=== PATIENT | female | born 1940 | race Caucasian/White ===

== ENCOUNTER → 2017-12-15 16:43 | Outpatient (CLI) | payer MEDICARE, SELFPAY ==
[2017-12-15 17:24] LABS: International Normalized Ratio 2.5; Prothrombin Time (Protime)PT. 27.5 SECONDS (11.7-14.9)
== END ==
PROVIDERS: Visit Provider Family Medicine
DX: I82.4Z9 Acute embolism and thrombosis of unspecified deep veins of unspecified distal lower extremity (principal)
CPT/HCPCS: 85610

== ENCOUNTER → 2018-11-04 13:25 | Outpatient (CLI) | payer MEDICARE, SELFPAY ==
--- NOTE | 2018-11-04 13:31 | VDLE_ITS ---
Reason For Study: DVT RIGHT LEFT GSV is normal. CFV is compressible, spontaneous, phasic, CFV is compressible, spontaneous, phasic, competent, and demonstrates normal competent and demonstrates normal augmentation. augmentation. FV is compressible, spontaneous, phasic, FV is compressible, spontaneous, phasic, competent and demonstrates normal competent and demonstrates normal augmentation. augmentation. POP V is compressible, spontaneous, phasic, POP V is compressible, spontaneous, phasic, competent and demonstrates normal competent and demonstrates normal augmentation. augmentation. T/P Trunk is compressible. T/P Trunk is compressible. PTV is compressible. PTV is compressible. LT PerV is compressible. RT PerV is compressible. GSV is contracted and non-compressible from Procedure prox thigh to ankle with bright intraluminal Exam performed in department. echoes. The exam was diagnostic. A preliminary report was called and/or faxed to Alejandro Ahumada's office. Interpretation Summary No evidence for acute deep venous thrombosis bilateral lower extremities. Patent and compressible right great saphenous vein. 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 Ordering Physician: Raz Ahumada Performed By: Guicho Fregoso RVT
== END ==
PROVIDERS: Family Provider Family Medicine; PCP Family Medicine; Referring Provider Physician Assistant; Visit Provider Physician Assistant
DX: I82.403 Acute embolism and thrombosis of unspecified deep veins of lower extremity, bilateral (principal); M79.89 Other specified soft tissue disorders
CPT/HCPCS: 93970

== ENCOUNTER 2019-01-24 05:27 | Day surgery (SDC) | payer MEDICARE, SELFPAY ==
--- NOTE | 2019-01-21 16:18 | HP.PCM_ITS ---
History and Physical Date of Admission: 01/24/19 HISTORY AND PHYSICAL ? Dari Zimmerman 1940 ? REFERRING PHYSICIAN: ??Jose Cruz Benavides MD ? CHIEF COMPLAINT: ??Consult (Consult Colonoscopy) ? HPI: The patient is a 78 year old female referred for endoscopy. ?Dari has a personal history of colon cancer which was discovered on endoscopy by Dr. Martin in 2014.???The patient subsequently underwent laparoscopic right hemicolectomy by Dr. Rob in April 2015, which was complicated by dense adhesions. ? Final pathology demonstrated: The tumor's size was ?4x3 cm. Macroscopic tumor perforation was not identified. 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 Histologic features for microsatellite instability - ???Intratumoral lymphocytic response: Mild to moderate ???Peritumoral lymphocytic response: Crohn's like lymphoid response: ?Mild to moderate ???Tumor subtype and differentiation: Not applicable ? MIcroscopic tumor extension: Tumor invades the muscularis propria Lymphovascular invasion: None Perineural invasion: None Surgical margins were free of disease. ? ? Lymph nodes examined: 19 Lymph nodes involved: 0 ? PATHOLOGIC STAGE: ?pT 2, pN 0, M 0 ? The patient did well following surgery, though notes she has had looser bowel movements ever since her colon resection and takes imodium often.?Patient denies any?recent?change in bowel habits, weight changes, blood in stools, black tarry stools or abdominal pain. ?The patient notes no upper GI complaints. ? The patient was referred to gastroenterology in 2015 for endoscopic surveillance due to her personal history of colon cancer. ?Patient had a colonoscopy by Dr. Thomas in July 2016 under [facility] and had three sessile serrated polyps removed at that time. ?She was advised to have a repeat colonoscopy in 2 years. ? Patient verbalizes that she is not at all happy to be here to discuss a colonoscopy today. ?States had a horrible experience last time and is just not sure she wants to have this done again. ?She verbalized multiple complaints including difficulty having her IV started, trouble tolerating Golytely and states I'm never drinking that again, was also very unhappy that she had procedure done by a provider she was unfamiliar with. ?States she is here because colonoscopy has been recommended to her by multiple providers but she is undecided as to whether she wants to proceed. ? Patient's past medical history is significant for colon cancer and polyps as noted above, malignant melanoma of the left upper extremity, type 2 diabetes mellitus controlled with medication, hypertension, hyperlipidemia, chronic kidney disease, history of DVT, maintained on chronic oral anticoagulation. ?Patient follows with Dr. Benavides and Alejandro Ahumada PA-C for her chronic medical conditions. ?She denies chest pain, shortness of breath or recent hospitalizations. ? ? PAST?MEDICAL?HISTORY PAST MEDICAL HISTORY Diagnosis Date ? Diabetes type 2, controlled (HCC) ? ? DVT (deep venous thrombosis) (HCC) 10/2012 ? left posterior tibial - multiple duplex 2013 - negative for DVT - on coumadin ? HTN (hypertension) ? ? Hypertension ? ? Hypothyroid ? ? CADE (iron deficiency anemia) ? ? Neuropathy (HCC) ? ? Obesity ? ? Osteoarthritis ? ? HIRA (stress urinary incontinence, female) 09/11/2017 ? ? PAST?SURGICAL?HISTORY PAST SURGICAL HISTORY Procedure Laterality Date ? APPENDECTOMY ? ? ? CARDIAC CATH ? 06/2010 ? prior to first knee replacement - negative? ? CHOLECYSTECTOMY ? 1989? ? open ? COLONOSCOP W/ OR W/O [facility] SPEC ? 03/06/2015 ? Colonoscopy ? COLONOSCOP W/ OR W/O [facility] SPEC ? 07/31/2016 ? Colonoscopy ? LAP COLECTOMY, RIGHT MAGDA W/ICA ? 04/25/2016 ? PAST SURGICAL HISTORY OF Bilateral 11/2013, 07/2010 ? Dr. Hampton, bilateral total knee replacement ? PAST SURGICAL HISTORY OF Left ? ? vein stripping ? ? CURRENT?MEDICATIONS ? Current Outpatient Medications: pioglitazone (ACTOS) 15 mg tablet Take 1 tablet by mouth once daily. warfarin (COUMADIN) 5 mg tablet 5 mg on Sat Sun and 7.5 all other days. glimepiride (AMARYL) 4 mg tablet Take 1 tablet by mouth daily with breakfast. gabapentin (NEURONTIN) 300 mg capsule Take 2 capsules by mouth once daily for 49 days. hydroCHLOROthiazide (HYDRODIURIL, ESIDRIX) 25 mg tablet Take 1 tablet by mouth once daily. levothyroxine (SYNTHROID) 75 mcg tablet Take 1 tablet by mouth once daily. lisinopril (ZESTRIL, PRINIVIL) 40 mg tablet Take 1 tablet by mouth twice daily. metoprolol succinate ER (TOPROL XL) 100 mg Tb24 Take 1 tablet by mouth once daily. metFORMIN ER (GLUCOPHAGE XR) 500 mg 24 hr tablet Take 2 tablets by mouth twice daily before meals. blood sugar diagnostic (BLOOD GLUCOSE TEST) test strip Test blood sugar(s) 1 times daily. ?Dx: Type 2 DM - Controlled E11.9 ?Insulin: No Blood-Glucose Meter monitoring kit Glucose Meter of Choice - Kit - Dx: ?Type 2 DM - Controlled E11.9Checks blood sugar once daily Blood Sugar Diagnostic, Disc (ASCENSIA BREEZE 2) strp Test blood sugar once a day DX: DM2: E11.9 COMPOUNDED PRESCRIPTION Support hose/socks; knee high. Compression 20-30 mm Hg. loperamide (IMODIUM) 2 mg cap(s) Take 1 capsule by mouth four times daily as needed. cholecalciferol (VITAMIN D3) 2,000 unit tablet Take 1 tablet by mouth once daily. ? No current facility-administered medications for this visit. Facility-Administered Medications Ordered in Other Visits: iv contrast (radiology procedure) ? INTRAVENOUS DIRECTED PRN ? ALLERGIES:?Patient has no known allergies. ? PERSONAL HISTORY:? SOCIAL?HISTORY Social History ??Socioeconomic History ?Marital status: ?Spouse name: Not on file ?Number of children: Not on file ?Years of education: Not on file ?Highest education level: Not on file ??Social Needs ?Financial resource strain: Not on file ?Food insecurity - worry: Not on file ?Food insecurity - inability: Not on file ?Transportation needs - medical: Not on file ?Transportation needs - non-medical: Not on file ??Occupational History ?Occupation: retired ??Tobacco Use ?Smoking status: Former Smoker ?Packs/day: 1.50 ?Years: 12.00 ?Pack years: 18 ?Types: Cigarettes ?Quit date: 12/26/1987 ?Years since quittin.0 ?Smokeless tobacco: Never Used ??Substance and Sexual Activity ?Alcohol use: No ?Drug use: No ?Sexual activity: Not on file ??Other Topics ?Concerns: ?Not on file ??Social History Narrative ?4 sons, 2local ?was homemaker ? FAMILY HISTORY:? FAMILY?HISTORY FAMILY HISTORY Problem Relation Age of Onset ? Cancer Sister ?breast ? other (dementia) Sister ? ? other (crohn's) Son ? ? Cancer Father ?Throat Cancer ? Heart Mother ?ID ? REVIEW OF SYMPTOMS: ??The review of systems data was entered by the nurse and reviewed by me ? Nursing Notes: Pawel Hair LPN ?12/29/2018 10:04 AM ?Signed REVIEW OF SYSTEMS: ?General:???The patient denies fatigue, denies weight loss, denies weight gain, denies feeling hot, and denies feelings of cold. ?Eyes: ?The patient denies glaucoma, denies eye injury/surgery, wears glasses or contacts. ?Ear/Nose/Throat: ?The patient denies allergies, denies hayfever, denies ear infections, and denies bloody noses. ?Cardiovascular: ?The patient denies chest pain, denies heart disease, NOTES high blood pressure,denies cardiac stent, denies prior heart attack, denies irregular heart beat, denies high cholesterol, ?denies poor circulation, denies heart failure, other cardiac issues, denies claudication, denies cold feet, denies peripheral arterial stent. ?Respiratory: ?The patient denies tuberculosis, denies pneumonia, denies frequent cough, denies pulmonary embolism, denies shortness of breath, and denies coughing up blood. ?Gastrointestinal: ?The patient denies difficulty swallowing, denies acid reflux, denies ulcers, denies vomiting, denies jaundice/hepatitis, NOTES gallbladder problems, denies black or tarry stools, denies hemorrhoids, denies b leeding from rectum, denies diverticulitis, denies constipation, denies diarrhea, denies loss of stool control, and denies hernias. ?Kidney/Bladder: ?The patient denies kidney stones, denies urine infections, and denies bloody urine. ?Skin: ?The patient denies a history of skin cancer, denies bleeding/changing moles, and NOTES a history of skin rash. ?Neurologic: ?The patient denies a history of epilepsy/convulsions, denies headaches, denies head/spinal injuries, and denies stroke/TIA. ?Psychiatric: ?The patient denies psychiatric medications, denies depression, and denies voices, denies substance abuse. ?Endocrine: ?The patient NOTES thyroid disorders, NOTES diabetes, and denies hormonal problems. ?Hematologic: ?The patient denies a history of bruising, denies bleeding, and NOTES anemia, NOTES blood clots. ?Infections: ?The patient denies a history of measles and mumps, denies rheumatic fever, and denies sexually transmitted diseases. ?Musculoskeletal: ?The patient denies back pain/injury, denies back problems, NOTES sciatica, NOTES knee/foot trouble, NOTES arthritis, or denies gout. ? ? When was patient's last Mammogram screening? 04/22 ? ?Last Colonoscopy: ?07/22 ? Pawel Hair LPN? I have confirmed and edited as necessary, the PFSH and ROS obtained by others. ? ? PHYSICAL EXAMINATION: ? General: ?The patient is 78 year old female, well nourished, well hydrated in no acute distress. ?The patient is oriented to time, place, and person. ? VITALS:?Blood pressure 136/78, pulse 89, temperature 36.6 ?C (97.9 ?F), temperature source Temporal Artery, height 172.7 cm (5' 8), weight 115.3 kg (254 lb 3.2 oz), SpO2 98 %.?Body mass index is 38.65 kg/m?.? ? HEENT: ?Normal cephalic, ataumatic, pupils are equally round, sclera are anicteric, mucous membranes are moist, oropharynx is clear. ?Neck has no masses, asymmetry or lymphadenopathy. ? ? Respiratory: ?Clear to auscultation and percussion. ?Normal respiratory excursion and pattern. ? Cardiac: ?Examination is regular rate and rhythm. ?Normal S1/S2 ? Abdominal exam: ?Soft, nontender, ?with no palpable masses. ?No hepatosplenomegaly. ?No palpable hernias. ? Extremities: ?no clubbing, cyanosis or edema. ?No adenopathy. ? LABORATORY VALUES: As Noted ? RADIOLOGIC STUDIES: ?As Noted ? ? Assessment ? IMPRESSION:?encounter for high-risk surveillance colonoscopy due to personal history of colon cancer and colonic polyps ? PLAN: ?I have reviewed my findings with the surgeon. ?Will plan for lower?endoscopy. ??We discussed the risks and benefits of the planned endoscopy. ?I have informed the patient that complications can occur including failure to complete the endoscopy and perforation. ?The patient had the opportunity to ask questions concerning the planned endoscopy. ?My staff has also explained the procedure to the patient in understandable terms and has given the patient printed material concerning the procedure. ? ? I plan to use?Miralax?bowel preparation with 2 days of clear liquid diet. ?Reviewed importance of good hydration ? Patient instructed to contact PCP for instructions regarding diabetic medication, which may require adjustment during bowel preparation and/or day of procedure. ?She may remain on all other routine medications as usual, including her anticoagulation. ? Patient notes that she is always a difficult stick for IVs and that this was part of her prior poor colonoscopy experience. ?Offered to write for EMLA cream to use on hand topically prior to coming in to have IV started. ?Patient will consider this ? ? We will plan for [facility]. ? Patient verbalized understanding of all above information and recommendations and has tentatively scheduled a colonoscopy with Dr. Rob ? Diagnoses:?(Z85.038) Personal history of colon cancer ?(primary encounter diagnosis) (Z86.010) Personal history of colonic polyps (Z85.820) Personal history of malignant melanoma (Z79.01) Chronic anticoagulation (E11.65) Uncontrolled type 2 diabetes mellitus without complication, without long-term current use of insulin (HCC) (Z86.718) History of DVT (deep vein thrombosis) ? ? Corinne Wynne PA-C
[2019-01-24 05:55] VITALS: BP 148/73; PULSE 68; RESP 18; TEMP 36.1; O2SAT 100; BMI 37.3
[2019-01-24 07:30] VITALS: BP 136/70; BP 148/73; PULSE 69; RESP 16; TEMP 36.4; O2SAT 98
[2019-01-24 07:35] VITALS: BP 131/75; BP 148/73; PULSE 67; RESP 16; O2SAT 100
[2019-01-24 07:40] VITALS: BP 133/73; BP 148/73; PULSE 67; RESP 16; O2SAT 100
--- NOTE | 2019-01-24 07:41 | OP.ENDO_ITS ---
01/24/2019 Jose Cruz Benavides Re : Colonoscopy procedure for Dari Zimmerman [place] This procedure was performed on Thursday, January 24, 2019. My impressions and recommendations are as follows: Impressions : - Patent functional end-to-end ileo-colonic anastomosis, characterized by healthy appearing mucosa. - Diverticulosis in the left colon. - The examination was otherwise normal. - The distal rectum and anal verge are normal on retroflexion view. - No specimens collected. Recommendations : - Discharge patient to home. - Resume previous diet. - Continue present medications. - Repeat colonoscopy in 5 years for surveillance. My findings are described in the full procedure note, which is enclosed. If I can be of further assistance, please feel free to contact me at Doctor phone number(s): , Work: . Sincerely, Isaac Rob MD 01/24/2019 7:40:53 AM This report has been signed electronically.
[2019-01-24 07:45] VITALS: BP 130/75; BP 148/73; PULSE 72; RESP 16; TEMP 36.3; O2SAT 100
[2019-01-24 08:35] VITALS: BP 148/73
== END 2019-01-24 08:51 | disposition home or self-care (01) ==
LOC: EN 05:28 → AC 05:29
PROVIDERS: Family Provider Family Medicine; PCP Family Medicine; Referring Provider Family Medicine; Visit Provider Surgery
PROC: 0DJD8ZZ Inspection of Lower Intestinal Tract, Via Natural or Artificial Opening Endoscopic (ICD-10-PCS; CPT 45378; principal; 2019-01-24 06:25)
DX: Z12.11 Encounter for screening for malignant neoplasm of colon (principal); Z85.038 Personal history of other malignant neoplasm of large intestine; Z86.010 Personal history of colon polyps; K57.30 Diverticulosis of large intestine without perforation or abscess without bleeding; Z98.0 Intestinal bypass and anastomosis status; Z85.820 Personal history of malignant melanoma of skin; E11.65 Type 2 diabetes mellitus with hyperglycemia; I12.9 Hypertensive chronic kidney disease with stage 1 through stage 4 chronic kidney disease, or unspecified chronic kidney disease; E11.22 Type 2 diabetes mellitus with diabetic chronic kidney disease; N18.9 Chronic kidney disease, unspecified; E11.40 Type 2 diabetes mellitus with diabetic neuropathy, unspecified; E78.00 Pure hypercholesterolemia, unspecified; E03.9 Hypothyroidism, unspecified; D50.9 Iron deficiency anemia, unspecified; E66.9 Obesity, unspecified; Z68.37 Body mass index [BMI] 37.0-37.9, adult; Z90.49 Acquired absence of other specified parts of digestive tract; Z86.718 Personal history of other venous thrombosis and embolism; Z79.01 Long term (current) use of anticoagulants; Z79.84 Long term (current) use of oral hypoglycemic drugs; Z79.899 Other long term (current) drug therapy; Z87.891 Personal history of nicotine dependence; Z86.73 Personal history of transient ischemic attack (TIA), and cerebral infarction without residual deficits
CPT/HCPCS: G0105; J7120

== ENCOUNTER → 2019-08-01 | Outpatient (CLI) | payer MEDICARE, SELFPAY ==
[2019-08-01 16:13] LABS: Prothrombin Time (Protime)PT. 37.3 SECONDS (11.7-14.9)
[2019-08-01 16:17] LABS: International Normalized Ratio 3.7
== END | disposition home or self-care (01) ==
PROVIDERS: PCP Family Medicine; Visit Provider Family Medicine
DX: I82.403 Acute embolism and thrombosis of unspecified deep veins of lower extremity, bilateral (principal)
CPT/HCPCS: 85610

== ENCOUNTER 2020-02-17 15:52 | Emergency (ER) | payer MEDICARE, SELFPAY ==
[2020-02-17 14:32] VITALS: BMI 37.3
[2020-02-17 15:54] VITALS: BP 125/67; PULSE 79; RESP 17; TEMP 36.6; O2SAT 96; BMI 36.8
--- NOTE | 2020-02-17 16:19 | CT_ITS ---
STUDY: CT BRAIN WITHOUT CONTRAST REASON FOR EXAM: Female, 80 years old. CONFUSION/WEAKNESS/FATIGUE/BILAT ANKLE EDEMA -- hHX:HTN,DIABETES,COLON CANCER,TIA,HYPOTHYROID RADIATION DOSAGE (If Supplied By Facility): CTDIvol = ( 44.99 ) mGy, DLP = ( 812.98 ) mGycm TECHNIQUE: Transaxial CT imaging of the brain was performed without administration of intravenous contrast material. Individualized dose optimization techniques were used for this CT. COMPARISON: 07/02/2017 FINDINGS: Normal soft tissue structures. Normal calvarium. Normal size ventricles and extra-axial spaces for the patient''s age. Bilateral white matter microangiopathic ischemic changes of the cerebral hemispheres. Normal basal ganglia and thalami. Normal brainstem. Normal cerebellum. There is no intracranial hemorrhage. There are no findings of an acute ischemic infarction. Normal visualized paranasal sinuses. CT/Brain/Head without Contrast IMPRESSION: Relatively stable age-related changes of the brain. Electronically Signed: Hiram Ross DO at 18:18 EDT Tel [phone], Service support ,
--- NOTE | 2020-02-17 16:19 | EKG12_ITS ---
Test Reason : WEAKNESS Blood Pressure : / mmHG Vent. Rate : 071 BPM Atrial Rate : 071 BPM P-R Int : 156 ms QRS Dur : 094 ms QT Int : 402 ms P-R-T Axes : 041 -47 008 degrees QTc Int : 436 ms Normal sinus rhythm Left anterior fascicular block Nonspecific ST abnormality Abnormal ECG Confirmed by RASHEL WHITLEY, TINA ([id number]), on site manager JAIDEN POLK ([id number]) on 02/20/2020 2:35:10 PM Referred By: BB Confirmed By:TINA KISER MD
--- NOTE | 2020-02-17 16:21 | ED.DCSUM_ITS ---
History of Present Illness Chief Complaint: Weakness Informant: Patient, Friend Onset: Weeks - 1-2 Context: Gradual Onset Timing: Continuous Quality: no energy Location: all over Current Severity: Severe Maximum Severity: Severe Worsened by: nothing Relieved by: nothing Associated Symptoms: edema both lower ext's. poor appetite. chronic diarrhea. Narrative: Patient has been generally weak. She lives alone, she states today she is able to stand, but not able to walk and get around well. She went to urgent care today, and was referred here to the ER. She is on warfarin for history of DVTs, she has had no bleeding or melena recently. She has chronic diarrhea since she had her colon resected because of colon cancer, that is unchanged. She has had no abdominal pain, nausea, vomiting recently. Significant decreased appetite and oral intake. She denies any thoracic symptoms, headaches, focal neurologic symptoms, just weak all over. She is on thyroid replacement medication and is compliant with her medications, the dose of these has not been changed lately. Patient presents during the national coronavirus emergency declaration/pandemic. She denies any known contact with anyone infected with COVID-19. She denies traveling out of the immediate area recently. - Past Medical History (1) Chronic anticoagulation Status: Chronic (2) Deep vein thrombosis Status: Chronic (3) Diabetes mellitus type 2 in obese Status: Chronic (4) History of TIA (transient ischemic attack) Status: Chronic (5) History of colon cancer Status: Chronic (6) Hypertension Status: Chronic (7) Hypothyroidism Status: Chronic (8) Mild diastolic dysfunction Status: Chronic (9) Peripheral neuropathy Status: Chronic (10) Venous insufficiency Status: Chronic Past Medical History - Allergies and Home Meds Allergies/Adverse Reactions: Allergies No Known Allergies Allergy (Verified 02/17/20 15:53) Primary Care Physician: Jose Cruz Benavides MD [Primary Care Provider] - Surgical History: cataract, cholecystectomy, total knee arthroplasty - Bilaterally, tonsillectomy, - - Partial colectomy for colon cancer Lives: Alone Smoking Status: Former smoker - Family History Maternal Family History: Reports: Heart Disease Paternal Family History: Reports: Cancer Review of Systems General: Reports: Malaise. Denies: Chills, Fever, Sweats Eyes: Denies: Visual changes - bilaterally, Diplopia ENT: Denies: Rhinorrhea, Sore throat Cardiovascular: Denies: Chest pain, Palpitations Respiratory: Denies: Dyspnea, Cough, Dyspnea on exertion Gastrointestinal: Reports: Diarrhea. Denies: Abdominal pain, Nausea, Vomiting, Melena, Hematochezia Genitourinary: Denies: Dysuria, Hematuria, Frequency Musculoskeletal: Reports: Swelling. Denies: Neck pain, Back pain, Extremity Pain Skin: Denies: Rash, Wounds Neurological: Reports: - - According to friend several days ago, had some episodes of slow responsiveness although she did not lose consciousness.. Denies: Headache, Weakness, Numbness Physical Exam Vital Signs/Narrative: Vital Signs Temp Pulse Resp BP Pulse Ox 02/17/20 15:54 97.9 F 79 17 125/67 H 96 Inital Vital Signs reviewed: Yes General: Well nourished, Well developed, Obese, No Acute Distress Head: Normocephalic, Atraumatic Eyes: Perrl, EOMI ENT: Moist mucous membranes, No rhinorrhea Neck: Supple, Nontender, No lymphadenopathy, No JVD Cardiovascular: Regular rate, Regular rhythm, No murmurs Respiratory: No distress, CTA bilaterally, Chest nontender Abdomen: Soft, Nontender, Nondistended, Normal bowel sounds Back: Nontender, Normal Inspection Extremities: Nontender, Edema - 2+ BLE symmetric to knees. Negative for: Calf Tenderness Skin: Normal color, No rash, No Trauma Neurological: Alert, Oriented x3, Cranial nerves II-XII grossly intact, Normal Strength, Normal Sensation Psychological: Normal affect, Normal Mood Diagnostic/Tx/Re-eval Impressions Brain CT 02/17/20 16:19 IMPRESSION: Relatively stable age-related changes of the brain. Electronically Signed: Hiram Ross DO at 18:18 EDT Tel [phone], Service support , Chest X-Ray 02/17/20 18:00 IMPRESSION: Normal x-ray examination of the chest. Electronically Signed: Hiram Ross DO at 18:50 EDT Tel [phone], Service support , 02/17/20 16:19 Brain/Head without Contrast [CT] Stat 02/17/20 18:00 Chest 1 View (Portable) [RAD] Stat Laboratory Results 02/17/20 02/17/20 02/17/20 16:45 17:45 17:45 WBC Cancelled Corrected WBC Cancelled RBC Cancelled Hgb Cancelled Hct Cancelled MCV Cancelled MCH Cancelled MCHC Cancelled RDW Std Deviation Cancelled RDW Coeff of Shania Cancelled Plt Count Cancelled MPV Cancelled Immature Gran % (Auto) Cancelled Neut % (Auto) Cancelled Lymph % (Auto) Cancelled [place] % (Auto) Cancelled Eos % (Auto) Cancelled Baso % (Auto) Cancelled Absolute Neuts (auto) Cancelled Absolute Lymphs (auto) Cancelled Total Counted Cancelled Neutrophils % (Manual) Cancelled Band Neutrophils % Cancelled Lymphocytes % (Manual) Cancelled Monocytes % (Manual) Cancelled Eosinophils % (Manual) Cancelled Basophils % (Manual) Cancelled Metamyelocytes % Cancelled Myelocytes % Cancelled Promyelocytes % Cancelled Blast Cells % Cancelled Plasma Cell % (Manual) Cancelled Other Cells % Cancelled Nucleated RBC % Cancelled Nucleated RBCs/100 WBC Cancelled Differential Comment Cancelled Diff Path Review Cancelled Hypersegmented Neuts Cancelled Atypical Lymphocytes Cancelled Reactive Lymphocytes Cancelled Smudge Cells Cancelled Toxic Granulation Cancelled Toxic Vacuolation Cancelled Dohle Bodies Cancelled Niharika Rods Cancelled Platelet Estimate Cancelled Plt Morphology Comment Cancelled RBC Morphology Cancelled Polychromasia Cancelled Hypochromasia Cancelled Poikilocytosis Cancelled Basophilic Stippling Cancelled Anisocytosis Cancelled Microcytosis Cancelled Macrocytosis Cancelled Spherocytes Cancelled Sickle Cells Cancelled Target Cells Cancelled Tear Drop Cells Cancelled Ovalocytes Cancelled Stomatocytes Cancelled [place] Bodies Cancelled Levan Cells Cancelled Bite Cells Cancelled Crenated Cell Cancelled Acanthocytes (Spur) Cancelled Rouleaux Cancelled Schistocytes Cancelled PT 38.4 H INR 3.9 H* Sodium Potassium Chloride Carbon Dioxide Anion Gap BUN Creatinine Estim Creat Clear Calc Est GFR (MDRD) Af Amer Est GFR (MDRD) Non-Af BUN/Creatinine Ratio Glucose Calcium Total Bilirubin AST ALT Alkaline Phosphatase Troponin I B-Natriuretic Peptide Total Protein Albumin Globulin Albumin/Globulin Ratio TSH Urine Color Urine Clarity Urine pH Ur Specific [place] Urine Protein Urine Glucose (UA) Urine Ketones Urine Occult Blood Urine Nitrite Urine Bilirubin Urine Urobilinogen Ur Leukocyte Esterase Urine RBC Urine WBC Ur Squamous Epith Cells Urine Bacteria Urine Mucus COVID-19 (NICHOLAS) Negative 02/17/20 02/17/20 02/17/20 17:45 17:45 18:57 WBC 10.4 Corrected WBC RBC 3.28 L Hgb 10.4 L Hct 31.0 L MCV 94.5 MCH 31.7 MCHC 33.5 RDW Std Deviation 44.9 H RDW Coeff of Shania 12.8 Plt Count 333 MPV 10.7 Immature Gran % (Auto) 0.700 Neut % (Auto) 71.8 H Lymph % (Auto) 16.2 L [place] % (Auto) 10.7 H Eos % (Auto) 0.3 Baso % (Auto) 0.3 Absolute Neuts (auto) 7.5 Absolute Lymphs (auto) 1.69 Total Counted Neutrophils % (Manual) Band Neutrophils % Lymphocytes % (Manual) Monocytes % (Manual) Eosinophils % (Manual) Basophils % (Manual) Metamyelocytes % Myelocytes % Promyelocytes % Blast Cells % Plasma Cell % (Manual) Other Cells % Nucleated RBC % 0 Nucleated RBCs/100 WBC Differential Comment Diff Path Review Hypersegmented Neuts Atypical Lymphocytes Reactive Lymphocytes Smudge Cells Toxic Granulation Toxic Vacuolation Dohle Bodies Niharika Rods Platelet Estimate Plt Morphology Comment RBC Morphology Polychromasia Hypochromasia Poikilocytosis Basophilic Stippling Anisocytosis Microcytosis Macrocytosis Spherocytes Sickle Cells Target Cells Tear Drop Cells Ovalocytes Stomatocytes [place] Bodies Sunday Cells Bite Cells Crenated Cell Acanthocytes (Spur) Rouleaux Schistocytes PT INR Sodium 128 L Potassium 3.8 Chloride 97 L Carbon Dioxide 23.0 Anion Gap 8 BUN 17 Creatinine 1.26 H Estim Creat Clear Calc 34.73 Est GFR (MDRD) Af Amer 52 L Est GFR (MDRD) Non-Af 43 L BUN/Creatinine Ratio 13.5 Glucose 145 H Calcium 8.9 Total Bilirubin 0.50 AST 19 ALT 14 Alkaline Phosphatase 84 Troponin I < 0.015 B-Natriuretic Peptide Cancelled Total Protein 7.9 Albumin 2.8 L Globulin 5.1 H Albumin/Globulin Ratio 0.5 L TSH 1.37 Urine Color Urine Clarity Urine pH Ur Specific [place] Urine Protein Urine Glucose (UA) Urine Ketones Urine Occult Blood Urine Nitrite Urine Bilirubin Urine Urobilinogen Ur Leukocyte Esterase Urine RBC Urine WBC Ur Squamous Epith Cells Urine Bacteria Urine Mucus COVID-19 (NICHOLAS) 02/17/20 02/17/20 18:57 19:45 WBC Corrected WBC RBC Hgb Hct MCV MCH MCHC RDW Std Deviation RDW Coeff of Shania Plt Count MPV Immature Gran % (Auto) Neut % (Auto) Lymph % (Auto) [place] % (Auto) Eos % (Auto) Baso % (Auto) Absolute Neuts (auto) Absolute Lymphs (auto) Total Counted Neutrophils % (Manual) Band Neutrophils % Lymphocytes % (Manual) Monocytes % (Manual) Eosinophils % (Manual) Basophils % (Manual) Metamyelocytes % Myelocytes % Promyelocytes % Blast Cells % Plasma Cell % (Manual) Other Cells % Nucleated RBC % Nucleated RBCs/100 WBC Differential Comment Diff Path Review Hypersegmented Neuts Atypical Lymphocytes Reactive Lymphocytes Smudge Cells Toxic Granulation Toxic Vacuolation Dohle Bodies Niharika Rods Platelet Estimate Plt Morphology Comment RBC Morphology Polychromasia Hypochromasia Poikilocytosis Basophilic Stippling Anisocytosis Microcytosis Macrocytosis Spherocytes Sickle Cells Target Cells Tear Drop Cells Ovalocytes Stomatocytes [place] Bodies Levan Cells Bite Cells Crenated Cell Acanthocytes (Spur) Rouleaux Schistocytes PT INR Sodium Potassium Chloride Carbon Dioxide Anion Gap BUN Creatinine Estim Creat Clear Calc Est GFR (MDRD) Af Amer Est GFR (MDRD) Non-Af BUN/Creatinine Ratio Glucose Calcium Total Bilirubin AST ALT Alkaline Phosphatase Troponin I B-Natriuretic Peptide 72.0 Total Protein Albumin Globulin Albumin/Globulin Ratio TSH Urine Color Yellow Urine Clarity Clear Urine pH 5.0 Ur Specific [place] 1.015 Urine Protein 100 H Urine Glucose (UA) Normal Urine Ketones 5 H Urine Occult Blood 25 H Urine Nitrite Negative Urine Bilirubin Negative Urine Urobilinogen Normal Ur Leukocyte Esterase 100 H Urine RBC 0 SEEN Urine WBC 5-10 SEEN Ur Squamous Epith Cells 5-10 SEEN Urine Bacteria 0 SEEN Urine Mucus 0 SEEN COVID-19 (NICHOLAS) - Rhythm Strip Rhythm Strip: Sinus Rhythm Rate: 70 Ectopy: None - EKG Initial EKG Interpretation: Sinus Rhythm, No Acute Injury Pattern, LAFB Prior: Unchanged - Medical Decision Making There was some delay because the patient's blood need to be redrawn several times, however the work-up really does not show the obvious reason for her feeling weak. She has a lot of edema in her legs, this may be why she is feeling this way because her legs are heavy. She states my doctor did not want to put me on a water pill because of my kidneys. Her function is not awful right now, she has very mild hyponatremia but not enough to be admitted. I offered admission for 23-hour observation, she declines and wants to go home. I think it would be reasonable to put her on 20 mg of Lasix every morning for the next several days, so I gave her prescription for 4 pills. She is amenable to this, and we discussed reasons to return. Her urine showed trace leukocyte esterase, no significant pyuria, I sent this for culture but I do not think it represents a urinary infection. ED Disposition - Plan for ED Patient: Disposition: Home or Assisted Living Diagnosis: Generalized weakness, Bilateral lower extremity edema, Supratherapeutic international normalized ratio (INR) Instructions: ED Peripheral Edema, Bilateral Prescriptions: Furosemide [Lasix] 20 mg PO DAILY #4 tab Prescription Printed Referrals: Jose Cruz Benavides MD [Primary Care Provider] - 3-5 Days Additional Instructions: Hold your Coumadin dose for the next 2 days since your level is 3.9.
--- NOTE | 2020-02-17 18:00 | RAD_ITS ---
STUDY: X-RAY CHEST REASON FOR EXAM: Female, 80 years old. INCREASED WEAKNESS, FATIGUE, AND B/L LEG EDEMA TECHNIQUE: Frontal view COMPARISON: 07/02/2017 FINDINGS: The lungs are clear and expanded. There is no demonstrated pleural abnormality. Normal size heart. Normal mediastinum and virgen. Normal visualized pulmonary arteries. Normal visualized aortic arch and descending thoracic aorta. Degenerative changes of the thoracic spine. Normal visualized ribs, clavicles, and shoulders. There is no demonstrated abnormality of the visualized soft tissue structures of the upper abdomen. RAD/Chest 1 View (Portable) IMPRESSION: Normal x-ray examination of the chest. Electronically Signed: Hiram Ross DO at 18:50 EDT Tel [phone], Service support ,
[2020-02-17 18:10] LABS: Prothrombin Time (Protime)PT. 38.4 SECONDS (11.7-14.9)
[2020-02-17 18:14] LABS: International Normalized Ratio 3.9
[2020-02-17 18:16] LABS: Probe Check PASS; Specimen Processing Control PASS
[2020-02-17 18:32] LABS: ALB/GLOB Ratio 0.5 RATIO (0.9-2.4); AST(SGOT) 19 U/L (15-37); Alanine Aminotransfer ALT/SGPT 14 U/L (13-56); Albumin, Serum 2.8 g/dL (3.2-5.0); Alkaline Phosphatase 84 U/L (45-117); Anion Gap 8 (5-15); BUN 17 mg/dL (7-18); BUN/Creat Ratio 13.5 RATIO (10-20); Calcium,Total 8.9 mg/dL (8.5-10.1); Chloride 97 mmol/L (98-107); Creatinine, Serum 1.26 mg/dL (0.55-1.02); EST Glomerular Filtration Rate 43 mL/min (>60); Est Glom Filt Rate - Afr Amer 52 mL/min (>60); Estimated Creatinine Clearance 34.73 ml/min; Globulin 5.1 g/dL (2.2-4.2); Glucose 145 mg/dL (74-106); Potassium 3.8 mmol/L (3.5-5.1); Protein, Total 7.9 g/dL (6.4-8.2); Sodium Level 128 mmol/L (136-145); Thyroid Stim Hormone (TSH) 1.37 uIU/mL (0.358-3.74)
[2020-02-17 19:05] LABS: Absolute Lymphocyte Count 1.69 X10^3/uL (0.83-4.51); Absolute Neutrophil Count 7.5 X10^3/uL (2.0-7.7); Basophil# 0.03 X10^3/uL; Basophil% 0.3 % (0-1); Eosinophil# 0.03 X10^3/uL; Eosinophils% 0.3 % (0-5); Hemoglobin 10.4 g/dL (12.0-15.0); Lymphocyte # 1.69 X10^3/ul (4.0); Lymphocyte % 16.2 % (19-41); Mean Corp Hgb Conc 33.5 g/dL (32-36); Mean Corpuscular Hgb 31.7 pg (27.0-32.0); Mean Corpuscular Volume 94.5 fL (81-99); Mean Platelet Vol. 10.7 fl (6.2-12.0); Monocyte# 1.12 X10^3/uL; Monocyte% 10.7 % (0-10); NRBC Flagged by Analyzer 0 % (0-5); Neutrophil # 7.49 X10^3/uL (2.7-7.7); Neutrophil % 71.8 % (47-70); Platelet Count 333 K/mm3 (150-450); RBC Distribution Width CV 12.8 % (11.6-14.6); RBC Distribution Width SD 44.9 fl (35.1-43.9); Red Blood Count 3.28 M/mm3 (4.2-5.4); White Blood Count 10.4 K/mm3 (4.4-11.0)
[2020-02-17 19:51] LABS: Bacteria 0 SEEN /hpf (None Seen); Color, Urine Yellow (Yellow); Glucose, Dipstick Normal (Normal); Ketone-Dipstick 5 mg/dl (Negative); Leukocyte Esterase-Dipstick 100 /ul (Negative); Mucous, Urine 0 SEEN /hpf (<or=2+); Nitrite-Dipstick Negative (Negative); Occult Blood-Urine 25 /ul (Negative); Protein-Dipstick 100 mg/dl (Negative); Red Blood Cells-Urine 0 SEEN /hpf (0-5); Specific Gravity, Urine 1.015 (1.002-1.030); Urine Bilirubin Dipstick Negative (Negative); Urine Clarity Clear (Clear); Urine Urobilinogen Normal (Normal)
[2020-02-17 19:59] LABS: Squamous Epithelial Cells - UA 5-10 SEEN /hpf (5-10); White Blood Cells 5-10 SEEN /hpf (0-5)
[2020-02-17 20:52] VITALS: BP 110/70; PULSE 86; RESP 15; O2SAT 97
[2020-02-17 22:26] VITALS: PULSE 82; RESP 16; O2SAT 95
== END 2020-02-17 21:50 | disposition home or self-care (01) ==
PROVIDERS: Emergency Provider Emergency Medicine; PCP Family Medicine
DX: R53.1 Weakness (principal); R60.0 Localized edema; R79.1 Abnormal coagulation profile; I10 Essential (primary) hypertension; E66.9 Obesity, unspecified; E03.9 Hypothyroidism, unspecified; Z79.01 Long term (current) use of anticoagulants; Z86.718 Personal history of other venous thrombosis and embolism; Z87.891 Personal history of nicotine dependence; Z86.73 Personal history of transient ischemic attack (TIA), and cerebral infarction without residual deficits
CPT/HCPCS: 36415; 70450; 71045; 80053; 81001; 83880; 84443; 84484; 85025; 85610; 87086; 87088; 87635; 93005; 94799; 99285; A4216; U0003

== ENCOUNTER 2020-08-29 10:13 | Outpatient (RCR) | payer MEDICARE, SELFPAY | END 2020-08-29 23:59 | LOC: IMMUN 10:13 | PROVIDERS: PCP Family Medicine; Referring Provider Family Medicine; Visit Provider Family Medicine | DX: Z23 Encounter for immunization (principal) | CPT/HCPCS: 0011A; 0012A; 91301 ==

== ENCOUNTER → 2020-09-13 12:14 | Outpatient (CLI) | payer MEDICARE, SELFPAY ==
--- NOTE | 2020-09-13 12:19 | US_ITS ---
STUDY: SUPERFICIAL ULTRASOUND - LEFT POSTERIOR KNEE. REASON FOR EXAM: Female, 80 years old. MASS OF LLE/SUSPECT BARRON''S CYST TECHNIQUE: A superficial ultrasound was performed with real-time and static vallejo-scale imaging. COMPARISON: None. FINDINGS: At the level of the region of clinical concern, popliteal fossae there is an elongated, heterogeneous mass measuring 5.2 x 5.5 x 2.7 cm. This contains cystic with fluid filled areas along with solid component. There is scattered color flow. There is suggestion of internal calcifications within the mass. US/Ext Non Vasc Limited/Soft Tiss IMPRESSION: Heterogeneous mass at the level of the popliteal fossa as described raising the concern of a complex cystic/solid lesion. Differential diagnosis includes resolving hematoma, infectious process or neoplasm. Recommend further characterization with MRI of the knee with intravenous contrast. Electronically Signed: Niyah Stanley MD at 0:36 EST , Service support ,
== END ==
PROVIDERS: PCP Family Medicine; Referring Provider Physician Assistant; Visit Provider Physician Assistant
DX: R22.42 Localized swelling, mass and lump, left lower limb (principal)
CPT/HCPCS: 76882

== ENCOUNTER → 2020-09-19 14:55 | Outpatient (CLI) | payer MEDICARE, SELFPAY ==
[2020-09-19 17:54] LABS: Creatinine, Serum 1.16 mg/dL (0.55-1.02); EST Glomerular Filtration Rate 48 mL/min (>60); Est Glom Filt Rate - Afr Amer 57 mL/min (>60)
== END ==
PROVIDERS: PCP Family Medicine; Referring Provider Physician Assistant; Visit Provider Physician Assistant
DX: Z96.652 Presence of left artificial knee joint (principal)
CPT/HCPCS: 36415; 82565

== ENCOUNTER 2020-09-30 15:41 | Emergency (ER) | payer MEDICARE, SELFPAY ==
[2020-09-30 15:42] VITALS: BP 163/106; PULSE 81; RESP 20; TEMP 36.6; O2SAT 95; BMI 36.3
--- NOTE | 2020-09-30 16:02 | ED.DCSUM_ITS ---
- ER Visit Summary Date of Service: 09/30/20 Chief Complaint: Trinidad cyst ruptured History of Present Illness: The patient is a 80 F who had a left knee replacement approximately [address] Benavides is her primary care physician. She reports that she was seen by [facility] after having an ultrasound on September 13 that showed a mass posterior to her left knee. She had an MRI 6 days ago that showed this was a Trinidad's cyst. Patient reports that this morning she sat down on the commode and that the Trinidad's cyst popped. It drained a great deal. She denies any knee pain. She denies any constitutional symptoms. No fever, chills, nausea, vomiting, confusion, or other complaints. Physical Examination: Vitals: Stable. Afebrile. General: Well-nourished and well-developed. Head: Normocephalic atraumatic. Neck: Supple, no lymphadenopathy. No JVD. Nontender. Cardiovascular: Regular rate and rhythm. No murmurs. Respiratory: No respiratory distress. Clear to auscultation bilaterally. Abdominal: Soft, nontender, nondistended, normal bowel sounds. No guarding, rebound, or peritoneal signs. Back: Nontender. Extremities: Posterior left knee there is approximately 2 cm swollen area with a 0.5 mm draining area in the center. There is minimal erythema. She has an ABD in place that is soaked with yellow fluid that is stringy consistent with synovial fluid. Does not appear cloudy or purulent. Anterior knee her incision has healed well. There is no erythema or warmth to suggest a septic joint. She has no pain with range of motion. She has 2+ pitting edema lower extremity bilaterally with chronic venous stasis changes. There is no erythema here either. Skin: Normal color, no rash. Neurologic: Alert and oriented ?3. Cranial nerves II through XII are intact. Normal strength and sensation. Psych: Normal affect. Test Results: INR Emergency Department Course and Treatment: Patient had a dressing placed. She was treated with Keflex and doxycycline p.o. Treatment Plan: Patient was discussed with Dr. Drake who would like her placed on prophylactic Keflex and doxycycline. He will see her in the office tomorrow for another exam. Patient is instructed to hold her Coumadin for 2 days. Her creatinine clearance on September 19 was 48 and her Keflex dose will be decreased to 500 mg 3 times daily based on this. She is also given Zofran for nausea. Return to the emergency department for any worsening symptoms. Disposition: To home in improved and stable condition. Impression: 1. Left Trinidad's cyst rupture. 2. Coumadin coagulopathy. 3. Creatinine clearance of 48. This note was generated with [employer] dictation software. It may contain incorrect words, spelling, and punctuation that were not noted in review of the chart prior to signing ED Disposition - Plan for ED Patient: Instructions: ED Trinidad's Cyst Prescriptions: Doxycycline 100 mg PO BID #20 capsule Prescription Printed Cephalexin [Keflex] 500 mg PO Q8 #21 capsule Prescription Printed Ondansetron [Zofran Odt] 4 mg PO Q8H PRN PRN #10 tablet PRN Reason: Nausea Prescription Printed Referrals: Leobardo Drake MD [STAFF PHYSICIAN] - 1 Day for another exam Additional Instructions: I will call you with the results of your warfarin level as soon as it is back. Hold your warfarin for the next 2 days.
[2020-09-30] MEDS: Doxycycline 100 MG CAPSULE PO (16:11)
[2020-09-30] MEDS: Cephalexin 500 MG Capsule PO (16:11)
[2020-09-30 16:28] VITALS: RESP 16
[2020-09-30 18:02] LABS: International Normalized Ratio 2.9; Prothrombin Time (Protime)PT. 29.4 SECONDS (11.7-14.9)
== END 2020-09-30 17:46 | disposition home or self-care (01) ==
LOC: ED 16:13
PROVIDERS: Emergency Provider Emergency Medicine; PCP Family Medicine
DX: M66.0 Rupture of popliteal cyst (principal); R79.1 Abnormal coagulation profile; T45.515A Adverse effect of anticoagulants, initial encounter; I10 Essential (primary) hypertension; Z96.652 Presence of left artificial knee joint; Z79.01 Long term (current) use of anticoagulants; Z79.84 Long term (current) use of oral hypoglycemic drugs; Z79.899 Other long term (current) drug therapy; Z86.73 Personal history of transient ischemic attack (TIA), and cerebral infarction without residual deficits
CPT/HCPCS: 85610; 99282

== ENCOUNTER 2020-10-03 10:12 | Inpatient (IN) | payer MEDICARE, SELFPAY ==
[2020-10-02 13:47] LABS: Erythrocyte Sedimentation Rate 41 mm/hr (0-30)
[2020-10-02 13:49] LABS: Absolute Lymphocyte Count 2.18 X10^3/uL (0.83-4.51); Basophil# 0.05 X10^3/uL; Basophil% 0.5 % (0-1); Eosinophil# 0.15 X10^3/uL; Eosinophils% 1.5 % (0-5); Hematocrit 35.4 % (37-47); Lymphocyte # 2.18 X10^3/ul (4.0); Lymphocyte % 21.6 % (19-41); Mean Corp Hgb Conc 31.1 g/dL (32-36); Mean Corpuscular Hgb 29.5 pg (27.0-32.0); Mean Corpuscular Volume 94.9 fL (81-99); Mean Platelet Vol. 10.8 fl (6.2-12.0); Monocyte# 0.69 X10^3/uL; Monocyte% 6.8 % (0-10); NRBC Flagged by Analyzer 0 % (0-5); Neutrophil # 6.98 X10^3/uL (2.7-7.7); Neutrophil % 69.1 % (47-70); Platelet Count 413 K/mm3 (150-450); RBC Distribution Width CV 15.3 % (11.6-14.6); RBC Distribution Width SD 53.1 fl (35.1-43.9); Red Blood Count 3.73 M/mm3 (4.2-5.4); White Blood Count 10.1 K/mm3 (4.4-11.0)
[2020-10-02 14:09] LABS: Anion Gap 5 (5-15); BUN 25 mg/dL (7-18); BUN/Creat Ratio 21.6 RATIO (10-20); Calcium,Total 9.4 mg/dL (8.5-10.1); Chloride 98 mmol/L (98-107); Creatinine, Serum 1.16 mg/dL (0.55-1.02); EST Glomerular Filtration Rate 48 mL/min (>60); Est Glom Filt Rate - Afr Amer 57 mL/min (>60); Estimated Creatinine Clearance 37.72 ml/min; Glucose 143 mg/dL (74-106); Potassium 3.7 mmol/L (3.5-5.1); Sodium Level 131 mmol/L (136-145)
[2020-10-02 14:27] LABS: Magnesium 1.5 mg/dL (1.6-2.6)
[2020-10-02 14:33] LABS: Hemoglobin A1c 8.1 % (3.8-5.6)
[2020-10-03] VITALS (11 sets, daily range): BP systolic 124–151; BP diastolic 57–84; PULSE 63–92; RESP 16–18; TEMP 35.8–37.4; O2SAT 94–100; BMI 35.5
[2020-10-03] MEDS: Lactated Ringers 1,000 ML 100 ML IV (12:00)
[2020-10-03 12:25] LABS: International Normalized Ratio 1.7
[2020-10-03] MEDS: Gabapentin 600 MG Tablet PO ×2 (12:53→21:22)
[2020-10-03] MEDS: Acetaminophen 500 MG Tablet 1000 MG PO ×2 (12:54→21:21)
[2020-10-03 13:06] LABS: Bedside Glucose 145 mg/dL (70-110)
[2020-10-03] MEDS: Cefazolin 2 GM in 0.9% Normal Saline 100 ML IV (15:05)
--- NOTE | 2020-10-03 15:31 | PCM.OPRPT ---
Report of Operation Date of Procedure: 10/03/20 Pre-Operative Diagnosis: Left knee periprosthetic joint infection. Left knee draining sinus Post-Operative Diagnosis: Left knee periprosthetic joint infection. Left knee draining sinus. Left knee posterior knee abscess Surgery/Procedure Performed:: Irrigation debridement with sinus tract excision left knee posterior abscess. Irrigation debridement with polyethylene exchange left knee periprosthetic joint infection Description of Surgical Findings:: Patient had posterior knee wound which was debrided. He had grossly purulent and congealed fluid. We did aspirate the knee prior to entering the joint and found to have cloudy fluid with some of the same congealed tissue. caption writer: Tal Austin Type of Anesthesia:: General Anesthesiologist: Toño Treviño Special Medications: Ancef after cultures were taken Specimen's removed: Specimen cultures from the abscess as well as the knee itself were sent for her biology. A joint aspirate was sent for cell count and cultures. Estimated Blood Loss (mL): 50 Fluids Replaced: 1200 ml crystalloid Description of Procedure: 80 yo f history of l TKA in 2013 presents with a draining sinus for the last 72 hours. Patient was evaluated in the emergency department for this 3 days ago and sent to my office the following day. We promptly arrange for surgery. Her initial INR was supratherapeutic at 2.9. Her Coumadin was stopped and she was brought to the operating room 2 days later. Her draining sinus developed in the posterior knee. Reviewed options were discussed the patient. Based on acuity of the symptoms and organism irrigation debridement with polyethylene exchange is recommended. Risks and benefits of the procedure were discussed with the patient including but not limited to blood loss, DVTs, PEs, neurovascular damage, infection, general risk of anesthesia including loss of life. Demonstrated understanding and was able to sign informed consent. On the date of procedure patient's L lower extremity was marked in the preoperative area. The patient was then taken back to the operating room where the patient was placed on the table in the supine position. All bony prominences were identified a well-padded. Anesthesia assumed control of the C-spine and airway and remained controlled throughout the remainder of the procedure. A tourniquet was placed on the operative thigh and the leg was prepped in a sterile fashion. The surgeon then scrubbed at this time .Upon reentering the room left lower extremity was draped in a standard orthopedic fashion. A timeout was then called and everyone agreed upon the side, the site, the procedure to be performed, patient's identity and antibiotics given. Initially the leg was elevated and we worked in the posterior knee. Based on the area of the sinus tract we attempted to aspirate the knee. We were unsuccessful in obtaining significant amount of fluid. We then made a transverse incision ellipsing out the sinus tract. We were able to debride the space at this time it became evident that this was more than a Trinidad's cyst it was a infected area. There was greenish congealed purulent tissue. After this was done we irrigated out the wound with low-pressure lavage with 4 L of normal saline. When this was completed the wound was again explored and there was no appreciable purulence. We then closed the wound with 3-0 nylon. We placed a sterile dressing. When this was done we then redraped the leg sterilely with a new extremity drape and stockinette. The skin was again prepped with chlorhexidine and the stockinette window. All involved participants in the surgery repeat prepped and gowned as well. A midline skin incision was made and sharp dissection was taken down through skin subcutaneous tissue and fat. Appropriate flaps were elevated medially and laterally. His arthrotomy was identified and the standard medial parapatellar incision was made and the patella was subluxed laterally. The standard deep MCL release was done. At this point an aggressive synovectomy commenced. Our attention was first turned towards the subpatellar pouch and all suspicious synovium and tissues were debrided. We then directed our attention towards medial lateral gutters were these tissues were aggressively debrided. Knee was then flexed up the polyethylene was removed. Once polyethylene was removed we did the remainder of the synovium in the medial and lateral gutters and along the lateral structures and MCL. We then debrided the posterior knee. Knee was flexed up and culture was taken from the femoral notch. And also there was a membrane beneath the tibial baseplate that was removed and sent for culture. He had completed our synovectomy and were happy with the joint. We then used a chlorahexadine scrub sponge and physically scrub the metal implants using a scrub sponge but nothing abrasive. We also scrubbed the remainder of the wound with chlorhexidine. 6 L of normal saline were then irrigated throughout the wound with low-pressure lavage and the wound was once again explored. All remaining tissue that was suspicious was seen in the wound was once again irrigated with normal saline. 16 mm ultra congruent EF [employer] polyethylene was then opened and put back into place after appropriate trialing. Tourniquet was let down and hemostasis was obtained as well as possible. Lateral drain was placed in 2 g of vancomycin powder were placed in the wound/joint. Once the final components were placed the wound was copiously irrigated with normal saline solution. The wound was closed in a layer pickett fashion using #1 vicryl interrupted sutures for the arthrotomy, 2-0 interrupted Vicryl for the subcuticular layer and estrellita for final skin closure. A sterile compressive dressing was then placed. The patient was then awakened from anesthesia, transferred to the [facility] and transferred to the PACU for recovery. Post op plan Consult infectious disease. Weightbearing as tolerated, range of motion as tolerated. Aspirin for DVT prophylaxis. Will start patient on Ancef for the first 24 hours. Will likely require IV antibiotics for at least 6 weeks followed by likely chronic if not lifetime suppressive antibiotics. - Complications No intraoperative complications - Admit VTE Documentation VTE Present on Admission: No VTE Mechan Device Prophylaxis: SCD's, Thigh High YADIEL Hose VTE Pharm Prophylaxis ordered?: Yes
[2020-10-03 15:56] LABS: INR Fingerstick 5.7; Prothrombin Time Fingerstick 59.4 SEC (11.9-14.4)
[2020-10-03] MEDS: Lactated Ringers 1,000 ML 999 ML IV (16:44)
[2020-10-03 17:16] LABS: Bedside Glucose 143 mg/dL (70-110)
--- NOTE | 2020-10-03 17:18 | RAD_ITS ---
STUDY: X-RAY - LEFT KNEE REASON FOR EXAM: Female, 80 years old. Post op -- AP and Lateral x-ray of operative knee in PACU TECHNIQUE: 2 view(s) of the knee. COMPARISON: None. FINDINGS: There is demineralization of the visualized distal femur. There is demineralization of the tibia and fibula. Normal proximal tibiofibular articulation. There is no demonstrated fracture. There is total knee replacement . The alignment is near-anatomic. There is postoperative change in the soft tissues. RAD/Knee 1 or 2 Views IMPRESSION: Left knee replacement. Electronically Signed: Carlos Holman MD at 19:41 EDT , Service support ,
[2020-10-03] MEDS: Lactated Ringers 1,000 ML 125 ML IV (17:40)
[2020-10-03 18:02] LABS: Synovial Fld Polynuclear WBC # 45.585 10^3/uL
--- NOTE | 2020-10-03 18:13 | SUR.PHASEI ---
unable to start new iv. 3 new iv attempts made in pacu. boiler house supervisor called and MS3 charge nurse notified. pt can come up to the floor without an IV.
[2020-10-03 18:19] LABS: RBC /Synovial Fluid 0.004 10^6/uL (0)
[2020-10-03 18:39] LABS: AUTO B FLUID DILUENT BKGD CT WBC <0.1 RBC <0.01 (W<.1,R<.01); Appearance /Synovial Fluid Cloudy (CLEAR); Color / Synovial Fluid Yellow (Pale Yellow); Source / Synovial Fluid LEFT KNEE
[2020-10-03 18:40] LABS: Synovial Fld Mononuclear WBC # 1.874 10^3/ul
[2020-10-03] MEDS: oxyCODONE 5 MG Tablet PO (19:04)
[2020-10-03 19:24] LABS: Body Fluid QC Type(s) BF2Q; Lymph 2 %; Neutrophil 98 % (0-25)
--- NOTE | 2020-10-03 19:30 | PCM.CONS.GEN ---
Problem List (1) History of TIA (transient ischemic attack) Status: Chronic (2) Deep vein thrombosis Status: Chronic (3) Diabetes mellitus type 2 in obese Status: Chronic (4) History of colon cancer Status: Chronic (5) Hypertension Status: Chronic (6) Hypothyroidism Status: Chronic (7) Peripheral neuropathy Status: Chronic Reason for Consult Date of Consultation: 10/03/20 Reason for Consultation: Postoperative medical management. History of Present Illness: The patient is a 80 year old F with past medical history as mentioned above underwent irrigation debridement with excision of left knee posterior abscess, irrigation debridement with exchange of left knee periprosthetic joint infection and I am seeing this patient for postoperative medical management. At this time, she complains of left knee pain, 7 out of 10 in severity, dull aching pain, not radiating. Patient is having flat face, not interested during the encounter. She denied other complaints. She had a history of chronic DVTs of both legs and she has been on long-term Coumadin. History of type 2 diabetes mellitus and she has been on glimepiride, Tradjenta and Metformin as well as Januvia and her hemoglobin A1c was 8.1% this month. She will history of hypertension which has been under control with Norvasc, HCTZ. She had a history of hypothyroidism and she has been on levothyroxine, TSH was normal yesterday. At this time, her vital signs are stable. Preoperative routine blood work that was done yesterday revealed hemoglobin of 11 g/dL, sodium of 131, BUN is 25, creatinine is 1.16. TSH was normal yesterday. INR today is 1.7. She is on IV cefazolin. She is on IV morphine and OxyIR as needed for pain. Past Medical History Past Medical History (Chronic Problems): Chronic Problems (Last Updated 02/17/20 @ 15:55 by Tony ANDRES PA) Mild diastolic dysfunction (Chronic) History of TIA (transient ischemic attack) (Chronic) Stasis dermatitis of both legs (Chronic) Venous insufficiency (Chronic) Deep vein thrombosis (Chronic) Diabetes mellitus type 2 in obese (Chronic) Obesity (Chronic) History of colon cancer (Chronic) Hypertension (Chronic) Hypothyroidism (Chronic) Peripheral neuropathy (Chronic) Chronic anticoagulation (Chronic) Medical History: Medical History (Last Updated 02/17/20 @ 15:55 by Tony ANDRES, PA) Hx-TIA (transient ischemic attack) Z86.73 Type 2 diabetes mellitus E11.9 Allergies No Known Allergies Allergy (Verified 10/01/20 15:13) Home Medications: Ambulatory Orders Medication Instructions Recorded Gabapentin [Neurontin] 600 mg PO QHS 04/23/15 Glimepiride [Amaryl] 4 mg PO DAILY 01/21/19 Hydrochlorothiazide [Hctz] 25 mg PO DAILY 01/21/19 Amlodipine [Norvasc] 5 mg PO DAILY 02/17/20 Levothyroxine Sodium [Synthroid] 75 mcg PO DAILY 02/17/20 Metformin HCl [Metformin HCl ER] 1,000 mg PO BID 02/17/20 Metoprolol Tartrate [Lopressor 100 mg PO DAILY 02/17/20 (beta douglas)] Warfarin Sodium [Coumadin] 5 mg PO [id number] 02/17/20 Cholecalciferol (Vitamin D3) 100 mcg PO DAILY 10/01/20 [Vitamin D3] Linagliptin [Tradjenta] 5 mg PO DAILY 10/01/20 Sitagliptin Phosphate [Januvia] 25 mg PO DAILY 10/01/20 Warfarin Sodium [Jantoven] 7.5 mg PO SUTH 10/01/20 Surgical History: Surgical History (Last Updated 02/17/20 @ 15:54 by Tony ANDRES, PA) History of bilateral knee replacement Z96.653 Surgical History: cataract, cholecystectomy, total knee arthroplasty - Bilaterally, tonsillectomy, - - Partial colectomy for colon cancer Psychiatric History: No pertinent psych hx QUALIFICATIONS EXAMINER History: No pertinent QUALIFICATIONS EXAMINER history Smoking Status: Never smoker Tobacco Use: Non-smoker Alcohol: None Drugs: None - *Family History Maternal History Items: Heart Disease Paternal History Items: Cancer Review of Systems Constitutional: Denies: Anorexia, Chills, Fever, Weakness Eyes: Denies: Blurred vision, Double vision, Drainage, Redness HEENT: Denies: Difficulty Hearing, Ear Pain, Eye Pain, Nasal Congestion, Sore Throat Cardiovascular: Denies: Chest Pain, Chest Pressure, Edema, Heaviness, Palpitations, Syncope Respiratory: Denies: Cough, Pleuritic Pain, Shortness of Breath, Sputum production, Wheezing Gastrointestinal: Denies: Abdominal Pain, Constipation, Diarrhea, Nausea, Vomiting Genitourinary: Denies: Dysuria, Frequency, Hematuria Musculoskeletal: Reports: Joint Pain. Denies: Arm Pain, Back Pain, Foot Pain Skin: Denies: Dryness, Rash Neurological: Denies: Balance problems, Double vision, Slurred speech, Confusion, Headaches, Incoordination Psychiatric: Denies: Anxiety, Depression Endocrine: Denies: Change in Body Habitus, Polydipsia, Polyuria - Physical Exam Vitals/I&O's: Vital Signs Temp Pulse Resp BP Pulse Ox 97.9 F 64 16 124/70 H 94 10/03/20 18:11 10/03/20 18:11 10/03/20 18:11 10/03/20 18:11 10/03/20 18:11 Oxygen Flow Rate (L/min) 6 Oxygen Delivery Method Room Air Weight: 233 lb 14.567 oz Body Mass Index (BMI) 35.5 Finger Stick Blood Glucose 143 Intake and Output for Last 24 Hours 10/01/20 10/02/20 10/03/20 23:59 23:59 23:59 Intake Total 2336 / 2336 Balance 2336 / 2336 General: Alert, Oriented x3, Cooperative, No apparent distress HEENT: Atraumatic, PERRLA, EOMI, Normocephalic Oral: Moist Mucosa, No Gingival or Mucosal Lesions/ Ulcerations Neck: Supple, No JVD, Negative Carotid Bruits, Trachea Midline, Thyroid Normal Size and Texture Lungs: Clear to auscultation, Normal air movement, No rhonchi, No wheeze, No rales, Diminished Cardiovascular: Regular rate, Regular Rhythm, Normal S1, Normal S2, PMI Normal Abdomen: Bowel Sounds Present, Soft, Non Tender, Non-Distended, No Hepato-splenomegaly, Obese Extremities: No clubbing, No cyanosis, Edema Skin: No rashes, No breakdown Lymphatic: No Cervical, Supraclavicular, or Inguinal Adenopathy Neurological: Cranial nerves II-XII grossly intact, Motor Exam 5/5 strength throughout Psych/Mental Status: Appropriate, Flat Affect, Alert and oriented to time, place, person, mood and affect Microbiology Past 72 Hours 10/02/20 12:39 Swab (Method) Nasal Screen MRSA/MSSA - Final 10/02/20 12:45 Interface Orders SARS-CoV-2 Antigen (Rapid) - Final Laboratory Results 10/03/20 09:44: POC PT 59.4 H, INR 5.7 H* 10/03/20 12:10: PT 19.0 H, INR 1.7 10/03/20 12:59: POC Glucose 145 H 10/03/20 17:10: POC Glucose 143 H 10/03/20 : Synovial Source LEFT KNEE, Synovial Color Yellow, Synovial Appearance Cloudy, Synovial WBC 45.9540 H, Synovial RBC 0.004 H, Synovial Tot Cell Ct 46.0080 H, Synov Polynuclear WBCs 45.585, Synov Mononuclear WBCs 1.874, Synovial Neutrophils 98 H, Synovial Lymphocytes 2, Synovial Polynuclear % 96.0, Synovial Mononuclear % 4.0, Synovial Path Comment May follow Current Medications Acetaminophen (Acetaminophen 500 Mg Tablet) 1,000 mg PO Q8 [facility] Aspirin (Aspirin 81 Mg Tab.Chew) 81 mg PO BIDCM [facility] Last Admin: 10/03/20 18:16 Dose: Not Given Documented by: Enteral Nutritional Formula (Ensure Surgery 237 Ml Liquid) 237 ml PO TIDCM [facility] [place] Last Admin: 10/03/20 18:17 Dose: Not Given Documented by: Famotidine (Famotidine 20 Mg Tablet) 20 mg PO DAILY [facility] [place] Lactated Ringer's () 1,000 mls @ 125 mls/hr IV .Q8H [facility] Last Admin: 10/03/20 17:40 Dose: 125 mls/hr Documented by: Cefazolin Sodium () 1 gm in 50 mls @ 150 mls/hr IV Q8H [facility] [place] Stop: 10/04/20 07:19 Sodium Chloride () 250 mls @ 15 mls/hr IV .[id number] PRN PRN Reason: Saline Flush Sodium Chloride () 250 mls @ 15 mls/hr IV .[id number] PRN PRN Reason: Additional IVPB Infusion Ketorolac Tromethamine (Ketorolac 15 Mg/Ml Vial) 15 mg IV Q6H PRN PRN PRN Reason: Pain Score 1-5 Stop: 10/05/20 15:41 Morphine Sulfate (Morphine 2 Mg/Ml Syringe) 2 - 4 mg IV Q2H PRN PRN PRN Reason: Pain Score 6-10 Morphine Sulfate (Morphine 4 Mg/Ml Syringe) 2 - 4 mg IV Q2H PRN PRN PRN Reason: Pain Score 6-10 Ondansetron HCl (Ondansetron 4 Mg/2 Ml Vial) 4 mg IV Q8H PRN PRN PRN Reason: NAUSEA Oxycodone HCl (Oxycodone 5 Mg Tablet) 5 - 10 mg PO Q4H PRN PRN PRN Reason: Pain Score 4-10 Last Admin: 10/03/20 19:04 Dose: 10 mg Documented by: Promethazine HCl (Promethazine 25 Mg/Ml Syringe) 12.5 mg IM Q6H PRN PRN; Protocol PRN Reason: NAUSEA/VOMITING Senna/Docusate Sodium (Senna/Docusate Sodium 1 Tablet) 2 tablet PO BID [facility] Sodium Chloride (0.9% Saline Lock 10 Ml Syringe) 10 - 40 ml IV UD PRN PRN Reason: SALINE FLUSH Assessment/Plan This is an 80 years old female patient underwent left knee irrigation debridement with excision of posterior left knee abscess, irrigation debridement with exchange of left knee periprosthetic joint for left knee periprosthetic joint infection and I am seeing this patient in consultation for postoperative medical management. 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 She is on IV cefazolin. She is on IV morphine and OxyIR as needed for pain. Synovial fluid analysis reviewed, WBC is very high. Her vital signs are stable. Preoperative routine blood work was reviewed as above. Culture of the joint fluid is pending. Plan to continue IV cefazolin, start IV vancomycin. CBC and BMP ordered for tomorrow. Plan to add serum magnesium, phosphorus. #2 stage IIIa chronic kidney disease: Her baseline creatinine has been around 1.1 to 1.3 mg/dL. Today's creatinine is 1.16, stable at baseline. #3 type 2 diabetes mellitus: ADA diet, Accu-Cheks, insulin sliding scale, continue glimepiride, Tradjenta and Januvia, hold Metformin. #4 hypertension: Blood pressure stable, continue Norvasc, continue HCTZ and metoprolol. #5 hypothyroidism: TSH was normal yesterday, continue levothyroxine. #6 history of DVT: On Coumadin long-term. Currently, she is off Coumadin. INR is 1.7 today. Plan to repeat INR tomorrow morning, resume Coumadin when okay with orthopedic surgery. #7 DVT prophylaxis: SCDs. Start on aspirin twice daily. Patient was on Coumadin which is on hold now. This note was generated with [employer] dictation software. It may contain incorrect words, spelling, and punctuation that were not noted in checking the note before signing. Inpatient E&M: [id number] Init Hosp L2
[2020-10-03] MEDS: Insulin Lispro 100 UNIT/ML INSULN.PEN SC (21:18)
[2020-10-03] MEDS: Morphine 2 MG/ML Syringe IV (21:22)
[2020-10-03] MEDS: Senna/Docusate Sodium 1 Tablet 2 TABLET PO (21:22)
--- NOTE | 2020-10-03 22:06 | PCM.RX.CS ---
Consult Pharmacy has been consulted to manage selected antiobiotic: Vancomycin Type of Consult: New start Suspected Infection: Other Prior Doses of Antibiotics Received/Current Regimen: Medications Vancomycin HCl 750 mg/ Sodium (Chloride) 265 mls @ 250 mls/hr IV Q12H [facility] Vancomycin HCl 2,000 mg/ (Sodium Chloride) 540 mls @ 250 mls/hr IV X1 ONE Stop: 10/03/20 22:09 Last Admin: 10/03/20 21:04 Dose: 250 mls/hr Labs: Sodium 131 mmol/L (136-145) L 10/02/20 12:39 Potassium 3.7 mmol/L (3.5-5.1) 10/02/20 12:39 Chloride 98 mmol/L (98-107) 10/02/20 12:39 Carbon Dioxide 28.0 mmol/L (21.0-32.0) 10/02/20 12:39 Anion Gap 5 (5-15) 10/02/20 12:39 BUN 25 mg/dL (7-18) H 10/02/20 12:39 Creatinine 1.16 mg/dL (0.55-1.02) H 10/02/20 12:39 Est GFR (MDRD) Af Amer 57 mL/min (>60) L 10/02/20 12:39 Est GFR (MDRD) Non-Af 48 mL/min (>60) L 10/02/20 12:39 BUN/Creatinine Ratio 21.6 RATIO (10-20) H 10/02/20 12:39 Glucose 143 mg/dL (74-106) H 10/02/20 12:39 Microbiology: Microbiology 10/02/20 12:39 Swab (Method) Nasal Screen MRSA/MSSA - Final 10/02/20 12:45 Interface Orders SARS-CoV-2 Antigen (Rapid) - Final Weight used for dosin kg Estimated Creatinine Clearance: 48 Goal Trough: 15-20 mcg/mL Pharmacy Plan for Drug Dosing: Pharmacy Service will continue to monitor and adjust dosing as required. Follow-Up Labs: Trough Vancomycin Labs to be done on [date and time ordered]: 10/05/20 @0830
[2020-10-03] MEDS: Cefazolin 1 GM/50 ML BAG IV (23:29)
[2020-10-04] VITALS (8 sets, daily range): BP systolic 95–134; BP diastolic 37–81; PULSE 60–69; RESP 16–18; TEMP 36.5–36.8; O2SAT 94–98
[2020-10-04 00:20] LABS: Bedside Glucose 193 mg/dL (70-110)
[2020-10-04] MEDS: Acetaminophen 500 MG Tablet 1000 MG PO ×3 (05:47→21:07)
[2020-10-04] MEDS: Levothyroxine 75 MCG Tablet PO (05:47)
[2020-10-04 06:22] LABS: Hematocrit 28.7 % (37-47); Hemoglobin 9.9 g/dL (12.0-15.0); Mean Corp Hgb Conc 34.5 g/dL (32-36); Mean Corpuscular Hgb 32.1 pg (27.0-32.0); Mean Corpuscular Volume 93.2 fL (81-99); Mean Platelet Vol. 10.7 fl (6.2-12.0); Platelet Count 338 K/mm3 (150-450); RBC Distribution Width CV 15.3 % (11.6-14.6); Red Blood Count 3.08 M/mm3 (4.2-5.4); White Blood Count 8.8 K/mm3 (4.4-11.0)
[2020-10-04 06:32] LABS: International Normalized Ratio 1.8; Prothrombin Time (Protime)PT. 19.8 SECONDS (11.7-14.9)
[2020-10-04 06:49] LABS: Anion Gap 7 (5-15); BUN 25 mg/dL (7-18); BUN/Creat Ratio 23.1 RATIO (10-20); Calcium,Total 8.2 mg/dL (8.5-10.1); Chloride 98 mmol/L (98-107); Creatinine, Serum 1.08 mg/dL (0.55-1.02); EST Glomerular Filtration Rate 52 mL/min (>60); Est Glom Filt Rate - Afr Amer 62 mL/min (>60); Estimated Creatinine Clearance 40.51 ml/min; Glucose 202 mg/dL (74-106); Magnesium 1.9 mg/dL (1.6-2.6); Phosphorus 3.7 mg/dL (2.5-4.9); Potassium 3.8 mmol/L (3.5-5.1); Sodium Level 132 mmol/L (136-145)
[2020-10-04] MEDS: Insulin Lispro 100 UNIT/ML INSULN.PEN SC ×4 (06:49→21:07)
[2020-10-04] MEDS: Cefazolin 1 GM/50 ML BAG IV (06:51)
[2020-10-04 07:01] LABS: Bedside Glucose 181 mg/dL (70-110)
[2020-10-04] MEDS: Glimepiride 4 MG Tablet PO (08:58)
[2020-10-04] MEDS: Aspirin 81 MG TAB.CHEW PO ×2 (08:58→15:51)
[2020-10-04] MEDS: hydroCHLOROthiazide 25 MG Tablet PO (09:06)
[2020-10-04] MEDS: Senna/Docusate Sodium 1 Tablet 2 TABLET PO ×2 (09:06→21:07)
[2020-10-04] MEDS: LINAGLIPTIN 5 MG TABLET PO (09:06)
[2020-10-04] MEDS: Famotidine 20 MG Tablet PO (09:06)
[2020-10-04] MEDS: Metoprolol(XL)Succ 100 MG Tablet PO (09:06)
[2020-10-04] MEDS: amLODIPine 5 MG Tablet PO (09:08)
--- NOTE | 2020-10-04 09:17 | PCM.PN.ORT ---
Subjective: The patient was sitting in bed upon examination. Patient denies any chest pain, shortness of breath, dizziness, lightheadedness, nausea or vomiting, or calf pain. Pain is controlled on medications. No adverse overnight events. Patient states she does feel occasional lightheadedness and at times some confusion. She states the pain medications have been very helpful. Patient had a previous total knee arthroplasty in 2013 in which she developed a draining sinus for the last several days. She went to the emergency room and was decided to proceed with surgery due to the acuity of symptoms. Patient has type 2 diabetes mellitus, stage III kidney disease, hypertension, history of DVT in which she has been on long-term Coumadin. She currently denies on exam today any chest pain, shortness of breath, or calf pain. Infectious disease has been consulted and she is currently on IV antibiotic. Waiting for cultures and input from infectious disease. Objective: Vital signs stable and afebrile. Patient is able to plantarflex and dorsiflex actively. Sensation is intact to light touch to saphenous, sural, superficial and deep peroneal, and tibial distribution. Main dressing is clean dry and intact. No breakthrough drainage posteriorly with the Jaime wrap. Negative Homans bilaterally, negative signs and symptoms of DVT. - Physical Exam Vitals/I&O's: Vital Signs Temp Pulse Resp BP Pulse Ox 98.2 F 69 16 134/81 H 98 10/04/20 09:09 10/04/20 09:09 10/04/20 09:09 10/04/20 09:09 10/04/20 09:09 Oxygen Flow Rate (L/min) 2 Oxygen Delivery Method Room Air Weight: 106.1 kg Body Mass Index (BMI) 35.5 Finger Stick Blood Glucose 143 Intake and Output for Last 24 Hours 10/02/20 10/03/20 10/04/20 23:59 23:59 23:59 Intake Total 3092.67 / 3092.67 588.75 / 588.75 Output Total 700 / 700 Balance 3092.67 / 3092.67 -111.25 / -111.25 General: Alert, Oriented x3, Cooperative, No apparent distress Microbiology Past 72 Hours 10/02/20 12:39 Swab (Method) Nasal Screen MRSA/MSSA - Final 10/02/20 12:45 Interface Orders SARS-CoV-2 Antigen (Rapid) - Final Laboratory Results 10/03/20 09:44: POC PT 59.4 H, INR 5.7 H* 10/03/20 12:10: PT 19.0 H, INR 1.7 10/03/20 12:59: POC Glucose 145 H 10/03/20 17:10: POC Glucose 143 H 10/03/20 20:58: POC Glucose 193 H 10/03/20 : Synovial Source LEFT KNEE, Synovial Color Yellow, Synovial Appearance Cloudy, Synovial WBC 45.9540 H, Synovial RBC 0.004 H, Synovial Tot Cell Ct 46.0080 H, Synov Polynuclear WBCs 45.585, Synov Mononuclear WBCs 1.874, Synovial Neutrophils 98 H, Synovial Lymphocytes 2, Synovial Polynuclear % 96.0, Synovial Mononuclear % 4.0, Synovial Path Comment May follow 10/04/20 06:17: WBC 8.8, RBC 3.08 L, Hgb 9.9 L, Hct 28.7 L, MCV 93.2, MCH 32.1 H, MCHC 34.5 D, RDW Std Deviation 52.0 H, RDW Coeff of Shania 15.3 H, Plt Count 338, MPV 10.7 10/04/20 06:17: Sodium 132 L, Potassium 3.8, Chloride 98, Carbon Dioxide 27.0, Anion Gap 7, BUN 25 H, Creatinine 1.08 H, Estim Creat Clear Calc 40.51, Est GFR (MDRD) Af Amer 62, Est GFR (MDRD) Non-Af 52 L, BUN/Creatinine Ratio 23.1 H, Glucose 202 H, Calcium 8.2 L, Phosphorus 3.7, Magnesium 1.9 10/04/20 06:17: PT 19.8 H, INR 1.8 10/04/20 06:48: POC Glucose 181 H Current Medications Acetaminophen (Acetaminophen 500 Mg Tablet) 1,000 mg PO Q8 [facility] Last Admin: 10/04/20 05:47 Dose: 1,000 mg Documented by: Amlodipine Besylate (Amlodipine 5 Mg Tablet) 5 mg PO DAILY [facility] Last Admin: 10/04/20 09:08 Dose: 5 mg Documented by: Aspirin (Aspirin 81 Mg Tab.Chew) 81 mg PO BIDCM [facility] Last Admin: 10/04/20 08:58 Dose: 81 mg Documented by: Enteral Nutritional Formula (Ensure Surgery 237 Ml Liquid) 237 ml PO TIDCM [facility] Last Admin: 10/04/20 08:59 Dose: Not Given Documented by: Famotidine (Famotidine 20 Mg Tablet) 20 mg PO DAILY [facility] Last Admin: 10/04/20 09:06 Dose: 20 mg Documented by: Gabapentin (Gabapentin 600 Mg Tablet) 600 mg PO QHS [facility] Last Admin: 10/03/20 21:22 Dose: 600 mg Documented by: Glimepiride (Glimepiride 4 Mg Tablet) 4 mg PO DAILYCM [facility] Last Admin: 10/04/20 08:58 Dose: 4 mg Documented by: Hydrochlorothiazide (Hydrochlorothiazide 25 Mg Tablet) 25 mg PO DAILY [facility] Last Admin: 10/04/20 09:06 Dose: 25 mg Documented by: Sodium Chloride () 250 mls @ 15 mls/hr IV .[id number] PRN PRN Reason: Saline Flush Sodium Chloride () 250 mls @ 15 mls/hr IV .[id number] PRN PRN Reason: Additional IVPB Infusion Vancomycin IV Pharmacy to Dose (1 each/ Sodium Chloride) 500 mls @ 250 mls/hr IV PRN PRN; Protocol PRN Reason: Rx to Dose Vancomycin HCl 750 mg/ Sodium (Chloride) 265 mls @ 250 mls/hr IV Q12H [facility] Last Admin: 10/04/20 08:59 Dose: 250 mls/hr Documented by: Insulin Human Lispro (Insulin Lispro 100 Unit/Ml Insuln.Pen) 0 unit SC ACHS [facility]; Protocol Last Admin: 10/04/20 06:49 Dose: 1 u Documented by: Ketorolac Tromethamine (Ketorolac 15 Mg/Ml Vial) 15 mg IV Q6H PRN PRN PRN Reason: Pain Score 1-5 Stop: 10/05/20 15:41 Levothyroxine Sodium (Levothyroxine 75 Mcg Tablet) 75 mcg PO DAILY@0600 [facility] Last Admin: 10/04/20 05:47 Dose: 75 mcg Documented by: Linagliptin (Linagliptin 5 Mg Tablet) 5 mg PO DAILY [facility] Last Admin: 10/04/20 09:06 Dose: 5 mg Documented by: Metoprolol Succinate (Metoprolol(Xl)Succ 100 Mg Tablet) 100 mg PO DAILY [facility] Last Admin: 10/04/20 09:06 Dose: 100 mg Documented by: Morphine Sulfate (Morphine 2 Mg/Ml Syringe) 2 - 4 mg IV Q2H PRN PRN PRN Reason: Pain Score 6-10 Last Admin: 10/03/20 21:22 Dose: 2 mg Documented by: Morphine Sulfate (Morphine 4 Mg/Ml Syringe) 2 - 4 mg IV Q2H PRN PRN PRN Reason: Pain Score 6-10 Ondansetron HCl (Ondansetron 4 Mg/2 Ml Vial) 4 mg IV Q8H PRN PRN PRN Reason: NAUSEA Oxycodone HCl (Oxycodone 5 Mg Tablet) 5 - 10 mg PO Q4H PRN PRN PRN Reason: Pain Score 4-10 Last Admin: 10/03/20 19:04 Dose: 10 mg Documented by: Promethazine HCl (Promethazine 25 Mg/Ml Syringe) 12.5 mg IM Q6H PRN PRN; Protocol PRN Reason: NAUSEA/VOMITING Senna/Docusate Sodium (Senna/Docusate Sodium 1 Tablet) 2 tablet PO BID [facility] Last Admin: 10/04/20 09:06 Dose: 2 tablet Documented by: Sodium Chloride (0.9% Saline Lock 10 Ml Syringe) 10 - 40 ml IV UD PRN PRN Reason: SALINE FLUSH Medical Necessity - Tobacco Use Smoking Status: Never smoker Tobacco Use: Non-smoker Assessment/Plan 1. S/P irrigation debridement with sinus tract left knee posterior abscess. Irrigation debridement with polyethylene exchange left knee periprosthetic joint infection POD #1 2. Continue Pain Medications: Tylenol and oxycodone 3. DVT Prophylaxis: Take 81 mg aspirin twice daily for 4 weeks postoperatively for DVT prophylaxis 4. PT/OT: Weightbearing as tolerated and range of motion as tolerated 5. H & H: 9.9/28.7, asymptomatic. Patient does have acute on chronic anemia with Postoperative anemia secondary to acute blood loss from surgery without any intra operative complications. We will continue to monitor. Last hemoglobin was 11.0 on October 02, 2020. 6. Infectious disease consultation: Appreciate input for appropriate antibiotics. Patient will likely need 6 weeks of IV antibiotics followed by chronic suppression. Current cultures are pending. Patient will also require PICC line. 7. Continue postoperative medical management per medicine 8. Dressing: Over the anterior knee continue with the Mepilex dressing for 5 days postoperatively. With regards to the posterior incision will continue to do daily dressing changes with ABD and compression Jaime wrap. 9. Encouraged Incentive Spirometry 10. Disposition: Case was discussed with child welfare social worker/case management. Patient will likely need assistance postoperatively upon discharge. We are waiting on input from infectious disease with regards to IV antibiotics. Continue dressing changes as discussed with the nurse. Also continue pain medications. We will continue to monitor patient on the oxycodone as she has had some lightheadedness and confusion. She did not wish to change her pain medication at this time as this is controlling her pain. If confusion continues we may need to switch her to tramadol and continue with Tylenol. Discussed with the nurse.
[2020-10-04 10:13] LABS: Pathologist Comment Reviewed
--- NOTE | 2020-10-04 10:55 | CASEMGMT ---
ROSA FLORENTINO Assessment: Face to Face with pt for initial transition planning/care coordination assessment. RN CM introduced self and role at [facility], pt voices understanding and consents to assessment. Pt appears A/O x4 sitting up in chair in no distress. Son at bedside. She received a tc and asked this CM to ask her son, Nader Zimmerman the questions. Care providers, pharmacy, and demographics verified/updated. Admitting Dx: PAT PCP: [facility] Specialists: geovanna De Oliveira Pharmacy: [facility] Insurance: [facility] Prescription Benefit: yes LW/HPOA: Pt and son think she has a LW and DPOA but are not sure. Pt believes her sons Nader and Ermias are her DPOA's. They are aware that they are not on file. LNOK: Nader Pandya and Ermias Zimmerman, CHRISTOPHER Sherri Zimmerman Living Arrangements: Pt lives alone in a duplex with two stories. Pt uses main level only. There are 2 steps with a rail to enter. Pt son reports pt was I in ADL's. Transportation: Pt drives self or son Nader is able to drive her. Pt denies concerns with transportation. DME/HHC/SNF: Per son report, pt has a walker, shower bench and elevated toilet seat. She has had HHC through [facility] and no prior SNF stays. Pt son states he spoke with the doctor and pt will need to go to a SNF. This CM provided a list of SNF providers including quality and resource use data and consistent with the patient?s preferred geographic region, medical needs, and insurance network. The patient?s/son preferred provider is [facility]. Notified Jose YAÑEZ. Pt/son state no further concerns/needs. Advised pt to ask CM if any further question/concerns/needs arise, voices understanding. Pt Goal: [facility] Plan: [facility]
[2020-10-04] MEDS: Ketorolac 15 MG/ML Vial IV (11:32)
[2020-10-04] MEDS: 0.9% Saline Lock 10 ML Syringe IV ×2 (11:32→20:58)
--- NOTE | 2020-10-04 11:38 | CASEMGMT ---
Social Work Note SW received referral for SNF placement and pt's preferred provider is [facility]. OTILIO placed a call to Melina with TCU and provided referral. Melina states TCU is able to accept pt. SW in to speak with pt, OTILIO introduced self and role at [facility]. Pt is alert and orientated and pt's son Nader is present at [facility]. OTILIO informed pt and Nader that TCU is able to accept pt when pt is medically cleared. OTILIO asked pt about COVID vaccinations. Pt states she has received both Vaccinations with the last one being on September 26, 2020. OTILIO explained pt will need to wait two weeks after the second COVID vaccination before she will be allowed to have a visitor on TCU. SW informed pt and Nader that other SNF may allow visitors from the beginning as they may have different rules. Pt and Nader stated pt will be going to TCU. SW placed transfer to extended care form on pt's chart. Plan: TCU when medically cleared Alexa Varma [employer]UE [employer] OPERATOR, [employer]
[2020-10-04 12:31] LABS: Bedside Glucose 262 mg/dL (70-110)
--- NOTE | 2020-10-04 15:25 | PN_ITS ---
Reason for Visit: Consult for postop medical management Subjective: Patient was seen and examined. Denied any new complaints. Her pain is fairly controlled. Denied any fever or chills Objective: Physical exam: General: Alert, Oriented x3, Cooperative, No apparent distress HEENT: Atraumatic, PERRLA, EOMI, Normocephalic Oral: Moist Mucosa, No Gingival or Mucosal Lesions/ Ulcerations Neck: Supple, No JVD, Negative Carotid Bruits, Trachea Midline, Thyroid Normal Size and Texture Lungs: Clear to auscultation, Normal air movement, No rhonchi, No wheeze, No rales, Diminished Cardiovascular: Regular rate, Regular Rhythm, Normal S1, Normal S2, PMI Normal Abdomen: Bowel Sounds Present, Soft, Non Tender, Non-Distended, No Hepato- splenomegaly, Obese Extremities: No clubbing, No cyanosis, Edema Skin: No rashes, No breakdown Lymphatic: No Cervical, Supraclavicular, or Inguinal Adenopathy Neurological: Cranial nerves II-XII grossly intact, Motor Exam 5/5 strength throughout Psych/Mental Status: Appropriate, Flat Affect, Alert and oriented to time, place, person, mood and affect Vitals/I&O's: Vital Signs Temp Pulse Resp BP Pulse Ox 98.2 F 69 16 134/81 H 98 10/04/20 09:09 10/04/20 09:09 10/04/20 09:09 10/04/20 09:09 10/04/20 09:09 Oxygen Flow Rate (L/min) 2 Oxygen Delivery Method Room Air Weight: 106.1 kg Body Mass Index (BMI) 35.5 Finger Stick Blood Glucose 143 Intake and Output for Last 24 Hours 10/02/20 10/03/20 10/04/20 23:59 23:59 23:59 Intake Total 3092.67 / 3092.67 853.75 / 853.75 Output Total 700 / 700 Balance 3092.67 / 3092.67 153.75 / 153.75 Microbiology Past 72 Hours 10/03/20 14:06 Cyst - Skin Gram Stain - Final 10/03/20 14:06 Cyst - Skin Wound Culture - Preliminary No growth-Final to follow 10/03/20 14:06 Tissue - Knee Gram Stain - Final 10/03/20 14:06 Tissue - Knee Wound Culture - Preliminary Gram positive organism 10/03/20 Unknown Tissue - Knee Gram Stain - Final 10/03/20 Unknown Tissue - Knee Wound Culture - Preliminary No growth-Final to follow 10/03/20 Unknown Tissue - Knee Gram Stain - Final 10/03/20 Unknown Tissue - Knee Wound Culture - Preliminary No growth-Final to follow 10/03/20 14:06 Cyst - Knee Gram Stain - Final 10/03/20 14:06 Cyst - Knee Wound Culture - Preliminary No growth-Final to follow 10/02/20 12:39 Swab (Method) Nasal Screen MRSA/MSSA - Final 10/02/20 12:45 Interface Orders SARS-CoV-2 Antigen (Rapid) - Final Laboratory Results 10/03/20 09:44: POC PT 59.4 H, INR 5.7 H* 10/03/20 17:10: POC Glucose 143 H 10/03/20 20:58: POC Glucose 193 H 10/03/20 : Synovial Source LEFT KNEE, Synovial Color Yellow, Synovial Appearance Cloudy, Synovial WBC 45.9540 H, Synovial RBC 0.004 H, Synovial Tot Cell Ct 46.0080 H, Synov Polynuclear WBCs 45.585, Synov Mononuclear WBCs 1.874, Synovial Neutrophils 98 H, Synovial Lymphocytes 2, Synovial Polynuclear % 96.0, Synovial Mononuclear % 4.0, Synovial Path Comment Reviewed 10/04/20 06:17: WBC 8.8, RBC 3.08 L, Hgb 9.9 L, Hct 28.7 L, MCV 93.2, MCH 32.1 H , MCHC 34.5 D, RDW Std Deviation 52.0 H, RDW Coeff of Shania 15.3 H, Plt Count 338, MPV 10.7 10/04/20 06:17: Sodium 132 L, Potassium 3.8, Chloride 98, Carbon Dioxide 27.0, Anion Gap 7, BUN 25 H, Creatinine 1.08 H, Estim Creat Clear Calc 40.51, Est GFR (MDRD) Af Amer 62, Est GFR (MDRD) Non-Af 52 L, BUN/Creatinine Ratio 23.1 H, Glucose 202 H, Calcium 8.2 L, Phosphorus 3.7, Magnesium 1.9 10/04/20 06:17: PT 19.8 H, INR 1.8 10/04/20 06:48: POC Glucose 181 H 10/04/20 12:24: POC Glucose 262 H Current Medications Acetaminophen (Acetaminophen 500 Mg Tablet) 1,000 mg PO Q8 [facility] Last Admin: 10/04/20 05:47 Dose: 1,000 mg Documented by: Amlodipine Besylate (Amlodipine 5 Mg Tablet) 5 mg PO DAILY [facility] Last Admin: 10/04/20 09:08 Dose: 5 mg Documented by: Aspirin (Aspirin 81 Mg Tab.Chew) 81 mg PO BIDCM [facility] Last Admin: 10/04/20 08:58 Dose: 81 mg Documented by: Enteral Nutritional Formula (Ensure Surgery 237 Ml Liquid) 237 ml PO TIDCM [facility] Last Admin: 10/04/20 11:24 Dose: Not Given Documented by: Famotidine (Famotidine 20 Mg Tablet) 20 mg PO DAILY [facility] Last Admin: 10/04/20 09:06 Dose: 20 mg Documented by: Gabapentin (Gabapentin 600 Mg Tablet) 600 mg PO QHS [facility] Last Admin: 10/03/20 21:22 Dose: 600 mg Documented by: [facility]imepiride ([facility] 4 Mg [facility] Last Admin: 10/04/20 08:58 Dose: 4 mg Documented by: Hydrochlorothiazide (Hydrochlorothiazide 25 Mg Tablet) 25 mg PO DAILY [facility] Last Admin: 10/04/20 09:06 Dose: 25 mg Documented by: Sodium Chloride () 250 mls @ 15 mls/hr IV .[id number] PRN PRN Reason: Saline Flush Sodium Chloride () 250 mls @ 15 mls/hr IV .[id number] PRN PRN Reason: Additional IVPB Infusion Vancomycin IV Pharmacy to Dose (1 each/ Sodium Chloride) 500 mls @ 250 mls/hr IV PRN PRN; Protocol PRN Reason: Rx to Dose Vancomycin HCl 750 mg/ Sodium (Chloride) 265 mls @ 250 mls/hr IV Q12H [facility] Last Infusion: 10/04/20 10:03 Dose: Infused Documented by: Insulin Human Lispro (Insulin Lispro 100 Unit/Ml Insuln.Pen) 0 unit [facility]; Protocol Last Admin: 10/04/20 12:31 Dose: 3 u Documented by: Ketorolac Tromethamine (Ketorolac 15 Mg/Ml Vial) 15 mg IV Q6H PRN PRN PRN Reason: Pain Score 1-5 Stop: 10/05/20 15:41 Last Admin: 10/04/20 11:32 Dose: 15 mg Documented by: Levothyroxine Sodium (Levothyroxine 75 Mcg Tablet) 75 mcg PO DAILY@0600 [facility] Last Admin: 10/04/20 05:47 Dose: 75 mcg Documented by: Linagliptin (Linagliptin 5 Mg Tablet) 5 mg PO DAILY [facility] Last Admin: 10/04/20 09:06 Dose: 5 mg Documented by: Metoprolol Succinate (Metoprolol(Xl)Succ 100 Mg Tablet) 100 mg PO DAILY [facility] Last Admin: 10/04/20 09:06 Dose: 100 mg Documented by: Morphine Sulfate (Morphine 2 Mg/Ml Syringe) 2 - 4 mg IV Q2H PRN PRN PRN Reason: Pain Score 6-10 Last Admin: 10/03/20 21:22 Dose: 2 mg Documented by: Morphine Sulfate (Morphine 4 Mg/Ml Syringe) 2 - 4 mg IV Q2H PRN PRN PRN Reason: Pain Score 6-10 Ondansetron HCl (Ondansetron 4 Mg/2 Ml Vial) 4 mg IV Q8H PRN PRN PRN Reason: NAUSEA Oxycodone HCl (Oxycodone 5 Mg Tablet) 5 - 10 mg PO Q4H PRN PRN PRN Reason: Pain Score 4-10 Last Admin: 10/03/20 19:04 Dose: 10 mg Documented by: Promethazine HCl (Promethazine 25 Mg/Ml Syringe) 12.5 mg IM Q6H PRN PRN; Protocol PRN Reason: NAUSEA/VOMITING Senna/Docusate Sodium (Senna/Docusate Sodium 1 Tablet) 2 tablet PO BID [facility] Last Admin: 10/04/20 09:06 Dose: 2 tablet Documented by: Sodium Chloride (0.9% Saline Lock 10 Ml Syringe) 10 - 40 ml IV UD PRN PRN Reason: SALINE FLUSH Last Admin: 10/04/20 11:32 Dose: 10 ml Documented by: Medical Necessity - Tobacco Use Smoking Status: Never smoker Tobacco Use: Non-smoker Assessment/Plan 1. 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 Intraoperative cultures are pending, continue on IV vancomycin. ID consulted by primary team 2. Anemia, postop, likely from acute blood loss drop in hemoglobin from 11.0 to 9.9 Will continue to monitor 3. CKD stage III, creatinine appears stable, continue to monitor 4. Type II DM, blood sugars are fairly stable, continue to hold Metformin Continue on Amaryl, Januvia 5. Hypertension, controlled, continue on amlodipine, chlorothiazide, metoprolol 6. Hypothyroidism, continue Synthroid 7. History of DVT, on chronic Coumadin, INR today is 1.8 8. DVT prophylaxis per primary team - aspirin BID Inpatient E&M: 05152 Subs Hosp L2
[2020-10-04 16:56] LABS: Bedside Glucose 162 mg/dL (70-110)
[2020-10-04] MEDS: Gabapentin 600 MG Tablet PO (21:07)
[2020-10-04 22:10] LABS: Bedside Glucose 201 mg/dL (70-110)
--- NOTE | 2020-10-05 00:25 | NURSING ---
Pt denies need for pain meds at this time. States she is only painful when she gets up. Call light in reach. Bed exit on.
[2020-10-05 03:54] VITALS: BP 131/46; PULSE 68; RESP 18; TEMP 36.8; O2SAT 95
[2020-10-05 04:50] LABS: Hematocrit 27.3 % (37-47); Hemoglobin 8.5 g/dL (12.0-15.0); Mean Corp Hgb Conc 31.1 g/dL (32-36); Mean Corpuscular Hgb 29.7 pg (27.0-32.0); Mean Corpuscular Volume 95.5 fL (81-99); Mean Platelet Vol. 10.5 fl (6.2-12.0); Platelet Count 296 K/mm3 (150-450); RBC Distribution Width CV 15.5 % (11.6-14.6); RBC Distribution Width SD 53.9 fl (35.1-43.9); Red Blood Count 2.86 M/mm3 (4.2-5.4); White Blood Count 8.8 K/mm3 (4.4-11.0)
[2020-10-05] MEDS: Levothyroxine 75 MCG Tablet PO (06:40)
[2020-10-05] MEDS: Acetaminophen 500 MG Tablet 1000 MG PO ×2 (06:40→13:51)
[2020-10-05] MEDS: Insulin Lispro 100 UNIT/ML INSULN.PEN SC ×2 (06:44→12:10)
[2020-10-05 07:56] LABS: Bedside Glucose 185 mg/dL (70-110)
[2020-10-05 08:34] VITALS: O2SAT 95
[2020-10-05] MEDS: Glimepiride 4 MG Tablet PO (09:26)
[2020-10-05] MEDS: 0.9% Saline Lock 10 ML Syringe IV (09:26)
[2020-10-05 09:27] VITALS: BP 128/69; PULSE 65
[2020-10-05] MEDS: Senna/Docusate Sodium 1 Tablet 2 TABLET PO (09:27)
[2020-10-05] MEDS: hydroCHLOROthiazide 25 MG Tablet PO (09:27)
[2020-10-05] MEDS: Metoprolol(XL)Succ 100 MG Tablet PO (09:27)
[2020-10-05] MEDS: Aspirin 81 MG TAB.CHEW PO (09:27)
[2020-10-05] MEDS: Famotidine 20 MG Tablet PO (09:27)
[2020-10-05] MEDS: amLODIPine 5 MG Tablet PO (09:27)
[2020-10-05] MEDS: LINAGLIPTIN 5 MG TABLET PO (09:28)
[2020-10-05 09:40] LABS: Vancomycin, Trough Level 20.3 ug/mL (5.0-15.0)
[2020-10-05 10:00] VITALS: BP 128/69; PULSE 65; RESP 18; TEMP 36.3; O2SAT 96
--- NOTE | 2020-10-05 10:07 | PCM.PN.ORT ---
Objective: Postop x-rays show stable well aligned total knee replacement. - Physical Exam Vitals/I&O's: Vital Signs Temp Pulse Resp BP Pulse Ox 98.2 F 65 18 128/69 H 95 10/05/20 03:54 10/05/20 09:27 10/05/20 03:54 10/05/20 09:27 10/05/20 08:34 Oxygen Flow Rate (L/min) 2 Oxygen Delivery Method Room Air Weight: 233 lb 14.567 oz Body Mass Index (BMI) 35.5 Finger Stick Blood Glucose 143 Intake and Output for Last 24 Hours 10/03/20 10/04/20 10/05/20 23:59 23:59 23:59 Intake Total 3092.67 / 3092.67 2618.75 / 2818.75 200 / 200 Output Total 1150 / 1150 550 / 550 Balance 3092.67 / 3092.67 1468.75 / 1668.75 -350 / -350 General: Alert, Oriented x3, Cooperative Extremities: - - Left lower extremity: Dressing is clean dry and intact Sensations intact to light touch saphenous, sural, superficial peroneal, deep peroneal, and tibial distributions Motors intact EHL, DF, PF calves are soft and supple Posterior leg shows minimal saturation on the dressing. Minimal erythema Microbiology Past 72 Hours 10/03/20 14:06 Cyst - Skin Gram Stain - Final 10/03/20 14:06 Cyst - Skin Wound Culture - Preliminary Gram positive organism 10/03/20 14:06 Tissue - Knee Gram Stain - Final 10/03/20 14:06 Tissue - Knee Wound Culture - Preliminary Gram positive organism 10/03/20 Unknown Tissue - Knee Gram Stain - Final 10/03/20 Unknown Tissue - Knee Wound Culture - Preliminary No growth-Final to follow 10/03/20 Unknown Tissue - Knee Gram Stain - Final 10/03/20 Unknown Tissue - Knee Wound Culture - Preliminary No growth-Final to follow 10/03/20 14:06 Cyst - Knee Gram Stain - Final 10/03/20 14:06 Cyst - Knee Wound Culture - Preliminary No growth-Final to follow 10/02/20 12:39 Swab (Method) Nasal Screen MRSA/MSSA - Final 10/02/20 12:45 Interface Orders SARS-CoV-2 Antigen (Rapid) - Final Laboratory Results 03/31/21 : Synovial Path Comment Reviewed 10/04/20 12:24: POC Glucose 262 H 10/04/20 16:49: POC Glucose 162 H 10/04/20 21:03: POC Glucose 201 H 10/05/20 04:25: WBC 8.8, RBC 2.86 L, Hgb 8.5 L, Hct 27.3 L, MCV 95.5, MCH 29.7, MCHC 31.1 L D, RDW Std Deviation 53.9 H, RDW Coeff of Shania 15.5 H, Plt Count 296, MPV 10.5 10/05/20 06:43: POC Glucose 185 H 10/05/20 09:00: Vancomycin Trough 20.3 H Current Medications Acetaminophen (Acetaminophen 500 Mg Tablet) 1,000 mg PO Q8 [facility] Last Admin: 10/05/20 06:40 Dose: 1,000 mg Documented by: Amlodipine Besylate (Amlodipine 5 Mg Tablet) 5 mg PO DAILY [facility] Last Admin: 10/05/20 09:27 Dose: 5 mg Documented by: Aspirin (Aspirin 81 Mg [facility].Chew) [facility] Last Admin: 10/05/20 09:27 Dose: 81 mg Documented by: Aspirin (Aspirin 81 Mg Tab.Chew) 81 mg PO DAILY@0800 [facility] Famotidine (Famotidine 20 Mg Tablet) 20 mg PO DAILY [facility] Last Admin: 10/05/20 09:27 Dose: 20 mg Documented by: Gabapentin (Gabapentin 600 Mg Tablet) 600 mg PO QHS [facility] Last Admin: 10/04/20 21:07 Dose: 600 mg Documented by: Glimepiride ([facility]imepir[facility] 4 Mg Tablet) [facility] Last Admin: 10/05/20 09:26 Dose: 4 mg Documented by: Hydrochlorothiazide (Hydrochlorothiazide 25 Mg Tablet) 25 mg PO DAILY [facility] Last Admin: 10/05/20 09:27 Dose: 25 mg Documented by: Sodium Chloride () 250 mls @ 15 mls/hr IV .[id number] PRN PRN Reason: Saline Flush Sodium Chloride () 250 mls @ 15 mls/hr IV .[id number] PRN PRN Reason: Additional IVPB Infusion Vancomycin IV Pharmacy to Dose (1 each/ Sodium Chloride) 500 mls @ 250 mls/hr IV PRN PRN; Protocol PRN Reason: Rx to Dose Vancomycin HCl 750 mg/ Sodium (Chloride) 265 mls @ 250 mls/hr IV Q12H [facility] Last Admin: 10/05/20 09:26 Dose: 250 mls/hr Documented by: Insulin Human Lispro (Insulin Lispro 100 Unit/Ml Insuln.Pen) 0 unit SC [facility]; Protocol Last Admin: 10/05/20 06:44 Dose: 1 u Documented by: Ketorolac Tromethamine (Ketorolac 15 Mg/Ml Vial) 15 mg IV Q6H PRN PRN PRN Reason: Pain Score 1-5 Stop: 10/05/20 15:41 Last Admin: 10/04/20 11:32 Dose: 15 mg Documented by: Levothyroxine Sodium (Levothyroxine 75 Mcg Tablet) 75 mcg PO DAILY@0600 [facility] Last Admin: 10/05/20 06:40 Dose: 75 mcg Documented by: Linagliptin (Linagliptin 5 Mg Tablet) 5 mg PO DAILY [facility] Last Admin: 10/05/20 09:28 Dose: 5 mg Documented by: Metoprolol Succinate (Metoprolol(Xl)Succ 100 Mg Tablet) 100 mg PO DAILY [facility] Last Admin: 10/05/20 09:27 Dose: 100 mg Documented by: Morphine Sulfate (Morphine 2 Mg/Ml Syringe) 2 - 4 mg IV Q2H PRN PRN PRN Reason: Pain Score 6-10 Last Admin: 10/03/20 21:22 Dose: 2 mg Documented by: Morphine Sulfate (Morphine 4 Mg/Ml Syringe) 2 - 4 mg IV Q2H PRN PRN PRN Reason: Pain Score 6-10 Non-Formulary Medication (Warfarin Sodium [Coumadin]) 5 mg PO [id number] [facility] Ondansetron HCl (Ondansetron 4 Mg/2 Ml Vial) 4 mg IV Q8H PRN PRN PRN Reason: NAUSEA Oxycodone HCl (Oxycodone 5 Mg Tablet) 5 - 10 mg PO Q4H PRN PRN PRN Reason: Pain Score 4-10 Last Admin: 10/03/20 19:04 Dose: 10 mg Documented by: Promethazine HCl (Promethazine 25 Mg/Ml Syringe) 12.5 mg IM Q6H PRN PRN; Protocol PRN Reason: NAUSEA/VOMITING Senna/Docusate Sodium (Senna/Docusate Sodium 1 Tablet) 2 tablet PO BID [facility] Last Admin: 10/05/20 09:27 Dose: 2 tablet Documented by: Sodium Chloride (0.9% Saline Lock 10 Ml Syringe) 10 - 40 ml IV UD PRN PRN Reason: SALINE FLUSH Last Admin: 10/05/20 09:26 Dose: 10 ml Documented by: Warfarin Sodium (Warfarin 7.5 Mg Tablet) [facility] Medical Necessity - Tobacco Use Smoking Status: Never smoker Tobacco Use: Non-smoker Assessment/Plan 1. S/P irrigation debridement with sinus tract left knee posterior abscess. Irrigation debridement with polyethylene exchange left knee periprosthetic joint infection POD #2 2. Continue Pain Medications: Tylenol and oxycodone 3. DVT Prophylaxis: Placed order to restart Coumadin today will need monitored by PCP or facility physician upon discharge 4. PT/OT: Weightbearing as tolerated and range of motion as tolerated 5. Hb: 8.5 today, asymptomatic with stable vital signs. Patient does have acute on chronic drop in hemoglobin with Postoperative anemia secondary to acute blood loss from surgery without any intra operative complications. We will continue to monitor. Last hemoglobin was 11.0 on October 02, 2020. 6. Infectious disease consultation: Appreciate input for appropriate antibiotics. Patient will likely need 6 weeks of IV antibiotics followed by chronic suppression. Current cultures are pending. Patient will has a PICC line placed. Case was discussed with infectious disease today. They will evaluate patient and place antibiotic regimen. 7. Continue postoperative medical management per medicine 8. Dressing: Over the anterior knee continue with the Mepilex dressing for 5 days postoperatively. With regards to the posterior incision will continue to do daily dressing changes with ABD and compression Jaime wrap daily. 9. Encouraged Incentive Spirometry 10. Disposition: Case was discussed with social worker palliative care/case management. Patient will need assistance postoperatively upon discharge, she has been approved for the TCU plan is to go today if antibiotic regimen can be set up. We are waiting on input from infectious disease with regards to IV antibiotics. Continue dressing changes as discussed with the nurse. Also continue pain medications. Pain appears to be well controlled today. [facility] Office:
--- NOTE | 2020-10-05 10:12 | DCINST_ITS ---
Discharge Diet: No Restrictions Discharge Activity: May Not Drive May shower in (days): 2 Ice area for (Minutes): 20 - every hour while awake. Weight Bearing Status: Weight bearing as tolerated Elevate: Operative Extremity Additional Activity Instructions:: Wear elastic stockings for 2 weeks after your surgery. Call your doctor if your incision/area has: Continuous Slow Oozing, Sudden Increased Bleeding, Increased Pain/ Swelling, Increased Redness, Foul Smelling Discharge Call your doctor if you observe: Fever of 101 or Higher, Coldness, Increased Pain, Numbness or Tingling, Change in Color, Calf discomfort, Uncontrolled pain Change Dressing in (Days):: 1 - Posterior leg, change daily Remove Dressing in (days):: 10-08-2020 Mepilex Cleanse incision/area with: Keep Dressing Clean & Dry Additional Instructions: If incision is clean dry and intact may leave the wound open to air and continue showering. If there is continued drainage continue daily dry dressing changes and keep incision clean dry and intact until there is no drainage. Dry dressing change on posterior knee daily. Keep clean and dry. Allergies/Adverse Reactions: Allergies No Known Allergies Allergy (Verified 10/01/20 15:13) Medications to take at Discharge Gabapentin [Neurontin] 600 mg PO QHS 04/23/15 Glimepiride [Amaryl] 4 mg PO DAILY 01/21/19 Hydrochlorothiazide [Hctz] 25 mg PO DAILY 01/21/19 Amlodipine [Norvasc] 5 mg PO DAILY 02/17/20 Levothyroxine Sodium [Synthroid] 75 mcg PO DAILY 02/17/20 Metformin HCl [Metformin HCl ER] 1,000 mg PO BID 02/17/20 Metoprolol Tartrate [Lopressor (beta douglas)] 100 mg PO DAILY 02/17/20 Warfarin Sodium [Coumadin] 5 mg PO [id number] 02/17/20 Cholecalciferol (Vitamin D3) [Vitamin D3] 100 mcg PO DAILY 10/01/20 Linagliptin [Tradjenta] 5 mg PO DAILY 10/01/20 Sitagliptin Phosphate [Januvia] 25 mg PO DAILY 10/01/20 Warfarin Sodium [Jantoven] 7.5 mg PO SUTH 10/01/20 Acetaminophen [Tylenol] 1,000 mg PO Q8 tablet 10/05/20 Aspirin [Aspirin, Baby] 81 mg PO DAILY@0800 tab.chew 10/05/20 Famotidine [Pepcid] 20 mg PO DAILY tablet 10/05/20 Insulin Lispro [Humalog KwikPen] See Protocol [facility] insuln.pen 10/05/20 Ondansetron [Zofran] 4 mg IV Q8H PRN PRN vial 10/05/20 Oxycodone [Oxyir] 5 - 10 mg PO Q4H PRN PRN 5 Days #60 tablet 10/05/20 The following prescriptions were given: Oxycodone [Oxyir] 5 - 10 mg PO Q4H PRN PRN 5 Days #60 tablet PRN Reason: Pain Score 4-10 Prescription Printed Primary Care Physician: Jose Cruz Benavides MD [Primary Care Provider] - Test Results: Test results from this visit will be discussed in further detail at your follow- up appointment, if applicable. Please Follow Up With: Tal Austin PA-C - 10-17-2020
--- NOTE | 2020-10-05 10:36 | PCM.RX.CS ---
Consult Pharmacy has been consulted to manage selected antiobiotic: Vancomycin Type of Consult: Follow-up Suspected Infection: Other Prior Doses of Antibiotics Received/Current Regimen: Current order is 750mg iv q12h. Labs: Sodium 132 mmol/L (136-145) L 10/04/20 06:17 Potassium 3.8 mmol/L (3.5-5.1) 10/04/20 06:17 Chloride 98 mmol/L (98-107) 10/04/20 06:17 Carbon Dioxide 27.0 mmol/L (21.0-32.0) 10/04/20 06:17 Anion Gap 7 (5-15) 10/04/20 06:17 BUN 25 mg/dL (7-18) H 10/04/20 06:17 Creatinine 1.08 mg/dL (0.55-1.02) H 10/04/20 06:17 Est GFR (MDRD) Af Amer 62 mL/min (>60) 10/04/20 06:17 Est GFR (MDRD) Non-Af 52 mL/min (>60) L 10/04/20 06:17 BUN/Creatinine Ratio 23.1 RATIO (10-20) H 10/04/20 06:17 Glucose 202 mg/dL (74-106) H 10/04/20 06:17 Vancomycin Trough 20.3 ug/mL (5.0-15.0) H 10/05/20 09:00 Microbiology: Microbiology 10/03/20 14:06 Tissue - Knee Gram Stain - Final 10/03/20 14:06 Tissue - Knee Wound Culture - Preliminary Staphylococcus species 10/03/20 14:06 Cyst - Skin Gram Stain - Final 10/03/20 14:06 Cyst - Skin Wound Culture - Preliminary Gram positive organism 10/03/20 Unknown Tissue - Knee Gram Stain - Final 10/03/20 Unknown Tissue - Knee Wound Culture - Preliminary No growth-Final to follow 10/03/20 Unknown Tissue - Knee Gram Stain - Final 10/03/20 Unknown Tissue - Knee Wound Culture - Preliminary No growth-Final to follow 10/03/20 14:06 Cyst - Knee Gram Stain - Final 10/03/20 14:06 Cyst - Knee Wound Culture - Preliminary No growth-Final to follow 10/02/20 12:39 Swab (Method) Nasal Screen MRSA/MSSA - Final 10/02/20 12:45 Interface Orders SARS-CoV-2 Antigen (Rapid) - Final Weight used for dosin kg Estimated Creatinine Clearance: 51 ml/min Goal Trough: 15-20 mcg/mL Pharmacy Plan for Drug Dosing: Trough level today was 20.3. Will continue same regimen and get a repeat trough level before another 4 doses on 10.06.20. Pharmacy Service will continue to monitor and adjust dosing as required. Follow-Up Labs: Trough Vancomycin - 10.06.20 @2029 before 2100 dose
[2020-10-05 11:25] LABS: Bedside Glucose 261 mg/dL (70-110)
--- NOTE | 2020-10-05 11:56 | PN_ITS ---
Patient Problems: Active and Suspected Problems (Last Updated 02/17/20 @ 15:55 by DMITRY Calix) Infected prosthetic knee joint (Acute) Reason for Visit: Consult for postop medical management Subjective: Patient was seen and examined. No new complaints. Objective: Physical exam: General: Alert, Oriented x3, Cooperative, No apparent distress HEENT: Atraumatic, PERRLA, EOMI, Normocephalic Oral: Moist Mucosa, No Gingival or Mucosal Lesions/ Ulcerations Neck: Supple, No JVD, Negative Carotid Bruits, Trachea Midline, Thyroid Normal Size and Texture Lungs: Clear to auscultation, Normal air movement, No rhonchi, No wheeze, No rales, Diminished Cardiovascular: Regular rate, Regular Rhythm, Normal S1, Normal S2, PMI Normal Abdomen: Bowel Sounds Present, Soft, Non Tender, Non-Distended, No Hepato- splenomegaly, Obese Extremities: Bilateral lower extremity Jaime wraps to the knees. Skin: No rashes, No breakdown Lymphatic: No Cervical, Supraclavicular, or Inguinal Adenopathy Neurological: Cranial nerves II-XII grossly intact, Motor Exam 5/5 strength throughout Psych/Mental Status: Appropriate, Flat Affect, Alert and oriented to time, place, person, mood and affect Vitals/I&O's: Vital Signs Temp Pulse Resp BP Pulse Ox 97.3 F L 65 18 128/69 H 96 10/05/20 10:00 10/05/20 10:00 10/05/20 10:00 10/05/20 10:00 10/05/20 10:00 Oxygen Flow Rate (L/min) 2 Oxygen Delivery Method Room Air Weight: 106.1 kg Body Mass Index (BMI) 35.5 Finger Stick Blood Glucose 143 Intake and Output for Last 24 Hours 10/03/20 10/04/20 10/05/20 23:59 23:59 23:59 Intake Total 3092.67 / 3092.67 2618.75 / 2818.75 465 / 465 Output Total 1150 / 1150 550 / 550 Balance 3092.67 / 3092.67 1468.75 / 1668.75 -85 / -85 Microbiology Past 72 Hours 10/05/20 10:52 Mucosa - Nasopharyngeal SARS-CoV-2 Antigen (Rapid) - Final 10/03/20 14:06 Tissue - Knee Gram Stain - Final 10/03/20 14:06 Tissue - Knee Wound Culture - Preliminary Staphylococcus species 10/03/20 14:06 Cyst - Skin Gram Stain - Final 10/03/20 14:06 Cyst - Skin Wound Culture - Preliminary Gram positive organism 10/03/20 Unknown Tissue - Knee Gram Stain - Final 10/03/20 Unknown Tissue - Knee Wound Culture - Preliminary No growth-Final to follow 10/03/20 Unknown Tissue - Knee Gram Stain - Final 10/03/20 Unknown Tissue - Knee Wound Culture - Preliminary No growth-Final to follow 10/03/20 14:06 Cyst - Knee Gram Stain - Final 10/03/20 14:06 Cyst - Knee Wound Culture - Preliminary No growth-Final to follow 10/02/20 12:39 Swab (Method) Nasal Screen MRSA/MSSA - Final 10/02/20 12:45 Interface Orders SARS-CoV-2 Antigen (Rapid) - Final Laboratory Results 10/04/20 12:24: POC Glucose 262 H 10/04/20 16:49: POC Glucose 162 H 10/04/20 21:03: POC Glucose 201 H 10/05/20 04:25: WBC 8.8, RBC 2.86 L, Hgb 8.5 L, Hct 27.3 L, MCV 95.5, MCH 29.7, MCHC 31.1 L D, RDW Std Deviation 53.9 H, RDW Coeff of Shania 15.5 H, Plt Count 296, MPV 10.5 10/05/20 06:43: POC Glucose 185 H 10/05/20 09:00: Vancomycin Trough 20.3 H 10/05/20 11:21: POC Glucose 261 H Current Medications Acetaminophen (Acetaminophen 500 Mg Tablet) 1,000 mg PO Q8 [facility] Last Admin: 10/05/20 06:40 Dose: 1,000 mg Documented by: Amlodipine Besylate (Amlodipine 5 Mg Tablet) 5 mg PO DAILY [facility] Last Admin: 10/05/20 09:27 Dose: 5 mg Documented by: Aspirin (Aspirin 81 Mg Tab.Chew) 81 mg PO DAILY@0800 [facility] Famotidine (Famotidine 20 Mg Tablet) 20 mg PO DAILY [facility] Last Admin: 10/05/20 09:27 Dose: 20 mg Documented by: Gabapentin (Gabapentin 600 Mg Tablet) 600 mg PO QHS [facility] Last Admin: 10/04/20 21:07 Dose: 600 mg Documented by: Glimepiride ([facility] 4 Mg Tablet) [facility] Admin: 10/05/20 09:26 Dose: 4 mg Documented by: Hydrochlorothiazide (Hydrochlorothiazide 25 Mg Tablet) 25 mg PO DAILY [facility] Last Admin: 10/05/20 09:27 Dose: 25 mg Documented by: Sodium Chloride () 250 mls @ 15 mls/hr IV .[id number] PRN PRN Reason: Saline Flush Sodium Chloride () 250 mls @ 15 mls/hr IV .[id number] PRN PRN Reason: Additional IVPB Infusion Vancomycin IV Pharmacy to Dose (1 each/ Sodium Chloride) 500 mls @ 250 mls/hr IV PRN PRN; Protocol PRN Reason: Rx to Dose Vancomycin HCl 750 mg/ Sodium (Chloride) 265 mls @ 250 mls/hr IV Q12H [facility] Last Infusion: 10/05/20 11:07 Dose: Infused Documented by: Insulin Human Lispro (Insulin Lispro 100 Unit/Ml Insuln.Pen) 0 unit SC [facility]; Protocol Last Admin: 10/05/20 06:44 Dose: 1 u Documented by: Ketorolac Tromethamine (Ketorolac 15 Mg/Ml Vial) 15 mg IV Q6H PRN PRN PRN Reason: Pain Score 1-5 Stop: 10/05/20 15:41 Last Admin: 10/04/20 11:32 Dose: 15 mg Documented by: Levothyroxine Sodium (Levothyroxine 75 Mcg Tablet) 75 mcg PO DAILY@0600 [facility] Last Admin: 10/05/20 06:40 Dose: 75 mcg Documented by: Linagliptin (Linagliptin 5 Mg Tablet) 5 mg PO DAILY [facility] Last Admin: 10/05/20 09:28 Dose: 5 mg Documented by: Metoprolol Succinate (Metoprolol(Xl)Succ 100 Mg Tablet) 100 mg PO DAILY [facility] Last Admin: 10/05/20 09:27 Dose: 100 mg Documented by: Morphine Sulfate (Morphine 2 Mg/Ml Syringe) 2 - 4 mg IV Q2H PRN PRN PRN Reason: Pain Score 6-10 Last Admin: 10/03/20 21:22 Dose: 2 mg Documented by: Morphine Sulfate (Morphine 4 Mg/Ml Syringe) 2 - 4 mg IV Q2H PRN PRN PRN Reason: Pain Score 6-10 Ondansetron HCl (Ondansetron 4 Mg/2 Ml Vial) 4 mg IV Q8H PRN PRN PRN Reason: NAUSEA Oxycodone HCl (Oxycodone 5 Mg Tablet) 5 - 10 mg PO Q4H PRN PRN PRN Reason: Pain Score 4-10 Last Admin: 10/03/20 19:04 Dose: 10 mg Documented by: Promethazine HCl (Promethazine 25 Mg/Ml Syringe) 12.5 mg IM Q6H PRN PRN; Protocol PRN Reason: NAUSEA/VOMITING Senna/Docusate Sodium (Senna/Docusate Sodium 1 Tablet) 2 tablet PO BID [facility] Last Admin: 10/05/20 09:27 Dose: 2 tablet Documented by: Sodium Chloride (0.9% Saline Lock 10 Ml Syringe) 10 - 40 ml IV UD PRN PRN Reason: SALINE FLUSH Last Admin: 10/05/20 09:26 Dose: 10 ml Documented by: Warfarin Sodium (Warfarin 5 Mg Tablet) 5 mg PO MoTuWeFrSa@1700 [facility] Warfarin Sodium (Warfarin 7.5 Mg Tablet) 7.5 mg PO SuTh@1700 [facility] Vital Signs/Narrative: Vital Signs Temp Pulse Resp BP Pulse Ox 10/05/20 10:00 97.3 F L 65 18 128/69 H 96 10/05/20 09:27 65 128/69 H 10/05/20 08:34 95 Medical Necessity - Tobacco Use Smoking Status: Never smoker Tobacco Use: Non-smoker Assessment/Plan All Active Problems (Last Updated 02/17/20 @ 15:55 by Tony ANDRES, DMITRY) Infected prosthetic knee joint (Acute) 1. POD #2, status post left knee irrigation, debridement with sinus tract excision, left knee posterior abscess, with polyethylene exchange for left knee periprosthetic joint infection, pain is controlled. ntraoperative cultures growing staph aureus, final cultures are pending, on IV vancomycin. ID following, discharge plan will be discharged to TCU 2. Anemia, postop, likely from acute blood loss drop Hb dropped to 8.5. Recommend start of oral iron 3. CKD stage III, creatinine peers to be slowly elevating, continue to monitor 4. Type II DM, blood sugars are fairly stable, Continue on Amaryl, Januvia Resume Metformin 5. Hypertension, controlled, continue on amlodipine, chlorothiazide, metoprolol 6. Hypothyroidism, continue Synthroid 7. History of DVT, on chronic Coumadin, 8. DVT prophylaxis per primary team - aspirin BID Inpatient E&M: [id number] Subs Hosp L2
[2020-10-05 12:50] LABS: ALB/GLOB Ratio 0.7 RATIO (0.9-2.4); AST(SGOT) 27 U/L (15-37); Alanine Aminotransfer ALT/SGPT 15 U/L (13-56); Albumin, Serum 2.4 g/dL (3.2-5.0); Alkaline Phosphatase 77 U/L (45-117); Anion Gap 6 (5-15); BUN 31 mg/dL (7-18); BUN/Creat Ratio 23.8 RATIO (10-20); Chloride 99 mmol/L (98-107); EST Glomerular Filtration Rate 42 mL/min (>60); Est Glom Filt Rate - Afr Amer 50 mL/min (>60); Estimated Creatinine Clearance 33.66 ml/min; Globulin 3.5 g/dL (2.2-4.2); Glucose 160 mg/dL (74-106); Potassium 3.8 mmol/L (3.5-5.1); Protein, Total 5.9 g/dL (6.4-8.2); Sodium Level 132 mmol/L (136-145)
--- NOTE | 2020-10-05 12:50 | CASEMGMT ---
Social Work Note Pt is discharging to TCU today. SW placed a call to Melina with TCU and updated her. Plan: TCU today Alexa Varma [employer], [employer]ISH[employer]
[2020-10-05 13:07] VITALS: BP 140/72; PULSE 82; RESP 18; TEMP 37; O2SAT 100
--- NOTE | 2020-10-05 13:16 | CON.PCM_ITS ---
Problem List (1) Infected prosthetic knee joint Status: Acute Reason for Consult: PJI Consulted by: Dr. Drake History of Present Illness: The patient is a 80 year old F, L knee replacement 2013, had a fall onto a cement block over the summer, since then progressive pain, redness, swelling. No fever. Thought it was a Trinidad's cyst until this past weekend, had rupture with murky yellow drainage. Admitted, taken to OR 10/[address] Drake for I&D and poly exchange. On iv vanc, feeling ok, c/o knee soreness and swelling. Picc in place. Son provided additional history. Full ROS performed and neg except as noted above. She has completed covid series. - Medical History Past Medical History (Chronic Problems): Chronic Problems (Last Updated 02/17/20 @ 15:55 by Tony ANDRES, PA) Mild diastolic dysfunction (Chronic) History of TIA (transient ischemic attack) (Chronic) Stasis dermatitis of both legs (Chronic) Venous insufficiency (Chronic) Deep vein thrombosis (Chronic) Diabetes mellitus type 2 in obese (Chronic) Obesity (Chronic) History of colon cancer (Chronic) Hypertension (Chronic) Hypothyroidism (Chronic) Peripheral neuropathy (Chronic) Chronic anticoagulation (Chronic) Allergies/Adverse Reactions: Allergies No Known Allergies Allergy (Verified 10/01/20 15:13) Home Medications: Ambulatory Orders Medication Instructions Recorded Gabapentin [Neurontin] 600 mg PO QHS 04/23/15 Glimepiride [Amaryl] 4 mg PO DAILY 01/21/19 Hydrochlorothiazide [Hctz] 25 mg PO DAILY 01/21/19 Amlodipine [Norvasc] 5 mg PO DAILY 02/17/20 Levothyroxine Sodium [Synthroid] 75 mcg PO DAILY 02/17/20 Metformin HCl [Metformin HCl ER] 1,000 mg PO BID 02/17/20 Metoprolol Tartrate [Lopressor 100 mg PO DAILY 02/17/20 (beta douglas)] Warfarin Sodium [Coumadin] 5 mg PO MOTUWEFRSA 02/17/20 Cholecalciferol (Vitamin D3) 100 mcg PO DAILY 10/01/20 [Vitamin D3] Linagliptin [Tradjenta] 5 mg PO DAILY 10/01/20 Sitagliptin Phosphate [Januvia] 25 mg PO DAILY 10/01/20 Warfarin Sodium [Jantoven] 7.5 mg PO SUTH 10/01/20 Acetaminophen [Tylenol] 1,000 mg PO Q8 tablet 10/05/20 Aspirin [Aspirin, Baby] 81 mg PO DAILY@0800 tab.chew 10/05/20 Famotidine [Pepcid] 20 mg PO DAILY tablet 10/05/20 Insulin Lispro [Humalog KwikPen] See Protocol [facility] insuln.pen 10/05/20 Ondansetron [Zofran] 4 mg IV Q8H PRN PRN vial 10/05/20 Oxycodone [Oxyir] 5 - 10 mg PO Q4H PRN PRN 5 Days 10/05/20 #60 tablet Vancomycin IV 750 mg IV Q12H 40 Days #80 vial 10/05/20 - Social History Tobacco Use: non-smoker Vital Signs Temp Pulse Resp BP Pulse Ox 98.6 F 82 18 140/72 H 100 10/05/20 13:07 10/05/20 13:07 10/05/20 13:07 10/05/20 13:07 10/05/20 13:07 Oxygen Flow Rate (L/min) 2 Oxygen Delivery Method Room Air Weight: 106.1 kg Body Mass Index (BMI) 35.5 Finger Stick Blood Glucose 143 Microbiology Past 72 Hours 10/05/20 10:52 SARS-CoV-2 Antigen (Rapid) - Final Mucosa - Nasopharyngeal 10/03/20 14:06 Gram Stain - Final Tissue - Knee Wound Culture - Preliminary Staphylococcus species 10/03/20 14:06 Gram Stain - Final Cyst - Skin Wound Culture - Preliminary Gram positive organism 10/03/20 Unknown Gram Stain - Final Tissue - Knee Wound Culture - Preliminary No growth-Final to follow 10/03/20 Unknown Gram Stain - Final Tissue - Knee Wound Culture - Preliminary No growth-Final to follow 10/03/20 14:06 Gram Stain - Final Cyst - Knee Wound Culture - Preliminary No growth-Final to follow 10/02/20 12:39 Nasal Screen MRSA/MSSA - Final Swab (Method) 10/02/20 12:45 SARS-CoV-2 Antigen (Rapid) - Final Interface Orders Laboratory Tests Past 24 Hrs 10/05/20 10/05/20 10/05/20 04:25 04:25 09:00 WBC 8.8 RBC 2.86 L Hgb 8.5 L Hct 27.3 L MCV 95.5 MCH 29.7 MCHC 31.1 L D RDW Std Deviation 53.9 H RDW Coeff of Shania 15.5 H Plt Count 296 MPV 10.5 Sodium 132 L Potassium 3.8 Chloride 99 Carbon Dioxide 27.0 Anion Gap 6 BUN 31 H Creatinine 1.30 H Estim Creat Clear Calc 33.66 Est GFR (MDRD) Af Amer 50 L Est GFR (MDRD) Non-Af 42 L BUN/Creatinine Ratio 23.8 H Glucose 160 H Calcium 8.0 L Total Bilirubin 0.20 AST 27 ALT 15 Alkaline Phosphatase 77 Total Protein 5.9 L Albumin 2.4 L Globulin 3.5 Albumin/Globulin Ratio 0.7 L Vancomycin Trough 20.3 H - Other Studies Radiology: [] reviewed Other Studies: [] Route of nutrition/ use of supplements: [] Nutritional Intake: [] IV Site: [] Panchal Catheter: [] - Physical Exam General: Alert, Cooperative, No apparent distress HEENT: Atraumatic, PERRLA, EOMI Neck: Supple, No Nodes Lungs: Clear to auscultation, Normal air movement Cardiovascular: Regular rate, Regular Rhythm Abdomen: Soft, Non Tender, Non-Distended, Obese Extremities: Edema Skin: Ulcer/ Wound - LLE wrapped IV Site: PICC, without redness Musculoskeletal: No Tenderness to Palpation of Joints or Extremities Neurological: Cranial nerves II-XII grossly intact - Assessment/Plan Antibiotics: [] Assessment/Plan: [] L knee staph PJI - now s/p 10/03/20 I&D and poly exchange by Dr. Drake. Surg with staph so far. Picc in place. Ok for transfer to TCU on iv vanc for 6 week course, stop date planned for 11/14/20 with weekly labs, then long course of po abx. Will adjust abx and may add rifampin depending on further cx results. Will follow at TCU, thank you, d/w Dr. Drake and child support case officer, wrote rx.
--- NOTE | 2020-10-05 13:48 | NURSING ---
REPORT CALLED TO SHAE ON TCU. ROOM NOT CLEANED YET, RN WILL CALL WHEN READY FOR PT.
--- NOTE | 2020-10-05 17:05 | NURSING ---
Late entry - [id number] - Pt to TCU1
== END 2020-10-05 14:45 | disposition skilled nursing facility (03) | DRG 486 ==
LOC: ACINP 10:15 → MS3 15:50
PROVIDERS: Anesthesiology; Hospitalist; Internal Medicine Infectious Disease; Admitting Provider Specialist; PCP Family Medicine; Referring Provider Specialist; Visit Provider Internal Medicine
PROC: 0S9D0ZX Drainage of Left Knee Joint, Open Approach, Diagnostic (ICD-10-PCS; CPT 27301; principal; 2020-10-03 12:25)
DX: T84.54XA Infection and inflammatory reaction due to internal left knee prosthesis, initial encounter (principal); B95.61 Methicillin susceptible Staphylococcus aureus infection as the cause of diseases classified elsewhere; D62 Acute posthemorrhagic anemia; L02.416 Cutaneous abscess of left lower limb; M71.22 Synovial cyst of popliteal space [Baker], left knee; Y83.1 Surgical operation with implant of artificial internal device as the cause of abnormal reaction of the patient, or of later complication, without mention of misadventure at the time of the procedure; E78.00 Pure hypercholesterolemia, unspecified; I12.9 Hypertensive chronic kidney disease with stage 1 through stage 4 chronic kidney disease, or unspecified chronic kidney disease; N18.31 Chronic kidney disease, stage 3a; D63.1 Anemia in chronic kidney disease; E11.42 Type 2 diabetes mellitus with diabetic polyneuropathy; E11.22 Type 2 diabetes mellitus with diabetic chronic kidney disease; E03.9 Hypothyroidism, unspecified; Z20.822 Contact with and (suspected) exposure to COVID-19; Z96.653 Presence of artificial knee joint, bilateral; Z79.01 Long term (current) use of anticoagulants; Z79.84 Long term (current) use of oral hypoglycemic drugs; Z79.890 Hormone replacement therapy; Z79.899 Other long term (current) drug therapy; Z86.718 Personal history of other venous thrombosis and embolism; Z86.73 Personal history of transient ischemic attack (TIA), and cerebral infarction without residual deficits
CPT/HCPCS: 36415; 36416; 36569; 73560; 80048; 80053; 80202; 82962; 83036; 83735; 84100; 84443; 85025; 85027; 85610; 85652; 86140; 87015; 87070; 87075; 87077; 87081; 87102; 87116; 87176; 87186; 87205; 87206; 87426; 89050; 89051; 93005; 97110; 97116; 97162; 97166; 97530; 97535; 99251; 99282; C1776; C9803; J7040; J7050; J7120; A4216; G0463; J2405

== ENCOUNTER 2020-10-05 14:55 | Inpatient (IN) | payer MEDICARE, SELFPAY ==
[2020-10-03 18:11] VITALS: BMI 35.5
[2020-10-05 15:15] VITALS: BP 143/81; PULSE 82; RESP 18; TEMP 36.1; TEMP 36.5; O2SAT 95; BMI 38.3
[2020-10-05 16:30] LABS: Bedside Glucose 181 mg/dL (70-110)
--- NOTE | 2020-10-05 16:35 | PCM.RX.CS ---
Consult Pharmacy has been consulted to manage selected antiobiotic: Vancomycin Type of Consult: Follow-up Suspected Infection: Other Prior Doses of Antibiotics Received/Current Regimen: Has been on 750mg iv q12h. Weight used for dosin kg Estimated Creatinine Clearance: ~51 ml/min Goal Trough: 15-20 mcg/mL Pharmacy Plan for Drug Dosing: Trough today was 20.3. Will continue same dose and get another trough level on 10.06.20. Pharmacy Service will continue to monitor and adjust dosing as required. Follow-Up Labs: Trough Vancomycin - 4.09.23 @2029 before 2100 dose
[2020-10-05] MEDS: metFORMIN (XR) 500 MG Tablet 1000 MG PO (18:00)
[2020-10-05] MEDS: Insulin Lispro 100 UNIT/ML INSULN.PEN SC (18:02)
--- NOTE | 2020-10-05 19:01 | HP.PCM_ITS ---
Problem List (1) Debility Status: Acute (2) Left knee pain Status: Acute (3) Trinidad's cyst Status: Chronic (4) Infection of prosthetic left knee joint Status: Acute (5) Recurrent deep vein thrombosis (DVT) Status: Chronic (6) Diabetes mellitus Status: Chronic (7) Vitamin D deficiency Status: Chronic (8) Diabetic neuropathy Status: Chronic (9) Osteoarthritis Status: Chronic (10) Hypertension Status: Chronic (11) Hypothyroidism Status: Chronic History of Present Illness Date of Admission: 10/05/20 Chief Complaint: Here for rehabilitation, strengthening, intravenous antibiotics, prior to discharge home alone. 10/03/2020 The patient is a 80 year old Female with below past medical history admitted to [facility]. 10/02/2020 EKG normal sinus rhythm, left anterior fascicular block, septal infarct, age undetermined. 10/03/2020 Orthopedics performed irrigation debridement with sinus tract excision left knee posterior abscess, irrigation debridement with polyethylene exchange left knee periprosthetic joint infection. 10/03/2020 Cefazolin IV for left knee prosthetic joint infection. Start IV Vancomycin, cultures pending. Morphine, oxycodone for pain control. Aspirin twice daily for DVT prophylaxis. 10/04/2020 Vancomycin IV, consult Infectious Disease for left knee prosthetic joint infection. Monitor postoperative anemia, Hemoglobin 9.9. 10/05/2020 Oxycodone, Tylenol for pain control. Restart coumadin for recurrent DVT. PT/OT for [facility], Weight Bearing As Tolerated. PICC line placed right upper extremity. 6 weeks of IV antibiotics per Infectious Disease, then suppressive antibiotic indefinitely. 10/05/2020 Admit to TCU with debility, here for rehabilitation, strengthening, intravenous antibiotics, prior to discharge home alone. Past Medical History Past Medical History (Chronic Problems): Chronic Problems (Last Updated 02/17/20 @ 15:55 by Tony ANDRES, PA) Trinidad's cyst (Chronic) Recurrent deep vein thrombosis (DVT) (Chronic) Diabetes mellitus (Chronic) Vitamin D deficiency (Chronic) Diabetic neuropathy (Chronic) Osteoarthritis (Chronic) Mild diastolic dysfunction (Chronic) History of TIA (transient ischemic attack) (Chronic) Stasis dermatitis of both legs (Chronic) Venous insufficiency (Chronic) Deep vein thrombosis (Chronic) Diabetes mellitus type 2 in obese (Chronic) Obesity (Chronic) History of colon cancer (Chronic) Hypertension (Chronic) Hypothyroidism (Chronic) Peripheral neuropathy (Chronic) Chronic anticoagulation (Chronic) Medical History: Medical History (Last Updated 02/17/20 @ 15:55 by Tony ANDRES, PA) Hx-TIA (transient ischemic attack) Z86.73 Type 2 diabetes mellitus E11.9 Allergies No Known Allergies Allergy (Verified 10/01/20 15:13) Home Medications: Ambulatory Orders Medication Instructions Recorded Gabapentin [Neurontin] 600 mg PO QHS 04/23/15 Glimepiride [Amaryl] 4 mg PO DAILY 01/21/19 Hydrochlorothiazide [Hctz] 25 mg PO DAILY 01/21/19 Amlodipine [Norvasc] 5 mg PO DAILY 02/17/20 Levothyroxine Sodium [Synthroid] 75 mcg PO DAILY 02/17/20 Metformin HCl [Metformin HCl ER] 1,000 mg PO BID 02/17/20 Metoprolol Tartrate [Lopressor 100 mg PO DAILY 02/17/20 (beta douglas)] Warfarin Sodium [Coumadin] 5 mg PO MOTUWEFRSA 02/17/20 Cholecalciferol (Vitamin D3) 100 mcg PO DAILY 10/01/20 [Vitamin D3] Linagliptin [Tradjenta] 5 mg PO DAILY 10/01/20 Sitagliptin Phosphate [Januvia] 25 mg PO DAILY 10/01/20 Warfarin Sodium [Jantoven] 7.5 mg PO SUTH 10/01/20 Acetaminophen [Tylenol] 1,000 mg PO Q8 10/05/20 Aspirin [Aspirin, Baby] 81 mg PO DAILY@0800 10/05/20 Famotidine [Pepcid] 20 mg PO DAILY 10/05/20 Insulin Lispro [Humalog KwikPen] See Protocol [facility] 10/05/20 Ondansetron [Zofran] 4 mg IV Q8H PRN PRN vial 10/05/20 Oxycodone [Oxyir] 5 - 10 mg PO Q4H PRN PRN 5 Days 10/05/20 #60 tablet Vancomycin IV 750 mg IV Q12H 10/05/20 Surgical History: Surgical History (Last Updated 02/17/20 @ 15:54 by Tony ANDRES, PA) History of bilateral knee replacement Z96.653 Surgical History: appendectomy, cataract, cholecystectomy, total knee arthroplasty - Bilaterally, tonsillectomy, - - Partial colectomy for colon cancer, vein stripping, Mole removal. 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 Lives: Alone Smoking Status: Never smoker Tobacco Use: Cigarettes Alcohol: None Drugs: None - *Family History Maternal History Items: Heart Disease Paternal History Items: Cancer Review of Systems Constitutional: Denies: Chills, Fever, Weight Change HEENT: Denies: Head Aches, Sinus Congestion, Sinus Drainage Cardiovascular: Denies: Chest Pain, Palpitations Respiratory: Denies: Cough, Shortness of breath at rest, Sputum production Gastrointestinal: Denies: Abdominal Pain, Nausea, Vomiting Genitourinary: Denies: Dysuria Musculoskeletal: Denies: Joint Pain, Joint Tenderness Skin: Denies: Rash, Wounds Neurological: Denies: Numbness, Tingling, Focal weakness Psychiatric: Denies: Anxiety, Depression, Homicidal Ideations, Suicidal Ideations Hematologic/ Lymphatic: Denies: Easy Bruising, Easy Bleeding VTE Information - Inpt Only VTE Present on Admission: No VTE Mechan Device Prophylaxis: Knee High YADIEL Hose VTE Pharm Prophylaxis ordered?: No Reason prophylaxis not ordered:: Treatment Not Indicated 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) - Physical Exam Vitals/I&O's: Vital Signs Temp Pulse Resp BP Pulse Ox 97.0 F L 82 18 143/81 H 95 10/05/20 15:15 10/05/20 15:15 10/05/20 15:15 10/05/20 15:15 10/05/20 15:15 Oxygen Delivery Method Room Air Weight: 114.351 kg Body Mass Index (BMI) 38.3 Finger Stick Blood Glucose 143 Intake and Output for Last 24 Hours 10/03/20 10/04/20 10/05/20 23:59 23:59 23:59 Intake Total 240 / 240 Balance 240 / 240 General: Alert, Oriented x3, Cooperative HEENT: Atraumatic, PERRLA, EOMI, Normocephalic Neck: Supple, No JVD, Negative Carotid Bruits Lungs: Clear to auscultation, Normal air movement Cardiovascular: Regular rate, No murmurs Abdomen: Bowel Sounds Present, Soft, Non Tender Extremities: No edema, Capillary Refill Less than 3 Seconds, - - PICC line right upper extremity. Skin: No rashes, No breakdown Musculoskeletal: No Tenderness to Palpation of Joints or Extremities Neurological: Cranial nerves II-XII grossly intact Psych/Mental Status: Normal Affect, Appropriate Laboratory Results 10/05/20 16:27: POC Glucose 181 H Current Medications Acetaminophen (Acetaminophen 500 Mg Tablet) 1,000 mg PO Q8 [facility] Amlodipine Besylate (Amlodipine 5 Mg Tablet) 5 mg PO DAILY [facility] Aspirin (Aspirin 81 Mg Tab.Chew) 81 mg PO DAILY@0800 [facility] Famotidine (Famotidine 20 Mg Tablet) 20 mg PO DAILY [facility] Gabapentin (Gabapentin 300 Mg Capsule) 600 mg PO QHS [facility] Glimepiride ([facility]piride 4 Mg Table[facility]) [facility] Heparin Sodium (Beef Lung) (Heparin Pf Lock 10 Units/Ml 50 Units/5 Ml Syringe) 50 units IV UD PRN PRN Reason: PICC Line Heparin Flush Hydrochlorothiazide (Hydrochlorothiazide 25 Mg Tablet) 25 mg PO DAILY [facility] Vancomycin HCl 750 mg/ Sodium (Chloride) 265 mls @ 250 mls/hr IV Q12H [facility] Insulin Human Lispro (Insulin Lispro 100 Unit/Ml Insuln.Pen) 0 unit SC ACHS [facility]; Protocol Last Admin: 10/05/20 18:02 Dose: 1 u Documented by: Levothyroxine Sodium (Levothyroxine 75 Mcg Tablet) 75 mcg PO DAILY@0600 [facility] Linagliptin (Linagliptin 5 Mg Tablet) 5 mg PO DAILY [facility] Metformin HCl (Metformin (Xr) 500 Mg Tablet) 1,[facility] Last Admin: 10/05/20 18:00 Dose: 1,000 mg Documented by: Metoprolol Tartrate (Metoprolol Tartrate 100 Mg Tablet) 100 mg PO DAILY [facility] Ondansetron HCl (Ondansetron 4 Mg/2 Ml Vial) 4 mg IV Q8H PRN PRN PRN Reason: NAUSEA Oxycodone HCl (Oxycodone 5 Mg Tablet) 5 - 10 mg PO Q4H PRN PRN PRN Reason: Pain Score 4-10 Sodium Chloride (0.9% Saline Lock 10 Ml Syringe) 10 - 40 ml IV UD PRN PRN Reason: Open End PICC Flush Sodium Chloride (0.9 % Nacl (Sterile) Posiflush 10 Ml) 10 - 40 ml IV UD PRN PRN Reason: Port access or dressing change Tuberculin PPD (Tuberculin,Purif.Prot.Deriv. 50 Tu/Ml Vial) 5 tu ID [id number] Stop: 10/06/20 10:01 Tuberculin PPD (Tuberculin,Purif.Prot.Deriv. 50 Tu/Ml Vial) 5 tu ID [id number] Stop: 10/13/20 10:01 Warfarin Sodium (Warfarin 5 Mg Tablet) 5 mg PO MoTuWeFrSa@1700 [facility] Last Admin: 10/05/20 18:00 Dose: 5 mg Documented by: Warfarin Sodium (Warfarin 7.5 Mg Tablet) 7.5 mg PO SuTh@1700 [facility] Assessment/Plan All Active Problems (Last Updated 02/17/20 @ 15:55 by Tony ANDRES, PA) Infected prosthetic knee joint (Acute) Debility (Acute) Left knee pain (Acute) Infection of prosthetic left knee joint (Acute) 80 year old female with below past medical history hospitalized for left knee prosthetic joint infection, underwent polyethylene exchange infected left prosthetic knee, postoperative course complicated by anemia, admitted to TCU with debility, here for rehabilitation, strengthening, intravenous antibiotics, prior to discharge home alone. * Debility - PT/OT. * Pain - Tylenol 1000MG Q8H, Oxycodone 5MG Q4H PRN pain (4-10). * Bowel - Miralax 17GM daily, Senna/colace 1 tablet BID, MOM 30ML daily PRN, Dulcolax 10MG daily PRN. * Adult immunization - Administer Prevnar 13, Pneumovax 23, Fluzone, COVID19 vaccine as necessary. * DVT prophylaxis - Not necessary, already anticoagulated. * Hypertension - Metoprolol 100MG daily, Amlodipine 5MG daily, HCTZ 25MG daily. * CV prophylaxis - Aspirin 81MG daily. * GERD - Famotidine 20MG daily. * Diabetic neuropathy - Gabapentin 600MG QHS. * Diabetes Mellitus II - Metformin XR 1000MG BID, Glimepiride 4MG daily, Tradjenta 5MG daily. * Hypothyroidism - Levothyroxine 75MCG daily. * Nausea - Zofran 4MG IV Q8H PRN. * Left knee prosthetic joint infection - Vancomycin 750MG IV Q12H, consult Dr. Kumar. * Recurrent DVT - Warfarin 5MG 5 days/week, 7.5MG 2 days/week.
[2020-10-05] MEDS: Gabapentin 300 MG Capsule 600 MG PO (21:38)
[2020-10-05] MEDS: Acetaminophen 500 MG Tablet 1000 MG PO (21:39)
[2020-10-05] MEDS: 0.9% Saline Lock 10 ML Syringe IV (21:43)
[2020-10-05 22:15] LABS: Bedside Glucose 212 mg/dL (70-110)
--- NOTE | 2020-10-05 22:20 | NURSING ---
Talked to pt about code status, when asked if she wants CPR if her heart stops or she stops breathing, pt answered, whatever., explained more detail and pt states sure, I guess, it is what it is.Pt very short with staff and gets frustrated easily, when IV was beeping for awhile when this nurse was in another room with fall risk pt, this pt became verbally aggressive, stating, I'm going to smash that stupid thing with a hammer if you don't make it stop beeping. Explained to pt that I was with another pt and apologized that it was beeping for awhile, pt states she is just tired and is upset that this is happening to her, offered assurance and listened to her. Pt becomes more calm after that.
[2020-10-06 06:36] VITALS: BP 122/77; PULSE 62; RESP 18; TEMP 36.6; O2SAT 96
[2020-10-06 06:36] LABS: Bedside Glucose 73 mg/dL (70-110)
[2020-10-06] MEDS: amLODIPine 5 MG Tablet PO (06:37)
[2020-10-06] MEDS: Senna/Docusate Sodium 1 Tablet PO (06:37)
[2020-10-06] MEDS: Famotidine 20 MG Tablet PO (06:37)
[2020-10-06] MEDS: Levothyroxine 75 MCG Tablet PO (06:37)
[2020-10-06 06:38] VITALS: BP 122/77; PULSE 62
[2020-10-06] MEDS: hydroCHLOROthiazide 25 MG Tablet PO (06:38)
[2020-10-06] MEDS: Metoprolol Tartrate 100 MG Tablet PO (06:38)
[2020-10-06] MEDS: Acetaminophen 500 MG Tablet 1000 MG PO ×3 (06:38→21:24)
--- NOTE | 2020-10-06 07:22 | NURSING ---
Pt requested that blood work be drawn from picc line so she does not have to be poked, drawn from picc line per policy and procedure.
[2020-10-06 07:32] LABS: Absolute Lymphocyte Count 1.49 X10^3/uL (0.83-4.51); Absolute Neutrophil Count 4.6 X10^3/uL (2.0-7.7); Basophil# 0.04 X10^3/uL; Basophil% 0.6 % (0-1); Eosinophil# 0.24 X10^3/uL; Eosinophils% 3.4 % (0-5); Hematocrit 28.1 % (37-47); Lymphocyte # 1.49 X10^3/ul (4.0); Lymphocyte % 20.9 % (19-41); Mean Corpuscular Hgb 30.6 pg (27.0-32.0); Mean Corpuscular Volume 95.6 fL (81-99); Mean Platelet Vol. 10.5 fl (6.2-12.0); Monocyte# 0.77 X10^3/uL; Monocyte% 10.8 % (0-10); NRBC Flagged by Analyzer 0 % (0-5); Neutrophil # 4.56 X10^3/uL (2.7-7.7); Neutrophil % 63.9 % (47-70); Platelet Count 297 K/mm3 (150-450); RBC Distribution Width CV 15.6 % (11.6-14.6); RBC Distribution Width SD 54.4 fl (35.1-43.9); Red Blood Count 2.94 M/mm3 (4.2-5.4); White Blood Count 7.1 K/mm3 (4.4-11.0)
[2020-10-06 07:58] LABS: Anion Gap 5 (5-15); BUN 29 mg/dL (7-18); BUN/Creat Ratio 23.8 RATIO (10-20); Calcium,Total 8.4 mg/dL (8.5-10.1); Chloride 104 mmol/L (98-107); Creatinine, Serum 1.22 mg/dL (0.55-1.02); EST Glomerular Filtration Rate 45 mL/min (>60); Est Glom Filt Rate - Afr Amer 54 mL/min (>60); Estimated Creatinine Clearance 35.86 ml/min; Glucose 114 mg/dL (74-106); Potassium 3.8 mmol/L (3.5-5.1); Sodium Level 136 mmol/L (136-145)
[2020-10-06] MEDS: metFORMIN (XR) 500 MG Tablet 1000 MG PO ×2 (08:59→18:24)
[2020-10-06] MEDS: Aspirin 81 MG TAB.CHEW PO (09:00)
[2020-10-06] MEDS: LINAGLIPTIN 5 MG TABLET PO (09:00)
[2020-10-06] MEDS: Glimepiride 4 MG Tablet PO (09:01)
[2020-10-06] MEDS: 0.9% Saline Lock 10 ML Syringe IV (09:04)
[2020-10-06] MEDS: Tuberculin,Purif.prot.deriv. 50 TU/ML Vial 5 ML ID (09:07)
[2020-10-06 10:53] VITALS: PULSE 62
[2020-10-06 11:15] LABS: Bedside Glucose 200 mg/dL (70-110)
[2020-10-06 13:45] VITALS: BP 152/69; PULSE 72; RESP 16; TEMP 36.3; O2SAT 95
[2020-10-06 16:55] LABS: Bedside Glucose 94 mg/dL (70-110)
[2020-10-06] MEDS: Gabapentin 300 MG Capsule 600 MG PO (21:24)
--- NOTE | 2020-10-06 21:29 | NURSING ---
vancomycin dose held tonight d/t elevated trough level of 25 per pharmacy.
[2020-10-06 21:40] LABS: Bedside Glucose 170 mg/dL (70-110)
--- NOTE | 2020-10-06 21:49 | PCM.RX.CS ---
Consult Pharmacy has been consulted to manage selected antiobiotic: Vancomycin Type of Consult: Follow-up Suspected Infection: Other Prior Doses of Antibiotics Received/Current Regimen: Medications Discontinued Medications Vancomycin HCl 750 mg/ Sodium (Chloride) 265 mls @ 250 mls/hr IV Q12H [facility]A Last Admin: 10/06/20 21:28 Dose: Not Given Labs: Sodium 136 mmol/L (136-145) 10/06/20 07:15 Potassium 3.8 mmol/L (3.5-5.1) 10/06/20 07:15 Chloride 104 mmol/L (98-107) 10/06/20 07:15 Carbon Dioxide 27.0 mmol/L (21.0-32.0) 10/06/20 07:15 Anion Gap 5 (5-15) 10/06/20 07:15 BUN 29 mg/dL (7-18) H 10/06/20 07:15 Creatinine 1.22 mg/dL (0.55-1.02) H 10/06/20 07:15 Est GFR (MDRD) Af Amer 54 mL/min (>60) L 10/06/20 07:15 Est GFR (MDRD) Non-Af 45 mL/min (>60) L 10/06/20 07:15 BUN/Creatinine Ratio 23.8 RATIO (10-20) H 10/06/20 07:15 Glucose 114 mg/dL (74-106) H 10/06/20 07:15 Vancomycin Trough 25.0 ug/mL (5.0-15.0) H 10/06/20 20:26 Weight used for dosin kg Estimated Creatinine Clearance: 36 Goal Trough: 15-20 mcg/mL Pharmacy Plan for Drug Dosing: Vancomycin dosing consult continued from previous admission on MS-3. Trough level drawn 10/06/20 @2025 was high at 25.0. The evening dose was held. A random level will be drawn in a.m. and further dosing determined from that result. Pharmacy Service will continue to monitor and adjust dosing as required. Follow-Up Labs: Trough Vancomycin - random Labs to be done on [date and time ordered]: 10/07/20 @0830
[2020-10-06 22:19] VITALS: RESP 16
[2020-10-07 05:00] VITALS: BP 161/75; PULSE 75; RESP 15; TEMP 36.9; O2SAT 95
[2020-10-07 06:26] LABS: Bedside Glucose 74 mg/dL (70-110)
[2020-10-07] MEDS: Acetaminophen 500 MG Tablet 1000 MG PO ×3 (06:37→21:07)
[2020-10-07 06:38] VITALS: BP 161/75; PULSE 75
[2020-10-07] MEDS: Famotidine 20 MG Tablet PO (06:38)
[2020-10-07] MEDS: Levothyroxine 75 MCG Tablet PO (06:38)
[2020-10-07] MEDS: amLODIPine 5 MG Tablet PO (06:38)
[2020-10-07] MEDS: Metoprolol Tartrate 100 MG Tablet PO (06:38)
[2020-10-07] MEDS: hydroCHLOROthiazide 25 MG Tablet PO (06:38)
[2020-10-07 08:24] LABS: International Normalized Ratio 1.3; Prothrombin Time (Protime)PT. 15.4 SECONDS (11.7-14.9)
[2020-10-07] MEDS: Glimepiride 4 MG Tablet PO (08:33)
[2020-10-07] MEDS: LINAGLIPTIN 5 MG TABLET PO (08:34)
[2020-10-07] MEDS: metFORMIN (XR) 500 MG Tablet 1000 MG PO ×2 (08:34→17:36)
[2020-10-07] MEDS: Aspirin 81 MG TAB.CHEW PO (08:35)
[2020-10-07 08:47] LABS: Vancomycin, Random Level 19.4 ug/mL (0.0-15.0)
--- NOTE | 2020-10-07 10:14 | PCM.RX.CS ---
Consult Pharmacy has been consulted to manage selected antiobiotic: Vancomycin Type of Consult: Follow-up Labs: Sodium 136 mmol/L (136-145) 10/06/20 07:15 Potassium 3.8 mmol/L (3.5-5.1) 10/06/20 07:15 Chloride 104 mmol/L (98-107) 10/06/20 07:15 Carbon Dioxide 27.0 mmol/L (21.0-32.0) 10/06/20 07:15 Anion Gap 5 (5-15) 10/06/20 07:15 BUN 29 mg/dL (7-18) H 10/06/20 07:15 Creatinine 1.22 mg/dL (0.55-1.02) H 10/06/20 07:15 Est GFR (MDRD) Af Amer 54 mL/min (>60) L 10/06/20 07:15 Est GFR (MDRD) Non-Af 45 mL/min (>60) L 10/06/20 07:15 BUN/Creatinine Ratio 23.8 RATIO (10-20) H 10/06/20 07:15 Glucose 114 mg/dL (74-106) H 10/06/20 07:15 Vancomycin Trough 25.0 ug/mL (5.0-15.0) H 10/06/20 20:26 Random Vancomycin 19.4 ug/mL (0.0-15.0) H 10/07/20 07:55 Goal Trough: 15-20 mcg/mL Pharmacy Plan for Drug Dosing: VANCOMYCIN LEVEL RECEIVED Current Vancomycin Dose: ON HOLD - Last admin 750mg IV 10/06/20 @0907 Number of Doses Received: HOLDING doses Vancomycin Level: 19.4 Hours Since Last Dose: ~23hr Renal Function: 1.22 Renal Function Trend: stable Lab/Micro: N/A Vancomycin Plan/Comments: Patient previously had elevated trough of 25, in which subsequent doses were held. A random level came back @19.4, which is within goal range of 15-20. Will resume vancomycin at this time. 750mg IV Q24hr to start 10/07/20 @1100 Pending Level: 10/09/20 @1030, Prior to 3rd dose of new regimen per protocol Pharmacy Service will continue to monitor and adjust dosing as required.
[2020-10-07 10:51] LABS: Bedside Glucose 231 mg/dL (70-110)
[2020-10-07] MEDS: Iron Polysaccharide Complex 150 MG CAPSULE PO (11:17)
[2020-10-07 14:45] VITALS: BP 123/73; PULSE 68; RESP 16; TEMP 36.5; O2SAT 97
--- NOTE | 2020-10-07 16:22 | NURSING ---
Order received to remove Panchal cath. Pt tolerated well Panchal tip intact. Will continue to monitor for urine output bladder scans q8hrs scheduled.
[2020-10-07 16:31] LABS: Bedside Glucose 179 mg/dL (70-110)
[2020-10-07] MEDS: Nystatin Powder 15gm Bottle 1 APPLIC TOPICAL (17:40)
[2020-10-07] MEDS: Gabapentin 300 MG Capsule 600 MG PO (21:07)
[2020-10-07 22:00] VITALS: RESP 16
[2020-10-08 06:31] LABS: Bedside Glucose 74 mg/dL (70-110)
[2020-10-08 06:51] VITALS: BP 160/82; PULSE 70; RESP 15; TEMP 36.4; O2SAT 97
[2020-10-08] MEDS: Acetaminophen 500 MG Tablet 1000 MG PO ×3 (06:56→20:30)
[2020-10-08] MEDS: Famotidine 20 MG Tablet PO (06:56)
[2020-10-08 06:57] VITALS: BP 160/82; PULSE 70
[2020-10-08] MEDS: amLODIPine 5 MG Tablet PO (06:57)
[2020-10-08] MEDS: hydroCHLOROthiazide 25 MG Tablet PO (06:57)
[2020-10-08] MEDS: Metoprolol Tartrate 100 MG Tablet PO (06:57)
[2020-10-08] MEDS: Levothyroxine 75 MCG Tablet PO (06:57)
[2020-10-08] MEDS: Nystatin Powder 15gm Bottle 1 APPLIC TOPICAL ×2 (07:01→17:09)
[2020-10-08 07:04] LABS: International Normalized Ratio 1.4; Prothrombin Time (Protime)PT. 16.2 SECONDS (11.7-14.9)
[2020-10-08] MEDS: Glimepiride 4 MG Tablet PO (08:47)
[2020-10-08] MEDS: Aspirin 81 MG TAB.CHEW PO (08:47)
[2020-10-08] MEDS: metFORMIN (XR) 500 MG Tablet 1000 MG PO ×2 (08:48→17:09)
[2020-10-08] MEDS: LINAGLIPTIN 5 MG TABLET PO (08:48)
[2020-10-08] MEDS: Iron Polysaccharide Complex 150 MG CAPSULE PO (08:49)
[2020-10-08] MEDS: 0.9% Saline Lock 10 ML Syringe IV ×2 (11:06→21:21)
--- NOTE | 2020-10-08 11:30 | NURSING ---
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 Reviewed TCU visitation policy/ procedure. Res out of isolation precautions on 10/10. Attempted to call daughter in law to review policy. Left message.
--- NOTE | 2020-10-08 11:49 | NURSING ---
removed mepilex per order, x2 ABD's applied, scant amt of red drng noted. will continue to monitor. TAYLOR wraps applied to BLEs.
[2020-10-08 11:54] VITALS: PULSE 75; RESP 18; O2SAT 97
--- NOTE | 2020-10-08 13:13 | PN.ID_ITS ---
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) Subjective: Feeling better, no fever, no n/v/d, knee improving - Physical Exam Vitals/I&O's: Vital Signs Temp Pulse Resp BP Pulse Ox 97.5 F L 75 18 160/82 H 97 10/08/20 06:51 10/08/20 11:54 10/08/20 11:54 10/08/20 06:57 10/08/20 11:54 Oxygen Delivery Method Room Air Weight: 114.351 kg Body Mass Index (BMI) 38.3 Finger Stick Blood Glucose 143 Intake and Output for Last 24 Hours 10/06/20 10/07/20 10/08/20 23:59 23:59 23:59 Intake Total 745 / 745 1155 / 1155 600 / 600 Output Total 2550 / 2550 1250 / 1250 Balance -1805 / -1805 -95 / -95 600 / 600 General: Alert, Cooperative, No apparent distress Lungs: Clear to auscultation, Normal air movement Cardiovascular: Regular rate, Regular Rhythm Abdomen: Soft, Non Tender, Non-Distended Skin: Incision - bandaged Laboratory Results 10/07/20 16:24: POC Glucose 179 H 10/08/20 06:15: POC Glucose 74 10/08/20 06:50: PT 16.2 H, INR 1.4 Current Medications Acetaminophen (Acetaminophen 500 Mg Tablet) 1,000 mg PO Q8 [facility] Last Admin: 10/08/20 06:56 Dose: 1,000 mg Documented by: Amlodipine Besylate (Amlodipine 5 Mg Tablet) 5 mg PO DAILY [facility] Last Admin: 10/08/20 06:57 Dose: 5 mg Documented by: Aspirin (Aspirin 81 Mg Tab.Chew) 81 mg PO DAILY@0800 [facility] Last Admin: 10/08/20 08:47 Dose: 81 mg Documented by: Bisacodyl (Bisacodyl 5 Mg Tablet) 10 mg PO DAILY PRN PRN Reason: Constipation Famotidine (Famotidine 20 Mg Tablet) 20 mg PO DAILY [facility] Last Admin: 10/08/20 06:56 Dose: 20 mg Documented by: Gabapentin (Gabapentin 300 Mg Capsule) 600 mg PO QHS [facility] Last Admin: 10/07/20 21:07 Dose: 600 mg Documented by: Glimepiride ([facility] 4 Mg Tablet) [facility] Last Admin: 10/08/20 08:47 Dose: 4 mg Documented by: Heparin Sodium (Beef Lung) (Heparin Pf Lock 10 Units/Ml 50 Units/5 Ml Syringe) 50 units IV UD PRN PRN Reason: PICC Line Heparin Flush Hydrochlorothiazide (Hydrochlorothiazide 25 Mg Tablet) 25 mg PO DAILY [facility] Last Admin: 10/08/20 06:57 Dose: 25 mg Documented by: Sodium Chloride () 250 mls @ 15 mls/hr IV .[id number] PRN PRN Reason: Saline Flush Last Admin: 10/08/20 11:06 Dose: 15 mls/hr Documented by: Vancomycin HCl 750 mg/ Sodium (Chloride) 265 mls @ 250 mls/hr IV Q24H [facility] Last Admin: 10/08/20 11:06 Dose: 250 mls/hr Documented by: Ceftriaxone Sodium 2 gm/ (Sodium Chloride) 50 mls @ 100 mls/hr IV Q24@2200 [facility] Last Infusion: 10/07/20 21:31 Dose: Infused Documented by: Levothyroxine Sodium (Levothyroxine 75 Mcg Tablet) 75 mcg PO DAILY@0600 [facility] Last Admin: 10/08/20 06:57 Dose: 75 mcg Documented by: Linagliptin (Linagliptin 5 Mg Tablet) 5 mg PO DAILY@0800 [facility] Last Admin: 10/08/20 08:48 Dose: 5 mg Documented by: Magnesium Hydroxide (Magnesium Hydroxide 30 Ml Udc) 30 ml PO DAILY PRN PRN Reason: Constipation Metformin HCl (Metformin (Xr) 500 Mg Tablet) [facility] Last Admin: 10/08/20 08:48 Dose: 1,000 mg Documented by: Metoprolol Tartrate (Metoprolol Tartrate 100 Mg Tablet) 100 mg PO DAILY [facility] Last Admin: 10/08/20 06:57 Dose: 100 mg Documented by: Nystatin (Nystatin Powder 15gm Bottle) 1 applic TOPICAL BID [facility]; Protocol Last Admin: 10/08/20 07:01 Dose: 1 applic Documented by: Ondansetron HCl (Ondansetron 4 Mg/2 Ml Vial) 4 mg IV Q8H PRN PRN PRN Reason: NAUSEA Oxycodone HCl (Oxycodone 5 Mg Tablet) 5 mg PO Q4H PRN PRN PRN Reason: Pain Score 4-10 Polyethylene Glycol (Polyethylene Glycol 3350 17 Gm Packet) 17 gm PO DAILY [facility] Last Admin: 10/08/20 06:57 Dose: Not Given Documented by: Polysaccharide Iron Complex (Iron Polysaccharide Complex 150 Mg Capsule) 150 mg PO DAILYCM [facility] Last Admin: 10/08/20 08:49 Dose: 150 mg Documented by: Senna/Docusate Sodium (Senna/Docusate Sodium 1 Tablet) 1 tablet PO BID [facility] Last Admin: 10/08/20 06:58 Dose: Not Given Documented by: Sodium Chloride (0.9% Saline Lock 10 Ml Syringe) 10 - 40 ml IV UD PRN PRN Reason: Open End PICC Flush Last Admin: 10/08/20 11:06 Dose: 20 ml Documented by: Sodium Chloride (0.9 % Nacl (Sterile) Posiflush 10 Ml) 10 - 40 ml IV UD PRN PRN Reason: Port access or dressing change Sodium Chloride (0.9 % Nacl (Sterile) Posiflush 10 Ml) 10 - 40 ml IV UD PRN PRN Reason: Port access or dressing change Tuberculin PPD (Tuberculin,Purif.Prot.Deriv. 50 Tu/Ml Vial) 5 tu ID [id number] Stop: 10/13/20 10:01 Warfarin Sodium (Warfarin 5 Mg Tablet) 5 mg PO MoTuWeFrSa@1700 [facility] Last Admin: 10/06/20 18:24 Dose: 5 mg Documented by: Warfarin Sodium (Warfarin 7.5 Mg Tablet) 7.5 mg PO SuTh@1700 [facility] Last Admin: 10/07/20 17:36 Dose: 7.5 mg Documented by: Medical Necessity - Tobacco Use Smoking Status: Never smoker Tobacco Use: Cigarettes Route of nutrition/ use of supplements: [] Nutritional Intake: [] IV Site: [] Panchal Catheter: [] - Assessment/Plan Antibiotics: [] Assessment/Plan: [] Active and Suspected Problems (Last Updated 02/17/20 @ 15:55 by Tony NADRES, PA) Debility (Acute) Left knee pain (Acute) 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 Drake. Picc in place. Changed vanc to ceftriaxone for 6 week course, stop date planned for 11/14/20 with weekly labs, then long course of po abx. Will follow
[2020-10-08 14:28] VITALS: BP 155/78; PULSE 73; RESP 16; TEMP 37.2; O2SAT 99
--- NOTE | 2020-10-08 16:27 | NURSING ---
pt does not want family updated at this point.
--- NOTE | 2020-10-08 16:45 | CASEMGMT ---
Social Work Met with patient for initial assessment. Discussed code status. Pt wishes to be DNR-CCA, no intubation. MOLST form reviewed, communication to , placed in chart. Explained Medicare benefit and pt does not have secondary insurance. Starting on day 21 pt would be responsible for about $186/day copay. Pt prefers to DC by that time. However, explained pt has IV ATB Q6 until 11/14. The goal is for pt to return home alone. Referred to I for IV cost. Pt would be responsible for $151/wk. Will provide information to pt and explain pt would need to self-administer or have family administer as [facility] cannot be out Q6. Will continue to follow. Dayanara Osullivan MSW SIZING MACHINE TENDER
--- NOTE | 2020-10-08 18:54 | NURSING ---
purple bracelet applied to RT wrist, DNR CCA, no intubation per social and human services assistant
[2020-10-08] MEDS: Gabapentin 300 MG Capsule 600 MG PO (20:29)
[2020-10-09 01:36] LABS: INR Fingerstick 1.7; Prothrombin Time Fingerstick 19.5 SEC (11.9-14.4)
[2020-10-09 06:30] VITALS: BP 173/79; PULSE 69; RESP 18; TEMP 36.6; O2SAT 94
[2020-10-09] MEDS: Acetaminophen 500 MG Tablet 1000 MG PO ×3 (06:34→21:33)
[2020-10-09 06:35] VITALS: BP 173/79; PULSE 69
[2020-10-09] MEDS: Famotidine 20 MG Tablet PO (06:35)
[2020-10-09] MEDS: Levothyroxine 75 MCG Tablet PO (06:35)
[2020-10-09] MEDS: hydroCHLOROthiazide 25 MG Tablet PO (06:35)
[2020-10-09] MEDS: Metoprolol Tartrate 100 MG Tablet PO (06:35)
[2020-10-09] MEDS: Nystatin Powder 15gm Bottle 1 APPLIC TOPICAL ×2 (06:35→16:55)
[2020-10-09] MEDS: amLODIPine 5 MG Tablet PO (06:35)
[2020-10-09 06:46] LABS: International Normalized Ratio 1.7; Prothrombin Time (Protime)PT. 18.9 SECONDS (11.7-14.9)
[2020-10-09 06:50] LABS: Bedside Glucose 98 mg/dL (70-110)
[2020-10-09] MEDS: metFORMIN (XR) 500 MG Tablet 1000 MG PO ×2 (09:17→16:54)
[2020-10-09] MEDS: Iron Polysaccharide Complex 150 MG CAPSULE PO (09:17)
[2020-10-09] MEDS: Glimepiride 4 MG Tablet PO (09:18)
[2020-10-09] MEDS: LINAGLIPTIN 5 MG TABLET PO (09:18)
[2020-10-09] MEDS: Aspirin 81 MG TAB.CHEW PO (09:18)
[2020-10-09 13:50] VITALS: BP 144/77; PULSE 73; RESP 18; TEMP 36.3; O2SAT 95
[2020-10-09] MEDS: 0.9% Saline Lock 10 ML Syringe IV ×2 (16:54→21:34)
[2020-10-09] MEDS: Gabapentin 300 MG Capsule 600 MG PO (21:33)
[2020-10-10 05:30] VITALS: BP 144/84; PULSE 84; RESP 18; TEMP 36.8; O2SAT 96
[2020-10-10] MEDS: Citalopram 10 MG Tablet PO (05:34)
[2020-10-10] MEDS: hydroCHLOROthiazide 25 MG Tablet PO (05:34)
[2020-10-10 05:35] VITALS: BP 144/84; PULSE 84
[2020-10-10] MEDS: Metoprolol Tartrate 100 MG Tablet PO (05:35)
[2020-10-10] MEDS: amLODIPine 5 MG Tablet PO (05:36)
[2020-10-10] MEDS: Famotidine 20 MG Tablet PO (05:36)
[2020-10-10] MEDS: Nystatin Powder 15gm Bottle 1 APPLIC TOPICAL ×2 (05:36→17:16)
[2020-10-10] MEDS: Levothyroxine 75 MCG Tablet PO (05:37)
[2020-10-10] MEDS: Acetaminophen 500 MG Tablet 1000 MG PO ×3 (05:37→20:09)
[2020-10-10 05:43] LABS: International Normalized Ratio 1.8
[2020-10-10 06:30] LABS: Bedside Glucose 80 mg/dL (70-110)
--- NOTE | 2020-10-10 07:07 | PHA.CONS_ITS ---
<Teodoro Raman D - Last Filed: 10/10/20 07:07> Progress Note - Pharmacy Subjective: TCU Admission Objective: Allergies No Known Allergies Allergy (Verified 10/01/20 15:13) Current Medications Generic Name Dose Route Start Last Admin Trade Name Freq PRN Reason Stop Dose Admin Acetaminophen 1,000 mg 10/05/20 22:00 10/10/20 05:37 Acetaminophen 500 Mg Tablet PO 1,000 mg Q8 [facility]A Administration Amlodipine Besylate 5 mg 10/06/20 06:00 10/10/20 05:36 Amlodipine 5 Mg Tablet PO 5 mg DAILY [facility] Administration Aspirin 81 mg 10/06/20 08:00 10/09/20 09:18 Aspirin 81 Mg Tab.Chew PO 81 mg DAILY@0800 [facility] Administration Bisacodyl 10 mg 10/05/20 19:20 Bisacodyl 5 Mg Tablet PO DAILY PRN Constipation Citalopram Hydrobromide 10 mg 10/10/20 06:00 10/10/20 05:34 Citalopram 10 Mg Tablet PO 10 mg DAILY [facility] Administration Famotidine 20 mg 10/06/20 06:00 10/10/20 05:36 Famotidine 20 Mg Tablet PO 20 mg DAILY [facility] Administration Gabapentin 600 mg 10/05/20 22:00 10/09/20 21:33 Gabapentin 300 Mg Capsule PO 600 mg QHS [facility]A Administration Glimepiride 4 mg 10/06/20 08:00 10/09/20 09:18 Glimepiride 4 Mg Tablet PO 4 mg DAILYCM [facility] Administration Heparin Sodium (Beef Lung) 50 units 10/05/20 15:40 Heparin Pf Lock 10 Units/Ml 50 Units/5 Ml Syringe IV UD PRN PICC Line Heparin Flush Hydrochlorothiazide 25 mg 10/06/20 06:00 10/10/20 05:34 Hydrochlorothiazide 25 Mg Tablet PO 25 mg DAILY [facility]A Administration Sodium Chloride 250 mls @ 15 mls/hr 10/05/20 20:30 10/08/20 11:06 IV 15 mls/hr .[id number] PRN Administration Saline Flush Ceftriaxone Sodium 2 gm/ 50 mls @ 100 mls/hr 10/07/20 19:30 10/09/20 22:36 Sodium Chloride IV 11/14/20 22:00 Infused Q24@2200 [facility] Infusion Levothyroxine Sodium 75 mcg 10/06/20 06:00 10/10/20 05:37 Levothyroxine 75 Mcg Tablet PO 75 mcg DAILY@0600 [facility] Administration Linagliptin 5 mg 10/06/20 08:00 10/09/20 09:18 Linagliptin 5 Mg Tablet PO 5 mg DAILY@0800 [facility] Administration Magnesium Hydroxide 30 ml 10/05/20 19:20 Magnesium Hydroxide 30 Ml Udc PO DAILY PRN Constipation Metformin HCl 1,000 mg 10/05/20 17:00 10/09/20 16:54 Metformin (Xr) 500 Mg Tablet PO 1,000 mg BIDCM [facility] Administration Metoprolol Tartrate 100 mg 10/06/20 06:00 10/10/20 05:35 Metoprolol Tartrate 100 Mg Tablet PO 100 mg DAILY [facility] Administration Nystatin 1 applic 10/07/20 18:00 10/10/20 05:36 Nystatin Powder 15gm Bottle TOPICAL 1 applic BID [facility] Administration Protocol Oxycodone HCl 5 mg 10/05/20 19:21 Oxycodone 5 Mg Tablet PO Q4H PRN PRN Pain Score 4-10 Polyethylene Glycol 17 gm 10/06/20 06:00 10/10/20 05:36 Polyethylene Glycol 3350 17 Gm Packet PO Not Given DAILY [facility] Polysaccharide Iron Complex 150 mg 10/07/20 08:00 10/09/20 09:17 Iron Polysaccharide Complex 150 Mg Capsule [facility] Administration Senna/Docusate Sodium 1 tablet 10/06/20 06:00 10/10/20 05:37 Senna/Docusate Sodium 1 Tablet PO Not Given BID [facility] Sodium Chloride 10 - 40 ml 10/05/20 15:40 10/09/20 21:34 0.9% Saline Lock 10 Ml Syringe IV 10 ml UD PRN Administration Open End PICC Flush Sodium Chloride 10 - 40 ml 10/05/20 15:40 0.9 % Nacl (Sterile) Posiflush 10 Ml IV UD PRN Port access or dressing change Sodium Chloride 10 - 40 ml 10/05/20 20:30 0.9 % Nacl (Sterile) Posiflush 10 Ml IV UD PRN Port access or dressing change Tuberculin PPD 5 tu 10/13/20 10:00 Tuberculin,Purif.Prot.Deriv. 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) Recurrent deep vein thrombosis (DVT) (Chronic) Diabetes mellitus (Chronic) Vitamin D deficiency (Chronic) Diabetic neuropathy (Chronic) Osteoarthritis (Chronic) Hypertension (Chronic) Hypothyroidism (Chronic) Vital Signs Temp Pulse Resp BP Pulse Ox 98.3 F 84 18 144/84 H 96 10/10/20 05:30 10/10/20 05:35 10/10/20 05:30 10/10/20 05:35 10/10/20 05:30 Oxygen Delivery Method Room Air Weight: 109.429 kg Body Mass Index (BMI) 38.3 Finger Stick Blood Glucose 143 Sodium 136 mmol/L (136-145) 10/06/20 07:15 Potassium 3.8 mmol/L (3.5-5.1) 10/06/20 07:15 Chloride 104 mmol/L (98-107) 10/06/20 07:15 Carbon Dioxide 27.0 mmol/L (21.0-32.0) 10/06/20 07:15 Anion Gap 5 (5-15) 10/06/20 07:15 BUN 29 mg/dL (7-18) H 10/06/20 07:15 Creatinine 1.22 mg/dL (0.55-1.02) H 10/06/20 07:15 Est GFR (MDRD) Af Amer 54 mL/min (>60) L 10/06/20 07:15 Est GFR (MDRD) Non-Af 45 mL/min (>60) L 10/06/20 07:15 BUN/Creatinine Ratio 23.8 RATIO (10-20) H 10/06/20 07:15 Glucose 114 mg/dL (74-106) H 10/06/20 07:15 Vancomycin Trough 25.0 ug/mL (5.0-15.0) H 10/06/20 20:26 Random Vancomycin 19.4 ug/mL (0.0-15.0) H 10/07/20 07:55 Assessment/Plan: 1) Pain APAP, gabapentin, oxycodone for pain 4-10. Continue to monitor daily pain scores, prn medication use. 2) HTN/CV PPx/DVT Amlodipine, HCTZ, metoprolol, ASA, warfarin goal INR 2-3. Continue to monitor BP/HR, renal function, electrolytes, PT/INR, s/s bleeding/clot. 3) ID CTX thru 11/23. Continue to monitor s/s infection, cx results. 4) DM2 Glimepiride, linagliptin, metformin XR. Continue to monitor BGT, s/s hyper/hypoglycemia. 5) Hypothyroidism Levothyroxine. Continue to monitor s/s hyper/hypothyroidism. 6) GI Famotidine. Continue to monitor s/s GI distress. 7) Depression Citalopram. Continue to monitor s/s depression/anxiety. Psychotropic Medications: None Unnecessary Medications: None Bowel Regimen: 8) Senna/s, PEG, prn MgOH, prn bisacodyl. Continue to monitor prn medication use, for constipation/diarrhea. Date of Note:: 10/10/20 - Provider Comments Provider responsibility: Provider responsible to enter orders to implement recommendations <Cj Loomis Chi - Last Filed: 10/10/20 08:00> Progress Note - Pharmacy Subjective: [] Objective: Allergies No Known Allergies Allergy (Verified 10/01/20 15:13) Current Medications Generic Name Dose Route Start Last Admin Trade Name Freq PRN Reason Stop Dose Admin Acetaminophen 1,000 mg 10/05/20 22:00 10/10/20 05:37 Acetaminophen 500 Mg Tablet PO 1,000 mg Q8 [facility] Administration Amlodipine Besylate 5 mg 10/06/20 06:00 10/10/20 05:36 Amlodipine 5 Mg Tablet PO 5 mg DAILY [facility] Administration Aspirin 81 mg 10/06/20 08:00 10/09/20 09:18 Aspirin 81 Mg Tab.Chew PO 81 mg DAILY@0800 [facility] Administration Bisacodyl 10 mg 10/05/20 19:20 Bisacodyl 5 Mg Tablet PO DAILY PRN Constipation Citalopram Hydrobromide 10 mg 10/10/20 06:00 10/10/20 05:34 Citalopram 10 Mg Tablet PO 10 mg DAILY [facility] Administration Famotidine 20 mg 10/06/20 06:00 10/10/20 05:36 Famotidine 20 Mg Tablet PO 20 mg DAILY [facility] Administration Gabapentin 600 mg 10/05/20 22:00 10/09/20 21:33 Gabapentin 300 Mg Capsule PO 600 mg QHS [facility] Administration Glimepiride 4 mg 10/06/20 08:00 10/09/20 09:18 Glimepiride 4 Mg Tablet PO 4 mg DAILYCM [facility] Administration Heparin Sodium (Beef Lung) 50 units 10/05/20 15:40 Heparin Pf Lock 10 Units/Ml 50 Units/5 Ml Syringe IV UD PRN PICC Line Heparin Flush Hydrochlorothiazide 25 mg 10/06/20 06:00 10/10/20 05:34 Hydrochlorothiazide 25 Mg Tablet PO 25 mg DAILY [facility] Administration Sodium Chloride 250 mls @ 15 mls/hr 10/05/20 20:30 10/08/20 11:06 IV 15 mls/hr .[id number] PRN Administration Saline Flush Ceftriaxone Sodium 2 gm/ 50 mls @ 100 mls/hr 10/07/20 19:30 10/09/20 22:36 Sodium Chloride IV 11/14/20 22:00 Infused Q24@2200 [facility] Infusion Levothyroxine Sodium 75 mcg 10/06/20 06:00 10/10/20 05:37 Levothyroxine 75 Mcg Tablet PO 75 mcg DAILY@0600 [facility] Administration Linagliptin 5 mg 10/06/20 08:00 10/09/20 09:18 Linagliptin 5 Mg Tablet PO 5 mg DAILY@0800 [facility] Administration Magnesium Hydroxide 30 ml 10/05/20 19:20 Magnesium Hydroxide 30 Ml Udc PO DAILY PRN Constipation Metformin HCl 1,000 mg 10/05/20 17:00 10/09/20 16:54 Metformin (Xr) 500 Mg Tablet PO 1,000 mg BIDCM [facility] Administration Metoprolol Tartrate 100 mg 10/06/20 06:00 10/10/20 05:35 Metoprolol Tartrate 100 Mg Tablet PO 100 mg DAILY [facility] Administration Nystatin 1 applic 10/07/20 18:00 10/10/20 05:36 Nystatin Powder 15gm Bottle TOPICAL 1 applic BID [facility] Administration Protocol Oxycodone HCl 5 mg 10/05/20 19:21 Oxycodone 5 Mg Tablet PO Q4H PRN PRN Pain Score 4-10 Polyethylene Glycol 17 gm 10/06/20 06:00 10/10/20 05:36 Polyethylene Glycol 3350 17 Gm Packet PO Not Given DAILY [facility] Polysaccharide Iron Complex 150 mg 10/07/20 08:00 10/09/20 09:17 Iron Polysaccharide Complex 150 Mg Capsule PO 150 mg DAILYCM [facility] Administration Senna/Docusate Sodium 1 tablet 10/06/20 06:00 10/10/20 05:37 Senna/Docusate Sodium 1 Tablet PO Not Given BID [facility] Sodium Chloride 10 - 40 ml 10/05/20 15:40 10/09/20 21:34 0.9% Saline Lock 10 Ml Syringe IV 10 ml UD PRN Administration Open End PICC Flush Sodium Chloride 10 - 40 ml 10/05/20 15:40 0.9 % Nacl (Sterile) Posiflush 10 Ml IV UD PRN Port access or dressing change Sodium Chloride 10 - 40 ml 10/05/20 20:30 0.9 % Nacl (Sterile) Posiflush 10 Ml IV UD PRN Port access or dressing change Tuberculin PPD 5 tu 10/13/20 10:00 Tuberculin,Purif.Prot.Deriv. 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) Recurrent deep vein thrombosis (DVT) (Chronic) Diabetes mellitus (Chronic) Vitamin D deficiency (Chronic) Diabetic neuropathy (Chronic) Osteoarthritis (Chronic) Hypertension (Chronic) Hypothyroidism (Chronic) Vital Signs Temp Pulse Resp BP Pulse Ox 98.3 F 84 18 144/84 H 96 10/10/20 05:30 10/10/20 05:35 10/10/20 05:30 10/10/20 05:35 10/10/20 05:30 Oxygen Delivery Method Room Air Weight: 109.429 kg Body Mass Index (BMI) 38.3 Finger Stick Blood Glucose 143 Sodium 136 mmol/L (136-145) 10/06/20 07:15 Potassium 3.8 mmol/L (3.5-5.1) 10/06/20 07:15 Chloride 104 mmol/L (98-107) 10/06/20 07:15 Carbon Dioxide 27.0 mmol/L (21.0-32.0) 10/06/20 07:15 Anion Gap 5 (5-15) 10/06/20 07:15 BUN 29 mg/dL (7-18) H 10/06/20 07:15 Creatinine 1.22 mg/dL (0.55-1.02) H 10/06/20 07:15 Est GFR (MDRD) Af Amer 54 mL/min (>60) L 10/06/20 07:15 Est GFR (MDRD) Non-Af 45 mL/min (>60) L 10/06/20 07:15 BUN/Creatinine Ratio 23.8 RATIO (10-20) H 10/06/20 07:15 Glucose 114 mg/dL (74-106) H 10/06/20 07:15 Vancomycin Trough 25.0 ug/mL (5.0-15.0) H 10/06/20 20:26 Random Vancomycin 19.4 ug/mL (0.0-15.0) H 10/07/20 07:55 Assessment/Plan: Psychotropic Medications: Unnecessary Medications: Bowel Regimen: - Provider Comments Provider responsibility: Provider responsible to enter orders to implement recommendations Provider Comments to Recommendations by Pharmacy: Agree
[2020-10-10] MEDS: LINAGLIPTIN 5 MG TABLET PO (08:13)
[2020-10-10] MEDS: metFORMIN (XR) 500 MG Tablet 1000 MG PO ×2 (08:14→17:15)
[2020-10-10] MEDS: Glimepiride 4 MG Tablet PO (08:14)
[2020-10-10] MEDS: Iron Polysaccharide Complex 150 MG CAPSULE PO (08:14)
[2020-10-10] MEDS: Aspirin 81 MG TAB.CHEW PO (08:14)
[2020-10-10 08:35] VITALS: PULSE 65; RESP 18; O2SAT 96
--- NOTE | 2020-10-10 11:35 | CASEMGMT ---
BIMS and PHQ9 interviews completed on this date for MDS assessment. GINA Maxwell
[2020-10-10 13:22] VITALS: BP 144/64; PULSE 69; RESP 16; TEMP 36.3; O2SAT 93
--- NOTE | 2020-10-10 14:31 | CASEMGMT ---
Addendum entered by Dayanara Osullivan 10/10/20 16:39: Son contacted SW to inquire further about IV ATB administration. Son can administer on the weekends but not during the week. Explained pt can go to the Infusion Center, it will be pre-scheduled and that can be coordinated with the [facility] Van. Contacted the Infusion Center and explained pt situation. Infusion Center can accommodate, however, pt is currently getting IVs ran at 2200. SW inquired to nursing to gradually move up time on dose to be infused during the day. Nursing to contact pharmacy and Dr. Once that new time is established, SW to schedule the first few appts with the van and infusion center then son can schedule. Son prefers [facility] - referral made for PT/OT/SN and inquired about how often a SN can infuse IVs and if there is a specific day that pt's trips to infusion center can be coordinated. SW to continue to follow. DC 10/26. Original Note: Social Work IDT met with patient and son for care plan meeting. Discussed patient's progress in therapy and nursing. Pt progressing well. Pt has IV ATB Q12 until 11/14. Explained cost of IVs is $151/wk but pt would need assistance with administration of IV ATB. Son explained he will be in contact with brothers and all can come in for training closer to DC. EDC 10/26 for day 21 as pt cannot pay copays at $186/day. SW to continue to follow to assist with DC planning. JASPREET Hoffman
--- NOTE | 2020-10-10 17:05 | NURSING ---
spoke with effie pharmacist regarding changing IV ATB Ceftriaxone to administer during day between [id number]. order changed to 1000 starting tomorrow for outpt infusions at discharge.
[2020-10-10] MEDS: 0.9% Saline Lock 10 ML Syringe IV ×2 (17:15→20:09)
[2020-10-10] MEDS: Gabapentin 300 MG Capsule 600 MG PO (20:09)
[2020-10-11 04:49] VITALS: BP 167/68; PULSE 78; RESP 18; TEMP 36.1; O2SAT 94
[2020-10-11] MEDS: Famotidine 20 MG Tablet PO (04:49)
[2020-10-11] MEDS: Metoprolol Tartrate 100 MG Tablet PO (04:49)
[2020-10-11] MEDS: hydroCHLOROthiazide 25 MG Tablet PO (04:49)
[2020-10-11] MEDS: 0.9% Saline Lock 10 ML Syringe IV (04:49)
[2020-10-11] MEDS: Levothyroxine 75 MCG Tablet PO (04:49)
[2020-10-11] MEDS: amLODIPine 5 MG Tablet PO (04:50)
[2020-10-11] MEDS: Citalopram 10 MG Tablet PO (04:50)
[2020-10-11] MEDS: Acetaminophen 500 MG Tablet 1000 MG PO ×3 (04:50→20:15)
[2020-10-11] MEDS: Nystatin Powder 15gm Bottle 1 APPLIC TOPICAL ×2 (04:51→17:08)
[2020-10-11 05:52] LABS: International Normalized Ratio 1.9
[2020-10-11 06:26] LABS: Bedside Glucose 93 mg/dL (70-110)
[2020-10-11] MEDS: Aspirin 81 MG TAB.CHEW PO (09:25)
[2020-10-11] MEDS: LINAGLIPTIN 5 MG TABLET PO (09:25)
[2020-10-11] MEDS: metFORMIN (XR) 500 MG Tablet 1000 MG PO ×2 (09:25→17:07)
[2020-10-11] MEDS: Iron Polysaccharide Complex 150 MG CAPSULE PO (09:25)
[2020-10-11] MEDS: Glimepiride 4 MG Tablet PO (09:25)
[2020-10-11 13:50] VITALS: BP 122/71; PULSE 69; RESP 18; TEMP 36.7; O2SAT 96
--- NOTE | 2020-10-11 14:17 | MDS.RN ---
Completed pain interview for britney 10/12/20
[2020-10-11] MEDS: Gabapentin 300 MG Capsule 600 MG PO (20:15)
[2020-10-12 05:36] VITALS: BP 149/75; PULSE 65; RESP 18; TEMP 36.2; O2SAT 97
[2020-10-12 05:40] VITALS: PULSE 66
[2020-10-12] MEDS: Acetaminophen 500 MG Tablet 1000 MG PO ×3 (05:40→21:23)
[2020-10-12] MEDS: hydroCHLOROthiazide 25 MG Tablet PO (05:40)
[2020-10-12] MEDS: amLODIPine 5 MG Tablet PO (05:40)
[2020-10-12] MEDS: Famotidine 20 MG Tablet PO (05:40)
[2020-10-12] MEDS: Citalopram 10 MG Tablet PO (05:40)
[2020-10-12] MEDS: Metoprolol Tartrate 100 MG Tablet PO (05:40)
[2020-10-12] MEDS: Levothyroxine 75 MCG Tablet PO (05:40)
[2020-10-12] MEDS: Nystatin Powder 15gm Bottle 1 APPLIC TOPICAL ×2 (05:41→17:23)
[2020-10-12 05:50] LABS: International Normalized Ratio 1.9; Prothrombin Time (Protime)PT. 20.9 SECONDS (11.7-14.9)
[2020-10-12 06:46] LABS: Bedside Glucose 76 mg/dL (70-110)
[2020-10-12] MEDS: metFORMIN (XR) 500 MG Tablet 1000 MG PO ×2 (08:44→17:23)
[2020-10-12] MEDS: Glimepiride 4 MG Tablet PO (08:45)
[2020-10-12] MEDS: Iron Polysaccharide Complex 150 MG CAPSULE PO (08:45)
[2020-10-12] MEDS: LINAGLIPTIN 5 MG TABLET PO (08:45)
[2020-10-12] MEDS: Aspirin 81 MG TAB.CHEW PO (08:45)
[2020-10-12] MEDS: 0.9% Saline Lock 10 ML Syringe IV ×2 (10:12→21:25)
[2020-10-12 11:31] VITALS: PULSE 69; RESP 18; O2SAT 97
[2020-10-12 13:56] VITALS: BP 154/74; PULSE 70; RESP 16; TEMP 36.4; O2SAT 96
[2020-10-12] MEDS: Gabapentin 300 MG Capsule 600 MG PO (21:24)
[2020-10-13 04:58] VITALS: BP 144/63; PULSE 65; RESP 18; TEMP 36.7; O2SAT 94
[2020-10-13 05:01] VITALS: BP 144/63; PULSE 65
[2020-10-13] MEDS: Levothyroxine 75 MCG Tablet PO (05:01)
[2020-10-13] MEDS: Famotidine 20 MG Tablet PO (05:01)
[2020-10-13] MEDS: amLODIPine 5 MG Tablet PO (05:01)
[2020-10-13] MEDS: Citalopram 10 MG Tablet PO (05:01)
[2020-10-13] MEDS: Metoprolol Tartrate 100 MG Tablet PO (05:01)
[2020-10-13] MEDS: hydroCHLOROthiazide 25 MG Tablet PO (05:01)
[2020-10-13] MEDS: Acetaminophen 500 MG Tablet 1000 MG PO ×3 (05:01→20:33)
[2020-10-13] MEDS: Nystatin Powder 15gm Bottle 1 APPLIC TOPICAL ×2 (05:03→17:29)
[2020-10-13 06:45] LABS: Bedside Glucose 83 mg/dL (70-110)
[2020-10-13 07:57] LABS: Absolute Neutrophil Count 6.2 X10^3/uL (2.0-7.7); Basophil# 0.08 X10^3/uL; Basophil% 0.9 % (0-1); Eosinophils% 3.2 % (0-5); Hematocrit 29.8 % (37-47); Hemoglobin 9.8 g/dL (12.0-15.0); Lymphocyte % 19.4 % (19-41); Mean Corp Hgb Conc 32.9 g/dL (32-36); Mean Corpuscular Hgb 30.2 pg (27.0-32.0); Monocyte# 0.79 X10^3/uL; Monocyte% 8.5 % (0-10); NRBC Flagged by Analyzer 0 % (0-5); Neutrophil # 6.24 X10^3/uL (2.7-7.7); Neutrophil % 67.1 % (47-70); Platelet Count 306 K/mm3 (150-450); RBC Distribution Width SD 54.3 fl (35.1-43.9); Red Blood Count 3.24 M/mm3 (4.2-5.4); White Blood Count 9.3 K/mm3 (4.4-11.0)
[2020-10-13 09:16] LABS: Anion Gap 6 (5-15); BUN 20 mg/dL (7-18); BUN/Creat Ratio 18.5 RATIO (10-20); Calcium,Total 8.5 mg/dL (8.5-10.1); Chloride 94 mmol/L (98-107); Creatinine, Serum 1.08 mg/dL (0.55-1.02); EST Glomerular Filtration Rate 52 mL/min (>60); Est Glom Filt Rate - Afr Amer 62 mL/min (>60); Estimated Creatinine Clearance 40.51 ml/min; Glucose 86 mg/dL (74-106); Potassium 4.2 mmol/L (3.5-5.1); Sodium Level 128 mmol/L (136-145)
[2020-10-13] MEDS: metFORMIN (XR) 500 MG Tablet 1000 MG PO ×2 (09:35→17:24)
[2020-10-13] MEDS: Aspirin 81 MG TAB.CHEW PO (09:35)
[2020-10-13] MEDS: Iron Polysaccharide Complex 150 MG CAPSULE PO (09:35)
[2020-10-13] MEDS: Glimepiride 4 MG Tablet PO (09:35)
[2020-10-13] MEDS: LINAGLIPTIN 5 MG TABLET PO (09:36)
[2020-10-13] MEDS: 0.9% Saline Lock 10 ML Syringe IV (09:54)
[2020-10-13 10:00] VITALS: PULSE 68; RESP 18; O2SAT 97
[2020-10-13 14:04] VITALS: BP 178/95; PULSE 66; RESP 18; TEMP 36.4; O2SAT 96
[2020-10-13] MEDS: Tuberculin,Purif.prot.deriv. 50 TU/ML Vial 5 ML ID (14:07)
[2020-10-13] MEDS: Menthol/Lanolin/Calamine/Znox 113 GM Tube 1 APPLIC TOPICAL (17:28)
[2020-10-13] MEDS: Gabapentin 300 MG Capsule 600 MG PO (20:32)
[2020-10-13] MEDS: 0.9 % NaCl (Sterile) Posiflush 10 mL IV (20:36)
--- NOTE | 2020-10-13 20:41 | NURSING ---
Lt knee incision w/ sutures intact, well approximated. No active drainage noted and site quotation clerk. No redness, warmth, or swelling noted. Toes mobile. +1-2 pitting edema to lt foot. +1 pitting edema to lt foot.
[2020-10-14 05:00] VITALS: BP 137/70; PULSE 70; RESP 16; TEMP 36.7; O2SAT 94
[2020-10-14] MEDS: Citalopram 10 MG Tablet PO (07:35)
[2020-10-14] MEDS: Menthol/Lanolin/Calamine/Znox 113 GM Tube 1 APPLIC TOPICAL ×2 (07:35→17:58)
[2020-10-14] MEDS: amLODIPine 5 MG Tablet PO (07:36)
[2020-10-14] MEDS: Nystatin Powder 15gm Bottle 1 APPLIC TOPICAL ×2 (07:36→17:58)
[2020-10-14] MEDS: Levothyroxine 75 MCG Tablet PO (07:36)
[2020-10-14 07:37] VITALS: BP 137/70; PULSE 70
[2020-10-14] MEDS: Acetaminophen 500 MG Tablet 1000 MG PO ×3 (07:37→21:44)
[2020-10-14] MEDS: Metoprolol Tartrate 100 MG Tablet PO (07:37)
[2020-10-14] MEDS: Famotidine 20 MG Tablet PO (07:39)
[2020-10-14] MEDS: metFORMIN (XR) 500 MG Tablet 1000 MG PO ×2 (09:41→17:56)
[2020-10-14] MEDS: Aspirin 81 MG TAB.CHEW PO (09:42)
[2020-10-14] MEDS: Glimepiride 4 MG Tablet PO (09:42)
[2020-10-14] MEDS: Iron Polysaccharide Complex 150 MG CAPSULE PO (09:42)
[2020-10-14] MEDS: LINAGLIPTIN 5 MG TABLET PO (09:43)
[2020-10-14 10:00] VITALS: PULSE 57; RESP 18; O2SAT 98
[2020-10-14] MEDS: 0.9% Saline Lock 10 ML Syringe IV ×2 (10:51→21:46)
[2020-10-14 11:10] LABS: International Normalized Ratio 1.8; Prothrombin Time (Protime)PT. 20.5 SECONDS (11.7-14.9)
[2020-10-14 13:39] VITALS: BP 141/71; PULSE 62; RESP 18; TEMP 36.2; O2SAT 97
[2020-10-14] MEDS: Gabapentin 300 MG Capsule 600 MG PO (21:44)
[2020-10-15 05:00] VITALS: BP 153/67; PULSE 62; RESP 15; O2SAT 94
[2020-10-15] MEDS: Levothyroxine 75 MCG Tablet PO (05:20)
[2020-10-15] MEDS: Citalopram 10 MG Tablet PO (05:20)
[2020-10-15] MEDS: Acetaminophen 500 MG Tablet 1000 MG PO ×3 (05:20→22:45)
[2020-10-15 05:21] VITALS: BP 153/67; PULSE 62
[2020-10-15] MEDS: amLODIPine 5 MG Tablet PO (05:21)
[2020-10-15] MEDS: Metoprolol Tartrate 100 MG Tablet PO (05:21)
[2020-10-15] MEDS: Famotidine 20 MG Tablet PO (05:21)
[2020-10-15] MEDS: Nystatin Powder 15gm Bottle 1 APPLIC TOPICAL ×2 (05:23→18:28)
[2020-10-15] MEDS: Menthol/Lanolin/Calamine/Znox 113 GM Tube 1 APPLIC TOPICAL ×2 (05:24→18:27)
[2020-10-15 06:13] LABS: International Normalized Ratio 1.9; Prothrombin Time (Protime)PT. 20.8 SECONDS (11.7-14.9)
[2020-10-15 06:25] LABS: Bedside Glucose 62 mg/dL (70-110)
[2020-10-15 06:25] LABS: Anion Gap 7 (5-15); BUN 17 mg/dL (7-18); BUN/Creat Ratio 18.9 RATIO (10-20); Calcium,Total 8.3 mg/dL (8.5-10.1); Chloride 96 mmol/L (98-107); EST Glomerular Filtration Rate 64 mL/min (>60); Est Glom Filt Rate - Afr Amer 77 mL/min (>60); Estimated Creatinine Clearance 48.62 ml/min; Glucose 56 mg/dL (74-106); Potassium 3.6 mmol/L (3.5-5.1); Sodium Level 129 mmol/L (136-145)
[2020-10-15] MEDS: Glimepiride 4 MG Tablet PO (08:15)
[2020-10-15] MEDS: Iron Polysaccharide Complex 150 MG CAPSULE PO (08:15)
[2020-10-15] MEDS: metFORMIN (XR) 500 MG Tablet 1000 MG PO ×2 (08:16→18:27)
[2020-10-15] MEDS: LINAGLIPTIN 5 MG TABLET PO (08:16)
[2020-10-15] MEDS: Aspirin 81 MG TAB.CHEW PO (08:18)
[2020-10-15 08:21] LABS: Bedside Glucose 125 mg/dL (70-110)
[2020-10-15] MEDS: 0.9% Saline Lock 10 ML Syringe IV (10:40)
[2020-10-15 13:50] VITALS: BP 148/69; PULSE 63; RESP 16; TEMP 36.7; O2SAT 97
[2020-10-15] MEDS: Gabapentin 300 MG Capsule 600 MG PO (22:45)
[2020-10-16 06:26] LABS: Bedside Glucose 68 mg/dL (70-110)
[2020-10-16 06:31] VITALS: BP 140/76; PULSE 69; RESP 16; TEMP 36.3; O2SAT 94
[2020-10-16 06:35] VITALS: BP 140/76; PULSE 69
[2020-10-16] MEDS: Famotidine 20 MG Tablet PO (06:35)
[2020-10-16] MEDS: Acetaminophen 500 MG Tablet 1000 MG PO ×3 (06:35→21:26)
[2020-10-16] MEDS: Levothyroxine 75 MCG Tablet PO (06:35)
[2020-10-16] MEDS: Metoprolol Tartrate 100 MG Tablet PO (06:35)
[2020-10-16] MEDS: amLODIPine 5 MG Tablet PO (06:35)
[2020-10-16] MEDS: Citalopram 10 MG Tablet PO (06:36)
[2020-10-16] MEDS: Nystatin Powder 15gm Bottle 1 APPLIC TOPICAL ×2 (06:36→18:13)
[2020-10-16] MEDS: Menthol/Lanolin/Calamine/Znox 113 GM Tube 1 APPLIC TOPICAL ×2 (06:36→18:13)
[2020-10-16] MEDS: Glimepiride 4 MG Tablet PO (08:07)
[2020-10-16] MEDS: metFORMIN (XR) 500 MG Tablet 1000 MG PO ×2 (08:07→18:11)
[2020-10-16] MEDS: Aspirin 81 MG TAB.CHEW PO (08:07)
[2020-10-16] MEDS: Iron Polysaccharide Complex 150 MG CAPSULE PO (08:07)
[2020-10-16] MEDS: LINAGLIPTIN 5 MG TABLET PO (08:08)
[2020-10-16 10:00] VITALS: PULSE 68; RESP 18; O2SAT 98
[2020-10-16] MEDS: 0.9% Saline Lock 10 ML Syringe IV (11:26)
[2020-10-16 11:27] LABS: International Normalized Ratio 1.8
[2020-10-16 14:07] VITALS: BP 137/71; PULSE 65; RESP 16; TEMP 36; O2SAT 98
[2020-10-16] MEDS: Gabapentin 300 MG Capsule 600 MG PO (21:26)
[2020-10-17 04:54] VITALS: BP 156/96; PULSE 77; RESP 18; TEMP 36.6; O2SAT 95
[2020-10-17 05:04] VITALS: BP 172/74
[2020-10-17] MEDS: Menthol/Lanolin/Calamine/Znox 113 GM Tube 1 APPLIC TOPICAL ×2 (05:05→16:54)
[2020-10-17 05:06] VITALS: BP 172/74; PULSE 77
[2020-10-17] MEDS: Citalopram 10 MG Tablet PO (05:06)
[2020-10-17] MEDS: Metoprolol Tartrate 100 MG Tablet PO (05:06)
[2020-10-17] MEDS: amLODIPine 5 MG Tablet PO (05:07)
[2020-10-17] MEDS: Famotidine 20 MG Tablet PO (05:07)
[2020-10-17] MEDS: Levothyroxine 75 MCG Tablet PO (05:07)
[2020-10-17] MEDS: Nystatin Powder 15gm Bottle 1 APPLIC TOPICAL ×2 (05:07→16:54)
[2020-10-17] MEDS: Acetaminophen 500 MG Tablet 1000 MG PO ×3 (05:08→21:28)
[2020-10-17 06:21] LABS: Bedside Glucose 72 mg/dL (70-110)
[2020-10-17] MEDS: metFORMIN (XR) 500 MG Tablet 1000 MG PO ×2 (09:29→16:53)
[2020-10-17] MEDS: Aspirin 81 MG TAB.CHEW PO (09:29)
[2020-10-17] MEDS: Iron Polysaccharide Complex 150 MG CAPSULE PO (09:29)
[2020-10-17] MEDS: Glimepiride 4 MG Tablet PO (09:29)
[2020-10-17] MEDS: LINAGLIPTIN 5 MG TABLET PO (09:30)
[2020-10-17] MEDS: 0.9% Saline Lock 10 ML Syringe IV (09:33)
--- NOTE | 2020-10-17 10:16 | NURSING ---
pt off unit to ortho appt at this time via WC
--- NOTE | 2020-10-17 13:45 | MDS.RN ---
Information for the mds was obtained from review of the clinical record, interview of resident, staff, and direct observation of resident's care.
[2020-10-17 14:01] VITALS: BP 125/71; PULSE 62; RESP 16; TEMP 36.3; O2SAT 98
--- NOTE | 2020-10-17 14:17 | NURSING ---
pt saw Dr Drake today, office faxing report now. ok to DC TAYLOR wraps, ok to continue with ice and shower. sutures were removed from lt anterior and posterior knee.
[2020-10-17] MEDS: Gabapentin 300 MG Capsule 600 MG PO (21:29)
[2020-10-18 06:36] LABS: Bedside Glucose 70 mg/dL (70-110)
[2020-10-18] MEDS: 0.9% Saline Lock 10 ML Syringe IV ×3 (06:36→21:23)
[2020-10-18] MEDS: Menthol/Lanolin/Calamine/Znox 113 GM Tube 1 APPLIC TOPICAL ×2 (06:37→17:31)
[2020-10-18] MEDS: Citalopram 10 MG Tablet PO (06:37)
[2020-10-18 06:40] VITALS: BP 153/72; PULSE 63
[2020-10-18] MEDS: Metoprolol Tartrate 100 MG Tablet PO (06:40)
[2020-10-18] MEDS: Nystatin Powder 15gm Bottle 1 APPLIC TOPICAL ×2 (06:41→17:31)
[2020-10-18] MEDS: amLODIPine 5 MG Tablet PO (06:42)
[2020-10-18] MEDS: Levothyroxine 75 MCG Tablet PO (06:42)
[2020-10-18] MEDS: Famotidine 20 MG Tablet PO (06:42)
[2020-10-18] MEDS: Acetaminophen 500 MG Tablet 1000 MG PO ×3 (06:42→21:14)
[2020-10-18] MEDS: metFORMIN (XR) 500 MG Tablet 1000 MG PO ×2 (09:17→17:30)
[2020-10-18] MEDS: Iron Polysaccharide Complex 150 MG CAPSULE PO (09:17)
[2020-10-18] MEDS: Aspirin 81 MG TAB.CHEW PO (09:17)
[2020-10-18] MEDS: LINAGLIPTIN 5 MG TABLET PO (09:17)
[2020-10-18] MEDS: Glimepiride 4 MG Tablet PO (09:17)
[2020-10-18 14:10] VITALS: BP 144/62; PULSE 66; RESP 18; TEMP 36.6; O2SAT 98
--- NOTE | 2020-10-18 16:04 | CASEMGMT ---
Social Work SW has been communicating with [facility], [facility] and Infusion Center to coordinate pt's DC. Followed up with pt to review plans. Pt stated she would prefer to have HHC and learn how to administer IVs vs going to the Infusion Center daily. Son will still infuse on the weekend. Notified nursing to begin teaching pt. Notified [facility] and faxed updated paperwork and requested to ensure cost has not changed. Notified [facility] and SOC can begin 10/27 to ensure comfort and teaching with son when infusing IV. IV is infused daily at 10 am. Pt will also receive PT/OT. No DME needs. [place]. Left message to follow up with son. Plan: DC home alone 10/26, self-administering daily IV, son and [facility] assist, [facility] PT/OT/SN. No DME JASPREET HoffmanW
[2020-10-18 18:48] VITALS: PULSE 66; RESP 16; O2SAT 98
--- NOTE | 2020-10-18 19:47 | NURSING ---
Pt willing to be taught how to administer antibiotic so she can administer it at home.
[2020-10-18] MEDS: Gabapentin 300 MG Capsule 600 MG PO (21:19)
[2020-10-19 05:00] VITALS: BP 172/74; PULSE 63; RESP 18; TEMP 35.8; O2SAT 95
[2020-10-19] MEDS: Levothyroxine 75 MCG Tablet PO (06:25)
[2020-10-19] MEDS: Citalopram 10 MG Tablet PO (06:26)
[2020-10-19] MEDS: Famotidine 20 MG Tablet PO (06:26)
[2020-10-19] MEDS: amLODIPine 5 MG Tablet PO (06:26)
[2020-10-19] MEDS: Acetaminophen 500 MG Tablet 1000 MG PO ×3 (06:27→22:56)
[2020-10-19 06:32] VITALS: BP 172/74; PULSE 63
[2020-10-19] MEDS: Metoprolol Tartrate 100 MG Tablet PO (06:32)
[2020-10-19] MEDS: Nystatin Powder 15gm Bottle 1 APPLIC TOPICAL ×2 (06:35→16:39)
[2020-10-19] MEDS: Menthol/Lanolin/Calamine/Znox 113 GM Tube 1 APPLIC TOPICAL ×2 (06:36→16:39)
[2020-10-19 07:00] LABS: Bedside Glucose 75 mg/dL (70-110)
[2020-10-19] MEDS: Iron Polysaccharide Complex 150 MG CAPSULE PO (09:17)
[2020-10-19] MEDS: metFORMIN (XR) 500 MG Tablet 1000 MG PO ×2 (09:17→16:38)
[2020-10-19] MEDS: Aspirin 81 MG TAB.CHEW PO (09:17)
[2020-10-19] MEDS: LINAGLIPTIN 5 MG TABLET PO (09:17)
[2020-10-19] MEDS: Glimepiride 4 MG Tablet PO (09:17)
[2020-10-19 10:00] VITALS: PULSE 61; RESP 18; O2SAT 91
[2020-10-19] MEDS: 0.9% Saline Lock 10 ML Syringe IV (10:41)
[2020-10-19 15:37] VITALS: BP 166/67; PULSE 68; RESP 18; TEMP 36.4; O2SAT 97
[2020-10-19] MEDS: Gabapentin 300 MG Capsule 600 MG PO (22:57)
[2020-10-20 06:41] LABS: Bedside Glucose 69 mg/dL (70-110)
[2020-10-20 07:06] LABS: Bedside Glucose 89 mg/dL (70-110)
[2020-10-20 07:11] VITALS: BP 142/74; PULSE 65; RESP 16; TEMP 36; O2SAT 96
[2020-10-20] MEDS: Menthol/Lanolin/Calamine/Znox 113 GM Tube 1 APPLIC TOPICAL ×2 (07:13→16:48)
[2020-10-20] MEDS: Famotidine 20 MG Tablet PO (07:13)
[2020-10-20 07:14] VITALS: BP 142/74; PULSE 65
[2020-10-20] MEDS: Metoprolol Tartrate 100 MG Tablet PO (07:14)
[2020-10-20] MEDS: Citalopram 10 MG Tablet PO (07:14)
[2020-10-20] MEDS: amLODIPine 5 MG Tablet PO (07:14)
[2020-10-20] MEDS: Nystatin Powder 15gm Bottle 1 APPLIC TOPICAL ×2 (07:14→20:58)
[2020-10-20] MEDS: Levothyroxine 75 MCG Tablet PO (07:15)
[2020-10-20] MEDS: Acetaminophen 500 MG Tablet 1000 MG PO ×3 (07:15→20:58)
--- NOTE | 2020-10-20 08:10 | DCINST_ITS ---
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) Recurrent deep vein thrombosis (DVT) (Chronic) Diabetes mellitus (Chronic) Vitamin D deficiency (Chronic) Diabetic neuropathy (Chronic) Osteoarthritis (Chronic) Hypertension (Chronic) Hypothyroidism (Chronic) You will use the following diet at home:: No restrictions, Regular, Fiber restricted Your liquids should be the consistency of: Regular/Thin Discharge Activity: Return to Normal Activity, May Shower, Use Walker Weight Bearing Status: Weight bearing as tolerated Call your doctor if you observe: Fever of 101 or Higher, Inability to urinate, Inability to have a bowel movement, Shortness of breath, Chest pain, Uncontrolled pain Allergies/Adverse Reactions: Allergies No Known Allergies Allergy (Verified 10/01/20 15:13) Medications to take at Discharge Gabapentin [Neurontin] 600 mg PO QHS 04/23/15 Glimepiride [Amaryl] 4 mg PO DAILY 01/21/19 Amlodipine [Norvasc] 5 mg PO DAILY 02/17/20 Levothyroxine Sodium [Synthroid] 75 mcg PO DAILY 02/17/20 Metformin HCl [Metformin HCl ER] 1,000 mg PO BID 02/17/20 Warfarin Sodium [Coumadin] 5 mg PO MOTUWEFRSA 02/17/20 Cholecalciferol (Vitamin D3) [Vitamin D3] 100 mcg PO DAILY 10/01/20 Sitagliptin Phosphate [Januvia] 25 mg PO DAILY 10/01/20 Warfarin Sodium [Jantoven] 7.5 mg PO SUTH 10/01/20 Acetaminophen [Tylenol] 1,000 mg PO Q8 10/05/20 Aspirin [Aspirin, Baby] 81 mg PO DAILY@0800 10/05/20 0.9 % NaCl (Sterile) Posiflush [0.9% NaCl (Sterile) Posiflush] 10 - 40 ml IV UD PRN disp.syrin 10/20/20 0.9 % NaCl (Sterile) Posiflush [0.9% NaCl (Sterile) Posiflush] 10 - 40 ml IV UD PRN disp.syrin 10/20/20 0.9% Saline Lock 10 - 40 ml IV UD PRN syringe 10/20/20 Ceftriaxone 2 gm IV DAILY@1000 vial 10/20/20 Citalopram [Celexa] 10 mg PO DAILY #30 tablet 10/20/20 Famotidine [Pepcid] 20 mg PO DAILY #30 tablet 10/20/20 Heparin Pf Lock 10 units/ml 50 units IV UD PRN syringe 10/20/20 Iron Polysaccharide Complex [Ferrex 150] 150 mg PO DAILYCM #30 capsule 10/20/20 Menthol/Lanolin/Calamine/Znox [Calmoseptine Ointment] 1 applic TOPICAL BID tube 10/20/20 Metoprolol Tartrate [Lopressor (beta douglas)] 100 mg PO DAILY #30 tablet 10/20/20 Nystatin Powder [Mycostatin Powder] 1 applic TOPICAL BID bottle 10/20/20 The following prescriptions were given: Citalopram [Celexa] 10 mg PO DAILY #30 tablet Transmission Status: Pending to [facility] [place] [address] Iron Polysaccharide Complex [Ferrex 150] 150 mg PO DAILYCM #30 capsule Transmission Status: Pending to [facility] [place] [address] Metoprolol Tartrate [Lopressor (beta douglas)] 100 mg PO DAILY #30 tablet Transmission Status: Pending to [address] Famotidine [Pepcid] 20 mg PO DAILY #30 tablet Transmission Status: Pending to [address] Primary Care Physician: Jose Cruz Benavides MD [Primary Care Provider] - Please follow up with your Primary Care Physician in: 1 week. Test Results: Test results from this visit will be discussed in further detail at your follow- up appointment, if applicable. Please Follow Up With: Leobardo Drake MD When: 2 weeks. Proposed Discharge Date: 10/26/20
--- NOTE | 2020-10-20 08:12 | PCM.DC.SUM ---
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) - Secondary Discharge Diagnosis Chronic Problems: Chronic Problems (Last Updated 02/17/20 @ 15:55 by Tony ANDRES PA) Trinidad's cyst (Chronic) Recurrent deep vein thrombosis (DVT) (Chronic) Diabetes mellitus (Chronic) Vitamin D deficiency (Chronic) Diabetic neuropathy (Chronic) Osteoarthritis (Chronic) Mild diastolic dysfunction (Chronic) History of TIA (transient ischemic attack) (Chronic) Stasis dermatitis of both legs (Chronic) Venous insufficiency (Chronic) Deep vein thrombosis (Chronic) Diabetes mellitus type 2 in obese (Chronic) Obesity (Chronic) History of colon cancer (Chronic) Hypertension (Chronic) Hypothyroidism (Chronic) Peripheral neuropathy (Chronic) Chronic anticoagulation (Chronic) Hospital Course and Treatment Imaging Results: 10/05/20 17:06 Diet: Carbohydrate Controlled Food consistency:: Regular Liquid Consistency:: Regular/Thin Dietary Modifications:: No Added Salt Is pt able to select menu?: Yes Labs (Last 48 Hours) 10/19/20 10/20/20 10/20/20 06:26 06:28 07:01 POC Glucose 75 69 L 89 Operations: None Procedures: None Summary of Care Provided: The patient is a 80 year old Female with below past medical history hospitalized for left knee prosthetic joint infection, underwent polyethylene exchange infected left prosthetic knee, postoperative course complicated by anemia, admitted to TCU with debility, here for rehabilitation, strengthening, intravenous antibiotics, prior to discharge home alone. Discharge home alone, self administering daily IV Ceftriaxone, son and Home Health Care assist, [facility] PT/OT/SN, No durable medical equipment needs. 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) - Physical Exam Vitals/I&O's: Vital Signs Temp Pulse Resp BP Pulse Ox 96.8 F L 65 16 142/74 H 96 10/20/20 07:11 10/20/20 07:14 10/20/20 07:11 10/20/20 07:14 10/20/20 07:11 Oxygen Delivery Method Room Air Weight: 107.955 kg Body Mass Index (BMI) 38.3 Finger Stick Blood Glucose 143 Intake and Output for Last 24 Hours 10/18/20 10/19/20 10/20/20 23:59 23:59 23:59 Intake Total 650 / 650 890 / 890 Balance 650 / 650 890 / 890 Laboratory Results 10/20/20 06:28: POC Glucose 69 L 10/20/20 07:01: POC Glucose 89 Current Medications Acetaminophen (Acetaminophen 500 Mg Tablet) 1,000 mg PO Q8 [facility] Last Admin: 10/20/20 07:15 Dose: 1,000 mg Documented by: Amlodipine Besylate (Amlodipine 5 Mg Tablet) 5 mg PO DAILY [facility] Last Admin: 10/20/20 07:14 Dose: 5 mg Documented by: Aspirin (Aspirin 81 Mg Tab.Chew) 81 mg PO DAILY@0800 [facility] Last Admin: 10/19/20 09:17 Dose: 81 mg Documented by: Bisacodyl (Bisacodyl 5 Mg Tablet) 10 mg PO DAILY PRN PRN Reason: Constipation Calamine/Phenol (Menthol/Lanolin/Calamine/Znox 113 Gm Tube) 1 applic TOPICAL BID [facility]; Protocol Last Admin: 10/20/20 07:13 Dose: 1 applic Documented by: Citalopram Hydrobromide (Citalopram 10 Mg Tablet) 10 mg PO DAILY [facility] Last Admin: 10/20/20 07:14 Dose: 10 mg Documented by: Famotidine (Famotidine 20 Mg Tablet) 20 mg PO DAILY [facility] Last Admin: 10/20/20 07:13 Dose: 20 mg Documented by: Gabapentin (Gabapentin 300 Mg Capsule) 600 mg PO QHS [facility] Last Admin: 10/19/20 22:57 Dose: 600 mg Documented by: Glimepiride (Glimepiride 2 Mg Tablet) 2 mg PO DAILYCM [facility] Heparin Sodium (Beef Lung) (Heparin Pf Lock 10 Units/Ml 50 Units/5 Ml Syringe) 50 units IV UD PRN PRN Reason: PICC Line Heparin Flush Sodium Chloride () 250 mls @ 15 mls/hr IV .[id number] PRN PRN Reason: Saline Flush Last Infusion: 10/17/20 09:01 Dose: Infused Documented by: Ceftriaxone Sodium 2 gm/ (Sodium Chloride) 50 mls @ 100 mls/hr IV DAILY@1000 [facility] Stop: 11/14/20 10:01 Last Infusion: 10/19/20 11:15 Dose: Infused Documented by: Levothyroxine Sodium (Levothyroxine 75 Mcg Tablet) 75 mcg PO DAILY@0600 [facility] Last Admin: 10/20/20 07:15 Dose: 75 mcg Documented by: Linagliptin (Linagliptin 5 Mg Tablet) 5 mg PO DAILY@0800 [facility] Last Admin: 10/19/20 09:17 Dose: 5 mg Documented by: Magnesium Hydroxide (Magnesium Hydroxide 30 Ml Udc) 30 ml PO DAILY PRN PRN Reason: Constipation Metformin HCl (Metformin (Xr) 500 Mg Tablet) [facility] Metoprolol Tartrate (Metoprolol Tartrate 100 Mg Tablet) 100 mg PO DAILY [facility] Last Admin: 10/20/20 07:14 Dose: 100 mg Documented by: Nystatin (Nystatin Powder 15gm Bottle) 1 applic TOPICAL BID [facility]; Protocol Last Admin: 10/20/20 07:14 Dose: 1 applic Documented by: Oxycodone HCl (Oxycodone 5 Mg Tablet) 5 mg PO Q4H PRN PRN PRN Reason: Pain Score 4-10 Polyethylene Glycol (Polyethylene Glycol 3350 17 Gm Packet) 17 gm PO DAILY [facility] Last Admin: 10/20/20 07:14 Dose: Not Given Documented by: Polysaccharide Iron Complex (Iron Polysaccharide Complex 150 Mg Capsule) [facility] Last Admin: 10/19/20 09:17 Dose: 150 mg Documented by: Senna/Docusate Sodium (Senna/Docusate Sodium 1 Tablet) 1 tablet PO BID [facility] Last Admin: 10/20/20 07:16 Dose: Not Given Documented by: Sodium Chloride (0.9% Saline Lock 10 Ml Syringe) 10 - 40 ml IV UD PRN PRN Reason: Open End PICC Flush Last Admin: 10/19/20 10:41 Dose: 10 ml Documented by: Sodium Chloride (0.9 % Nacl (Sterile) Posiflush 10 Ml) 10 - 40 ml IV UD PRN PRN Reason: Port access or dressing change Last Admin: 10/13/20 20:36 Dose: 10 ml Documented by: Sodium Chloride (0.9 % Nacl (Sterile) Posiflush 10 Ml) 10 - 40 ml IV UD PRN PRN Reason: Port access or dressing change Warfarin Sodium (Warfarin 5 Mg Tablet) 5 mg PO MoTuWeFrSa@1700 [facility] Last Admin: 10/19/20 16:38 Dose: 5 mg Documented by: Warfarin Sodium (Warfarin 7.5 Mg Tablet) 7.5 mg PO SuTh@1700 [facility] Last Admin: 10/18/20 17:30 Dose: 7.5 mg Documented by: Discharge Diet: No Restrictions Discharge Activity: Return to Normal Activity, May Shower, Use Walker Weight Bearing Status: Weight bearing as tolerated Call your doctor if you observe: Fever of 101 or Higher, Inability to urinate, Inability to have a bowel movement, Shortness of breath, Chest pain, Uncontrolled pain Home Medications: Medications to take at Discharge Gabapentin [Neurontin] 600 mg PO QHS 04/23/15 Glimepiride [Amaryl] 4 mg PO DAILY 01/21/19 Amlodipine [Norvasc] 5 mg PO DAILY 02/17/20 Levothyroxine Sodium [Synthroid] 75 mcg PO DAILY 02/17/20 Metformin HCl [Metformin HCl ER] 1,000 mg PO BID 02/17/20 Warfarin Sodium [Coumadin] 5 mg PO MOTUWEFRSA 02/17/20 Cholecalciferol (Vitamin D3) [Vitamin D3] 100 mcg PO DAILY 10/01/20 Sitagliptin Phosphate [Januvia] 25 mg PO DAILY 10/01/20 Warfarin Sodium [Jantoven] 7.5 mg PO SUTH 10/01/20 Acetaminophen [Tylenol] 1,000 mg PO Q8 10/05/20 Aspirin [Aspirin, Baby] 81 mg PO DAILY@0800 10/05/20 0.9 % NaCl (Sterile) Posiflush [0.9% NaCl (Sterile) Posiflush] 10 - 40 ml IV UD PRN disp.syrin 10/20/20 0.9 % NaCl (Sterile) Posiflush [0.9% NaCl (Sterile) Posiflush] 10 - 40 ml IV UD PRN disp.syrin 10/20/20 0.9% Saline Lock 10 - 40 ml IV UD PRN syringe 10/20/20 Ceftriaxone 2 gm IV DAILY@1000 vial 10/20/20 Citalopram [Celexa] 10 mg PO DAILY #30 tablet 10/20/20 Famotidine [Pepcid] 20 mg PO DAILY #30 tablet 10/20/20 Heparin Pf Lock 10 units/ml 50 units IV UD PRN syringe 10/20/20 Iron Polysaccharide Complex [Ferrex 150] 150 mg PO DAILYCM #30 capsule 10/20/20 Menthol/Lanolin/Calamine/Znox [Calmoseptine Ointment] 1 applic TOPICAL BID tube 10/20/20 Metoprolol Tartrate [Lopressor (beta douglas)] 100 mg PO DAILY #30 tablet 10/20/20 Nystatin Powder [Mycostatin Powder] 1 applic TOPICAL BID bottle 10/20/20 Following Prescriptions Were Given to Patient: Citalopram [Celexa] 10 mg PO DAILY #30 tablet Transmission Status: Pending to [address] Iron Polysaccharide Complex [Ferrex 150] 150 mg PO DAILYCM #30 capsule Transmission Status: Pending to [facility] [place] [address] Metoprolol Tartrate [Lopressor (beta douglas)] 100 mg PO DAILY #30 tablet Transmission Status: Pending to [address] Famotidine [Pepcid] 20 mg PO DAILY #30 tablet Transmission Status: Pending to [address] Primary Care Physician: Jose Cruz Benavides MD [Primary Care Provider] - Please follow up with your Primary Care Physician in: 1 week. Please Follow Up With: Leobardo Drake MD When: 2 weeks. Please Follow Up With: Charlie Kumar MD When: 2 weeks. Disposition: Home with Home Health Minutes spent on discharge:: 35 Patient Condition:: Stable Medical Necessity - Tobacco Use Smoking Status: Never smoker Tobacco Use: Cigarettes Meaningful Use Info Meaningful Use Diagnoses (Choose all that apply): None applicable
--- NOTE | 2020-10-20 08:25 | NURSING ---
Pt refused to have blood drawn per targeteer this am. Using clean technique, single lumen NITO PICC line flushed w/ 10 ml NS using push-pause method, withdrew 10 ml of blood for discard, withdrew additional 10 ml of blood for lab specimens- INR, CBC w/ Diff, and BMP, new end cap primed w/ NS and applied to end of PICC line after site cleansed w/ etoh, flushed w/ 20 ml NS using push-pause method. Pt tolerated well. Dressing dated 10/19/20, and is intact. Site without redness, warmth, or swelling. Lab specimens sent to lab via tube system.
[2020-10-20 08:37] LABS: Absolute Lymphocyte Count 1.33 X10^3/uL (0.83-4.51); Absolute Neutrophil Count 4.6 X10^3/uL (2.0-7.7); Basophil# 0.07 X10^3/uL; Eosinophil# 0.25 X10^3/uL; Eosinophils% 3.6 % (0-5); Hematocrit 28.5 % (37-47); Hemoglobin 8.9 g/dL (12.0-15.0); Lymphocyte # 1.33 X10^3/ul (0.83-4.51); Lymphocyte % 19.3 % (19-41); Mean Corp Hgb Conc 31.2 g/dL (32-36); Mean Corpuscular Hgb 30.5 pg (27.0-32.0); Mean Corpuscular Volume 97.6 fL (81-99); Monocyte# 0.58 X10^3/uL; Monocyte% 8.4 % (0-10); NRBC Flagged by Analyzer 0 % (0-5); Neutrophil # 4.64 X10^3/uL (2.7-7.7); Neutrophil % 67.4 % (47-70); Platelet Count 288 K/mm3 (150-450); RBC Distribution Width CV 16.5 % (11.6-14.6); RBC Distribution Width SD 58.8 fl (35.1-43.9); Red Blood Count 2.92 M/mm3 (4.2-5.4); White Blood Count 6.9 K/mm3 (4.4-11.0)
[2020-10-20 09:05] LABS: Anion Gap 3 (5-15); BUN 20 mg/dL (7-18); BUN/Creat Ratio 20.1 RATIO (10-20); Calcium,Total 8.6 mg/dL (8.5-10.1); Chloride 101 mmol/L (98-107); Creatinine, Serum 0.99 mg/dL (0.55-1.02); EST Glomerular Filtration Rate 57 mL/min (>60); Est Glom Filt Rate - Afr Amer 69 mL/min (>60); Glucose 83 mg/dL (74-106); Potassium 4.4 mmol/L (3.5-5.1); Sodium Level 133 mmol/L (136-145)
[2020-10-20] MEDS: metFORMIN (XR) 500 MG Tablet PO ×2 (09:21→16:47)
[2020-10-20] MEDS: Iron Polysaccharide Complex 150 MG CAPSULE PO (09:21)
[2020-10-20] MEDS: Glimepiride 4 MG Tablet 2 MG PO (09:22)
[2020-10-20] MEDS: Aspirin 81 MG TAB.CHEW PO (09:23)
[2020-10-20] MEDS: LINAGLIPTIN 5 MG TABLET PO (09:24)
[2020-10-20 09:31] LABS: International Normalized Ratio 2.2; Prothrombin Time (Protime)PT. 23.4 SECONDS (11.7-14.9)
[2020-10-20] MEDS: 0.9% Saline Lock 10 ML Syringe IV ×2 (10:37→20:59)
[2020-10-20 10:41] VITALS: PULSE 66; RESP 18; O2SAT 99
[2020-10-20 15:43] VITALS: BP 154/78; PULSE 71; RESP 18; TEMP 36.6; O2SAT 96
[2020-10-20] MEDS: Gabapentin 300 MG Capsule 600 MG PO (20:58)
[2020-10-21 06:06] VITALS: BP 134/67; PULSE 63; RESP 18; TEMP 37.1; O2SAT 94
[2020-10-21] MEDS: Nystatin Powder 15gm Bottle 1 APPLIC TOPICAL ×2 (06:08→22:19)
[2020-10-21 06:09] VITALS: BP 134/67; PULSE 63
[2020-10-21] MEDS: Acetaminophen 500 MG Tablet 1000 MG PO ×3 (06:09→22:17)
[2020-10-21] MEDS: Citalopram 10 MG Tablet PO (06:09)
[2020-10-21] MEDS: Metoprolol Tartrate 100 MG Tablet PO (06:09)
[2020-10-21] MEDS: Menthol/Lanolin/Calamine/Znox 113 GM Tube 1 APPLIC TOPICAL ×2 (06:09→17:31)
[2020-10-21] MEDS: Levothyroxine 75 MCG Tablet PO (06:10)
[2020-10-21] MEDS: amLODIPine 5 MG Tablet PO (06:10)
[2020-10-21] MEDS: Famotidine 20 MG Tablet PO (06:10)
[2020-10-21 06:46] LABS: Bedside Glucose 90 mg/dL (70-110)
[2020-10-21] MEDS: Glimepiride 2 MG Tablet PO (08:30)
[2020-10-21] MEDS: metFORMIN (XR) 500 MG Tablet PO ×2 (08:30→17:31)
[2020-10-21] MEDS: Aspirin 81 MG TAB.CHEW PO (08:30)
[2020-10-21] MEDS: Iron Polysaccharide Complex 150 MG CAPSULE PO (08:30)
[2020-10-21] MEDS: LINAGLIPTIN 5 MG TABLET PO (08:31)
[2020-10-21] MEDS: 0.9% Saline Lock 10 ML Syringe IV (09:58)
[2020-10-21 15:26] VITALS: BP 151/70; PULSE 60; RESP 20; TEMP 37.7; O2SAT 97
[2020-10-21 17:59] VITALS: PULSE 65; RESP 16; O2SAT 95
[2020-10-21] MEDS: Gabapentin 300 MG Capsule 600 MG PO (22:18)
--- NOTE | 2020-10-21 23:00 | NURSING ---
Dr. Loomis notified of pt c/o burning and itching with urination, new order for UA and C/S.
[2020-10-22 02:48] LABS: Bacteria 0 SEEN /hpf (None Seen); Mucous, Urine 0 SEEN /hpf (<or=2+)
[2020-10-22 02:50] LABS: Color, Urine Yellow (Yellow); Glucose, Dipstick Normal (Normal); Ketone-Dipstick Negative (Negative); Leukocyte Esterase-Dipstick 500 /ul (Negative); Nitrite-Dipstick Negative (Negative); Occult Blood-Urine 10 /ul (Negative); Protein-Dipstick 15 mg/dl (Negative); Urine Bilirubin Dipstick Negative (Negative); Urine Clarity Clear (Clear); Urine Urobilinogen Normal (Normal)
[2020-10-22 02:55] LABS: Red Blood Cells-Urine 0-5 SEEN /hpf (0-5); Squamous Epithelial Cells - UA 0-5 SEEN /hpf (5-10); White Blood Cells 10-25 SEEN /hpf (0-5)
[2020-10-22 05:20] VITALS: BP 172/76; PULSE 65; RESP 18; TEMP 36.7; O2SAT 96
[2020-10-22 05:25] VITALS: BP 172/76; PULSE 65
[2020-10-22] MEDS: Metoprolol Tartrate 100 MG Tablet PO (05:25)
[2020-10-22] MEDS: Acetaminophen 500 MG Tablet 1000 MG PO ×3 (05:25→21:04)
[2020-10-22] MEDS: Famotidine 20 MG Tablet PO (05:25)
[2020-10-22] MEDS: Levothyroxine 75 MCG Tablet PO (05:25)
[2020-10-22] MEDS: amLODIPine 5 MG Tablet PO (05:25)
[2020-10-22] MEDS: Citalopram 10 MG Tablet PO (05:25)
[2020-10-22] MEDS: 0.9% Saline Lock 10 ML Syringe IV ×2 (05:26→11:27)
[2020-10-22] MEDS: Menthol/Lanolin/Calamine/Znox 113 GM Tube 1 APPLIC TOPICAL ×2 (05:27→17:43)
[2020-10-22] MEDS: Nystatin Powder 15gm Bottle 1 APPLIC TOPICAL ×2 (05:27→21:05)
[2020-10-22 05:51] LABS: International Normalized Ratio 2.3; Prothrombin Time (Protime)PT. 24.4 SECONDS (11.7-14.9)
[2020-10-22 06:21] LABS: Bedside Glucose 99 mg/dL (70-110)
[2020-10-22] MEDS: Nitrofurantoin Macrocrystals 100 MG Capsule PO ×2 (08:30→17:42)
[2020-10-22] MEDS: Aspirin 81 MG TAB.CHEW PO (08:31)
[2020-10-22] MEDS: Glimepiride 2 MG Tablet PO (08:31)
[2020-10-22] MEDS: Iron Polysaccharide Complex 150 MG CAPSULE PO (08:31)
[2020-10-22] MEDS: metFORMIN (XR) 500 MG Tablet PO ×2 (08:32→17:42)
[2020-10-22] MEDS: LINAGLIPTIN 5 MG TABLET PO (08:32)
[2020-10-22 13:47] VITALS: BP 176/90; PULSE 78; RESP 16; TEMP 36.4; O2SAT 98
--- NOTE | 2020-10-22 18:56 | NURSING ---
Patient educated on flushing and connecting PICC line.
[2020-10-22] MEDS: Gabapentin 300 MG Capsule 600 MG PO (21:04)
[2020-10-23 04:58] VITALS: BP 175/76; PULSE 71; RESP 18; TEMP 36.1; O2SAT 94
[2020-10-23] MEDS: Citalopram 10 MG Tablet PO (04:58)
[2020-10-23] MEDS: Metoprolol Tartrate 100 MG Tablet PO (04:58)
[2020-10-23] MEDS: Levothyroxine 75 MCG Tablet PO (04:58)
[2020-10-23] MEDS: Acetaminophen 500 MG Tablet 1000 MG PO ×3 (04:58→21:37)
[2020-10-23] MEDS: Famotidine 20 MG Tablet PO (04:59)
[2020-10-23] MEDS: amLODIPine 5 MG Tablet PO (04:59)
[2020-10-23] MEDS: Nitrofurantoin Macrocrystals 100 MG Capsule PO ×2 (04:59→17:12)
[2020-10-23] MEDS: Menthol/Lanolin/Calamine/Znox 113 GM Tube 1 APPLIC TOPICAL ×2 (05:01→17:12)
[2020-10-23] MEDS: Nystatin Powder 15gm Bottle 1 APPLIC TOPICAL ×2 (05:01→21:37)
[2020-10-23 06:50] LABS: Bedside Glucose 96 mg/dL (70-110)
[2020-10-23] MEDS: Aspirin 81 MG TAB.CHEW PO (07:47)
[2020-10-23] MEDS: Iron Polysaccharide Complex 150 MG CAPSULE PO (07:47)
[2020-10-23] MEDS: metFORMIN (XR) 500 MG Tablet PO ×2 (07:47→17:12)
[2020-10-23] MEDS: Glimepiride 2 MG Tablet PO (07:47)
[2020-10-23] MEDS: LINAGLIPTIN 5 MG TABLET PO (07:47)
[2020-10-23] MEDS: 0.9% Saline Lock 10 ML Syringe IV (09:51)
[2020-10-23 10:00] VITALS: PULSE 104; RESP 18; O2SAT 96
[2020-10-23 13:55] VITALS: BP 155/78; PULSE 66; RESP 17; TEMP 36.7; O2SAT 95
[2020-10-23] MEDS: Gabapentin 300 MG Capsule 600 MG PO (21:38)
[2020-10-24 05:00] VITALS: BP 155/80; PULSE 68; RESP 16; TEMP 36.7
[2020-10-24] MEDS: Menthol/Lanolin/Calamine/Znox 113 GM Tube 1 APPLIC TOPICAL ×2 (05:20→16:53)
[2020-10-24] MEDS: Citalopram 10 MG Tablet PO (05:20)
[2020-10-24 05:21] VITALS: BP 155/80; PULSE 68
[2020-10-24] MEDS: Nitrofurantoin Macrocrystals 100 MG Capsule PO (05:21)
[2020-10-24] MEDS: amLODIPine 5 MG Tablet PO (05:21)
[2020-10-24] MEDS: Nystatin Powder 15gm Bottle 1 APPLIC TOPICAL ×2 (05:21→21:29)
[2020-10-24] MEDS: Metoprolol Tartrate 100 MG Tablet PO (05:21)
[2020-10-24] MEDS: Famotidine 20 MG Tablet PO (05:22)
[2020-10-24] MEDS: Levothyroxine 75 MCG Tablet PO (05:22)
[2020-10-24] MEDS: Acetaminophen 500 MG Tablet 1000 MG PO ×3 (05:22→21:27)
[2020-10-24 06:31] LABS: Bedside Glucose 104 mg/dL (70-110)
[2020-10-24] MEDS: Iron Polysaccharide Complex 150 MG CAPSULE PO (08:27)
[2020-10-24] MEDS: LINAGLIPTIN 5 MG TABLET PO (08:27)
[2020-10-24] MEDS: Glimepiride 2 MG Tablet PO (08:27)
[2020-10-24] MEDS: Aspirin 81 MG TAB.CHEW PO (08:27)
[2020-10-24] MEDS: metFORMIN (XR) 500 MG Tablet PO ×2 (08:27→16:54)
--- NOTE | 2020-10-24 11:59 | CASEMGMT ---
Social Work [facility] contacted with updated pricing for IVs at [place]. Cost is now $207.71/wk since med had been changed. Contacted son to update on pricing. Reviewed DC plans - pt being taught and will administer IVs at home. Son stated he is working 10/27 but off 10/30. offered to update [facility] and for them to train son on 10/30. Son agreeable. Son is off work 10/26 to transport pt. Suggested to come in for IV infusion for nurse to teach him - son agreeable. Updated [facility]. Dayanara Osullivan, CALL CENTER RECEPTIONIST [employer] MAIL DRIVER
[2020-10-24] MEDS: Ciprofloxacin 250 MG Tablet PO (13:36)
[2020-10-24 14:49] VITALS: BP 158/77; PULSE 70; RESP 16; TEMP 36.4; O2SAT 94
[2020-10-24] MEDS: Gabapentin 300 MG Capsule 600 MG PO (21:26)
[2020-10-25 05:20] VITALS: BP 158/76; PULSE 74; RESP 18; TEMP 36.9; O2SAT 95
[2020-10-25] MEDS: Nystatin Powder 15gm Bottle 1 APPLIC TOPICAL ×2 (05:21→21:00)
[2020-10-25] MEDS: 0.9% Saline Lock 10 ML Syringe IV (05:21)
[2020-10-25] MEDS: Famotidine 20 MG Tablet PO (05:22)
[2020-10-25] MEDS: Levothyroxine 75 MCG Tablet PO (05:22)
[2020-10-25] MEDS: Ciprofloxacin 250 MG Tablet PO ×2 (05:22→17:25)
[2020-10-25] MEDS: amLODIPine 5 MG Tablet PO (05:22)
[2020-10-25] MEDS: Citalopram 10 MG Tablet PO (05:22)
[2020-10-25] MEDS: Acetaminophen 500 MG Tablet 1000 MG PO ×3 (05:22→20:59)
[2020-10-25 05:26] VITALS: BP 158/76; PULSE 74
[2020-10-25] MEDS: Metoprolol Tartrate 100 MG Tablet PO (05:26)
[2020-10-25] MEDS: Menthol/Lanolin/Calamine/Znox 113 GM Tube 1 APPLIC TOPICAL ×2 (05:27→17:25)
[2020-10-25 06:13] LABS: International Normalized Ratio 2.4
[2020-10-25 06:25] LABS: Bedside Glucose 88 mg/dL (70-110)
[2020-10-25] MEDS: Aspirin 81 MG TAB.CHEW PO (09:07)
[2020-10-25] MEDS: Glimepiride 2 MG Tablet PO (09:07)
[2020-10-25] MEDS: Iron Polysaccharide Complex 150 MG CAPSULE PO (09:07)
[2020-10-25] MEDS: LINAGLIPTIN 5 MG TABLET PO (09:07)
[2020-10-25] MEDS: metFORMIN (XR) 500 MG Tablet PO ×2 (09:08→17:25)
--- NOTE | 2020-10-25 09:17 | NURSING ---
REVIEWED ANTIBIOTIC INFUSION/PICC LINE TEACHING. PT REPORTS THAT HER SON TOLD HER THAT NURSING STAFF REPORTED THAT PT DOES NOT WANT TO DO ANTIBIOTIC INFUSIONS AT HOME. PT STATES SHE WAS FINE WITH GOING TO INFUSION CENTER FOR ANTIBIOTICS AND THAT SHE HAD TRANSPORTATION SET UP BUT THEN WAS TOLD SHE WOULD BE DOING SELF INFUSIONS AT HOME. PT STATES THAT NURSING HAS NOT REVIEWED HOW TO ADMINISTER IV ANTIBIOTICS THROUGH PICC LINE. PT STATES SHE WOULD BE WILLING TO SELF ADMINISTER IV ANTIBIOTICS.WILL ASK NEWS COMMENTATOR TO DISCUSS D/C PLANS W/PT. ROSA KAUFMAN INFORMED THAT PT REPORTING THAT NURSING HAS NOT BEEN REVIEWING ANTIBIOTIC ADMINISTRATION. ROSA KAUFMAN STATES SHE HAS REVIEWED MED ADMINISTRATION W/PT.PT APPEARS SL OVERWHELMED W/INFORMATION. STATES SHE DOESN'T KNOW HOW TO DO IT. WILL CONTINUE TO REINFORCE EDUCATION.
[2020-10-25 10:00] VITALS: PULSE 62
--- NOTE | 2020-10-25 10:26 | NURSING ---
Attempted education with pt today. pt did the process with much guidance and step by step instructions. pt appears flustered and overwhelmed with the process. Provided empathy and emotional support.
[2020-10-25 13:25] VITALS: BP 132/70; PULSE 73; RESP 18; TEMP 36.6; O2SAT 93
--- NOTE | 2020-10-25 13:55 | CASEMGMT ---
Social Work Notified by nursing pt having apprehension with self-administering IVs since talking with her son the night prior. Followed up with pt. [place] concerns. Validated feelings. Reassure [facility] will continue with teaching and will teach son as well. Pt inquiring about going to the infusion clinic daily instead. Offered to relook into that option. Contacted [facility] to inquire about providing to floor staff the mechanism used to self-administer to teach pt and son. HH to follow up. Contacted [facility] service to transport. Van is only available M-F but could accommodate within an hour to transport to the Infusion Center. Contacted Infusion Center to inquire about availability and pricing. can schedule pt but could not give pricing. Contacted [facility] for pricing. Received quote for ATB dosage cost but additional costs for supplies not included. Followed up with pt on findings. Explained about needing weekend transportation - pt stated that is not feasible. Explained estimated cost of just the ATB at the IC is $760. ATB and supplies at home totals approximately $625. Explained Medicare will not allow for [facility] and Infusion Center together simultaneously due to homebound restrictions for HHC. Pt agreeable to continue to learn self-administration and remain at home. Explained [facility] will continue to assist with teaching and will help navigate other options if it truly does not work out well at home. Pt expressed understanding. Left message to update son. Dayanara Osullivan, INDUSTRIAL MAINTENANCE MANAGER SECURITY SYSTEM ENGINEER
[2020-10-25] MEDS: Gabapentin 300 MG Capsule 600 MG PO (20:59)
[2020-10-26 06:21] LABS: Bedside Glucose 100 mg/dL (70-110)
[2020-10-26 06:56] VITALS: BP 183/83; PULSE 67; RESP 16; TEMP 35.4; O2SAT 95
[2020-10-26] MEDS: Nystatin Powder 15gm Bottle 1 APPLIC TOPICAL (06:58)
[2020-10-26] MEDS: Famotidine 20 MG Tablet PO (06:58)
[2020-10-26] MEDS: Menthol/Lanolin/Calamine/Znox 113 GM Tube 1 APPLIC TOPICAL (06:58)
[2020-10-26] MEDS: Levothyroxine 75 MCG Tablet PO (06:58)
[2020-10-26 06:59] VITALS: BP 183/83; PULSE 67
[2020-10-26] MEDS: amLODIPine 5 MG Tablet PO (06:59)
[2020-10-26] MEDS: Acetaminophen 500 MG Tablet 1000 MG PO (06:59)
[2020-10-26] MEDS: Metoprolol Tartrate 100 MG Tablet PO (06:59)
[2020-10-26] MEDS: Citalopram 10 MG Tablet PO (06:59)
[2020-10-26] MEDS: Ciprofloxacin 250 MG Tablet PO (06:59)
[2020-10-26] MEDS: 0.9 % NaCl (Sterile) Posiflush 10 mL IV (07:02)
[2020-10-26] MEDS: metFORMIN (XR) 500 MG Tablet PO (07:54)
[2020-10-26] MEDS: Glimepiride 2 MG Tablet PO (07:54)
[2020-10-26] MEDS: LINAGLIPTIN 5 MG TABLET PO (07:54)
[2020-10-26] MEDS: Iron Polysaccharide Complex 150 MG CAPSULE PO (07:54)
[2020-10-26] MEDS: Aspirin 81 MG TAB.CHEW PO (07:54)
[2020-10-26 09:31] VITALS: RESP 16; O2SAT 97
[2020-10-26] MEDS: 0.9% Saline Lock 10 ML Syringe IV (09:59)
--- NOTE | 2020-10-26 10:49 | NURSING ---
son here, showed him how to flush picc before and after medication infusion. verbalized understanding and return demonstration.
== END 2020-10-26 11:15 | disposition home health service (06) | DRG 950 ==
PROVIDERS: Admitting Provider Family Medicine Geriatric Medicine; PCP Family Medicine; Visit Provider Family Medicine Geriatric Medicine
DX: T84.54XD Infection and inflammatory reaction due to internal left knee prosthesis, subsequent encounter (principal); Z23 Encounter for immunization; Y83.1 Surgical operation with implant of artificial internal device as the cause of abnormal reaction of the patient, or of later complication, without mention of misadventure at the time of the procedure; M19.90 Unspecified osteoarthritis, unspecified site; I10 Essential (primary) hypertension; E03.9 Hypothyroidism, unspecified; K21.9 Gastro-esophageal reflux disease without esophagitis; E66.9 Obesity, unspecified; E11.42 Type 2 diabetes mellitus with diabetic polyneuropathy; F32.9 Major depressive disorder, single episode, unspecified; Z79.899 Other long term (current) drug therapy; Z86.718 Personal history of other venous thrombosis and embolism; Z86.73 Personal history of transient ischemic attack (TIA), and cerebral infarction without residual deficits; Z79.01 Long term (current) use of anticoagulants; Z68.38 Body mass index [BMI] 38.0-38.9, adult; Z79.4 Long term (current) use of insulin
CPT/HCPCS: 36415; 36416; 80048; 80202; 81001; 82962; 85025; 85610; 87077; 87086; 87088; 87184; 87186; 92523; 97110; 97116; 97162; 97165; 97530; 97535; 97802; G0009; J7050; 90670; A4216; J0696

== ENCOUNTER → 2020-10-30 13:01 | Outpatient (CLI) | payer MEDICARE, SELFPAY ==
[2020-10-05 15:15] VITALS: BMI 38.3
[2020-10-30 14:21] LABS: Erythrocyte Sedimentation Rate 26 mm/hr (0-30)
[2020-10-30 14:23] LABS: International Normalized Ratio 1.2; Prothrombin Time (Protime)PT. 14.5 SECONDS (11.7-14.9)
[2020-10-30 14:24] LABS: Hematocrit 30.5 % (37-47); Hemoglobin 9.4 g/dL (12.0-15.0); Mean Corp Hgb Conc 30.8 g/dL (32-36); Mean Corpuscular Hgb 30.6 pg (27.0-32.0); Mean Corpuscular Volume 99.3 fL (81-99); Mean Platelet Vol. 11.6 fl (6.2-12.0); Platelet Count 273 K/mm3 (150-450); RBC Distribution Width CV 16.2 % (11.6-14.6); RBC Distribution Width SD 59.6 fl (35.1-43.9); Red Blood Count 3.07 M/mm3 (4.2-5.4); White Blood Count 6.4 K/mm3 (4.4-11.0)
[2020-10-30 14:27] LABS: Anion Gap 5 (5-15); BUN 20 mg/dL (7-18); BUN/Creat Ratio 17.5 RATIO (10-20); Chloride 101 mmol/L (98-107); Creatinine, Serum 1.14 mg/dL (0.55-1.02); EST Glomerular Filtration Rate 48 mL/min (>60); Est Glom Filt Rate - Afr Amer 59 mL/min (>60); Glucose 215 mg/dL (74-106); Sodium Level 135 mmol/L (136-145)
== END ==
PROVIDERS: PCP Family Medicine; Visit Provider Family Medicine
DX: T84.54XA Infection and inflammatory reaction due to internal left knee prosthesis, initial encounter (principal); M71.20 Synovial cyst of popliteal space [Baker], unspecified knee; D64.9 Anemia, unspecified; Z79.01 Long term (current) use of anticoagulants
CPT/HCPCS: 80048; 85027; 85610; 85652

== ENCOUNTER → 2020-10-31 10:58 | Outpatient (CLI) | payer MEDICARE, SELFPAY ==
[2020-10-05 15:15] VITALS: BMI 38.3
== END ==
LOC: MEDOUTP 10:59
PROVIDERS: PCP Family Medicine; Referring Provider Internal Medicine Infectious Disease; Visit Provider Internal Medicine Infectious Disease
DX: Z45.2 Encounter for adjustment and management of vascular access device (principal)
CPT/HCPCS: 96523; A4216

== ENCOUNTER 2020-11-12 12:46 | Outpatient (RCR) | payer MEDICARE, SELFPAY ==
[2020-10-05 15:15] VITALS: BMI 38.3
[2020-11-05 14:05] LABS: Erythrocyte Sedimentation Rate 19 mm/hr (0-30)
[2020-11-05 14:06] LABS: Anion Gap 9 (5-15); BUN 27 mg/dL (7-18); BUN/Creat Ratio 22.5 RATIO (10-20); Calcium,Total 8.8 mg/dL (8.5-10.1); Chloride 102 mmol/L (98-107); EST Glomerular Filtration Rate 46 mL/min (>60); Est Glom Filt Rate - Afr Amer 55 mL/min (>60); Glucose 143 mg/dL (74-106); Potassium 3.7 mmol/L (3.5-5.1); Sodium Level 138 mmol/L (136-145)
[2020-11-05 14:09] LABS: Hematocrit 29.2 % (37-47); Hemoglobin 9.1 g/dL (12.0-15.0); Mean Corp Hgb Conc 31.2 g/dL (32-36); Mean Corpuscular Hgb 30.7 pg (27.0-32.0); Mean Corpuscular Volume 98.6 fL (81-99); Mean Platelet Vol. 11.7 fl (6.2-12.0); Platelet Count 249 K/mm3 (150-450); RBC Distribution Width CV 15.7 % (11.6-14.6); Red Blood Count 2.96 M/mm3 (4.2-5.4); White Blood Count 7.3 K/mm3 (4.4-11.0)
[2020-11-09 12:22] LABS: International Normalized Ratio 1.5; Prothrombin Time (Protime)PT. 17.6 SECONDS (11.7-14.9)
[2020-11-12 14:00] LABS: International Normalized Ratio 3.7; Prothrombin Time (Protime)PT. 35.6 SECONDS (11.7-14.9)
[2020-11-12 14:02] LABS: Erythrocyte Sedimentation Rate 24 mm/hr (0-30)
[2020-11-12 14:04] LABS: Absolute Lymphocyte Count 1.15 X10^3/uL (0.83-4.51); Absolute Neutrophil Count 4.9 X10^3/uL (2.0-7.7); Basophil# 0.05 X10^3/uL; Basophil% 0.7 % (0-1); Eosinophil# 0.15 X10^3/uL; Eosinophils% 2.1 % (0-5); Hematocrit 29.7 % (37-47); Hemoglobin 9.4 g/dL (12.0-15.0); Lymphocyte # 1.15 X10^3/ul (0.83-4.51); Lymphocyte % 16.3 % (19-41); Mean Corp Hgb Conc 31.6 g/dL (32-36); Mean Corpuscular Hgb 30.1 pg (27.0-32.0); Mean Corpuscular Volume 95.2 fL (81-99); Monocyte# 0.81 X10^3/uL; Monocyte% 11.5 % (0-10); NRBC Flagged by Analyzer 0 % (0-5); Neutrophil # 4.89 X10^3/uL (2.7-7.7); Neutrophil % 69.1 % (47-70); Platelet Count 275 K/mm3 (150-450); RBC Distribution Width CV 14.8 % (11.6-14.6); RBC Distribution Width SD 52.3 fl (35.1-43.9); Red Blood Count 3.12 M/mm3 (4.2-5.4); White Blood Count 7.1 K/mm3 (4.4-11.0)
[2020-11-12 14:13] LABS: ALB/GLOB Ratio 0.8 RATIO (0.9-2.4); AST(SGOT) 16 U/L (15-37); Alanine Aminotransfer ALT/SGPT 14 U/L (13-56); Albumin, Serum 3.1 g/dL (3.2-5.0); Alkaline Phosphatase 64 U/L (45-117); Anion Gap 9 (5-15); BUN 22 mg/dL (7-18); BUN/Creat Ratio 22.4 RATIO (10-20); Calcium,Total 8.6 mg/dL (8.5-10.1); Chloride 99 mmol/L (98-107); Cholesterol 140 mg/dL (200); Creatinine, Serum 0.98 mg/dL (0.55-1.02); EST Glomerular Filtration Rate 58 mL/min (>60); Est Glom Filt Rate - Afr Amer 70 mL/min (>60); Globulin 3.9 g/dL (2.2-4.2); Glucose 120 mg/dL (74-106); High Density Lipoprotein 56 mg/dL; Potassium 3.7 mmol/L (3.5-5.1); Sodium Level 137 mmol/L (136-145); Thyroid Stim Hormone (TSH) 2.69 uIU/mL (0.358-3.74); Triglycerides 77 mg/dL; Very Low Density Lipoprotein 15 mg/dL (5-40)
[2020-11-12 14:37] LABS: Hemoglobin A1c 6.5 % (3.8-5.6)
== END 2020-11-12 18:00 | disposition home or self-care (01) ==
LOC: HHLAB 12:46
PROVIDERS: PCP Family Medicine; Referring Provider Internal Medicine Infectious Disease; Visit Provider Internal Medicine Infectious Disease
DX: T84.54XA Infection and inflammatory reaction due to internal left knee prosthesis, initial encounter (principal); M71.20 Synovial cyst of popliteal space [Baker], unspecified knee; D64.9 Anemia, unspecified; Z79.01 Long term (current) use of anticoagulants
CPT/HCPCS: 80048; 80053; 80061; 83036; 84443; 85025; 85027; 85610; 85652

== ENCOUNTER 2021-01-25 17:34 | Inpatient (IN) | payer MEDICARE, SELFPAY ==
[2020-10-05 15:15] VITALS: BMI 38.3
[2021-01-25] VITALS (8 sets, daily range): BP systolic 96–147; BP diastolic 52–82; PULSE 81–115; RESP 15–18; TEMP 36.4–37.1; O2SAT 92–100; BMI 38.3; BMI 35.6
--- NOTE | 2021-01-25 18:06 | EKG12_ITS ---
Test Reason : DIZZINESS Blood Pressure : / mmHG Vent. Rate : 086 BPM Atrial Rate : 055 BPM P-R Int : 000 ms QRS Dur : 088 ms QT Int : 346 ms P-R-T Axes : 000 -58 031 degrees QTc Int : 414 ms Atrial fibrillation Left axis deviation Poor R wave progression Abnormal ECG Confirmed by MICKY WHITLEY, FARIAH ([id number]), assistant editor RAJ VELIZ ([id number]) on 01/29/2021 10:22:11 AM Referred By: KLEBER Confirmed By:FARIHA WEEKS MD
--- NOTE | 2021-01-25 18:44 | EX.ED.DYSGE1 ---
HPI History of Present Illness Chief Complaint: Dizziness Informant: patient Narrative Narrative: Patient is an 81-year-old female presenting from her PCPs office for concern of increased weakness, lightheadedness and multiple falls. Patient was home alone. Today in the office her blood pressure was 82/52. Patient seems to been confused not taking her meds and is not clear what medication she is actually on. She is on chronic Coumadin therapy. Begining a month she had multiple falls and her is having low blood sugar. Her blood sugar was dropping to 47. Patient also she had bilateral lower extremity edema that is been increasing. She has had increased frequency of her bowel movements but states it is normal for her to have diarrhea because of her history of colon cancer. Family is trying to get her established either with assisted living. No report of any fever or chills. Patient is currently following with infectious disease for infected knee prosthesis as well. Patient also notes has had an itchy rash underneath her left breast for about 2 weeks. [facility] Medical History (Updated 01/25/21 @ 21:[address] Stacie Logan, DO) Hx-TIA (transient ischemic attack) Type 2 diabetes mellitus Home Medications gabapentin 600 mg PO QHS 04/23/15 [History Last Taken 01/24/21] amlodipine 5 mg PO DAILY 02/17/20 [History Last Taken 01/25/21] levothyroxine 75 mcg PO DAILY 02/17/20 [History Last Taken 01/25/21] metformin 1,000 mg PO BID 02/17/20 [History Last Taken 01/25/21] cholecalciferol (vitamin D3) 100 mcg PO DAILY 10/01/20 [History Last Taken 01/25/21] sitagliptin 25 mg PO DAILY 10/01/20 [History Last Taken 01/25/21] metoprolol tartrate 100 mg PO DAILY #30 tablet 10/20/20 [Rx Last Taken Unknown] biotin 2,500 mcg PO DAILY 01/25/21 [History Last Taken 01/25/21] doxycycline hyclate 100 mg PO BID 01/25/21 [History Last Taken 01/25/21] hydrochlorothiazide 25 mg PO DAILY 01/25/21 [History Last Taken 01/25/21] lisinopril 20 mg PO DAILY 01/25/21 [History Last Taken 01/25/21] warfarin 5 mg PO [id number] 01/25/21 [History Last Taken 01/23/21] warfarin 7.5 mg PO SUTH 01/25/21 [History Last Taken 01/24/21] Allergy/AdvReac Type Severity Reaction Status Date / Time No Known Allergies Allergy Verified 01/25/21 17:44 Family History Other Cancer Heart disease Surgical History (Updated 01/25/21 @ 21:[address] Pawel Rapp MD) H/O colectomy History of bilateral knee replacement Social History Smoking Status: Former smoker ROS ROS ED Constitutional Constitutional ED: Reports other Details: weakness, falls ; Denies chills or fever(s) Eyes Eyes: Denies blurry vision or change in vision ENT ENT ED: Denies rhinorrhea or sore throat Cardiovascular Cardiovascular: Denies chest pain or palpitations Respiratory/Chest Respiratory/Chest: Denies cough, dyspnea or dyspnea on exertion Gastrointestinal Gastrointestinal: Denies abdominal pain Genitourinary Genitourinary ED: Denies dysuria or hematuria Musculoskeletal Musculoskeletal: Reports other Details: Lower extremity edema ; Denies arthralgias or myalgias Integumentary Reports rash Neurologic Neurologic: Reports weakness; Denies headache(s) Psychiatric Psychiatric: Denies anxiety or depression EXAM Physical Exam Const Vital Signs: 01/25/21 17:37 01/25/21 17:45 01/25/21 19:55 Temperature 97.5 F L Temperature Source Oral Pulse Rate 95 Pulse Rate [Lying] Pulse Rate [Sitting] Pulse Rate [Standing] Respiratory Rate 15 Respiratory Effort Normal Non-Labored Respiratory Pattern Normal Blood Pressure 118/82 H 106/66 Blood Pressure [Lying] Blood Pressure [Sitting] Blood Pressure [Standing] Blood Pressure Mean 94 79 Blood Pressure Mean [Lying] Blood Pressure Mean [Sitting] Blood Pressure Mean [Standing] Pulse Ox 92 Oxygen Delivery Method Room Air 01/25/21 20:13 01/25/21 21:00 01/25/21 21:15 Temperature 98.7 F Temperature Source Oral Pulse Rate 81 84 Pulse Rate [Lying] 91 Pulse Rate [Sitting] 115 H Pulse Rate [Standing] 102 H Respiratory Rate 17 17 Respiratory Effort Respiratory Pattern Blood Pressure 114/72 114/72 Blood Pressure [Lying] 115/61 Blood Pressure [Sitting] 106/76 Blood Pressure [Standing] 96/59 L Blood Pressure Mean 86 86 Blood Pressure Mean [Lying] 79 Blood Pressure Mean [Sitting] 86 Blood Pressure Mean [Standing] 71 Pulse Ox 100 98 Oxygen Delivery Method Room Air Room Air Positive well nourished and well developed General Appearance ED: well developed HEENT Reports TM's clear and moist mucous membranes Negative for tenderness Tympanic Membrane ED: Yes TM's clear Eyes PERRL and EOMs intact bilaterally Neck supple and no JVD Chest Wall inspection of chest normal and palpation of chest normal Resp normal respiratory effort and clear to auscultation bilaterally Resp Narrative: No crackles appreciated Cardio regular rate Rhythm: abnormal rhythm GI normal to inspection, nondistended, normoactive bowel sounds Back/Spine no CVA tenderness Extremity Extremity Narrative: 3+ pitting edema up to the knee General Extremety ED: Yes edema; Negative for tenderness General Extremity: edema Neuro oriented x3, CN's II-XII intact bilaterally and no sensory deficits noted Sensorium / Orientation: alert Motor Exam: strength 5/5 throughout Psych mental status grossly normal Skin Skin Narrative: Scabbed over lesions underneath the left breast, does not clear if these are healed over vesicles versus scabbed seborrheic keratosis MDM MDM MDM Narrative Medical decision making narrative: Patient is evaluated for generalized weakness. Apparently patient has been having episodes of low blood sugar and falling over the past month. There is questionable medication compliance patient has no focal complaints. Patient does have a history of diabetes as well as hypertension. While she was hypotensive in the emergency room she has been normotensive here. She is technically orthostatic negative in the ER. She is slightly supratherapeutic for her INR. Her EKG shows atrial fibrillation however patient does not report a history of atrial fibrillation and chart review does not show any history of atrial fibrillation. Patient has an VALERIA. Her creatinine is 1.69 but her baseline appears to be 1. She has elevated lactate but I think this is more from dehydration and possibly from her Metformin. She is given gentle fluid hydration in the ER. She does not have any IV source of infection and her white blood cell count is normal. I suspect her urinalysis is contaminated however cultures pending. Patient will be admitted for her dehydration, new onset atrial fibrillation and generalized weakness. Patient and family are agreeable with this plan of care. Lab Data Labs: Laboratory Results - last 24 hr 01/25/21 01/25/21 01/25/21 19:30 19:30 19:30 WBC 8.3 RBC 3.55 L Hgb 10.8 L Hct 32.8 L MCV 92.4 MCH 30.4 MCHC 32.9 RDW Std Deviation 68.0 H RDW Coeff of Shania 20.2 H Plt Count 181 MPV 12.7 H Immature Gran % (Auto) 0.400 Neut % (Auto) 65.2 Lymph % (Auto) 25.8 Dickens % (Auto) 7.8 Eos % (Auto) 0.4 Baso % (Auto) 0.4 Absolute Neuts (auto) 5.4 Absolute Lymphs (auto) 2.13 Nucleated RBC % 0 Platelet Estimate ADEQUATE Hypochromasia 1+ Anisocytosis 1+ PT 32.4 H INR 3.3 Sodium 134 L Potassium 5.2 H Chloride 101 Carbon Dioxide 23.0 Anion Gap 10 BUN 40 H Creatinine 1.69 H Estim Creat Clear Calc 24.53 Est GFR (MDRD) Af Amer 37 L Est GFR (MDRD) Non-Af 31 L BUN/Creatinine Ratio 23.7 H Glucose 130 H Lactic Acid Calcium 8.1 L Total Bilirubin 0.50 AST 43 H ALT 35 Alkaline Phosphatase 100 Troponin I High Sens 12.0 B-Natriuretic Peptide Total Protein 6.1 L Albumin 2.3 L Globulin 3.8 Albumin/Globulin Ratio 0.6 L Lipase 425 H Urine Color Urine Clarity Urine pH Ur Specific [place] Urine Protein Urine Glucose (UA) Urine Ketones Urine Occult Blood Urine Nitrite Urine Bilirubin Urine Urobilinogen Ur Leukocyte Esterase Urine RBC Urine WBC Ur Squamous Epith Cells Urine Bacteria Urine Mucus 01/25/21 01/25/21 01/25/21 19:30 19:30 20:27 WBC RBC Hgb Hct MCV MCH MCHC RDW Std Deviation RDW Coeff of Shania Plt Count MPV Immature Gran % (Auto) Neut % (Auto) Lymph % (Auto) Dickens % (Auto) Eos % (Auto) Baso % (Auto) Absolute Neuts (auto) Absolute Lymphs (auto) Nucleated RBC % Platelet Estimate Hypochromasia Anisocytosis PT INR Sodium Potassium Chloride Carbon Dioxide Anion Gap BUN Creatinine Estim Creat Clear Calc Est GFR (MDRD) Af Amer Est GFR (MDRD) Non-Af BUN/Creatinine Ratio Glucose Lactic Acid 4.9 H* Calcium Total Bilirubin AST ALT Alkaline Phosphatase Troponin I High Sens B-Natriuretic Peptide 78.2 Total Protein Albumin Globulin Albumin/Globulin Ratio Lipase Urine Color Yellow Urine Clarity Clear Urine pH 5.0 Ur Specific [place] 1.020 Urine Protein 15 H Urine Glucose (UA) Normal Urine Ketones Negative Urine Occult Blood Negative Urine Nitrite Negative Urine Bilirubin Negative Urine Urobilinogen Normal Ur Leukocyte Esterase 100 H Urine RBC 0 SEEN Urine WBC 5-10 SEEN Ur Squamous Epith Cells 5-10 SEEN Urine Bacteria 1+ Urine Mucus 0 SEEN Radiography Chest X-Ray - ED: 1 View, Read by ED Physician, Read by Radiologist and No Acute Disease Diagnostic Testing: Radiology Impression Brain CT 01/25/21 19:50 IMPRESSION: 1. No acute intracranial abnormality. There has been no change from the reference examination. 2. Stable underlying senescent change with small vessel ischemia. Individualized dose optimization techniques were used for this CT. at 2011 Reported and signed by: Gage Roahc MD Electronically Signed: Gage Roach MD at 20:10 EDT Tel , Service support , Chest X-Ray 01/25/21 20:00 IMPRESSION: No radiographic evidence of acute cardiopulmonary disease. at 204 Reported and signed by: Gage Roach MD Electronically Signed: Gage Roach MD at 20:40 EDT Tel , Service support , Hip/Pelvis X-Ray 01/25/21 20:00 IMPRESSION: No evidence of displaced pelvic or hip fracture. at 2042 Reported and signed by: Gage Roach MD Electronically Signed: Gage Roach MD at 20:41 EDT Tel , Service support , Rhythm Strip Rhythm Strip: A-fib Rate: 86 EKG Initial EKG: Attestation: I personally reviewed and interpreted this EKG as follows: Interpretation: Atrial Fibrillation Comments: Atrial fibrillation at a rate of 86 Left axis deviation Normal QRS and QTc Normal ST segments Discharge Plan Triage Chief Complaint: Dizziness ED Provider: Stacie Logan Dx/Rx/DC Orders Clinical Impression: Dehydration, VALERIA (acute kidney injury), Atrial fibrillation, Supratherapeutic INR, Acidosis, lactic Primary Care Provider: Jose Cruz Benavides Disposition Disposition: Acute Care [facility]
[2021-01-25 19:50] LABS: Absolute Lymphocyte Count 2.13 X10^3/uL (0.83-4.51); Absolute Neutrophil Count 5.4 X10^3/uL (2.0-7.7); Basophil# 0.03 X10^3/uL; Basophil% 0.4 % (0-1); Eosinophil# 0.03 X10^3/uL; Eosinophils% 0.4 % (0-5); Hematocrit 32.8 % (37-47); Hemoglobin 10.8 g/dL (12.0-15.0); Lymphocyte # 2.13 X10^3/ul (0.83-4.51); Lymphocyte % 25.8 % (19-41); Mean Corp Hgb Conc 32.9 g/dL (32-36); Mean Corpuscular Hgb 30.4 pg (27.0-32.0); Mean Corpuscular Volume 92.4 fL (81-99); Mean Platelet Vol. 12.7 fl (6.2-12.0); Monocyte# 0.64 X10^3/uL; Monocyte% 7.8 % (0-10); NRBC Flagged by Analyzer 0 % (0-5); Neutrophil # 5.39 X10^3/uL (2.7-7.7); Neutrophil % 65.2 % (47-70); POSITIVE MORPHOLOGY YES; Platelet Count 181 K/mm3 (150-450); RBC Distribution Width CV 20.2 % (11.6-14.6); Red Blood Count 3.55 M/mm3 (4.2-5.4); White Blood Count 8.3 K/mm3 (4.4-11.0)
--- NOTE | 2021-01-25 19:50 | CT_ITS ---
EXAM: CT HEAD WITHOUT INTRAVENOUS CONTRAST : 1940 CLINICAL INDICATION: falls, confusion TECHNIQUE: Multiple axial images were obtained of the head without intravenous contrast. This CT exam was performed using one or more of the following dose reduction techniques: automated exposure control, adjustment of the mA and/or kV according to patient size, and/or use of iterative reconstruction technique. This report was created using [employer] report generation technology. COMPARISON: 02/17/2020 FINDINGS: BRAIN AND EXTRA-AXIAL SPACES: There is enlargement of the ventricular system and cortical sulci. There is hypoattenuation in the periventricular white matter. No intra- or extra-axial hemorrhage. No evidence of acute infarct. No intracranial mass or mass effect. There is preservation of the [place]/white matter interface. Posterior fossa structures are unremarkable. Basal cisterns are patent. BONES/JOINTS: Unremarkable. No discrete lytic or blastic abnormalities. SINUSES: Unremarkable as visualized. Clear. MASTOID AIR CELLS: Unremarkable. Clear. ORBITS: Visualized globes, extraocular muscles, optic nerves and retrobulbar fat appear unremarkable. CT/Brain/Head without Contrast IMPRESSION: 1. No acute intracranial abnormality. There has been no change from the reference examination. 2. Stable underlying senescent change with small vessel ischemia. Individualized dose optimization techniques were used for this CT. at 2011 Reported and signed by: Gage Roach MD Electronically Signed: Gage Roach MD at 20:10 EDT Tel , Service support ,
[2021-01-25 19:53] LABS: Differential Indicated SCAN CRITERIA MET
[2021-01-25 19:55] LABS: International Normalized Ratio 3.3; Prothrombin Time (Protime)PT. 32.4 SECONDS (11.7-14.9)
[2021-01-25 19:58] LABS: BNP,B-Type NATRIURETIC PEPTIDE 78.2 pg/mL (0-100)
--- NOTE | 2021-01-25 20:00 | RAD_ITS ---
EXAM: XR RIGHT HIP WITH PELVIS WHEN PERFORMED, 2 OR 3 VIEWS : 1940 CLINICAL INDICATION: Injury/Pain TECHNIQUE: Two or three views of the right hip with pelvis when performed. This report was created using [employer] report generation technology. COMPARISON: None. FINDINGS: BONES/JOINTS: Unremarkable. No displaced fracture. No destructive or sclerotic lesions. Note that overlapping bowel shadows may however obscure fine detail. Sacroiliac joint is unremarkable. No widening of the pubic symphisis. The articular structures are unremarkable. SOFT TISSUES: Unremarkable. No soft tissue swelling or gas. RAD/HIP, UNI W/ Pelvis 2-3 Views IMPRESSION: No evidence of displaced pelvic or hip fracture. at 2042 Reported and signed by: Gage Roach MD Electronically Signed: Gage Roach MD at 20:41 EDT Tel , Service support ,
--- NOTE | 2021-01-25 20:00 | RAD_ITS ---
EXAM: XR CHEST, 1 VIEW : 1940 CLINICAL INDICATION: weakness TECHNIQUE: Frontal view of the chest. This report was created using [employer] report generation technology. COMPARISON: 02/17/2020 FINDINGS: LUNGS AND PLEURAL SPACES: Unremarkable. No consolidation or edema. No pneumothorax. No effusion. HEART: Unremarkable. Cardiac silhouette not enlarged. MEDIASTINUM: Central airways and mediastinal contour are unremarkable. BONES/JOINTS: Unremarkable. SOFT TISSUES: Unremarkable. RAD/Chest 1 View (Portable) IMPRESSION: No radiographic evidence of acute cardiopulmonary disease. at 2042 Reported and signed by: Gage Roach MD Electronically Signed: Gage Roach MD at 20:40 EDT Tel , Service support ,
[2021-01-25 20:05] LABS: ALB/GLOB Ratio 0.6 RATIO (0.9-2.4); AST(SGOT) 43 U/L (15-37); Alanine Aminotransfer ALT/SGPT 35 U/L (13-56); Albumin, Serum 2.3 g/dL (3.2-5.0); Alkaline Phosphatase 100 U/L (45-117); Anion Gap 10 (5-15); BUN 40 mg/dL (7-18); BUN/Creat Ratio 23.7 RATIO (10-20); Calcium,Total 8.1 mg/dL (8.5-10.1); Chloride 101 mmol/L (98-107); Creatinine, Serum 1.69 mg/dL (0.55-1.02); EST Glomerular Filtration Rate 31 mL/min (>60); Est Glom Filt Rate - Afr Amer 37 mL/min (>60); Estimated Creatinine Clearance 24.53 ml/min; Globulin 3.8 g/dL (2.2-4.2); Glucose 130 mg/dL (74-106); Lipase 425 U/L (73-393); Potassium 5.2 mmol/L (3.5-5.1); Protein, Total 6.1 g/dL (6.4-8.2); Sodium Level 134 mmol/L (136-145)
[2021-01-25 20:19] LABS: Lactic Acid 4.9 mmol/L (0.4-1.9)
[2021-01-25 20:23] LABS: Anisocytosis 1+; Platelet Estimate ADEQUATE (ADEQ)
[2021-01-25 20:24] LABS: Hypochromasia 1+
[2021-01-25 20:34] LABS: Mucous, Urine 0 SEEN /hpf (<or=2+); Red Blood Cells-Urine 0 SEEN /hpf (0-5)
[2021-01-25 20:42] LABS: Color, Urine Yellow (Yellow); Glucose, Dipstick Normal (Normal); Ketone-Dipstick Negative (Negative); Leukocyte Esterase-Dipstick 100 /ul (Negative); Nitrite-Dipstick Negative (Negative); Occult Blood-Urine Negative /ul (Negative); Protein-Dipstick 15 mg/dl (Negative); Urine Bilirubin Dipstick Negative (Negative); Urine Clarity Clear (Clear); Urine Urobilinogen Normal (Normal)
[2021-01-25 20:54] LABS: Bacteria 1+ /hpf (None Seen); Squamous Epithelial Cells - UA 5-10 SEEN /hpf (5-10); White Blood Cells 5-10 SEEN /hpf (0-5)
[2021-01-25] MEDS: 0.9% Normal Saline 1,000 ML 150 ML IV (21:14)
--- NOTE | 2021-01-25 21:21 | CM.ED ---
SW Note SW referral Source: MD Referral Reason: Discharge planning for patient MD indicated that patient's family has been trying to apply for medicaid for patient. MD said that patient will need to be assessed for safe discharge plan. Plan: Patient will be admitted for assessment of safe discharge plan Breann MARC
--- NOTE | 2021-01-25 21:24 | PCM.HP.STD ---
HPI - General General Date of Admission: 01/25/21 HPI Narrative OG STEIN, is a 81 F with a significant history of diabetes mellitus; colon cancer status post colectomy; left knee prosthesis infection and on antibiotics; and DVT who presents with progressively worsening lightheadedness. Reportedly her lightheadedness started about 3 months ago but in the last 2 weeks he has been progressively worsening. Associated with his symptom is multiple falls. Reportedly she finds herself on the floor. The paramedics has been to her home multiple times because of the fall. With her falls she sustained injury on her left elbow. She has a life alert that she uses. Also patient has had multiple episodes of hypoglycemia. On the day of presentation her blood glucose at home was 47. On the day of presentation she went to her PCPs office and her blood pressure at PCPs office was 82/52. Reportedly she has some confusion. Patient lives at home by herself. Her Family feels that patient is not safe at home by herself and plans are being made to get her into an assisted living facility. Patient has some rash under her left breast. Her appetite is poor. She reports fatigue and weakness. At emergent department she was found to be in A. fib with controlled rate. She denies knowledge of being in A. fib. Her [id number] who was at bedside also denies knowledge of patient being in A. fib. [facility] Medical History (Updated 01/25/21 @ 22:[address] Pawel Rapp MD) Hx-TIA (transient ischemic attack) Type 2 diabetes mellitus Home Medications gabapentin 600 mg PO QHS 04/23/15 [History Last Taken 01/24/21] amlodipine 5 mg PO DAILY 02/17/20 [History Last Taken 01/25/21] levothyroxine 75 mcg PO DAILY 02/17/20 [History Last Taken 01/25/21] metformin 1,000 mg PO BID 02/17/20 [History Last Taken 01/25/21] cholecalciferol (vitamin D3) 100 mcg PO DAILY 10/01/20 [History Last Taken 01/25/21] sitagliptin 25 mg PO DAILY 10/01/20 [History Last Taken 01/25/21] metoprolol tartrate 100 mg PO DAILY #30 tablet 10/20/20 [Rx Last Taken Unknown] biotin 2,500 mcg PO DAILY 01/25/21 [History Last Taken 01/25/21] doxycycline hyclate 100 mg PO BID 01/25/21 [History Last Taken 01/25/21] hydrochlorothiazide 25 mg PO DAILY 01/25/21 [History Last Taken 01/25/21] lisinopril 20 mg PO DAILY 01/25/21 [History Last Taken 01/25/21] warfarin 5 mg PO MOTUWEFRSA 01/25/21 [History Last Taken 01/23/21] warfarin 7.5 mg PO SUTH 01/25/21 [History Last Taken 01/24/21] Allergy/AdvReac Type Severity Reaction Status Date / Time No Known Allergies Allergy Verified 01/25/21 17:44 Family History Other Cancer Heart disease Surgical History (Updated 01/25/21 @ 22:34 by Summer Stein) H/O colectomy History of bilateral knee replacement History of cholecystectomy Social History Smoking Status: Former smoker ROS ROS Narrative Constitutional: Reports anorexia. Denies change in weight Eyes: Denies blurry vision, change in eye color, change in vision, discharge from eye(s), double vision, erythema, eye pain, loss of vision or other HEENT: Denies abnormal hearing, dysphagia, ear pain, epistaxis, headache(s), hearing loss, nasal congestion, nasal discharge, post nasal drip, sinus pressure, sore throat or other Cardiovascular: Reports lightheadedness. Denies chest pain. Denies dyspnea on exertion, orthopnea and paroxysmal nocturnal dyspnea. Reports edema on bilateral lower legs with recently fluid leaking from right leg. Respiratory/Chest: Denies cough, excessive phlegm production, shortness of breath with exertion and wheezing Gastrointestinal: Reports loose stools (chronic). Denies abdominal pain, coffee ground emesis, constipation, dyspepsia, hematemesis, hematochezia, melena, nausea, vomiting or other Genitourinary: Denies burning urination, difficulty urinating, dysuria, hematuria, nocturia, urinary frequency, urinary hesitancy, urinary incontinence, urinary urgency or other Musculoskeletal: Denies arthralgias, back pain, joint pain, joint stiffness, joint swelling, myalgias, neck pain or other Neurologic: Reports Forgetfulness and bilateral leg tingling. Denies focal weakness,, numbness, paresthesias, seizure-like activity, seizures, syncope. Psychiatric: Denies anxiety, depression, homicidal ideation, suicidal ideation or other Endocrinology: Denies change in body appearance, cold intolerance, excessive sweating, heat intolerance, polydipsia, polyuria or other Hematologic/Lymphatic: Denies anemia, easy bleeding, easy bruising, lymphadenopathy or other Integumentary: Healed wounds on right elbow. Rashes under her left breast. Allergic/Immunologic: Denies rhinitis, hives, eczema, asthma or other Vital Signs Vital Signs Vital Signs: 01/25/21 17:37 01/25/21 17:45 01/25/21 19:55 Temperature 97.5 F L Temperature Source Oral Pulse Rate 95 Pulse Rate [Lying] Pulse Rate [Sitting] Pulse Rate [Standing] Respiratory Rate 15 Respiratory Effort Normal Non-Labored Respiratory Pattern Normal Blood Pressure 118/82 H 106/66 Blood Pressure [Lying] Blood Pressure [Sitting] Blood Pressure [Standing] Blood Pressure Mean 94 79 Blood Pressure Mean [Lying] Blood Pressure Mean [Sitting] Blood Pressure Mean [Standing] Pulse Ox 92 Oxygen Delivery Method Room Air 01/25/21 20:13 01/25/21 21:00 01/25/21 21:15 Temperature 98.7 F Temperature Source Oral Pulse Rate 81 84 Pulse Rate [Lying] 91 Pulse Rate [Sitting] 115 H Pulse Rate [Standing] 102 H Respiratory Rate 17 17 Respiratory Effort Respiratory Pattern Blood Pressure 114/72 114/72 Blood Pressure [Lying] 115/61 Blood Pressure [Sitting] 106/76 Blood Pressure [Standing] 96/59 L Blood Pressure Mean 86 86 Blood Pressure Mean [Lying] 79 Blood Pressure Mean [Sitting] 86 Blood Pressure Mean [Standing] 71 Pulse Ox 100 98 Oxygen Delivery Method Room Air Room Air Weight Weight: 111.1 kg Body Mass Index (BMI) 38.3 Physical Exam Const Constitutional Narrative: Physical exam: General: Well-nourished, well-developed, no acute distress Head: Normocephalic, atraumatic, no tenderness Eyes: PERRLA, EOMI ENT, no trauma, moist mucous membranes, no rhinorrhea Neck: Nontender, full range of motion, no spinal tenderness, deformities, step-off CVS: Regular rate and rhythm Respiratory no acute distress, clear to auscultation bilaterally, chest wall nontender, no wheezing Abdomen: Soft, nontender, nondistended, normal bowel sounds, no masses : Deferred Back: Nontender, no CVA tenderness, no midline spinal tenderness, deformities, step-offs Extremities: 3-4+ pitting edema on bilateral lower legs. Skin: Pale. Scalp rash under left breast. Eschar on posterior right elbow. Neuro: Alert, oriented, cranial nerves II through XII grossly intact. Psychiatry: Normal mood. Normal affect. Not depressed. Not anxious. Results Lab / Micro Data Result Diagrams: 01/25/21 19:30 01/25/21 19:30 Labs: Laboratory Results - last 24 hr 01/25/21 19:30: WBC 8.3, RBC 3.55 L, Hgb 10.8 L, Hct 32.8 L, MCV 92.4, MCH 30.4, MCHC 32.9, RDW Std Deviation 68.0 H, RDW Coeff of Shania 20.2 H, Plt Count 181, MPV 12.7 H, Immature Gran % (Auto) 0.400, Neut % (Auto) 65.2, Lymph % (Auto) 25.8, Bartholomew % (Auto) 7.8, Eos % (Auto) 0.4, Baso % (Auto) 0.4, Absolute Neuts (auto) 5.4, Absolute Lymphs (auto) 2.13, Nucleated RBC % 0, Platelet Estimate ADEQUATE, Hypochromasia 1+, Anisocytosis 1+ 01/25/21 19:30: PT 32.4 H, INR 3.3 01/25/21 19:30: Sodium 134 L, Potassium 5.2 H, Chloride 101, Carbon Dioxide 23.0, Anion Gap 10, BUN 40 H, Creatinine 1.69 H, Estim Creat Clear Calc 24.53, Est GFR (MDRD) Af Amer 37 L, Est GFR (MDRD) Non-Af 31 L, BUN/Creatinine Ratio 23.7 H, Glucose 130 H, Calcium 8.1 L, Total Bilirubin 0.50, AST 43 H, ALT 35, Alkaline Phosphatase 100, Troponin I High Sens 12.0, Total Protein 6.1 L, Albumin 2.3 L, Globulin 3.8, Albumin/Globulin Ratio 0.6 L, Lipase 425 H 01/25/21 19:30: Lactic Acid 4.9 H* 01/25/21 19:30: B-Natriuretic Peptide 78.2 01/25/21 20:27: Urine Color Yellow, Urine Clarity Clear, Urine pH 5.0, Ur Specific [place] 1.020, Urine Protein 15 H, Urine Glucose (UA) Normal, Urine Ketones Negative, Urine Occult Blood Negative, Urine Nitrite Negative, Urine Bilirubin Negative, Urine Urobilinogen Normal, Ur Leukocyte Esterase 100 H, Urine RBC 0 SEEN, Urine WBC 5-10 SEEN, Ur Squamous Epith Cells 5-10 SEEN, Urine Bacteria 1+, Urine Mucus 0 SEEN Radiology Impression Brain CT 01/25/21 19:50 IMPRESSION: 1. No acute intracranial abnormality. There has been no change from the reference examination. 2. Stable underlying senescent change with small vessel ischemia. Individualized dose optimization techniques were used for this CT. at 2011 Reported and signed by: Gage Roach MD Electronically Signed: Gage Roach MD at 20:10 EDT Tel , Service support , Chest X-Ray 01/25/21 20:00 IMPRESSION: No radiographic evidence of acute cardiopulmonary disease. at 204 Reported and signed by: Gage Roach MD Electronically Signed: Gage Roach MD at 20:40 EDT Tel , Service support , Hip/Pelvis X-Ray 01/25/21 20:00 IMPRESSION: No evidence of displaced pelvic or hip fracture. at 2042 Reported and signed by: Gage Roach MD Electronically Signed: Gage Roach MD at 20:41 EDT Tel , Service support , Assessment & Plan Assessment/Plan (1) VALERIA (acute kidney injury): (2) Dehydration: (3) Debility: (4) Atrial fibrillation: QUALIFIERS: Atrial fibrillation type: unspecified chronic Qualified Code(s): I48.20 - Chronic atrial fibrillation, unspecified (5) Supratherapeutic INR: (6) Acidosis, lactic: (7) Hypoglycemia: PLAN: VALERIA on chronic kidney disease stage III A CKD Likely from Diabetic nephropathy Review of old records shows Baseline creatinine of 1 Review of medical department labs showed creatinine on admission was 1.69. Urine electrolytes ordered. Gentle fluid hydration. Trend BMP. Lightheadedness Brain CT obtained at emergency department was unrevealing. Likely secondary to dehydration; autonomy dysfunction secondary to age; and hypotension from antihypertensive medications. IV hydration as above. Hold all blood pressure medications at this time. Adjust blood pressure medications as necessary. Atrial fibrillation, chronicity unknown. Place on PCU on telemetry EKG reviewed showed atrial fibrillation contributing. Patient's denies knowledge of previous history of A. fib. Patient [id number] was at bedside also denies knowledge of patient having A. fib in the past. Obtain echo Potassium is actually less elevated at 5.2. IV fluids as above. Check magnesium level Impression of chest x-ray by radiology: No radiographic evidence of acute cardiopulmonary disease. Actual chest x-ray image was independently interpreted and I agree with radiologist interpretation Debility/multiple falls Hip/pelvis x-ray: No evidence of displaced pelvic or hip fracture PT and OT to work with patient. Case management for disposition. Of note patient's is working to get patient's into a care facility. Supratherapeutic INR: INR presentation was 3.3. De-escalate home Coumadin. PT/INR daily History of DVT: Coumadin as above. Lactic acidosis: Likely secondary to dehydration and Metformin use. Hydrate as above. Trend lactic acid. Hold Metformin. Hypoglycemia: At home her blood glucose reportedly was 47 and she has had many bouts of hypoglycemia. Reportedly home antihyperglycemic medication is being adjusted. At this time we will hold all home anti-hyperglycemic medications. Accu-Chek QA CHS with correction scale insulin ordered. Chronic diarrhea: Imodium ordered. Bilateral lower extremity edema: Elevate legs. Jaime wrap to bilateral legs ordered. DVT prophylaxis: Not indicated as patient is on warfarin. Warfarin continued and adjusted. Charges/Coding Visit Charges Inpatient E&M: 58095 Init Hosp L3
--- NOTE | 2021-01-25 21:50 | ECHOD_ITS ---
Reason For Study: AFIB Procedure This was a 2D Doppler, Color Flow transthoracic echocardiogram. Exam performed portable in patient room. Left Ventricle Normal left ventricle. The estimated ejection fraction is EF 50-55 %. Right Ventricle Normal right ventricle. Normal systolic function. Atria The left atrium is mildly enlarged. Mitral Valve There is mild mitral annular calcification. Tricuspid Valve Normal tricuspid valve. Aortic Valve Normal aortic valve. Pulmonic Valve The pulmonic valve is not well visualized. Great Vessels Normal aortic root. Pericardium/Pleural No pericardial effusion. MMode/2D Measurements & Calculations LVIDd: 4.2 cm IVSd: 1.2 cm Ao root diam: 3.5 cm LVIDs: 3.1 cm LVPWd: 1.1 cm RVDd: 3.2 cm FS: 25.4 % LAV(MOD-bp): 68.6 ml LA A4 area: 21.3 cm2 LA dimension(2D): 4.2 cm LAV(MOD-bp) Indexed: 31.8 ml/m2 LAV(MOD-sp2): 63.1 ml LAV(MOD-sp4): 63.8 ml Time Measurements MV dec time: 0.24 sec Doppler Measurements & Calculations MV E max rudolph: 65.1 cm/sec Lat Peak E' Rudolph: 9.4 cm/sec Med Peak E' Rudolph: 10.3 cm/sec MV A max rudolph: 112.5 cm/sec E/E' lat: 6.9 E/E' med: 6.3 MV E/A: 0.58 Ao V2 max: 157.4 cm/sec LV V1 max: 126.6 cm/sec PA V2 max: 130.5 cm/sec Ao max P.9 mmHg LV V1 max P.4 mmHg ECHO/Echo Complete Interpretation Summary The estimated ejection fraction is EF 50-55 %. Grade # I Diastolic Dysfunction Mild LAE No significant changes from Ecg Ordering Physician: Pawel Rapp Referring Physician: Jose Cruz Benavides Performed By: Layne Dumont, ROSEANN, RVT
[2021-01-25 22:15] LABS: Magnesium 1.3 mg/dL (1.6-2.6)
[2021-01-25 22:20] LABS: Urine Sodium 71 mmol/L (Not Establ.)
[2021-01-25 22:55] LABS: Bedside Glucose 100 mg/dL (70-110)
[2021-01-25] MEDS: 0.9% Normal Saline 1,000 ML 75 ML IV (23:11)
[2021-01-25] MEDS: Gabapentin 100 MG Capsule 200 MG PO (23:11)
[2021-01-25] MEDS: Doxycycline 100 MG CAPSULE PO (23:11)
[2021-01-25 23:37] LABS: Reflex Lactate? Y
[2021-01-26] VITALS (11 sets, daily range): BP systolic 92–136; BP diastolic 46–85; PULSE 72–105; RESP 16; TEMP 36.6–37; O2SAT 97–99
[2021-01-26 01:59] LABS: Absolute Lymphocyte Count 3.48 X10^3/uL (0.83-4.51); Absolute Neutrophil Count 4.5 X10^3/uL (2.0-7.7); Basophil# 0.03 X10^3/uL; Basophil% 0.3 % (0-1); Eosinophil# 0.07 X10^3/uL; Eosinophils% 0.8 % (0-5); Hematocrit 29.9 % (37-47); Lymphocyte # 3.48 X10^3/ul (0.83-4.51); Lymphocyte % 38.8 % (19-41); Mean Corp Hgb Conc 33.4 g/dL (32-36); Mean Corpuscular Hgb 31.4 pg (27.0-32.0); Mean Platelet Vol. 12.6 fl (6.2-12.0); Monocyte# 0.83 X10^3/uL; Monocyte% 9.3 % (0-10); NRBC Flagged by Analyzer 0 % (0-5); Neutrophil # 4.52 X10^3/uL (2.7-7.7); Neutrophil % 50.5 % (47-70); POSITIVE MORPHOLOGY YES; Platelet Count 177 K/mm3 (150-450); Red Blood Count 3.18 M/mm3 (4.2-5.4)
[2021-01-26 02:03] LABS: Differential Indicated SCAN CRITERIA MET
[2021-01-26 02:21] LABS: Anion Gap 7 (5-15); BUN 39 mg/dL (7-18); BUN/Creat Ratio 25.5 RATIO (10-20); Calcium,Total 7.7 mg/dL (8.5-10.1); Chloride 105 mmol/L (98-107); Creatinine, Serum 1.53 mg/dL (0.55-1.02); EST Glomerular Filtration Rate 34 mL/min (>60); Est Glom Filt Rate - Afr Amer 42 mL/min (>60); Glucose 81 mg/dL (74-106); Potassium 4.3 mmol/L (3.5-5.1); Sodium Level 134 mmol/L (136-145); Thyroid Stim Hormone (TSH) 1.05 uIU/mL (0.358-3.74)
[2021-01-26 03:08] LABS: Lactic Acid 3.1 mmol/L (0.4-1.9)
[2021-01-26 03:46] LABS: Differential Comment SCANNED
[2021-01-26 03:48] LABS: Anisocytosis 1+; Macrocytosis 1+; Microcytosis RARE; Ovalocyte RARE
[2021-01-26] MEDS: Levothyroxine 75 MCG Tablet PO (06:31)
[2021-01-26] MEDS: Dextrose 50%-Water 25 GM/50 ML DISP.SYRIN IV (06:32)
[2021-01-26 06:51] LABS: Bedside Glucose 37 mg/dL (70-110)
[2021-01-26 06:51] LABS: Bedside Glucose 150 mg/dL (70-110)
[2021-01-26 08:17] LABS: International Normalized Ratio 3.8; Prothrombin Time (Protime)PT. 36.5 SECONDS (11.7-14.9)
[2021-01-26] MEDS: Doxycycline 100 MG CAPSULE PO ×2 (08:19→21:27)
[2021-01-26] MEDS: Cholecalciferol (VIT D3) 25 MCG TABLET (1,000 UNITS) 100 MCG PO (08:19)
[2021-01-26 08:56] LABS: Magnesium 1.4 mg/dL (1.6-2.6)
--- NOTE | 2021-01-26 10:49 | PCM.PN.HOSP ---
Documented by User: Kvng ANDRES 01/26/21 11:07 Subjective Subjective Patient is a 81-year-old female comfortably resting in bed, alert and oriented x3. Patient reports no change or progression in symptoms from admission. Denies chest pain, shortness of breath, palpitations, hemoptysis, sputum production, fever, chills, N/V/D. Objective Data Objective Data Vital Signs: Vital Signs Temp Pulse Resp BP Pulse Ox 98.6 F 83 16 117/51 L 99 01/26/21 08:25 01/26/21 08:25 01/26/21 08:25 01/26/21 08:25 01/26/21 08:25 Oxygen Delivery Method Room Air Weight: 234 lb 12.677 oz Body Mass Index (BMI) 35.6 Intake & Output: Intake and Output for Last 24 Hours 01/24/21 01/25/21 01/26/21 23:59 23:59 23:59 Intake Total 547.5 / 547.5 992.5 / 992.5 Balance 547.5 / 547.5 992.5 / 992.5 Lab / Micro Data Result Diagrams: 01/26/21 01:28 01/26/21 01:28 Labs: Laboratory Results - last 24 hr 01/25/21 19:10: Magnesium 1.3 L 01/25/21 19:30: WBC 8.3, RBC 3.55 L, Hgb 10.8 L, Hct 32.8 L, MCV 92.4, MCH 30.4, MCHC 32.9, RDW Std Deviation 68.0 H, RDW Coeff of Shania 20.2 H, Plt Count 181, MPV 12.7 H, Immature Gran % (Auto) 0.400, Neut % (Auto) 65.2, Lymph % (Auto) 25.8, [place] % (Auto) 7.8, Eos % (Auto) 0.4, Baso % (Auto) 0.4, Absolute Neuts (auto) 5.4, Absolute Lymphs (auto) 2.13, Nucleated RBC % 0, Platelet Estimate ADEQUATE, Hypochromasia 1+, Anisocytosis 1+ 01/25/21 19:30: PT 32.4 H, INR 3.3 01/25/21 19:30: Sodium 134 L, Potassium 5.2 H, Chloride 101, Carbon Dioxide 23.0, Anion Gap 10, BUN 40 H, Creatinine 1.69 H, Estim Creat Clear Calc 24.53, Est GFR (MDRD) Af Amer 37 L, Est GFR (MDRD) Non-Af 31 L, BUN/Creatinine Ratio 23.7 H, Glucose 130 H, Calcium 8.1 L, Total Bilirubin 0.50, AST 43 H, ALT 35, Alkaline Phosphatase 100, Troponin I High Sens 12.0, Total Protein 6.1 L, Albumin 2.3 L, Globulin 3.8, Albumin/Globulin Ratio 0.6 L, Lipase 425 H 01/25/21 19:30: Lactic Acid 4.9 H* 01/25/21 19:30: B-Natriuretic Peptide 78.2 01/25/21 20:27: Urine Color Yellow, Urine Clarity Clear, Urine pH 5.0, Ur Specific [place] 1.020, Urine Protein 15 H, Urine Glucose (UA) Normal, Urine Ketones Negative, Urine Occult Blood Negative, Urine Nitrite Negative, Urine Bilirubin Negative, Urine Urobilinogen Normal, Ur Leukocyte Esterase 100 H, Urine RBC 0 SEEN, Urine WBC 5-10 SEEN, Ur Squamous Epith Cells 5-10 SEEN, Urine Bacteria 1+, Urine Mucus 0 SEEN 01/25/21 20:27: Ur Random Sodium 71, Urine Creatinine 98.10 01/25/21 22:44: POC Glucose 100 01/26/21 01:28: Sodium 134 L, Potassium 4.3, Chloride 105, Carbon Dioxide 22.0, Anion Gap 7, BUN 39 H, Creatinine 1.53 H, Estim Creat Clear Calc 28.10, Est GFR (MDRD) Af Amer 42 L, Est GFR (MDRD) Non-Af 34 L, BUN/Creatinine Ratio 25.5 H, Glucose 81, Calcium 7.7 L, TSH 1.05 01/26/21 01:28: WBC 9.0, RBC 3.18 L, Hgb 10.0 L, Hct 29.9 L, MCV 94.0, MCH 31.4, MCHC 33.4, RDW Std Deviation 68.0 H, RDW Coeff of Shania 20.0 H, Plt Count 177, MPV 12.6 H, Immature Gran % (Auto) 0.300, Neut % (Auto) 50.5, Lymph % (Auto) 38.8, [place] % (Auto) 9.3, Eos % (Auto) 0.8, Baso % (Auto) 0.3, Absolute Neuts (auto) 4.5, Absolute Lymphs (auto) 3.48, Nucleated RBC % 0, Differential Comment SCANNED, Anisocytosis 1+, Microcytosis RARE, Macrocytosis 1+, Ovalocytes RARE 01/26/21 01:28: Lactic Acid 3.1 H* 01/26/21 06:29: POC Glucose 37 L* 01/26/21 06:45: POC Glucose 150 H 01/26/21 06:52: PT 36.5 H, INR 3.8 01/26/21 06:52: Magnesium 1.4 L Radiography Diagnostic Testing: Radiology Impression Brain CT 01/25/21 19:50 IMPRESSION: 1. No acute intracranial abnormality. There has been no change from the reference examination. 2. Stable underlying senescent change with small vessel ischemia. Individualized dose optimization techniques were used for this CT. at 2011 Reported and signed by: Gage Roach MD Electronically Signed: Gage Roach MD at 20:10 EDT Tel , Service support , Chest X-Ray 01/25/21 20:00 IMPRESSION: No radiographic evidence of acute cardiopulmonary disease. at 2041 Reported and signed by: Gage Roach MD Electronically Signed: Gage Roach MD at 20:40 EDT Tel , Service support , Hip/Pelvis X-Ray 01/25/21 20:00 IMPRESSION: No evidence of displaced pelvic or hip fracture. at 2041 Reported and signed by: Gage Roach MD Electronically Signed: Gage Roach MD at 20:41 EDT Tel , Service support , Rhythm Strip Rhythm Strip: A-fib Rate: 86 Physical Exam Const alert, oriented x3 and no apparent distress HEENT head/scalp atraumatic, moist oral mucous membranes and oropharynx normal Head and Scalp: normocephalic Eyes EOMs intact bilaterally and conjunctivae normal Neck no lymphadenopathy, supple and no JVD Resp normal respiratory effort, no retractions, no use of accessory muscles and clear to auscultation bilaterally Cardio regular rate, regular rhythm, no murmurs and no JVD GI normal to inspection, nondistended, normoactive bowel sounds, soft to palpation and non-tender Extremity normal to inspection, full ROM and no clubbing, cyanosis or edema Skin no rashes or lesions noted, no wounds and skin turgor normal Neuro CN's II-XII intact bilaterally Psych affect normal Assessment & Plan Assessment/Plan (1) VALERIA (acute kidney injury): (2) Debility: (3) Dehydration: (4) Atrial fibrillation: QUALIFIERS: Atrial fibrillation type: unspecified chronic Qualified Code(s): I48.20 - Chronic atrial fibrillation, unspecified (5) Supratherapeutic INR: (6) Acidosis, lactic: (7) Hypoglycemia: PLAN: Day 2: See subjective. Discharge planning: Patient and family have advised social work that they would like patient to be discharged to either TCU or [facility], case management and social work following. 1) generalized weakness/lightheadedness/frequent falls Patient has a 2-week history of progressively worsening weakness and falls which patient attributes to lower back pain. Patient does not demonstrate any focal neurological deficits on examination and is alert and oriented to 3, low suspicion for stroke. Brain CT obtained in the ED was unremarkable. On discussion with patient's son, he suspects that patient may not be compliant with her home medication regiment, patient and patient's son believe that she needs placement as noted above. 2) VALERIA on CKD stage IIIa Creatinine currently 1.5, down from mission, baseline appears to be around 1. Plan; continue gentle hydration, trend BMP. 3) atrial fibrillation of unknown chronicity EKG on admission demonstrated atrial fibrillation, unknown history according to patient and family. Patient does not appear to be on any rate controlling medications and is anticoagulated on warfarin. Plan; continue telemetry monitoring on PCU, echocardiogram ordered/pending. 4) supratherapeutic INR Currently 3.8, goal ranges 2.5-3.5. On warfarin for history of prior DVT. Plan; continue de-escalating warfarin at 4 mg p.o. at dinnertime, continue PT/INR daily. 5) lactic acidosis Likely secondary to dehydration and Metformin use. plan; hold home warfarin, IV fluids as above, trend lactate. 5) hyperglycemia Sugar was 37 on admission, currently 150. Plan; continue to hold hypoglycemic regimen, Accu-Cheks with sliding scale insulin ordered. DVT prophylaxis - Warfarin Patient seen by Kvng Phan PA-C, under the supervision of Dr. Stern. Documented by User: Dr. Hazel Stern MD 01/26/21 15:30 Objective Data Lab / Micro Data Result Diagrams: 01/26/21 01:28 01/26/21 01:28 Charges/Coding Addendum Addendum: This patient was seen in conjunction with DMITRY Mclaughlin. I have independently interviewed and examined the patient and reviewed pertinent historical, laboratory, and other data. Please refer to DMITRY Mclaughlin's note for his patient's presentation, findings, and recommendations. I have reviewed and his note and concur with his documentation Patient was seen and examined. She denied any new concerns. Her orthostatic vitals are positive. She is receiving fluid boluses. Physical Exam: Gen: Comfortable, on 3 L oxygen, not pale, not jaundiced CVS:HS I +II, regular, no murmurs RESP: Diminished at lung bases GI: BS present and normal, soft, nontender, no palpable organs EXT:No edema ASSESSMENT: 1. Recurrent falls, orthostatic hypotension 2. VALERIA 3. Hypoglycemia 4. Supratherapeutic INR 5. Hypertension 6. Type II DM 7. Chronic A. fib Plan: Hold Coumadin tonight Check serial INRs Fluid boluses, continue maintenance fluid Hold oral hypoglycemics Check blood work in a.m. Visit Charges Inpatient E&M: 12286 Subs Hosp L2
--- NOTE | 2021-01-26 12:05 | CASEMGMT ---
ROSA FLORENTINO Assessment: Face to Face with pt for initial transition planning/care coordination assessment. RN MISHEL introduced self and role at [facility], pt voices understanding and consents to assessment. Pt is A/O x4 and answers all questions appropriately at this time. Pt sitting up in bed eating lunch in no distress. Care providers, pharmacy, and demographics verified/updated. Admitting Dx: VALERIA, generalized weakness PCP:Kennedy Specialists: HEAVEN Kumar; geovanna Drake Preferred Pharmacy: [facility] Insurance: [facility] Prescription Benefit: yes LW/HPOA: Pt states she thinks she has LW/DPOA and DPOA is her son, Nader Zimmerman. She is aware that it is not on file at [facility] and she may bring in to scan to chart. LNOK: Nader Zimmerman, son; oni Trivedi Living Arrangements: Pt lives alone in a downstairs apartment of a farmhouse. She states there are 2 steps to enter with a rail. She reports being I in ADL's prior. Transportation: Pt drove self and denies issues with transportation. DME/HHC/SNF: Pt has a cane and walker at home. She states she uses both. Denies hx of HHC but states she was in [facility] TCU recently. She states she spoke to earlier and would like to go back to TCU as her first choice or [facility] as second choice. Pt states no further concerns/needs. CM to follow. Advised pt to ask CM if any further question/concerns/needs arise, voices understanding. Pt Goal: [facility] TCU Plan: [facility] TCU
[2021-01-26 12:06] LABS: Bedside Glucose 97 mg/dL (70-110)
[2021-01-26] MEDS: 0.9% Normal Saline 1,000 ML 100 ML IV ×2 (14:38→23:46)
--- NOTE | 2021-01-26 15:27 | CM.ED ---
OTILIO Note Referral Source: MD Referral Reason: Placement OTILIO met with patient and her son, Nader. OTILIO indicated that PT/OT will evaluate patient today and give recommendations for patient. OTILIO provided patient and son with list of options for SNF in [facility]. Nader indicated patient had been at TCU before so that would be patient's first choice and she agreed. Patient's second choice was [facility]. Nader indicated that he has started the assessment process for patient at [facility]. Patietn and son said that patient had liked TCU in the past and would like to return. Otilio sent email to Melina Leonardo advising that patient would like to be referred to the TCU unit if rehab is needed. Plan: To be determined Breann MARC
[2021-01-26 16:30] LABS: Bedside Glucose 118 mg/dL (70-110)
[2021-01-26] MEDS: Gabapentin 100 MG Capsule 200 MG PO (21:27)
[2021-01-26 21:51] LABS: Bedside Glucose 125 mg/dL (70-110)
[2021-01-27] VITALS (13 sets, daily range): BP systolic 92–139; BP diastolic 55–71; PULSE 68–119; RESP 16–18; TEMP 36.2–36.7; O2SAT 95–99
[2021-01-27] MEDS: Levothyroxine 75 MCG Tablet PO (03:28)
[2021-01-27 06:27] LABS: Absolute Lymphocyte Count 2.54 X10^3/uL (0.83-4.51); Absolute Neutrophil Count 2.6 X10^3/uL (2.0-7.7); Basophil# 0.05 X10^3/uL; Basophil% 0.8 % (0-1); Eosinophil# 0.14 X10^3/uL; Eosinophils% 2.3 % (0-5); Hematocrit 27.3 % (37-47); Hemoglobin 9.1 g/dL (12.0-15.0); Lymphocyte # 2.54 X10^3/ul (0.83-4.51); Lymphocyte % 42.2 % (19-41); Mean Corp Hgb Conc 33.3 g/dL (32-36); Mean Corpuscular Hgb 30.7 pg (27.0-32.0); Mean Corpuscular Volume 92.2 fL (81-99); Mean Platelet Vol. 12.2 fl (6.2-12.0); Monocyte% 11.6 % (0-10); NRBC Flagged by Analyzer 0 % (0-5); Neutrophil # 2.57 X10^3/uL (2.7-7.7); Neutrophil % 42.8 % (47-70); POSITIVE MORPHOLOGY YES; Platelet Count 169 K/mm3 (150-450); RBC Distribution Width CV 20.2 % (11.6-14.6); RBC Distribution Width SD 66.5 fl (35.1-43.9); Red Blood Count 2.96 M/mm3 (4.2-5.4)
[2021-01-27 06:29] LABS: Differential Indicated SCAN CRITERIA MET
[2021-01-27 06:30] LABS: International Normalized Ratio 3.2; Prothrombin Time (Protime)PT. 31.6 SECONDS (11.7-14.9)
[2021-01-27 06:31] LABS: Bedside Glucose 55 mg/dL (70-110)
[2021-01-27 06:31] LABS: Bedside Glucose 69 mg/dL (70-110)
[2021-01-27 06:52] LABS: Anisocytosis 1+; Differential Comment SCANNED; Microcytosis 1+
[2021-01-27 06:53] LABS: Anion Gap 4 (5-15); BUN 31 mg/dL (7-18); BUN/Creat Ratio 23.7 RATIO (10-20); Calcium,Total 7.6 mg/dL (8.5-10.1); Chloride 109 mmol/L (98-107); Creatinine, Serum 1.31 mg/dL (0.55-1.02); EST Glomerular Filtration Rate 41 mL/min (>60); Est Glom Filt Rate - Afr Amer 50 mL/min (>60); Estimated Creatinine Clearance 32.82 ml/min; Glucose 59 mg/dL (74-106); Potassium 4.3 mmol/L (3.5-5.1); Sodium Level 138 mmol/L (136-145)
[2021-01-27] MEDS: Cholecalciferol (VIT D3) 25 MCG TABLET (1,000 UNITS) 100 MCG PO (08:05)
[2021-01-27] MEDS: Doxycycline 100 MG CAPSULE PO ×2 (08:05→20:51)
--- NOTE | 2021-01-27 12:21 | PN.HOSP_ITS ---
Documented by User: Kvng ANDRES 01/27/21 12:29 Subjective Subjective Patient is an 81-year-old female comfortably resting in bed, alert and orient x3. Patient denies any change or progression of symptoms yesterday. Denies chest pain, shortness of breath, palpitations, hemoptysis, sputum production, fe sherri, chills, N/V/D. Objective Data Objective Data Vital Signs: Vital Signs Temp Pulse Resp BP Pulse Ox 98.1 F 70 16 112/55 L 99 01/27/21 08:12 01/27/21 08:13 01/27/21 08:12 01/27/21 08:12 01/27/21 08:12 Oxygen Delivery Method Room Air Weight: 234 lb 12.677 oz Body Mass Index (BMI) 35.6 Intake & Output: Intake and Output for Last 24 Hours 01/25/21 01/26/21 01/27/21 23:59 23:59 23:59 Intake Total 547.5 / 547.5 3206.08 / 3406.08 640 / 640 Balance 547.5 / 547.5 3206.08 / 3406.08 640 / 640 Medical Nutrition Assessment Dietitian: Nutrition Therapy Diagnosis Start: 01/26/21 15:37 Freq: Status: Active Protocol: Document 01/26/21 15:50 BP (Rec: 01/26/21 15:50 BP [id number]) Nutrition Malnutrition Evidence of Malnutrition Exists No Clinical Problem Altered GI Function Etiology related to colon cancer s/p colectomy Signs/Symptoms as evidenced by pt report chronic diarrhea. Status Active Problem Recommendation Dietitian Recommendations/Changes Continue 1800 calorie carbohydrate controlled diet. Lab / Micro Data Result Diagrams: 01/27/21 05:47 01/27/21 05:47 Labs: Laboratory Results - last 24 hr 01/26/21 16:23: POC Glucose 118 H 01/26/21 21:25: POC Glucose 125 H 01/27/21 05:47: PT 31.6 H, INR 3.2 01/27/21 05:47: WBC 6.0, RBC 2.96 L, Hgb 9.1 L, Hct 27.3 L, MCV 92.2, MCH 30.7, MCHC 33.3, RDW Std Deviation 66.5 H, RDW Coeff of Shania 20.2 H, Plt Count 169, MPV 12.2 H, Immature Gran % (Auto) 0.300, Neut % (Auto) 42.8 L, Lymph % (Auto) 42.2 H, Alexander % (Auto) 11.6 H, Eos % (Auto) 2.3, Baso % (Auto) 0.8, Absolute Neuts (auto) 2.6, Absolute Lymphs (auto) 2.54, Nucleated RBC % 0, Differential Comment SCANNED, Anisocytosis 1+, Microcytosis 1+ 01/27/21 05:47: Sodium 138, Potassium 4.3, Chloride 109 H, Carbon Dioxide 25.0, Anion Gap 4 L, BUN 31 H, Creatinine 1.31 H, Estim Creat Clear Calc 32.82, Est GFR (MDRD) Af Amer 50 L, Est GFR (MDRD) Non-Af 41 L, BUN/Creatinine Ratio 23.7 H , Glucose 59 L, Calcium 7.6 L 01/27/21 05:59: POC Glucose 55 L 01/27/21 06:20: POC Glucose 69 L Micro: Microbiology 01/25/21 20:27 Urine, Clean Catch Urine Culture - Final Mixed Gram Positive Organisms Rhythm Strip Rhythm Strip: A-fib Rate: 86 Physical Exam Const alert, oriented x3 and no apparent distress HEENT head/scalp atraumatic, moist oral mucous membranes and oropharynx normal Head and Scalp: normocephalic Eyes PERRL, EOMs intact bilaterally and conjunctivae normal Neck no lymphadenopathy, supple and no JVD Resp normal respiratory effort, no retractions and no use of accessory muscles Cardio regular rate, regular rhythm, no murmurs and no JVD GI normal to inspection, nondistended, normoactive bowel sounds, soft to palpation and non-tender Extremity Extremity Narrative: Bilateral lower extremity edema, likely related to dehydration. Skin no rashes or lesions noted, no wounds, skin turgor normal and no jaundice Neuro CN's II-XII intact bilaterally Psych affect normal Assessment & Plan Assessment/Plan (1) VALERIA (acute kidney injury): (2) Atrial fibrillation: QUALIFIERS: Atrial fibrillation type: unspecified chronic Qualified Code(s): I48.20 - Chronic atrial fibrillation, unspecified (3) Supratherapeutic INR: (4) Acidosis, lactic: (5) Hypoglycemia: PLAN: Day 3: See subjective. Discharge planning: Patient and family have advised social work that they would like patient to be discharged to either TCU or [facility], case management and social work following. 1) generalized weakness/lightheadedness/frequent falls Patient has a 2-week history of progressively worsening weakness and falls which patient attributes to lower back pain. Patient does not demonstrate any focal neurological deficits on examination and is alert and oriented to 3, low suspicion for stroke. Brain CT obtained in the ED was unremarkable. On discussion with patient's son, he suspects that patient may not be compliant with her home medication regiment, patient and patient's son believe that she needs placement as noted above. 2) VALERIA on CKD stage IIIa Currently 1.3, down from mission. Fluids initiated on admission have been discontinued due to bilateral lower extremity edema. Plan; continue to monitor BMP, IV Lasix 20 mg IV once daily initiated due to lo wer extremity edema. 3) atrial fibrillation of unknown chronicity EKG on admission demonstrated atrial fibrillation, unknown history according to patient and family. Patient does not appear to be on any rate controlling medications and is anticoagulated on warfarin. Plan; continue telemetry monit oring on PCU, echocardiogram ordered/pending. 4) supratherapeutic INR Currently 3.2, goal ranges 2 - 3. On warfarin for history of prior DVT. Plan; warfarin has been discontinued, continue to monitor PT/INR. 5) lactic acidosis Likely secondary to dehydration and Metformin use. plan; hold home warfarin, IV fluids as above, trend lactate. 5) hyperglycemia Resolved. DVT prophylaxis - SCDs, warfarin on hold as above Patient seen by Kvng Phan PA-C, under the supervision of Dr. Stern. Documented by User: Dr. Hazel Stern MD 01/27/21 15:33 Objective Data Lab / Micro Data Result Diagrams: 01/27/21 05:47 01/27/21 05:47 Charges/Coding Addendum Addendum: This patient was seen in conjunction with DIMTRY Mclaughlin. I have independently interviewed and examined the patient and reviewed pertinent historical, laboratory, and other data. Please refer to DMITRY Mclaughlin's note for his patient's presentation, findings, and recommendations. I have reviewed and his note and concur with his documentation Patient was seen and examined. No acute events overnight. Patient feels improved. Renal function and blood glucose improved Physical Exam: Gen: Comfortable, on 3 L oxygen, not pale, not jaundiced CVS:HS I +II, regular, no murmurs RESP: Diminished at lung bases GI: BS present and normal, soft, nontender, no palpable organs EXT: Bilateral leg edema ASSESSMENT: 1. Recurrent falls, orthostatic hypotension 2. VALERIA 3. Hypoglycemia 4. Supratherapeutic INR 5. Hypertension 6. Type II DM 7. Chronic A. fib Plan: Continue to hold Coumadin tonight INR in a.m. Started on IV Lasix today for possible fluid overload Would be very careful with renal functions with Lasix Repeat orthostatic vitals in a.m. Continue to hold oral hypoglycemics Repeat blood work in a.m. Visit Charges Inpatient E&M: 21954 Subs Hosp L2
[2021-01-27] MEDS: Insulin Lispro 100 UNIT/ML INSULN.PEN SC (13:28)
[2021-01-27] MEDS: 0.9% Saline Lock 10 ML Syringe IV ×2 (13:29→20:53)
[2021-01-27] MEDS: Furosemide 20 MG/2 ML VIAL IV (13:30)
[2021-01-27 13:31] LABS: Bedside Glucose 173 mg/dL (70-110)
[2021-01-27 16:41] LABS: Bedside Glucose 125 mg/dL (70-110)
[2021-01-27] MEDS: Gabapentin 100 MG Capsule 200 MG PO (20:51)
[2021-01-27 21:30] LABS: Bedside Glucose 272 mg/dL (70-110)
[2021-01-28] VITALS (9 sets, daily range): BP systolic 118–140; BP diastolic 58–82; PULSE 67–94; RESP 16–18; TEMP 36.2–36.7; O2SAT 96–98
[2021-01-28] MEDS: Levothyroxine 75 MCG Tablet PO (03:33)
[2021-01-28 06:12] LABS: Absolute Lymphocyte Count 2.37 X10^3/uL (0.83-4.51); Absolute Neutrophil Count 2.9 X10^3/uL (2.0-7.7); Basophil# 0.03 X10^3/uL; Basophil% 0.5 % (0-1); Eosinophil# 0.16 X10^3/uL; Eosinophils% 2.6 % (0-5); Hematocrit 27.3 % (37-47); Hemoglobin 9.3 g/dL (12.0-15.0); Lymphocyte # 2.37 X10^3/ul (0.83-4.51); Lymphocyte % 37.9 % (19-41); Mean Corp Hgb Conc 34.1 g/dL (32-36); Mean Corpuscular Hgb 31.1 pg (27.0-32.0); Mean Corpuscular Volume 91.3 fL (81-99); Mean Platelet Vol. 12.3 fl (6.2-12.0); Monocyte# 0.78 X10^3/uL; Monocyte% 12.5 % (0-10); NRBC Flagged by Analyzer 0 % (0-5); Neutrophil # 2.89 X10^3/uL (2.7-7.7); Neutrophil % 46.2 % (47-70); POSITIVE MORPHOLOGY YES; Platelet Count 170 K/mm3 (150-450); RBC Distribution Width CV 20.2 % (11.6-14.6); RBC Distribution Width SD 66.4 fl (35.1-43.9); Red Blood Count 2.99 M/mm3 (4.2-5.4); White Blood Count 6.3 K/mm3 (4.4-11.0)
[2021-01-28 06:22] LABS: Differential Indicated SCAN CRITERIA MET
[2021-01-28 06:24] LABS: International Normalized Ratio 2.1; Prothrombin Time (Protime)PT. 22.8 SECONDS (11.7-14.9)
[2021-01-28 06:30] LABS: Bedside Glucose 89 mg/dL (70-110)
[2021-01-28 06:31] LABS: Target Cells RARE
[2021-01-28 06:32] LABS: Anion Gap 6 (5-15); BUN 32 mg/dL (7-18); BUN/Creat Ratio 27.8 RATIO (10-20); Calcium,Total 7.6 mg/dL (8.5-10.1); Chloride 106 mmol/L (98-107); Creatinine, Serum 1.15 mg/dL (0.55-1.02); EST Glomerular Filtration Rate 48 mL/min (>60); Est Glom Filt Rate - Afr Amer 58 mL/min (>60); Estimated Creatinine Clearance 37.39 ml/min; Glucose 87 mg/dL (74-106); Potassium 3.7 mmol/L (3.5-5.1); Sodium Level 138 mmol/L (136-145)
--- NOTE | 2021-01-28 09:58 | CASEMGMT ---
TCU will have a bed for patient. SW went to patient's room. Introduced self and role at [facility]. SW let her know that TCU will have a bed for her. She said she has to talk with her kids as she is not sure what they want her to do. SW told her SW can check back. Plan: [facility] TCU? Debbi MUELLER
[2021-01-28] MEDS: Furosemide 20 MG/2 ML VIAL IV (10:02)
[2021-01-28] MEDS: Cholecalciferol (VIT D3) 25 MCG TABLET (1,000 UNITS) 100 MCG PO (10:02)
[2021-01-28] MEDS: Doxycycline 100 MG CAPSULE PO (10:13)
--- NOTE | 2021-01-28 10:23 | PCM.TXEXTCAR ---
Diet 01/25/21 22:24 Diet: Consistent Carb - Calorie Controlled Food consistency:: Regular Liquid Consistency:: Regular/Thin How many daily calories?: 1800 calorie Wound(s) R forearm: Wound Type: Abrasion Therapies Physical Therapy: Eval and Treat Occupational Therapy: Eval and Treat Problem/Diagnosis (1) VALERIA (acute kidney injury): Status: Acute (2) Atrial fibrillation: Status: Acute (3) Supratherapeutic INR: Status: Acute (4) Acidosis, lactic: Status: Acute (5) Hypoglycemia: Status: Acute Allergies/Procedures Done in Hospital Allergies No Known Allergies Allergy (Verified 01/25/21 17:44) Type of Care/Length of Stay Estimated LOS: Convalescent Care Less Than 30 days Type of Care Needed: Skilled Rehab Potential: Good Prognosis: Good Additional Orders/Day of Discharge Day of Discharge: 01/28/21 Dietary and Speech Recommendations Dietitian Recommendations/Changes: Continue 1800 calorie carbohydrate controlled diet. Follow Up Care Please follow up with your Primary Care Physician in: Within the next two weeks. Discharge Plan Admission Admit Date/Time: 01/25/21 21:24 Primary Reason for Your Visit: Generalized weakness Attending Provider: Louis Trujillo Primary Care Provider: Jose Cruz Benavides Discharge Orders/Prescriptions Prescriptions: Continued gabapentin 300 MG capsule 600 mg PO QHS RF: 0 amlodipine 5 MG tablet 5 mg PO DAILY RF: 0 levothyroxine 75 MCG tablet 75 mcg PO DAILY RF: 0 metformin 500 MG tablet extended release 24 hr 1,000 mg PO BID RF: 0 sitagliptin 25 MG tablet 25 mg PO DAILY RF: 0 cholecalciferol (vitamin D3) 50 MCG capsule 100 mcg PO DAILY RF: 0 metoprolol tartrate 100 MG tablet 100 mg PO DAILY Qty: 30 RF: 0 lisinopril 20 mg Tablet 20 mg PO DAILY RF: 0 hydrochlorothiazide 25 mg Tablet 25 mg PO DAILY RF: 0 doxycycline hyclate 100 mg capsule 100 mg PO BID RF: 0 warfarin 5 mg tablet 7.5 mg PO SUTH RF: 0 warfarin 5 mg tablet 5 mg PO MOTUWEFRSA RF: 0 biotin 2,500 mcg Tablet 2,500 mcg PO DAILY RF: 0 Referrals / Follow Up: Jose Cruz Benavides MD [Primary Care Provider] - Within 2 Weeks Disposition Disposition (needs filled in before D/C Order can be placed): Shelter Facility
--- NOTE | 2021-01-28 11:25 | CASEMGMT ---
SW spoke with patient and she said she called her son and let him know she is going to TCU today. Plan: d/c to [facility] TCU under skilled level of care. Debbi MUELLER
--- NOTE | 2021-01-28 11:31 | DS.PCM_ITS ---
Documented by User: Kvng ANDRES 01/28/21 11:39 Providers Date of Admission: 01/25/21 Primary Care Physician: Dr. Jose Cruz Benavides MD Reason For Visit: VALERIA GENERALIZED WEAKNESS Diagnosis Discharge Diagnosis (1) VALERIA (acute kidney injury): Status: Acute Code(s): N17.9 - Acute kidney failure, unspecified (2) Atrial fibrillation: Status: Acute Code(s): I48.91 - Unspecified atrial fibrillation Qualifiers: Atrial fibrillation type: unspecified chronic Qualified Code(s): I48.20 - Chronic atrial fibrillation, unspecified (3) Supratherapeutic INR: Status: Acute Code(s): R79.1 - Abnormal coagulation profile (4) Acidosis, lactic: Status: Acute Code(s): E87.2 - Acidosis (5) Hypoglycemia: Status: Acute Code(s): E16.2 - Hypoglycemia, unspecified Medications at Discharge Home Medications gabapentin 600 mg PO QHS 04/23/15 amlodipine 5 mg PO DAILY 02/17/20 levothyroxine 75 mcg PO DAILY 02/17/20 metformin 1,000 mg PO BID 02/17/20 cholecalciferol (vitamin D3) 100 mcg PO DAILY 10/01/20 sitagliptin 25 mg PO DAILY 10/01/20 metoprolol tartrate 100 mg PO DAILY #30 tablet 10/20/20 biotin 2,500 mcg PO DAILY 01/25/21 doxycycline hyclate 100 mg PO BID 01/25/21 hydrochlorothiazide 25 mg PO DAILY 01/25/21 lisinopril 20 mg PO DAILY 01/25/21 warfarin 5 mg PO MOTUWEFRSA 01/25/21 warfarin 7.5 mg PO SUTH 01/25/21 Hospital Course Procedures Transthoracic echo Summary of Care Provided Minutes Spent on Discharge: 35 Hospital Course: Disposition: Patient to be discharged to TCU for ongoing ther apy and skilled care. 1) generalized weakness/lightheadedness/frequent falls Patient has a 2-week history of progressively worsening weakness and falls which patient attributes to lower back pain. Patient does not demonstrate any focal neurological deficits on examination and is alert and oriented to 3, low suspicion for stroke. Brain CT obtained in the ED was unremarkable. On discussion with patient's son, he suspects that patient may not be compliant with her home medication regiment, patient and patient's son believe that she needs placement as noted above. 2) VALERIA on CKD stage IIIa Resolved, currently 1.15, trended down from mission. 3) atrial fibrillation of unknown chronicity EKG on admission demonstrated atrial fibrillation, unknown history according to patient and family. Patient does not appear to be on any rate controlling medications and is anticoagulated on warfarin. Plan; home warfarin continued. 4) supratherapeutic INR Resolved, currently 2.1. Plan; warfarin continued. 5) lactic acidosis Resolved. 5) hyperglycemia Resolved. Patient seen by Kvng Phan PA-C, under the supervision of Dr. Trujillo. Physical Exam Narrative Patient is an 81-year-old female who is comfortably resting in a chair, alert and orient x3. Patient denies any change or progression of symptoms from yesterday. Denies chest pain, shortness of breath, palpitations, hemoptysis, sputum production, fever, chills, N/V/D. Const alert, oriented x3 and no apparent distress HEENT normocephalic, head/scalp atraumatic and hearing grossly normal bilaterally Eyes PERRL, EOMs intact bilaterally and conjunctivae normal Neck no lymphadenopathy, supple and no JVD Resp normal respiratory effort, no retractions and no use of accessory muscles Cardio regular rate, regular rhythm, no murmurs and no JVD GI normal to inspection, nondistended, normoactive bowel sounds, soft to palpation and non-tender Extremity normal to inspection, full ROM and no clubbing, cyanosis or edema Skin no rashes or lesions noted, no wounds and skin turgor normal Neuro CN's II-XII intact bilaterally Psych affect normal Medical Records Data Medical Nutrition Assessment Dietitian: Nutrition Therapy Diagnosis Start: 01/26/21 15:37 Freq: Status: Active Protocol: Document 01/26/21 15:50 BP (Rec: 01/26/21 15:50 BP [id number]) Nutrition Malnutrition Evidence of Malnutrition Exists No Clinical Problem Altered GI Function Etiology related to colon cancer s/p colectomy Signs/Symptoms as evidenced by pt report chronic diarrhea. Status Active Problem Recommendation Dietitian Recommendations/Changes Continue 1800 calorie carbohydrate controlled diet. Weight / BMI Weight Weight: 234 lb 12.677 oz Body Mass Index (BMI) 35.6 ABG / Lab / Microbiology Data Result Diagrams: 01/28/21 05:15 01/28/21 05:15 Laboratory: Laboratory Results - last 24 hr 01/27/21 13:22: POC Glucose 173 H 01/27/21 16:35: POC Glucose 125 H 01/27/21 20:49: POC Glucose 272 H 01/28/21 05:15: PT 22.8 H, INR 2.1 01/28/21 05:15: WBC 6.3, RBC 2.99 L, Hgb 9.3 L, Hct 27.3 L, MCV 91.3, MCH 31.1, MCHC 34.1, RDW Std Deviation 66.4 H, RDW Coeff of Shania 20.2 H, Plt Count 170, MPV 12.3 H, Immature Gran % (Auto) 0.300, Neut % (Auto) 46.2 L, Lymph % (Auto) 37.9, [place] % (Auto) 12.5 H, Eos % (Auto) 2.6, Baso % (Auto) 0.5, Absolute Neuts (auto) 2.9, Absolute Lymphs (auto) 2.37, Nucleated RBC % 0, Target Cells RARE 01/28/21 05:15: Sodium 138, Potassium 3.7, Chloride 106, Carbon Dioxide 26.0, Anion Gap 6, BUN 32 H, Creatinine 1.15 H, Estim Creat Clear Calc 37.39, Est GFR (MDRD) Af Amer 58 L, Est GFR (MDRD) Non-Af 48 L, BUN/Creatinine Ratio 27.8 H, Glucose 87, Calcium 7.6 L 01/28/21 06:26: POC Glucose 89 Microbiology: Microbiology 01/25/21 20:27 Urine, Clean Catch Urine Culture - Final Mixed Gram Positive Organisms Meaningful Use Info Meaningful Use Diagnoses (Choose all that apply): None applicable Discharge Plan Admission Admit Date/Time: 01/25/21 21:24 Primary Reason for Your Visit: Generalized weakness Attending Provider: Louis Trujillo Primary Care Provider: Jose Cruz Benavides Discharge Orders/Prescriptions Prescriptions: Continued gabapentin 300 MG capsule 600 mg PO QHS RF: 0 amlodipine 5 MG tablet 5 mg PO DAILY RF: 0 levothyroxine 75 MCG tablet 75 mcg PO DAILY RF: 0 metformin 500 MG tablet extended release 24 hr 1,000 mg PO BID RF: 0 sitagliptin 25 MG tablet 25 mg PO DAILY RF: 0 cholecalciferol (vitamin D3) 50 MCG capsule 100 mcg PO DAILY RF: 0 metoprolol tartrate 100 MG tablet 100 mg PO DAILY Qty: 30 RF: 0 lisinopril 20 mg Tablet 20 mg PO DAILY RF: 0 hydrochlorothiazide 25 mg Tablet 25 mg PO DAILY RF: 0 doxycycline hyclate 100 mg capsule 100 mg PO BID RF: 0 warfarin 5 mg tablet 7.5 mg PO SUTH RF: 0 warfarin 5 mg tablet 5 mg PO MOTUWEFRSA RF: 0 biotin 2,500 mcg Tablet 2,500 mcg PO DAILY RF: 0 Referrals / Follow Up: Jose Cruz Benavides MD [Primary Care Provider] - Within 2 Weeks Disposition Disposition (needs filled in before D/C Order can be placed): Sn[facility] Facility Documented by User: Dr. Louis Trujillo MD 01/28/21 12:09 Providers Date of Admission: 01/25/21 Reason For Visit: VALERIA GENERALIZED WEAKNESS Medications at Discharge Home Medications gabapentin 600 mg PO QHS 04/23/15 amlodipine 5 mg PO DAILY 02/17/20 levothyroxine 75 mcg PO DAILY 02/17/20 metformin 1,000 mg PO BID 02/17/20 cholecalciferol (vitamin D3) 100 mcg PO DAILY 10/01/20 sitagliptin 25 mg PO DAILY 10/01/20 metoprolol tartrate 100 mg PO DAILY #30 tablet 10/20/20 biotin 2,500 mcg PO DAILY 01/25/21 doxycycline hyclate 100 mg PO BID 01/25/21 hydrochlorothiazide 25 mg PO DAILY 01/25/21 lisinopril 20 mg PO DAILY 01/25/21 warfarin 5 mg PO MOTUWEFRSA 01/25/21 warfarin 7.5 mg PO SUTH 01/25/21 Hospital Course Operations None Summary of Care Provided Minutes Spent on Discharge: 35 Hospital Course: This patient was seen in conjunction with Kvng Phan PA-C. I have independently interviewed and examined the patient and reviewed pertinent historical, laboratory, and other data. Please refer to Kvng Phan PA-C's note for details of this patient's presentation, findings, and recommendations. I have reviewed Kvng Phan PA-C's note and concur with documented findings. In brief, patient is an 81-year-old female with multiple comorbidities admitted with progressive generalized weakness and frequent falls. Patient was found to be orthostatic with acute kidney injury. Admitted to a monitored bed for subsequent management Hospital course; as documented above ABG / Lab / Microbiology Data Result Diagrams: 01/28/21 05:15 01/28/21 05:15 Discharge Plan Admission Admit Date/Time: 01/25/21 21:24 Primary Reason for Your Visit: Generalized weakness Attending Provider: Louis Trujillo Primary Care Provider: Jose Cruz Benavides Discharge Orders/Prescriptions Prescriptions: Continued gabapentin 300 MG capsule 600 mg PO QHS RF: 0 amlodipine 5 MG tablet 5 mg PO DAILY RF: 0 levothyroxine 75 MCG tablet 75 mcg PO DAILY RF: 0 metformin 500 MG tablet extended release 24 hr 1,000 mg PO BID RF: 0 sitagliptin 25 MG tablet 25 mg PO DAILY RF: 0 cholecalciferol (vitamin D3) 50 MCG capsule 100 mcg PO DAILY RF: 0 metoprolol tartrate 100 MG tablet 100 mg PO DAILY Qty: 30 RF: 0 lisinopril 20 mg Tablet 20 mg PO DAILY RF: 0 hydrochlorothiazide 25 mg Tablet 25 mg PO DAILY RF: 0 doxycycline hyclate 100 mg capsule 100 mg PO BID RF: 0 warfarin 5 mg tablet 7.5 mg PO SUTH RF: 0 warfarin 5 mg tablet 5 mg PO MOTUWEFRSA RF: 0 biotin 2,500 mcg Tablet 2,500 mcg PO DAILY RF: 0 Referrals / Follow Up: Jose Cruz Benavides MD [Primary Care Provider] - Within 2 Weeks Disposition Disposition (needs filled in before D/C Order can be placed): [facility] Facility Charges/Coding Visit Charges Inpatient E&M: 89797 Disch Hosp Hospital Course Operations None
--- NOTE | 2021-01-28 12:48 | CASEMGMT ---
Pt qualifies for palliative c/s per [facility] palliative screening tool and Rachael ANDRES is agreeable. Order placed and call to palliative to notify. Cody LEE CM
--- NOTE | 2021-01-28 15:17 | CON.PCM.PA_ITS ---
Assessment & Plan Assessment/Plan (1) Debility: (2) Osteoarthritis: QUALIFIERS: Osteoarthritis location: unspecified site Osteoarthritis type: unspecified Qualified Code(s): M19.90 - Unspecified osteoarthritis, unspecified site (3) Diabetic neuropathy: QUALIFIERS: Diabetes mellitus type: type 2 Diabetes mellitus complication detail: diabetic autonomic neuropathy Qualified Code(s): E11.43 - Type 2 diabetes mellitus with diabetic autonomic (poly)neuropathy (4) Mild diastolic dysfunction: (5) History of TIA (transient ischemic attack): (6) Venous insufficiency: (7) Deep vein thrombosis: QUALIFIERS: DVT location: lower extremity Affected thrombotic vein of extremity: unspecified vein of extremity Chronicity: chronic Laterality: unspecified laterality Qualified Code(s): I82.509 - 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 of unspecified lower extremity (8) Chronic anticoagulation: (9) Hypothyroidism: QUALIFIERS: Hypothyroidism type: unspecified Qualified Code(s): E03.9 - Hypothyroidism, unspecified (10) Hypertension: QUALIFIERS: Hypertension type: unspecified Qualified Code(s): I10 - Essential (primary) hypertension (11) History of colon cancer: (12) Obesity: QUALIFIERS: Obesity type: due to excess calories Obesity classification: adult class 2 (BMI 35 - 39.9) Serious obesity comorbidity presence: with serious comorbidity Body mass index: BMI 35.0-35.9 Qualified Code(s): E66.01 - Morbid (severe) obesity due to excess calories; Z68.35 - Body mass index [BMI] 35.0-35.9, adult (13) Diabetes mellitus type 2 in obese: (14) Vitamin D deficiency: (15) Dehydration: (16) VALERIA (acute kidney injury): (17) Atrial fibrillation: QUALIFIERS: Atrial fibrillation type: unspecified chronic Qual ified Code(s): I48.20 - Chronic atrial fibrillation, unspecified PLAN: 81-year-old female with multiple comorbidities, seen today for palliative care consultation secondary to weakness and falls, as well as decline in functional status. 1. Debility/weakness: Progressive, having trouble performing ADLs. They are looking into getting assistance with aids during the day if she returns back home. She will go to TCU for further rehab. We can follow her there if she has needs 2. Peripheral neuropathy, diabetic: Controlled on current medications. No adj ustments recommended at this time. 3. History of OA/mild diastolic dysfunction/TIA/DVT on chronic anticoagulation/hypothyroidism/HTN/history of colon cancer/obesity/vitamin D deficiency/recent dehydration with VALERIA/A. fib: Complicates overall care, management, recovery, and prognosis. Defer management to PCP/specialists. Thank you for the opportunity to participate in this patient's care, please do not hesitate to contact [facility] with any further questions or concerns. Palliative direct line is [phone]. We will follow up after discharge and will discuss palliative services further at that time. Plan is to have a liaison call her son Nader and schedule a time where they can meet with him and his mother to discuss services, at that time we can sign consents if they are agreeable. Greater than 50% of F2F visit dedicated to education and counseling of palliative care services, medications, comorbid conditions and potential assistance with management, and plan of care moving forward. Start time: 1505 End time: 1556 HPI Consult Data Date of Consult: 01/28/21 HPI Narrative HPI Narrative: OG STEIN, is a 81 F, [facility] as below, who presented to [facility] 01/25/2021 with complaints of progressive weakness over the course of the past 2 weeks. She has been falling more lately and sustained a skin tear to the right arm. She was found to be orthostatic. Her low back has been bothering her more ever since. CT of the brain unremarkable. Son was saying patient is possibly not compliant with medications at home. Her INR was supratherapeutic but has since normalized. She was also in A. fib, which is unclear if new or not. Patient also had an VALERIA which has resolved. Seen today for palliative care consultation for symptom management of weakness as well as advanced renal disease. She was admitted to the hospital for an extended stay in September for a ruptured Trinidad's cyst and DVT. She required care home therapy at that time in TCU. She has had to have reconstructive knee surgery to the left by Dr. Drake secondary to infection. She takes gabapentin 600 mg at bedtime for diabetic peripheral neuropathy. Only pain medications she takes is as needed Tylenol. Patient has lived alone in her home for the past 18 years since her . Her bed and bath on the ground floor. She has 4 sons. States they do not help much. Her son Nader has reported they started the assessment process for assistance with [facility]. Her PCP is Dr. Benavides with [facility]. She uses [place] for pharmacy. Her POA is her son, Nader Stein. Patient reports being fairly independent at home with her ADLs, however she feels it is becoming more difficult to take care of herself and do the things she wants was able to accomplish. Patient denies any nausea vomiting or diarrhea. No constipation. She does get short of breath with exertion. No chest pain or syncope. Again, she has fallen quite a bit lately but no significant injury. Denies any dizziness. No cough or fevers. Urinating okay, some stress incontinence. Neuropathy to her bilateral lower extremity. [facility] Medical History Hx-TIA (transient ischemic attack) Type 2 diabetes mellitus Home Medications gabapentin 600 mg PO QHS 04/23/15 [History Last Taken 01/24/21] amlodipine 5 mg PO DAILY 02/17/20 [History Last Taken 01/25/21] levothyroxine 75 mcg PO DAILY 02/17/20 [History Last Taken 01/25/21] metformin 1,000 mg PO BID 02/17/20 [History Last Taken 01/25/21] cholecalciferol (vitamin D3) 100 mcg PO DAILY 10/01/20 [History Last Taken 01/25/21] sitagliptin 25 mg PO DAILY 10/01/20 [History Last Taken 01/25/21] metoprolol tartrate 100 mg PO DAILY #30 tablet 10/20/20 [Rx Last Taken Unknown] biotin 2,500 mcg PO DAILY 01/25/21 [History Last Taken 01/25/21] doxycycline hyclate 100 mg PO BID 01/25/21 [History Last Taken 01/25/21] hydrochlorothiazide 25 mg PO DAILY 01/25/21 [History Last Taken 01/25/21] lisinopril 20 mg PO DAILY 01/25/21 [History Last Taken 01/25/21] warfarin 5 mg PO MOTUWEFRSA 01/25/21 [History Last Taken 01/23/21] warfarin 7.5 mg PO SUTH 01/25/21 [History Last Taken 01/24/21] Allergy/AdvReac Type Severity Reaction Status Date / Time No Known Allergies Allergy Verified 01/25/21 17:44 Family History Other Cancer Heart disease Surgical History H/O colectomy History of bilateral knee replacement History of cholecystectomy Social History Smoking Status: Former smoker ROS ROS Narrative Review of systems otherwise negative from a constitutional, HEENT, respiratory, cardiovascular, GI, genitourinary, musculoskeletal, skin, neurologic, psychiatric and hematologic system unless stated above. Physical Exam Const alert, oriented x3 and no apparent distress General Appearance: cooperative Nutritional Appearance: obese HEENT normocephalic and head/scalp atraumatic Eyes PERRL and EOMs intact bilaterally Neck no lymphadenopathy and supple General: trachea midline Resp normal respiratory effort and clear to auscultation bilaterally Effort and Inspection: able to speak in complete sentences and symmetric chest movement Cardio regular rate, S1 normal heart sound and S2 normal heart sound Rhythm: abnormal rhythm GI normal to inspection, nondistended, normoactive bowel sounds Back/Spine no CVA tenderness General Back: tenderness Lumbar Spine / Lower Back: paraspinal muscle tenderness Extremity General Extremity: edema bilateral lower extremity; Negative for clubbing or cyanosis Skin no rashes or lesions noted General Skin Exam: ecchymosis and skin tear(s) Neuro CN's II-XII intact bilaterally and no focal motor deficits Psych mental status grossly normal Appearance: grossly normal Activity / Motor Behavior: appropriate eye contact Speech: normal speech Memory / Cognition: memory grossly intact
== END 2021-01-28 15:45 | disposition skilled nursing facility (03) | DRG 641 ==
LOC: ED 19:02 → PCU 21:29
PROVIDERS: Internal Medicine; Physician Assistant; Admitting Provider Hospitalist; Emergency Provider Emergency Medicine; PCP Family Medicine; Visit Provider Internal Medicine
DX: E86.0 Dehydration (principal); I48.20 Chronic atrial fibrillation, unspecified; N17.9 Acute kidney failure, unspecified; E87.2 Acidosis; I12.9 Hypertensive chronic kidney disease with stage 1 through stage 4 chronic kidney disease, or unspecified chronic kidney disease; N18.31 Chronic kidney disease, stage 3a; R53.81 Other malaise; E11.22 Type 2 diabetes mellitus with diabetic chronic kidney disease; E11.649 Type 2 diabetes mellitus with hypoglycemia without coma; E11.65 Type 2 diabetes mellitus with hyperglycemia; E11.43 Type 2 diabetes mellitus with diabetic autonomic (poly)neuropathy; K52.9 Noninfective gastroenteritis and colitis, unspecified; I95.1 Orthostatic hypotension; R79.1 Abnormal coagulation profile; R29.6 Repeated falls; Z96.653 Presence of artificial knee joint, bilateral; Z90.49 Acquired absence of other specified parts of digestive tract; Z79.01 Long term (current) use of anticoagulants; Z79.84 Long term (current) use of oral hypoglycemic drugs; Z79.899 Other long term (current) drug therapy; Z87.891 Personal history of nicotine dependence; Z85.038 Personal history of other malignant neoplasm of large intestine; Z86.718 Personal history of other venous thrombosis and embolism; Z86.73 Personal history of transient ischemic attack (TIA), and cerebral infarction without residual deficits
CPT/HCPCS: 36415; 70450; 71045; 73502; 80048; 80053; 81001; 82570; 82962; 83605; 83690; 83735; 83880; 84300; 84443; 84484; 85025; 85610; 87086; 87088; 87426; 93005; 93306; 97162; 97166; 97530; 97535; 97802; 99285; J7030; J7040; A4216; J1940

== ENCOUNTER 2021-01-28 15:50 | Inpatient (IN) | payer MEDICARE, SELFPAY ==
[2021-01-25 22:26] VITALS: BMI 35.6
[2021-01-28 16:19] VITALS: BP 114/82; PULSE 85; RESP 16; TEMP 36.6; O2SAT 93; BMI 35.6
[2021-01-28] MEDS: Doxycycline 100 MG CAPSULE PO (17:47)
[2021-01-28] MEDS: metFORMIN (XR) 500 MG Tablet 1000 MG PO (17:47)
--- NOTE | 2021-01-28 19:59 | HP.PCM_ITS ---
HPI - General General Date of Admission: 01/28/21 HPI Narrative 01/25/2021 OG STEIN, is a 81 Female who presents to [facility] Emergency Department with dizziness. Weakness, lightheaded, multiple falls. Blood pressure 82/52. Blood sugar 47. Patient not compliant with her medications at home. Worsening bilateral lower extremity edema, Diarrhea. INR supratherapeutic. IV fluids given. 01/25/2021 Admit to Hospital. IV Fluids for acute kidney injury. CT head negative. Hold blood pressure medications for hypotension. Echo for atrial fibrillation, new onset. Decrease coumadin for high INR. Echo EF 50 to 55%. Grade 1 diastolic dysfunction. 01/26/2021 Noncompliance with medications at home. [facility] Acute kidney injury improved with IV fluids. Decrease coumadin dose. 01/27/2021 Creatinine 1.3, near baseline. Lasix 20MG IV given for bilateral lower extremity edema. Coumadin stopped for elevated INR. No rate limiting medications needed for new onset atrial fibrillation. 01/28/2021 Admit to TCU with debility, here for rehabilitation, strengthening, prior to discharge to higher level of care than home alone. [facility] Medical History Hx-TIA (transient ischemic attack) Type 2 diabetes mellitus Home Medications gabapentin 600 mg PO QHS 04/23/15 [History Last Taken 01/24/21] amlodipine 5 mg PO DAILY 02/17/20 [History Last Taken 01/25/21] levothyroxine 75 mcg PO DAILY 02/17/20 [History Last Taken 01/25/21] metformin 1,000 mg PO BID 02/17/20 [History Last Taken 01/25/21] cholecalciferol (vitamin D3) 100 mcg PO DAILY 10/01/20 [History Last Taken 01/25/21] sitagliptin 25 mg PO DAILY 10/01/20 [History Last Taken 01/25/21] metoprolol tartrate 100 mg PO DAILY #30 tablet 10/20/20 [Rx Last Taken Unknown] biotin 2,500 mcg PO DAILY 01/25/21 [History Last Taken 01/25/21] doxycycline hyclate 100 mg PO BID 01/25/21 [History Last Taken 01/25/21] hydrochlorothiazide 25 mg PO DAILY 01/25/21 [History Last Taken 01/25/21] lisinopril 20 mg PO DAILY 01/25/21 [History Last Taken 01/25/21] warfarin 5 mg PO MOTUWEFRSA 01/25/21 [History Last Taken 01/23/21] warfarin 7.5 mg PO SUTH 01/25/21 [History Last Taken 01/24/21] Allergy/AdvReac Type Severity Reaction Status Date / Time No Known Allergies Allergy Verified 01/25/21 17:44 Family History Other Cancer Heart disease Surgical History H/O colectomy History of bilateral knee replacement History of cholecystectomy Social History (Updated 01/28/21 @ 20:[address] Cj Loomis MD) household members: none Smoking Status: Former smoker ROS Constitutional Constitutional: Denies chills, fever(s) or weight gain ENT HEENT: Denies headache(s), nasal congestion or nasal discharge Cardiovascular Cardiovascular: Denies chest pain or palpitations Respiratory/Chest Respiratory/Chest: Denies cough, excessive phlegm production or shortness of b reath with exertion Gastrointestinal Gastrointestinal: Denies abdominal pain, nausea or vomiting Genitourinary Genitourinary: Denies dysuria Musculoskeletal Musculoskeletal: Denies joint pain or joint swelling Integumentary Integumentary: Denies rash or wounds Neurologic Neurologic: Denies focal weakness, numbness or tingling Psychiatric Psychiatric: Reports auditory hallucinations; Denies anxiety, depression, homicidal ideation or suicidal ideation Vital Signs Vital Signs Vital Signs: 01/28/21 16:19 Temperature 97.8 F Temperature Source Oral Pulse Rate 85 Respiratory Rate 16 Blood Pressure 114/82 H Blood Pressure Mean 92 Blood Pressure Source Monitor Blood Pressure Position Sitting Blood Pressure Location Left Arm Pulse Ox 93 Oxygen Delivery Method Room Air Weight Weight: 106.5 kg Body Mass Index (BMI) 35.6 Physical Exam Const alert and oriented x3 General Appearance: cooperative HEENT normocephalic Eyes PERRL and EOMs intact bilaterally Neck supple, no JVD and no carotid bruits Resp normal respiratory effort, normal air movement and clear to auscultation bilaterally Cardio regular rate and regular rhythm GI normal to inspection, nondistended, normoactive bowel sounds, non-tender and non-distended Extremity normal capillary refill General Extremity: Negative for edema Skin no rashes or lesions noted General Skin Exam: no breakdown Psych affect normal Appearance: appropriate Assessment & Plan Assessment/Plan (1) Debility: (2) Dizziness: (3) Falls: (4) Hypotension: (5) Hypoglycemia: (6) Atrial fibrillation: (7) Acute kidney injury: (8) Diabetes mellitus: (9) Transient ischemic attack: (10) Diabetic neuropathy: (11) Hypertension: (12) Hypothyroidism: PLAN: 81 year old female with below past medical history hospitalized for dizziness, falls secondary to new onset atrial fibrillation, acute kidney injury, hypotension, hypoglycemia, admitted to TCU with debility, here for rehabilitation, strengthening, prior to discharge to higher level of care than home alone. * Debility - PT/OT. * Pain - Tylenol 1000MG Q6H PRN pain (1-10). * Bowel - Senna/colace 1 tablet twice daily, Dulcolax 10MG daily PRN. * Adult immunization - Administer prevnar 13, pneumovax 23, fluzone, COVID19 vaccine as appropriate. * DVT prophylaxis - Not necessary, on warfarin. * Hypertension - Metoprolol 100MG daily, Lisinopirl 20MG daily, HCTZ 25MG daily, Amlodipine 5MG daily. * Vitamin D deficiency - D3 100MCG daily. * Prosthetic knee infection - Doxycycline 100mg twice daily. * Neuropathic pain - Gabapentin 600MG QHS. * Hypothyroidism - Levothyroxine 75MCG daily. * Diabetes Mellitus II - Metformin 1000MG BID, Tradjenta 5MG daily. * Atrial fibrillation - Metoprolol 100MG daily, Warfarin 5MG 5 days/week, 7.5MG 2 days/week, monitor INR.
[2021-01-28 21:00] VITALS: O2SAT 96
[2021-01-28] MEDS: Gabapentin 600 MG Tablet PO (21:17)
[2021-01-29 05:21] VITALS: BP 146/78; PULSE 80; RESP 16; TEMP 36.2; O2SAT 98
[2021-01-29] MEDS: Lisinopril 20 MG Tablet PO (05:23)
[2021-01-29] MEDS: Cholecalciferol (VIT D3) 25 MCG TABLET (1,000 UNITS) 100 MCG PO (05:23)
[2021-01-29] MEDS: LINAGLIPTIN 5 MG TABLET PO (05:23)
[2021-01-29] MEDS: Senna/Docusate Sodium 1 Tablet PO ×2 (05:23→16:52)
[2021-01-29] MEDS: amLODIPine 5 MG Tablet PO (05:23)
[2021-01-29] MEDS: Levothyroxine 75 MCG Tablet PO (05:23)
[2021-01-29 05:24] VITALS: BP 146/78; PULSE 80
[2021-01-29] MEDS: Metoprolol Tartrate 100 MG Tablet PO (05:24)
[2021-01-29] MEDS: Doxycycline 100 MG CAPSULE PO ×2 (05:24→16:52)
[2021-01-29] MEDS: hydroCHLOROthiazide 25 MG Tablet PO (05:24)
[2021-01-29 05:39] LABS: Absolute Lymphocyte Count 2.99 X10^3/uL (0.83-4.51); Absolute Neutrophil Count 3.6 X10^3/uL (2.0-7.7); Basophil# 0.05 X10^3/uL; Basophil% 0.6 % (0-1); Eosinophil# 0.19 X10^3/uL; Eosinophils% 2.5 % (0-5); Hematocrit 27.5 % (37-47); Hemoglobin 9.3 g/dL (12.0-15.0); Lymphocyte # 2.99 X10^3/ul (0.83-4.51); Lymphocyte % 38.8 % (19-41); Mean Corp Hgb Conc 33.8 g/dL (32-36); Mean Corpuscular Hgb 31.2 pg (27.0-32.0); Mean Corpuscular Volume 92.3 fL (81-99); Mean Platelet Vol. 11.9 fl (6.2-12.0); Monocyte# 0.88 X10^3/uL; Monocyte% 11.4 % (0-10); NRBC Flagged by Analyzer 0 % (0-5); Neutrophil # 3.56 X10^3/uL (2.7-7.7); Neutrophil % 46.2 % (47-70); POSITIVE MORPHOLOGY YES; Platelet Count 164 K/mm3 (150-450); RBC Distribution Width CV 20.1 % (11.6-14.6); RBC Distribution Width SD 67.1 fl (35.1-43.9); Red Blood Count 2.98 M/mm3 (4.2-5.4); White Blood Count 7.7 K/mm3 (4.4-11.0)
[2021-01-29 05:46] LABS: Differential Indicated SCAN CRITERIA MET
[2021-01-29 05:52] LABS: Anion Gap 6 (5-15); BUN 33 mg/dL (7-18); Calcium,Total 7.4 mg/dL (8.5-10.1); Chloride 106 mmol/L (98-107); Creatinine, Serum 1.22 mg/dL (0.55-1.02); EST Glomerular Filtration Rate 45 mL/min (>60); Est Glom Filt Rate - Afr Amer 54 mL/min (>60); Estimated Creatinine Clearance 35.25 ml/min; Glucose 105 mg/dL (74-106); Potassium 3.8 mmol/L (3.5-5.1); Sodium Level 138 mmol/L (136-145)
[2021-01-29 06:31] LABS: Bedside Glucose 100 mg/dL (70-110)
[2021-01-29] MEDS: metFORMIN (XR) 500 MG Tablet 1000 MG PO ×2 (08:27→16:52)
[2021-01-29] MEDS: Tuberculin,Purif.prot.deriv. 50 TU/ML Vial 0.1 ML ID (11:05)
[2021-01-29 13:29] VITALS: BP 120/84; PULSE 78; RESP 16; TEMP 36.3; O2SAT 96
[2021-01-29] MEDS: Nystatin Powder 15gm Bottle 1 APPLIC TOPICAL (16:52)
--- NOTE | 2021-01-29 16:56 | NURSING ---
LEFT ARM HAS REDNESS AND SLIGHT WARMTH. R' C/O DISCOMFORT. DR TRINH ASSESSED. KEFLEX X 7 DAYS.
[2021-01-29] MEDS: Gabapentin 600 MG Tablet PO (21:41)
[2021-01-29] MEDS: Cephalexin 500 MG Capsule PO (21:41)
[2021-01-30 05:00] VITALS: BP 104/52; PULSE 67; RESP 14; TEMP 36.1; O2SAT 99
[2021-01-30] MEDS: hydroCHLOROthiazide 25 MG Tablet PO (05:14)
[2021-01-30] MEDS: Cephalexin 500 MG Capsule PO ×2 (05:14→17:24)
[2021-01-30] MEDS: Doxycycline 100 MG CAPSULE PO ×2 (05:15→17:23)
[2021-01-30] MEDS: Nystatin Powder 15gm Bottle 1 APPLIC TOPICAL ×2 (05:15→13:14)
[2021-01-30] MEDS: Cholecalciferol (VIT D3) 25 MCG TABLET (1,000 UNITS) 100 MCG PO (05:18)
[2021-01-30] MEDS: Levothyroxine 75 MCG Tablet PO (05:18)
[2021-01-30] MEDS: LINAGLIPTIN 5 MG TABLET PO (05:19)
[2021-01-30] MEDS: amLODIPine 5 MG Tablet PO (05:19)
[2021-01-30] MEDS: Senna/Docusate Sodium 1 Tablet PO ×2 (05:19→17:24)
[2021-01-30 06:40] LABS: Bedside Glucose 94 mg/dL (70-110)
[2021-01-30] MEDS: metFORMIN (XR) 500 MG Tablet 1000 MG PO ×2 (08:31→17:23)
[2021-01-30 08:35] VITALS: BP 106/52; PULSE 72
--- NOTE | 2021-01-30 10:39 | CASEMGMT ---
Social Work SW met with pt and completed initial assessment. SW discussed code status with pt and assisted in completing MOLST form. Pt confirms she would like to be DNRCCA with no intubation. MOLST form communication provided to phsician and placed in pt chart. Acute Care RNCM completed palliative screening tool and made referral to [facility]. SW explained medicare benefit to pt and encourgaged pt to contact secondary insurance to ensure copay coverage. Pt and son do not feel pt can return home alone and are hopeful pt can move to an assisted living from TCU. Pt will need evaluated by [facility] for assisted living waiver program. SW to continue to follow to assist with d/c planning. GINA Bazan
--- NOTE | 2021-01-30 13:11 | NURSING ---
Pt up in chair. Laughing and talking. Pleasant. BP remains low but denies feeling sleepy, weak, or lightheaded. Eating and drinking well. Will continue to monitor.
[2021-01-30 13:42] VITALS: BP 89/40; PULSE 107; RESP 18; TEMP 36.8
--- NOTE | 2021-01-30 17:06 | PHA.CONS_ITS ---
Progress Note - Pharmacy Subjective: TCU Admission Objective: Allergies No Known Allergies Allergy (Verified 01/25/21 17:44) Current Medications Generic Name Dose Route Start Last Admin Trade Name Kilo PRN Reason Stop Dose Admin Acetaminophen 1,000 mg 01/28/21 20:13 Acetaminophen 500 Mg Tablet PO Q6H PRN PRN Pain Score 1-10 Amlodipine Besylate 5 mg 01/29/21 06:00 01/30/21 05:19 Amlodipine 5 Mg Tablet PO 5 mg DAILY ROSA Administration Bisacodyl 10 mg 01/28/21 20:13 Bisacodyl 5 Mg Tablet PO DAILY PRN Constipation Cephalexin 500 mg 01/29/21 22:00 01/30/21 05:14 Cephalexin 500 Mg Capsule PO 02/05/21 22:01 500 mg BID ROSA Administration Cholecalciferol 100 mcg 01/29/21 06:00 01/30/21 05:18 Cholecalciferol (Vit D3) 25 Mcg Tablet (1,000 Units) PO 100 mcg DAILY ROSA Administration Doxycycline Monohydrate 100 mg 01/28/21 18:00 01/30/21 05:15 Doxycycline 100 Mg Capsule PO 100 mg BID ROSA Administration Gabapentin 600 mg 01/28/21 22:00 01/29/21 21:41 Gabapentin 600 Mg Tablet PO 600 mg QHS ROSA Administration Hydrochlorothiazide 25 mg 01/29/21 06:00 01/30/21 05:14 Hydrochlorothiazide 25 Mg Tablet PO 25 mg DAILY ROSA Administration Levothyroxine Sodium 75 mcg 01/29/21 06:00 01/30/21 05:18 Levothyroxine 75 Mcg Tablet PO 75 mcg DAILY ROSA Administration Linagliptin 5 mg 01/29/21 06:00 01/30/21 05:19 Linagliptin 5 Mg Tablet PO 5 mg DAILY ROSA Administration Lisinopril 20 mg 01/29/21 06:00 01/30/21 08:34 Lisinopril 20 Mg Tablet PO Not Given DAILY ROSA Metformin HCl 1,000 mg 01/28/21 18:00 01/30/21 08:31 Metformin (Xr) 500 Mg Tablet PO 1,000 mg BID ROSA Administration Metoprolol Tartrate 100 mg 01/29/21 06:00 01/30/21 08:35 Metoprolol Tartrate 100 Mg Tablet PO Not Given DAILY ROSA Nystatin 1 applic 01/29/21 18:00 01/30/21 13:14 Nystatin Powder 15gm Bottle TOPICAL 1 applic BID ROSA Administration Protocol Senna/Docusate Sodium 1 tablet 01/29/21 06:00 01/30/21 05:19 Senna/Docusate Sodium 1 Tablet PO 1 tablet BID ROSA Administration Sodium Chloride 10 - 40 ml 01/28/21 17:18 0.9% Saline Lock 10 Ml Syringe IV UD PRN SALINE FLUSH Tuberculin PPD 0.1 ml 02/05/21 10:00 Tuberculin,Purif.Prot.Deriv. 50 Tu/Ml Vial ID 02/05/21 10:01 X1 ONE Warfarin Sodium 5 mg 01/28/21 17:00 01/29/21 16:52 Warfarin 5 Mg Tablet PO 5 mg MOTUWEFRSA ROSA Administration Warfarin Sodium 7.5 mg 01/31/21 17:00 Warfarin 7.5 Mg Tablet PO SUTH [facility] Problem List (Last Reviewed 01/28/21 @ 20:[address] Cj Loomis MD) Hypothyroidism (Acute) Hypertension (Chronic) Diabetic neuropathy (Acute) Transient ischemic attack (Acute) Diabetes mellitus (Acute) Acute kidney injury (Acute) Atrial fibrillation (Acute) Hypoglycemia (Acute) Hypotension (Acute) Falls (Acute) Dizziness (Acute) Debility (Acute) Vital Signs Temp Pulse Resp BP Pulse Ox 98.2 F 107 H 18 89/40 L 99 01/30/21 13:42 01/30/21 13:42 01/30/21 13:42 01/30/21 13:42 01/30/21 05:00 Oxygen Delivery Method Room Air Weight: 108.2 kg Body Mass Index (BMI) 35.6 Sodium 138 mmol/L (136-145) 01/29/21 05:25 Potassium 3.8 mmol/L (3.5-5.1) 01/29/21 05:25 Chloride 106 mmol/L (98-107) 01/29/21 05:25 Carbon Dioxide 26.0 mmol/L (21.0-32.0) 01/29/21 05:25 Anion Gap 6 (5-15) 01/29/21 05:25 BUN 33 mg/dL (7-18) H 01/29/21 05:25 Creatinine 1.22 mg/dL (0.55-1.02) H 01/29/21 05:25 Est GFR (MDRD) Af Amer 54 mL/min (>60) L 01/29/21 05:25 Est GFR (MDRD) Non-Af 45 mL/min (>60) L 01/29/21 05:25 BUN/Creatinine Ratio 27.0 RATIO (10-20) H 01/29/21 05:25 Glucose 105 mg/dL (74-106) 01/29/21 05:25 Assessment/Plan: 1. Pain: acetaminophen 1000mg PO Q6H PRN pain 1-10. Please continue to monitor for increased pain and PRN usage. *2. Hypertension/atrial fibrillation: metoprolol tartrate 100mg PO daily, lisinopril 20mg PO daily, hydrochlorothiazide 25mg PO daily, amlodipine 5mg PO daily and warfarin 7.5mg PO / and 5mg PO all other days. Please continue to monitor BP (last 89/40), HR (last 107), potassium (last 3.8mmol/L), cough, renal function, swelling, and INR (last 2.1). Please conisder adding hold parameters to blood pressure medications based on last BP of 89/40. Thanks. 3. Prosthetic knee infection: doxycycline 100mg PO BID. Please continue to monitor for S/S of infection. 4. Hypothyroidism: levothyroxine 75mcg PO daily. Please continue to monitor TSH and for S/S of hypo/hyperthyroidism. 5. Diabetes mellitus: metformin XR 1000mg PO BIDCM and linagliptin 5mg PO daily. Please continue to monitor for hypoglycemia, hemoglobin A1c (last 6.5%), glucose (last 105mg/dL) and renal function, 6. Neuropathic pain: gabapentin 600mg PO QHS. Please continue to monitor for pain and renal function. *7. Vitamin D deficiency: cholecalciferol 100mcg PO daily. Please consider ordering a vitamin D level if clinically appropriate. Patient's last level was in 2014. Thanks. Psychotropic Medications: None *Unnecessary Medications: cephalexin 500mg PO BID thru 02/05/21. I did not see a documented indication in the chart for this medication. Please consider adding an indication. Thanks. Bowel Regimen: senna/docusate 1T PO BID and bisacodyl 10mg PO daily PRN constipation. Please continue to monitor for constipation and PRN usage. Date of Note:: 01/30/21
[2021-01-30] MEDS: Gabapentin 600 MG Tablet PO (20:05)
[2021-01-30 22:00] VITALS: PULSE 80; RESP 14; O2SAT 100
[2021-01-31 05:30] VITALS: BP 130/67; PULSE 83; RESP 16; TEMP 36.5; O2SAT 97
[2021-01-31 05:32] VITALS: BP 130/67; PULSE 83
[2021-01-31] MEDS: hydroCHLOROthiazide 25 MG Tablet PO (05:32)
[2021-01-31] MEDS: Senna/Docusate Sodium 1 Tablet PO (05:32)
[2021-01-31] MEDS: LINAGLIPTIN 5 MG TABLET PO (05:32)
[2021-01-31] MEDS: Levothyroxine 75 MCG Tablet PO (05:32)
[2021-01-31] MEDS: Metoprolol Tartrate 100 MG Tablet PO (05:32)
[2021-01-31] MEDS: Cephalexin 500 MG Capsule PO ×2 (05:33→17:39)
[2021-01-31] MEDS: Doxycycline 100 MG CAPSULE PO ×2 (05:33→17:39)
[2021-01-31] MEDS: Nystatin Powder 15gm Bottle 1 APPLIC TOPICAL ×2 (05:33→17:39)
[2021-01-31] MEDS: Cholecalciferol (VIT D3) 25 MCG TABLET (1,000 UNITS) 100 MCG PO (05:33)
[2021-01-31 06:25] LABS: Bedside Glucose 119 mg/dL (70-110)
[2021-01-31 07:58] VITALS: BP 115/60; PULSE 61
[2021-01-31] MEDS: metFORMIN (XR) 500 MG Tablet 1000 MG PO ×2 (08:05→17:39)
[2021-01-31 10:00] VITALS: PULSE 75; O2SAT 97
[2021-01-31 13:21] VITALS: BP 95/49; PULSE 77; RESP 16; TEMP 36.8; O2SAT 99
[2021-01-31 17:30] LABS: International Normalized Ratio 1.5
[2021-01-31] MEDS: Gabapentin 600 MG Tablet PO (21:00)
[2021-02-01 05:00] VITALS: BP 136/70; PULSE 63; RESP 16; TEMP 35.8; O2SAT 99
[2021-02-01 06:25] LABS: Bedside Glucose 94 mg/dL (70-110)
[2021-02-01] MEDS: Cholecalciferol (VIT D3) 25 MCG TABLET (1,000 UNITS) 100 MCG PO (06:25)
[2021-02-01 06:26] VITALS: PULSE 63
[2021-02-01] MEDS: Levothyroxine 75 MCG Tablet PO (06:26)
[2021-02-01] MEDS: hydroCHLOROthiazide 25 MG Tablet PO (06:26)
[2021-02-01] MEDS: Cephalexin 500 MG Capsule PO ×2 (06:26→17:01)
[2021-02-01] MEDS: Metoprolol Tartrate 100 MG Tablet PO (06:26)
[2021-02-01] MEDS: LINAGLIPTIN 5 MG TABLET PO (06:26)
[2021-02-01] MEDS: Doxycycline 100 MG CAPSULE PO ×2 (06:27→17:01)
[2021-02-01] MEDS: Nystatin Powder 15gm Bottle 1 APPLIC TOPICAL ×2 (06:27→17:01)
[2021-02-01] MEDS: metFORMIN (XR) 500 MG Tablet 1000 MG PO ×2 (08:13→17:01)
--- NOTE | 2021-02-01 09:43 | CASEMGMT ---
BIMS and PHQ9 interviews completed on this date for MDS assessment. GINA Bazan
[2021-02-01 14:38] VITALS: BP 124/67; PULSE 75; RESP 18; TEMP 36.7; O2SAT 96
[2021-02-01] MEDS: Gabapentin 600 MG Tablet PO (22:41)
[2021-02-01 22:43] VITALS: PULSE 62; RESP 16; O2SAT 93
[2021-02-02 05:00] VITALS: BP 125/63; PULSE 74; RESP 16; TEMP 36.3; O2SAT 98
[2021-02-02 06:50] LABS: Bedside Glucose 106 mg/dL (70-110)
[2021-02-02 06:57] VITALS: PULSE 74
[2021-02-02] MEDS: Levothyroxine 75 MCG Tablet PO (06:57)
[2021-02-02] MEDS: LINAGLIPTIN 5 MG TABLET PO (06:57)
[2021-02-02] MEDS: Metoprolol Tartrate 100 MG Tablet PO (06:57)
[2021-02-02] MEDS: Nystatin Powder 15gm Bottle 1 APPLIC TOPICAL ×2 (06:58→17:14)
[2021-02-02] MEDS: Cephalexin 500 MG Capsule PO ×2 (06:58→17:12)
[2021-02-02] MEDS: Doxycycline 100 MG CAPSULE PO ×2 (06:58→17:12)
[2021-02-02] MEDS: hydroCHLOROthiazide 25 MG Tablet PO (06:58)
[2021-02-02] MEDS: Cholecalciferol (VIT D3) 25 MCG TABLET (1,000 UNITS) 100 MCG PO (06:59)
[2021-02-02] MEDS: metFORMIN (XR) 500 MG Tablet 1000 MG PO ×2 (09:02→17:13)
[2021-02-02 15:56] VITALS: BP 110/52; PULSE 75; RESP 16; TEMP 36.2; O2SAT 98
[2021-02-02] MEDS: Gabapentin 600 MG Tablet PO (20:44)
[2021-02-03 05:00] VITALS: BP 104/55; PULSE 77; RESP 16; TEMP 519.7; TEMP 967.4; O2SAT 98
[2021-02-03] MEDS: Cholecalciferol (VIT D3) 25 MCG TABLET (1,000 UNITS) 100 MCG PO (05:47)
[2021-02-03] MEDS: Cephalexin 500 MG Capsule PO ×2 (05:47→17:16)
[2021-02-03] MEDS: Nystatin Powder 15gm Bottle 1 APPLIC TOPICAL ×2 (05:48→17:20)
[2021-02-03] MEDS: LINAGLIPTIN 5 MG TABLET PO (05:48)
[2021-02-03] MEDS: Doxycycline 100 MG CAPSULE PO ×2 (05:48→17:16)
[2021-02-03] MEDS: Levothyroxine 75 MCG Tablet PO (05:48)
[2021-02-03 06:41] LABS: Bedside Glucose 110 mg/dL (70-110)
[2021-02-03 07:12] VITALS: BP 108/48; PULSE 67
[2021-02-03 07:13] VITALS: PULSE 67
[2021-02-03] MEDS: metFORMIN (XR) 500 MG Tablet 1000 MG PO ×2 (08:26→17:16)
[2021-02-03 16:00] VITALS: BP 126/69; PULSE 90; RESP 17; TEMP 35.9; O2SAT 96
[2021-02-03] MEDS: Gabapentin 600 MG Tablet PO (21:47)
[2021-02-03 21:52] VITALS: PULSE 79; RESP 14
[2021-02-04 05:23] VITALS: BP 118/49; PULSE 80; RESP 16; TEMP 36.4; O2SAT 96
[2021-02-04 05:24] VITALS: BP 118/49; PULSE 80
[2021-02-04] MEDS: hydroCHLOROthiazide 25 MG Tablet PO (05:24)
[2021-02-04] MEDS: Metoprolol Tartrate 100 MG Tablet PO (05:24)
[2021-02-04] MEDS: Cephalexin 500 MG Capsule PO ×2 (05:25→16:46)
[2021-02-04] MEDS: Nystatin Powder 15gm Bottle 1 APPLIC TOPICAL ×2 (05:25→16:47)
[2021-02-04] MEDS: Senna/Docusate Sodium 1 Tablet PO (05:25)
[2021-02-04] MEDS: Cholecalciferol (VIT D3) 25 MCG TABLET (1,000 UNITS) 100 MCG PO (05:25)
[2021-02-04] MEDS: Levothyroxine 75 MCG Tablet PO (05:26)
[2021-02-04] MEDS: LINAGLIPTIN 5 MG TABLET PO (05:26)
[2021-02-04] MEDS: Doxycycline 100 MG CAPSULE PO ×2 (05:27→16:46)
[2021-02-04 05:51] LABS: International Normalized Ratio 1.8; Prothrombin Time (Protime)PT. 20.5 SECONDS (11.7-14.9)
[2021-02-04 06:46] LABS: Bedside Glucose 112 mg/dL (70-110)
[2021-02-04] MEDS: metFORMIN (XR) 500 MG Tablet 1000 MG PO ×2 (08:27→16:46)
--- NOTE | 2021-02-04 12:29 | CASEMGMT ---
Social Work OTILIO spoke with Camelia at [facility] (phone [phone], fax [phone]) who states that she did speak with pt son and has started the process to assess for the Assisted Living Waiver program. Pt son has submitted Medicaid application to [facility]. There are currently no bed openings in [facility] for the AL waiver. Pt may need to go to nursing facility for a time until something would be available. The two facilities that are available under the waiver program are [facility] and [facility]. OTILIO faxed needed information. OTILIO will continue to follow. GINA Bazan
[2021-02-04 14:15] VITALS: BP 129/68; PULSE 81; RESP 18; TEMP 36.5; O2SAT 99
[2021-02-04] MEDS: Gabapentin 600 MG Tablet PO (20:08)
[2021-02-05 04:51] VITALS: BP 107/52; PULSE 77
[2021-02-05] MEDS: hydroCHLOROthiazide 25 MG Tablet PO (04:51)
[2021-02-05] MEDS: Nystatin Powder 15gm Bottle 1 APPLIC TOPICAL ×2 (04:51→17:43)
[2021-02-05] MEDS: Cephalexin 500 MG Capsule PO ×2 (04:51→17:41)
[2021-02-05] MEDS: Metoprolol Tartrate 100 MG Tablet PO (04:51)
[2021-02-05] MEDS: Doxycycline 100 MG CAPSULE PO ×2 (04:51→17:41)
[2021-02-05] MEDS: Levothyroxine 75 MCG Tablet PO (04:52)
[2021-02-05] MEDS: LINAGLIPTIN 5 MG TABLET PO (04:53)
[2021-02-05] MEDS: Cholecalciferol (VIT D3) 25 MCG TABLET (1,000 UNITS) 100 MCG PO (04:53)
[2021-02-05 05:31] LABS: Absolute Lymphocyte Count 1.37 X10^3/uL (0.83-4.51); Absolute Neutrophil Count 3.3 X10^3/uL (2.0-7.7); Basophil# 0.04 X10^3/uL; Basophil% 0.7 % (0-1); Eosinophils% 1.7 % (0-5); Hematocrit 26.7 % (37-47); Lymphocyte # 1.37 X10^3/ul (0.83-4.51); Lymphocyte % 23.4 % (19-41); Mean Corp Hgb Conc 33.7 g/dL (32-36); Mean Corpuscular Hgb 31.5 pg (27.0-32.0); Mean Corpuscular Volume 93.4 fL (81-99); Mean Platelet Vol. 11.3 fl (6.2-12.0); Monocyte# 0.97 X10^3/uL; Monocyte% 16.6 % (0-10); NRBC Flagged by Analyzer 0 % (0-5); Neutrophil # 3.33 X10^3/uL (2.7-7.7); Neutrophil % 56.9 % (47-70); POSITIVE MORPHOLOGY YES; Platelet Count 208 K/mm3 (150-450); RBC Distribution Width CV 19.9 % (11.6-14.6); RBC Distribution Width SD 68.1 fl (35.1-43.9); Red Blood Count 2.86 M/mm3 (4.2-5.4); White Blood Count 5.9 K/mm3 (4.4-11.0)
[2021-02-05 05:41] LABS: Differential Indicated SCAN CRITERIA MET
[2021-02-05 05:50] LABS: Anion Gap 7 (5-15); BUN 35 mg/dL (7-18); BUN/Creat Ratio 31.8 RATIO (10-20); Calcium,Total 7.9 mg/dL (8.5-10.1); Chloride 103 mmol/L (98-107); EST Glomerular Filtration Rate 50 mL/min (>60); Est Glom Filt Rate - Afr Amer 61 mL/min (>60); Estimated Creatinine Clearance 39.09 ml/min; Glucose 90 mg/dL (74-106); Sodium Level 134 mmol/L (136-145)
[2021-02-05 06:30] LABS: Bedside Glucose 85 mg/dL (70-110)
[2021-02-05 07:35] VITALS: BP 107/82; PULSE 75; RESP 12; TEMP 36.4; O2SAT 97
[2021-02-05] MEDS: metFORMIN (XR) 500 MG Tablet 1000 MG PO ×2 (08:59→17:41)
[2021-02-05] MEDS: Tuberculin,Purif.prot.deriv. 50 TU/ML Vial 0.1 ML ID (12:12)
[2021-02-05 14:40] VITALS: BP 117/68; PULSE 65; RESP 18; TEMP 36; O2SAT 98
[2021-02-05] MEDS: Gabapentin 600 MG Tablet PO (20:48)
[2021-02-05 23:22] VITALS: PULSE 77; RESP 14; O2SAT 96
[2021-02-06 05:33] VITALS: BP 141/59; PULSE 71; RESP 16; TEMP 36.8; O2SAT 95
[2021-02-06 05:34] VITALS: BP 141/59; PULSE 71
[2021-02-06] MEDS: LINAGLIPTIN 5 MG TABLET PO (05:34)
[2021-02-06] MEDS: Doxycycline 100 MG CAPSULE PO ×2 (05:34→17:36)
[2021-02-06] MEDS: Cholecalciferol (VIT D3) 25 MCG TABLET (1,000 UNITS) 100 MCG PO (05:34)
[2021-02-06] MEDS: Metoprolol Tartrate 100 MG Tablet PO (05:34)
[2021-02-06] MEDS: Senna/Docusate Sodium 1 Tablet PO (05:35)
[2021-02-06] MEDS: hydroCHLOROthiazide 25 MG Tablet PO (05:35)
[2021-02-06] MEDS: Levothyroxine 75 MCG Tablet PO (05:35)
[2021-02-06] MEDS: Nystatin Powder 15gm Bottle 1 APPLIC TOPICAL ×2 (05:38→17:39)
[2021-02-06 06:36] LABS: Bedside Glucose 90 mg/dL (70-110)
[2021-02-06] MEDS: metFORMIN (XR) 500 MG Tablet 1000 MG PO ×2 (08:26→17:35)
--- NOTE | 2021-02-06 12:51 | CASEMGMT ---
Social Work Plan of care meeting held today with pt present and son Nader on conference call. Pt is currently receiving PT/OT and progressing with therapies. OTILIO explained that pt is currently here under Medicare benefit and that copay amount begins on day 21 which is 02/17/21. OTILIO also explained conversation with AL Waiver coordinator from [facility] stating that there will not be an AL bed available by 02/17. SW presented options of staying at TCU and paying copay, returning home, and going to a ECF until a bed in [place] became available. Son and pt express understanding and Nader states he will speak to pt and his brothers this evening and notify SW of plans going forward. Pt will continue with treatment plan in TCU at this time. SW will continue to follow for d/c planning. GINA Bazan
[2021-02-06 16:00] VITALS: BP 136/71; PULSE 74; RESP 17; TEMP 36.4; O2SAT 98
[2021-02-06] MEDS: Gabapentin 600 MG Tablet PO (20:26)
[2021-02-07 05:15] VITALS: BP 137/70; PULSE 78; RESP 14; TEMP 36.3; O2SAT 97
[2021-02-07] MEDS: Nystatin Powder 15gm Bottle 1 APPLIC TOPICAL ×2 (05:16→16:41)
[2021-02-07 05:17] VITALS: BP 137/70; PULSE 78
[2021-02-07] MEDS: Metoprolol Tartrate 100 MG Tablet PO (05:17)
[2021-02-07] MEDS: Doxycycline 100 MG CAPSULE PO ×2 (05:17→16:41)
[2021-02-07] MEDS: hydroCHLOROthiazide 25 MG Tablet PO (05:17)
[2021-02-07] MEDS: Cholecalciferol (VIT D3) 25 MCG TABLET (1,000 UNITS) 100 MCG PO (05:18)
[2021-02-07] MEDS: LINAGLIPTIN 5 MG TABLET PO (05:18)
[2021-02-07] MEDS: Levothyroxine 75 MCG Tablet PO (05:18)
[2021-02-07] MEDS: Senna/Docusate Sodium 1 Tablet PO (05:18)
[2021-02-07 05:41] LABS: International Normalized Ratio 2.4; Prothrombin Time (Protime)PT. 25.4 SECONDS (11.7-14.9)
[2021-02-07 06:26] LABS: Bedside Glucose 97 mg/dL (70-110)
[2021-02-07] MEDS: metFORMIN (XR) 500 MG Tablet 1000 MG PO ×2 (08:30→16:41)
--- NOTE | 2021-02-07 11:56 | MDS.RN ---
Information for the mds was obtained from review of the clinical record, interview of resident, staff, and direct observation of resident's care.
[2021-02-07 14:03] VITALS: BP 139/69; PULSE 77; RESP 16; TEMP 36.2; O2SAT 96
[2021-02-07] MEDS: Gabapentin 600 MG Tablet PO (20:53)
[2021-02-08] MEDS: guaiFENesin Dm 10 ML UDC PO (02:20)
[2021-02-08 05:01] VITALS: BP 143/66; PULSE 79; RESP 16; TEMP 36; O2SAT 95
[2021-02-08] MEDS: Cholecalciferol (VIT D3) 25 MCG TABLET (1,000 UNITS) 100 MCG PO (05:03)
[2021-02-08] MEDS: Doxycycline 100 MG CAPSULE PO ×2 (05:03→16:54)
[2021-02-08] MEDS: Senna/Docusate Sodium 1 Tablet PO (05:03)
[2021-02-08] MEDS: LINAGLIPTIN 5 MG TABLET PO (05:03)
[2021-02-08] MEDS: Levothyroxine 75 MCG Tablet PO (05:03)
[2021-02-08 05:04] VITALS: BP 143/66; PULSE 79
[2021-02-08] MEDS: hydroCHLOROthiazide 25 MG Tablet PO (05:04)
[2021-02-08] MEDS: Nystatin Powder 15gm Bottle 1 APPLIC TOPICAL ×2 (05:04→16:56)
[2021-02-08] MEDS: Metoprolol Tartrate 100 MG Tablet PO (05:04)
[2021-02-08 06:21] LABS: Bedside Glucose 109 mg/dL (70-110)
--- NOTE | 2021-02-08 07:21 | NURSING ---
New onset moist cough, runny nose. Afebrile. Lung sounds clear throughout. Pt. states she feels she is getting a cold. Written communication left for this AM regarding new symptoms.
--- NOTE | 2021-02-08 07:44 | RAD_ITS ---
EXAM DESCRIPTION: AP and lateral CHEST CLINICAL HISTORY: 81 years Female, Cough. Cough. COMPARISON: Previous chest obtained on 01/25/2021 FINDINGS: The thorax is intact. The heart and mediastinum appear to be within normal limits. The lungs appear to be well areated without evidence of pneumonic consolidation or pleural effusion. RAD/Chest PA and Lateral IMPRESSION: Normal chest. Electronically Signed: Kvng Buck DO at 9:19 EDT Tel , Service support ,
[2021-02-08] MEDS: metFORMIN (XR) 500 MG Tablet 1000 MG PO ×2 (08:04→16:52)
[2021-02-08] MEDS: Acetaminophen 500 MG Tablet 1000 MG PO (11:01)
[2021-02-08 14:09] VITALS: BP 136/69; PULSE 74; RESP 18; TEMP 36.3; O2SAT 98
[2021-02-08] MEDS: Gabapentin 600 MG Tablet PO (20:28)
[2021-02-09 05:00] VITALS: BP 134/72; PULSE 77; RESP 14; TEMP 37; O2SAT 95
[2021-02-09 06:21] LABS: Bedside Glucose 90 mg/dL (70-110)
[2021-02-09 06:36] VITALS: BP 134/72; PULSE 77
[2021-02-09] MEDS: Doxycycline 100 MG CAPSULE PO ×2 (06:36→17:19)
[2021-02-09] MEDS: Metoprolol Tartrate 100 MG Tablet PO (06:36)
[2021-02-09] MEDS: hydroCHLOROthiazide 25 MG Tablet PO (06:37)
[2021-02-09] MEDS: Cholecalciferol (VIT D3) 25 MCG TABLET (1,000 UNITS) 100 MCG PO (06:37)
[2021-02-09] MEDS: Levothyroxine 75 MCG Tablet PO (06:37)
[2021-02-09] MEDS: LINAGLIPTIN 5 MG TABLET PO (06:37)
[2021-02-09] MEDS: Nystatin Powder 15gm Bottle 1 APPLIC TOPICAL ×2 (06:38→17:19)
[2021-02-09] MEDS: metFORMIN (XR) 500 MG Tablet 1000 MG PO ×2 (09:27→17:19)
[2021-02-09 14:48] VITALS: BP 123/73; PULSE 82; RESP 14; TEMP 36.2; O2SAT 97
[2021-02-09] MEDS: Gabapentin 600 MG Tablet PO (20:08)
[2021-02-10 05:00] VITALS: BP 149/72; PULSE 72; RESP 16; TEMP 35.5; O2SAT 96
[2021-02-10] MEDS: Doxycycline 100 MG CAPSULE PO ×2 (05:52→17:25)
[2021-02-10] MEDS: Levothyroxine 75 MCG Tablet PO (05:52)
[2021-02-10] MEDS: hydroCHLOROthiazide 25 MG Tablet PO (05:52)
[2021-02-10 05:53] VITALS: PULSE 72
[2021-02-10] MEDS: Cholecalciferol (VIT D3) 25 MCG TABLET (1,000 UNITS) 100 MCG PO (05:53)
[2021-02-10] MEDS: Nystatin Powder 15gm Bottle 1 APPLIC TOPICAL ×2 (05:53→17:25)
[2021-02-10] MEDS: LINAGLIPTIN 5 MG TABLET PO (05:53)
[2021-02-10] MEDS: Metoprolol Tartrate 100 MG Tablet PO (05:53)
[2021-02-10 06:26] LABS: Bedside Glucose 84 mg/dL (70-110)
[2021-02-10] MEDS: metFORMIN (XR) 500 MG Tablet 1000 MG PO ×2 (08:37→17:25)
[2021-02-10 14:40] VITALS: BP 170/71; PULSE 77; RESP 16; TEMP 36.3; O2SAT 96
[2021-02-10] MEDS: Gabapentin 600 MG Tablet PO (21:01)
[2021-02-11 05:00] VITALS: BP 132/55; PULSE 81; RESP 16; TEMP 36.1; O2SAT 97
[2021-02-11] MEDS: LINAGLIPTIN 5 MG TABLET PO (05:33)
[2021-02-11] MEDS: Cholecalciferol (VIT D3) 25 MCG TABLET (1,000 UNITS) 100 MCG PO (05:35)
[2021-02-11] MEDS: Levothyroxine 75 MCG Tablet PO (05:35)
[2021-02-11 05:36] VITALS: PULSE 81
[2021-02-11] MEDS: Metoprolol Tartrate 100 MG Tablet PO (05:36)
[2021-02-11] MEDS: Nystatin Powder 15gm Bottle 1 APPLIC TOPICAL ×2 (05:36→17:28)
[2021-02-11] MEDS: Doxycycline 100 MG CAPSULE PO ×2 (05:36→17:25)
[2021-02-11] MEDS: hydroCHLOROthiazide 25 MG Tablet PO (05:36)
[2021-02-11 06:02] LABS: International Normalized Ratio 2.9; Prothrombin Time (Protime)PT. 29.2 SECONDS (11.7-14.9)
[2021-02-11 06:36] LABS: Bedside Glucose 90 mg/dL (70-110)
[2021-02-11] MEDS: metFORMIN (XR) 500 MG Tablet 1000 MG PO ×2 (08:19→17:26)
[2021-02-11 13:48] VITALS: BP 150/76; PULSE 78; RESP 18; TEMP 36; O2SAT 95
--- NOTE | 2021-02-11 14:22 | CASEMGMT ---
Social Work OTILIO spoke with Adolfo at [facility] who states Medicaid application was submitted and additional information provided this morning and case would be reviewed. SW informed Adolfo that pt is likely considering ECF placement at this time. Adolfo will work on case and OTILIO will follow up. Phone call to pt son Nader and updated on above info from [facility]. Nader states he has spoke with pt and determined that pt cannot return home and would like ECF placement. Pt first choice is [facility] and second choice is [facility]. OTILIO met with pt and confirmed that her discharge plan. Pt agreeable to referral to [facility]. OTILIO spoke with [place] at [facility] and they do have beds available. Referral faxed and will await determination if they can accept pt. OTILIO assisted pt in completing HCPOA and Living Will. Pt naming her son Nader as HCPOA. Original given to pt and a copy placed on pt chart. OTILIO will continue to follow for d/c planning. GINA Bazan
--- NOTE | 2021-02-11 14:53 | NURSING ---
Offered patient to walk in the halls at this time. She states she just came back from the [facility] and is having therapy in a while. Does not want to walk now. Encouraged her to call if she would like to later.
[2021-02-11 20:15] VITALS: RESP 18
[2021-02-11] MEDS: Gabapentin 600 MG Tablet PO (21:23)
--- NOTE | 2021-02-12 04:15 | NURSING ---
Presents in bed, awake. Pleasant and cooperative. No distress observed or reported. No c/o pain at this time. States I feel better. No s/sx of anxiety observed or reported at this time. Call light in reach. Denies requests.
[2021-02-12 05:35] VITALS: BP 154/73; PULSE 67
[2021-02-12] MEDS: Levothyroxine 75 MCG Tablet PO (05:35)
[2021-02-12] MEDS: Doxycycline 100 MG CAPSULE PO ×2 (05:35→17:12)
[2021-02-12] MEDS: LINAGLIPTIN 5 MG TABLET PO (05:35)
[2021-02-12] MEDS: Metoprolol Tartrate 100 MG Tablet PO (05:35)
[2021-02-12] MEDS: hydroCHLOROthiazide 25 MG Tablet PO (05:35)
[2021-02-12] MEDS: Nystatin Powder 15gm Bottle 1 APPLIC TOPICAL ×2 (05:36→17:10)
[2021-02-12] MEDS: Cholecalciferol (VIT D3) 25 MCG TABLET (1,000 UNITS) 100 MCG PO (05:37)
[2021-02-12 05:43] VITALS: BP 154/73; PULSE 72; RESP 16; TEMP 36.7; O2SAT 99
[2021-02-12 05:52] LABS: Absolute Lymphocyte Count 2.43 X10^3/uL (0.83-4.51); Absolute Neutrophil Count 2.8 X10^3/uL (2.0-7.7); Basophil# 0.02 X10^3/uL; Basophil% 0.3 % (0-1); Eosinophil# 0.14 X10^3/uL; Eosinophils% 2.2 % (0-5); Hemoglobin 9.4 g/dL (12.0-15.0); Lymphocyte # 2.43 X10^3/ul (0.83-4.51); Lymphocyte % 38.8 % (19-41); Mean Corp Hgb Conc 33.6 g/dL (32-36); Mean Corpuscular Hgb 31.3 pg (27.0-32.0); Mean Corpuscular Volume 93.3 fL (81-99); Mean Platelet Vol. 11.3 fl (6.2-12.0); Monocyte# 0.82 X10^3/uL; Monocyte% 13.1 % (0-10); NRBC Flagged by Analyzer 0 % (0-5); Neutrophil # 2.78 X10^3/uL (2.7-7.7); Neutrophil % 44.5 % (47-70); POSITIVE MORPHOLOGY YES; Platelet Count 263 K/mm3 (150-450); RBC Distribution Width CV 19.2 % (11.6-14.6); RBC Distribution Width SD 65.4 fl (35.1-43.9); White Blood Count 6.3 K/mm3 (4.4-11.0)
[2021-02-12 06:07] LABS: Differential Indicated SCAN CRITERIA MET
[2021-02-12 06:21] LABS: Anisocytosis 1+
[2021-02-12 06:26] LABS: Bedside Glucose 82 mg/dL (70-110)
[2021-02-12 06:27] LABS: Anion Gap 9 (5-15); BUN 30 mg/dL (7-18); BUN/Creat Ratio 30.7 RATIO (10-20); Calcium,Total 7.6 mg/dL (8.5-10.1); Chloride 97 mmol/L (98-107); Creatinine, Serum 0.98 mg/dL (0.55-1.02); EST Glomerular Filtration Rate 58 mL/min (>60); Est Glom Filt Rate - Afr Amer 70 mL/min (>60); Estimated Creatinine Clearance 43.88 ml/min; Glucose 83 mg/dL (74-106); Potassium 3.5 mmol/L (3.5-5.1); Sodium Level 131 mmol/L (136-145)
[2021-02-12] MEDS: metFORMIN (XR) 500 MG Tablet 1000 MG PO ×2 (08:03→17:11)
[2021-02-12] MEDS: Acetaminophen 500 MG Tablet 1000 MG PO (10:39)
[2021-02-12 14:17] VITALS: BP 144/72; PULSE 73; RESP 17; TEMP 35.9; O2SAT 94
--- NOTE | 2021-02-12 16:13 | CASEMGMT ---
Social Work SW placed call to [facility] and determination of acceptance has not been made yet. left with Adolfo at [facility] requesting pending Medicaid number for possible transfer to [facility]. Plan: [facility], skilled: pending acceptance GINA Bazan
--- NOTE | 2021-02-12 18:25 | RAD_ITS ---
STUDY: X-RAY - ABDOMEN/PELVIS REASON FOR EXAM: Female, 81 years old. Diarrhea. TECHNIQUE: Single AP view of the abdomen / pelvis. COMPARISON: None. FINDINGS: Normal visualized lung bases. There is an unremarkable bowel gas pattern. There is no demonstrated free abdominal air. 1 cm calcification of the mid right abdomen could be a right renal stone. The visualized liver, spleen and kidneys are grossly normal in size and morphology. Normal soft tissue structures. There are diffuse degenerative changes of the visualized lumbar spine. RAD/Abdomen Single View IMPRESSION: Unremarkable bowel gas pattern. Possible right renal stone. Electronically Signed: Trace Benedict MD at 18:52 EDT , Service support ,
--- NOTE | 2021-02-12 20:44 | DS.PCM_ITS ---
Providers Date of Admission: 01/28/21 Primary Care Physician: Dr. Jose Cruz Benavides MD Reason For Visit: [facility]ERIA GENERALIZED WEAKNESS Diagnosis Discharge Diagnosis (1) Debility: Status: Acute Code(s): R53.81 - Other malaise (2) Dizziness: Status: Acute Code(s): R42 - Dizziness and giddiness (3) Falls: Status: Acute Code(s): W19.XXXA - Unspecified fall, initial encounter (4) Hypotension: Status: Acute Code(s): I95.9 - Hypotension, unspecified (5) Hypoglycemia: Status: Acute Code(s): E16.2 - Hypoglycemia, unspecified (6) Atrial fibrillation: Status: Acute Code(s): I48.91 - Unspecified atrial fibrillation (7) Acute kidney injury: Status: Acute Code(s): N17.9 - Acute kidney failure, unspecified (8) Diabetes mellitus: Status: Acute Code(s): E11.9 - Type 2 diabetes mellitus without complications (9) Transient ischemic attack: Status: Acute Code(s): G45.9 - Transient cerebral ischemic attack, unspecified (10) Diabetic neuropathy: Status: Acute Code(s): E11.40 - Type 2 diabetes mellitus with diabetic neuropathy, unspecified (11) Hypertension: Status: Chronic Code(s): I10 - Essential (primary) hypertension (12) Hypothyroidism: Status: Acute Code(s): E03.9 - Hypothyroidism, unspecified Medications at Discharge Home Medications gabapentin 600 mg PO QHS 04/23/15 amlodipine 5 mg PO DAILY 02/17/20 levothyroxine 75 mcg PO DAILY 02/17/20 metformin 1,000 mg PO BID 02/17/20 cholecalciferol (vitamin D3) 100 mcg PO DAILY 10/01/20 sitagliptin 25 mg PO DAILY 10/01/20 metoprolol tartrate 100 mg PO DAILY #30 tablet 10/20/20 biotin 2,500 mcg PO DAILY 01/25/21 doxycycline hyclate 100 mg PO BID 01/25/21 hydrochlorothiazide 25 mg PO DAILY 01/25/21 lisinopril 20 mg PO DAILY 01/25/21 warfarin 5 mg PO MOTUWEFRSA 01/25/21 warfarin 7.5 mg PO SUTH 01/25/21 acetaminophen 1,000 mg PO Q6H PRN PRN #0 tab 02/12/21 warfarin [Jantoven] 7.5 mg PO DINNER #0 tab 02/12/21 Hospital Course Operations None Procedures None Summary of Care Provided Minutes Spent on Discharge: 35 Hospital Course: 81 year old female with below past medical history hospitalized for dizziness, falls secondary to new onset atrial fibrillation, acute kidney injury, hypotension, hypoglycemia, admitted to TCU with debility, here for rehabilitation, strengthening, prior to discharge to higher level of care than home alone. Discharge to [facility] 02/17/2021, Skilled PT/OT. Physical Exam Const alert and oriented x3 General Appearance: cooperative HEENT normocephalic Eyes PERRL and EOMs intact bilaterally Neck supple, no JVD and no carotid bruits Resp normal respiratory effort, normal air movement and clear to auscultation bilaterally Cardio regular rate and regular rhythm GI normal to inspection, nondistended, normoactive bowel sounds, non-tender and non-distended Extremity normal capillary refill General Extremity: Negative for edema Skin no rashes or lesions noted General Skin Exam: no breakdown Psych affect normal Appearance: appropriate Medical Records Data Medical Nutrition Assessment Dietitian: Nutrition Therapy Diagnosis Start: 01/29/21 09:55 Freq: Status: Active Protocol: Document 02/06/21 14:02 BAUTISTA (Rec: 02/06/21 14:02 [facility] [id number]) Nutrition Malnutrition Evidence of Malnutrition Exists No Intake Problem Decreased Nutrient Needs (specify) Etiology for fat and sodium related to cardiac history and issues with edema Signs/Symptoms as evidenced by need for therapeutic diet Status Active Problem Recommendation Dietitian Recommendations/Changes Will continue Carbohydrate- Controlled/Cardiac, sodium- restricted diet. Consider fluid restriction if wt gain/issues w/ edema continue as needed. Weight / BMI Weight Weight: 111.221 kg Body Mass Index (BMI) 35.6 ABG / Lab / Microbiology Data Result Diagrams: 02/12/21 05:23 02/12/21 05:23 Laboratory: Laboratory Results - last 24 hr 02/12/21 05:23: WBC 6.3, RBC 3.00 L, Hgb 9.4 L, Hct 28.0 L, MCV 93.3, MCH 31.3, MCHC 33.6, RDW Std Deviation 65.4 H, RDW Coeff of Shania 19.2 H, Plt Count 263, MPV 11.3, Immature Gran % (Auto) 1.100 H, Neut % (Auto) 44.5 L, Lymph % (Auto) 38.8, Riley % (Auto) 13.1 H, Eos % (Auto) 2.2, Baso % (Auto) 0.3, Absolute Neuts (auto) 2.8, Absolute Lymphs (auto) 2.43, Nucleated RBC % 0, Anisocytosis 1+ 02/12/21 05:23: Sodium 131 L, Potassium 3.5, Chloride 97 L, Carbon Dioxide 25.0, Anion Gap 9, BUN 30 H, Creatinine 0.98, Estim Creat Clear Calc 43.88, Est GFR (MDRD) Af Amer 70, Est GFR (MDRD) Non-Af 58 L, BUN/Creatinine Ratio 30.7 H, Glucose 83, Calcium 7.6 L 02/12/21 06:17: POC Glucose 82 Microbiology: Microbiology 02/08/21 08:00 Mucosa - Nose SARS-CoV-2 Antigen (Rapid) - Final Radiography Diagnostic Testing: Radiology Impression KUB X-Ray 02/12/21 18:25 IMPRESSION: Unremarkable bowel gas pattern. Possible right renal stone. Electronically Signed: Trace Benedict MD at 18:52 EDT , Service support , D/C Instructions Discharge Diet: No restrictions Discharge Activity: Return to Normal Activity Weight Bearing Status: Weight bearing as tolerated Call your doctor if you observe: Fever of 101 or Higher, Inability to urinate, Inability to have a bowel movement, Shortness of breath, Dizziness, Fainting spells, Swelling in the ankles and Chest pain Additional Instructions: Discharge to [facility] 02/17/2021, Skilled PT/OT. Meaningful Use Info Meaningful Use Diagnoses (Choose all that apply): None applicable Discharge Plan Admission Admit Date/Time: 01/28/21 15:50 Primary Reason for Your Visit: Debility Attending Provider: Cj Loomis Chi Primary Care Provider: Jose Cruz Benavides Instructions Additional Instructions / Restrictions: Discharge to [facility] 02/17/2021, Skilled PT/OT. Discharge Orders/Prescriptions Prescriptions: New acetaminophen 500 mg Tablet 1,000 mg PO Q6H PRN PRN (Reason: Pain Score 1-10) Qty: 0 RF: 0 warfarin [Jantoven] 7.5 mg Tablet 7.5 mg PO DINNER Qty: 0 RF: 0 Continued gabapentin 300 MG capsule 600 mg PO QHS RF: 0 levothyroxine 75 MCG tablet 75 mcg PO DAILY RF: 0 metformin 500 MG tablet extended release 24 hr 1,000 mg PO BID RF: 0 sitagliptin 25 MG tablet 25 mg PO DAILY RF: 0 cholecalciferol (vitamin D3) 50 MCG capsule 100 mcg PO DAILY RF: 0 metoprolol tartrate 100 MG tablet 100 mg PO DAILY Qty: 30 RF: 0 hydrochlorothiazide 25 mg Tablet 25 mg PO DAILY RF: 0 doxycycline hyclate 100 mg capsule 100 mg PO BID RF: 0 No Action amlodipine 5 MG tablet 5 mg PO DAILY RF: 0 lisinopril 20 mg Tablet 20 mg PO DAILY RF: 0 warfarin 5 mg tablet 7.5 mg PO SUTH RF: 0 warfarin 5 mg tablet 5 mg PO MOTUWEFRSA RF: 0 biotin 2,500 mcg Tablet 2,500 mcg PO DAILY RF: 0 Referrals / Follow Up: Jose Cruz Benavides MD [Primary Care Provider] - Disposition Disposition (needs filled in before D/C Order can be placed): [facility]
--- NOTE | 2021-02-12 20:51 | TREXTCAR_ITS ---
Diet 02/04/21 15:07 Diet: Cardiac - Heart Healthy Dietary Modifications:: Consistent Carbohydrate Cardiac / Heart Healthy Sodium Restricted Is pt able to select menu?: Yes Diet Comments: don't give milk to drink, crm of wheat, tosin salad or apple juice on tray Routine Orders/Code Status Suppository Type: Dulcolax 10mg Suppository Frequency: Daily PRN Routine Lab Work: INR Code Status: DNRCC-A (No intubation.) Wound(s) under left breast: Wound Type: excoriation Dressing Change: will order nystatin left forearm: Wound Type: healing cellulitis rt elbow area: Wound Type: scab Dressing Change: [employer] left hip/flank area: Wound Type: scratch Therapies Weight Bearing: Weight bearing as tolerated Extremity Affected:: Bilateral Lower Physical Therapy: Eval and Treat Occupational Therapy: Eval and Treat Problem/Diagnosis (1) Debility: Status: Acute (2) Dizziness: Status: Acute (3) Falls: Status: Acute (4) Hypotension: Status: Acute (5) Hypoglycemia: Status: Acute (6) Atrial fibrillation: Status: Acute (7) Acute kidney injury: Status: Acute (8) Diabetes mellitus: Status: Acute (9) Transient ischemic attack: Status: Acute (10) Diabetic neuropathy: Status: Acute (11) Hypertension: Status: Chronic (12) Hypothyroidism: Status: Acute Allergies/Procedures Done in Hospital Allergies No Known Allergies Allergy (Verified 01/25/21 17:44) Procedures: None Type of Care/Length of Stay Estimated LOS: More Than 30 Days Type of Care Needed: Skilled Rehab Potential: Fair Prognosis: Fair Additional Orders/Day of Discharge Day of Discharge: 02/17/21 Dietary and Speech Recommendations Dietitian Recommendations/Changes: Will continue Carbohydrate- Controlled/Cardiac, sodium-restricted diet. Consider fluid restriction if wt gain/issues w/ edema continue as needed. Discharge Plan Admission Admit Date/Time: 01/28/21 15:50 Primary Reason for Your Visit: Debility Attending Provider: Cj Loomis Chi Primary Care Provider: Jose Cruz Benavides Instructions Additional Instructions / Restrictions: Discharge to [facility] 02/17/2021, Skilled PT/OT. Discharge Orders/Prescriptions Prescriptions: New acetaminophen 500 mg Tablet 1,000 mg PO Q6H PRN PRN (Reason: Pain Score 1-10) Qty: 0 RF: 0 warfarin [Jantoven] 7.5 mg Tablet 7.5 mg PO DINNER Qty: 0 RF: 0 Continued gabapentin 300 MG capsule 600 mg PO QHS RF: 0 levothyroxine 75 MCG tablet 75 mcg PO DAILY RF: 0 metformin 500 MG tablet extended release 24 hr 1,000 mg PO BID RF: 0 sitagliptin 25 MG tablet 25 mg PO DAILY RF: 0 cholecalciferol (vitamin D3) 50 MCG capsule 100 mcg PO DAILY RF: 0 metoprolol tartrate 100 MG tablet 100 mg PO DAILY Qty: 30 RF: 0 hydrochlorothiazide 25 mg Tablet 25 mg PO DAILY RF: 0 doxycycline hyclate 100 mg capsule 100 mg PO BID RF: 0 No Action amlodipine 5 MG tablet 5 mg PO DAILY RF: 0 lisinopril 20 mg Tablet 20 mg PO DAILY RF: 0 warfarin 5 mg tablet 7.5 mg PO SUTH RF: 0 warfarin 5 mg tablet 5 mg PO MOTUWEFRSA RF: 0 biotin 2,500 mcg Tablet 2,500 mcg PO DAILY RF: 0 Referrals / Follow Up: Jose Cruz Benavides MD [Primary Care Provider] - Disposition Disposition (needs filled in before D/C Order can be placed): [facility]
[2021-02-12] MEDS: Gabapentin 600 MG Tablet PO (22:01)
[2021-02-12] MEDS: Loperamide 2 MG Capsule PO (22:08)
[2021-02-13] MEDS: hydroCHLOROthiazide 25 MG Tablet PO (05:04)
[2021-02-13] MEDS: Doxycycline 100 MG CAPSULE PO ×2 (05:04→17:38)
[2021-02-13] MEDS: Cholecalciferol (VIT D3) 25 MCG TABLET (1,000 UNITS) 100 MCG PO (05:04)
[2021-02-13] MEDS: LINAGLIPTIN 5 MG TABLET PO (05:04)
[2021-02-13] MEDS: Levothyroxine 75 MCG Tablet PO (05:04)
[2021-02-13] MEDS: Nystatin Powder 15gm Bottle 1 APPLIC TOPICAL ×2 (05:05→17:38)
[2021-02-13 05:06] VITALS: BP 143/69; PULSE 62
[2021-02-13] MEDS: Metoprolol Tartrate 100 MG Tablet PO (05:06)
[2021-02-13 05:13] VITALS: BP 143/69; PULSE 62; RESP 16; TEMP 35.8; O2SAT 99
[2021-02-13 06:31] LABS: Bedside Glucose 89 mg/dL (70-110)
[2021-02-13] MEDS: metFORMIN (XR) 500 MG Tablet 1000 MG PO ×2 (08:16→17:37)
[2021-02-13 14:46] VITALS: BP 117/68; PULSE 76; RESP 16; TEMP 36; O2SAT 99
[2021-02-13 20:30] VITALS: PULSE 63; RESP 16; O2SAT 97
[2021-02-13] MEDS: Gabapentin 600 MG Tablet PO (21:32)
[2021-02-14 05:00] VITALS: BP 157/78; PULSE 71; RESP 16; TEMP 35.4; O2SAT 97
[2021-02-14] MEDS: Cholecalciferol (VIT D3) 25 MCG TABLET (1,000 UNITS) 100 MCG PO (05:29)
[2021-02-14 05:30] VITALS: PULSE 64
[2021-02-14] MEDS: Metoprolol Tartrate 100 MG Tablet PO (05:30)
[2021-02-14] MEDS: Levothyroxine 75 MCG Tablet PO (05:30)
[2021-02-14] MEDS: LINAGLIPTIN 5 MG TABLET PO (05:30)
[2021-02-14] MEDS: hydroCHLOROthiazide 25 MG Tablet PO (05:32)
[2021-02-14] MEDS: Doxycycline 100 MG CAPSULE PO ×2 (05:32→17:19)
[2021-02-14] MEDS: Nystatin Powder 15gm Bottle 1 APPLIC TOPICAL ×2 (05:32→17:21)
[2021-02-14 06:01] LABS: International Normalized Ratio 2.9; Prothrombin Time (Protime)PT. 29.1 SECONDS (11.7-14.9)
[2021-02-14 06:31] LABS: Bedside Glucose 80 mg/dL (70-110)
[2021-02-14] MEDS: metFORMIN (XR) 500 MG Tablet 1000 MG PO ×2 (08:49→17:19)
[2021-02-14 10:00] VITALS: RESP 16
--- NOTE | 2021-02-14 12:53 | CASEMGMT ---
Addendum entered by Denise Yates 02/14/21 14:48: Social Work Level of Care results received and faxed to [facility]. GINA Bazan Original Note: Social Work SW spoke with Larisa at [facility] and they confirmed they are able to accept pt on Thursday at Skilled level of care. Phone call to Adolfo at [facility] and pending medicaid number is [id number]. SW updated pt son and he plans to transport pt to [facility] on Thursday at 1000. PASSRR completed and LOC submitted. Orders faxed to [facility]. Pt updated and agreeable to discharge plan. Pt will need a negative Covid test prior to discharge. Nursing made aware. Discharge Date: 02/17/21 Discharge Disposition: [facility], Skilled with pending medicaid secondary. GINA Bazan
[2021-02-14 14:59] VITALS: BP 115/64; PULSE 86; RESP 18; TEMP 36.4; O2SAT 96
[2021-02-14] MEDS: Gabapentin 600 MG Tablet PO (21:24)
[2021-02-15 05:00] VITALS: BP 149/65; PULSE 78; RESP 16; TEMP 35.6; O2SAT 97
[2021-02-15] MEDS: Cholecalciferol (VIT D3) 25 MCG TABLET (1,000 UNITS) 100 MCG PO (06:07)
[2021-02-15] MEDS: Levothyroxine 75 MCG Tablet PO (06:07)
[2021-02-15] MEDS: Doxycycline 100 MG CAPSULE PO ×2 (06:07→16:50)
[2021-02-15] MEDS: LINAGLIPTIN 5 MG TABLET PO (06:07)
[2021-02-15] MEDS: Nystatin Powder 15gm Bottle 1 APPLIC TOPICAL ×2 (06:10→16:52)
[2021-02-15 06:11] VITALS: PULSE 75
[2021-02-15] MEDS: hydroCHLOROthiazide 25 MG Tablet PO (06:11)
[2021-02-15] MEDS: Metoprolol Tartrate 100 MG Tablet PO (06:11)
[2021-02-15 06:26] LABS: Bedside Glucose 84 mg/dL (70-110)
[2021-02-15] MEDS: metFORMIN (XR) 500 MG Tablet 1000 MG PO ×2 (09:17→16:50)
--- NOTE | 2021-02-15 11:31 | CASEMGMT ---
Social Work BIMS(15) and PHQ-9(3) completed on this date for [facility]. RACHEL Bal
--- NOTE | 2021-02-15 11:33 | CASEMGMT ---
Addendum entered by Nat Steven 02/15/21 14:43: Social Work: Son Nader is here, asked if SW can come be a witness for pt to sign documents needed for Medicaid. OTILIO was able to witness signatures. Tatianna then called from [facility] inquiring about the Medicaid application. OTILIO put Tatianna on the phone w/son Nader to clarify. RACHEL Bal Original Note: Negative COVID results faxed to [facility]. RACHEL Bal
--- NOTE | 2021-02-15 13:16 | MDS.RN ---
Pain interview for britney 02/17/21 completed.
[2021-02-15 14:24] VITALS: BP 128/76; PULSE 68; RESP 18; TEMP 36.4; O2SAT 97
[2021-02-15 20:00] VITALS: PULSE 69; RESP 14; O2SAT 99
[2021-02-15] MEDS: Gabapentin 600 MG Tablet PO (22:20)
[2021-02-15] MEDS: Loperamide 2 MG Capsule PO (22:27)
[2021-02-16 05:51] VITALS: BP 135/67; PULSE 63; RESP 14; TEMP 36.1; O2SAT 98
[2021-02-16] MEDS: Doxycycline 100 MG CAPSULE PO ×2 (05:55→17:15)
[2021-02-16] MEDS: Cholecalciferol (VIT D3) 25 MCG TABLET (1,000 UNITS) 100 MCG PO (05:55)
[2021-02-16 05:56] VITALS: BP 135/67; PULSE 63
[2021-02-16] MEDS: LINAGLIPTIN 5 MG TABLET PO (05:56)
[2021-02-16] MEDS: Metoprolol Tartrate 100 MG Tablet PO (05:56)
[2021-02-16] MEDS: hydroCHLOROthiazide 25 MG Tablet PO (05:56)
[2021-02-16] MEDS: Levothyroxine 75 MCG Tablet PO (05:56)
[2021-02-16] MEDS: Nystatin Powder 15gm Bottle 1 APPLIC TOPICAL ×2 (05:57→17:17)
[2021-02-16 06:31] LABS: Bedside Glucose 84 mg/dL (70-110)
[2021-02-16] MEDS: metFORMIN (XR) 500 MG Tablet 1000 MG PO ×2 (08:09→17:15)
[2021-02-16 10:00] VITALS: PULSE 74; RESP 18; O2SAT 96
[2021-02-16 14:13] VITALS: BP 120/59; PULSE 69; RESP 18; TEMP 36.3; O2SAT 99
[2021-02-16] MEDS: Gabapentin 600 MG Tablet PO (21:22)
[2021-02-17 05:33] VITALS: BP 123/65; PULSE 65
[2021-02-17] MEDS: hydroCHLOROthiazide 25 MG Tablet PO (05:33)
[2021-02-17] MEDS: Metoprolol Tartrate 100 MG Tablet PO (05:33)
[2021-02-17] MEDS: Levothyroxine 75 MCG Tablet PO (05:33)
[2021-02-17] MEDS: LINAGLIPTIN 5 MG TABLET PO (05:33)
[2021-02-17] MEDS: Doxycycline 100 MG CAPSULE PO (05:33)
[2021-02-17] MEDS: Nystatin Powder 15gm Bottle 1 APPLIC TOPICAL (05:34)
[2021-02-17] MEDS: Cholecalciferol (VIT D3) 25 MCG TABLET (1,000 UNITS) 100 MCG PO (05:34)
[2021-02-17 06:25] LABS: Bedside Glucose 98 mg/dL (70-110)
[2021-02-17 07:28] VITALS: BP 123/65; PULSE 65; RESP 12; TEMP 36.2; O2SAT 98
[2021-02-17] MEDS: metFORMIN (XR) 500 MG Tablet 1000 MG PO (08:28)
[2021-02-17 09:45] VITALS: BP 115/58; PULSE 81; RESP 18; TEMP 36; O2SAT 99
--- NOTE | 2021-02-17 09:59 | NURSING ---
Called report to Pauline at [facility].
[2021-02-17 10:00] VITALS: PULSE 81; RESP 18; O2SAT 99
== END 2021-02-17 10:30 | disposition skilled nursing facility (03) | DRG 310 ==
PROVIDERS: Admitting Provider Family Medicine Geriatric Medicine; PCP Family Medicine; Visit Provider Family Medicine Geriatric Medicine
DX: I48.91 Unspecified atrial fibrillation (principal); E11.40 Type 2 diabetes mellitus with diabetic neuropathy, unspecified; I10 Essential (primary) hypertension; E03.9 Hypothyroidism, unspecified; E55.9 Vitamin D deficiency, unspecified; T84.54XD Infection and inflammatory reaction due to internal left knee prosthesis, subsequent encounter; T84.53XD Infection and inflammatory reaction due to internal right knee prosthesis, subsequent encounter; Y79.2 Prosthetic and other implants, materials and accessory orthopedic devices associated with adverse incidents; Z91.14 Patient's other noncompliance with medication regimen; Z86.73 Personal history of transient ischemic attack (TIA), and cerebral infarction without residual deficits; Z79.899 Other long term (current) drug therapy; Z87.891 Personal history of nicotine dependence; R29.6 Repeated falls
CPT/HCPCS: 36415; 71046; 74018; 80048; 82962; 85025; 85610; 87426; 97110; 97116; 97162; 97166; 97530; 97535; 97802

== ENCOUNTER → 2021-03-20 05:00 | Outpatient (REF) | payer MEDICARE, SELFPAY ==
[2021-03-20 06:43] LABS: Hematocrit 28.5 % (37-47); Hemoglobin 9.7 g/dL (12.0-15.0); Mean Corpuscular Hgb 33.3 pg (27.0-32.0); Mean Corpuscular Volume 97.9 fL (81-99); Platelet Count 187 K/mm3 (150-450); RBC Distribution Width CV 16.1 % (11.6-14.6); RBC Distribution Width SD 57.1 fl (35.1-43.9); Red Blood Count 2.91 M/mm3 (4.2-5.4); White Blood Count 9.5 K/mm3 (4.4-11.0)
[2021-03-20 06:53] LABS: International Normalized Ratio 2.3; Prothrombin Time (Protime)PT. 24.4 SECONDS (11.7-14.9)
[2021-03-20 06:59] LABS: Anion Gap 9 (5-15); BUN 37 mg/dL (7-18); BUN/Creat Ratio 29.1 RATIO (10-20); Calcium,Total 8.1 mg/dL (8.5-10.1); Chloride 102 mmol/L (98-107); Creatinine, Serum 1.27 mg/dL (0.55-1.02); EST Glomerular Filtration Rate 43 mL/min (>60); Est Glom Filt Rate - Afr Amer 52 mL/min (>60); Glucose 67 mg/dL (74-106); Potassium 4.5 mmol/L (3.5-5.1); Sodium Level 134 mmol/L (136-145)
== END ==
LOC: OLS.WHLEAS 05:00
PROVIDERS: PCP Family Medicine; Visit Provider Family Medicine
DX: I48.91 Unspecified atrial fibrillation (principal); I50.30 Unspecified diastolic (congestive) heart failure; N17.9 Acute kidney failure, unspecified; R54 Age-related physical debility; M62.81 Muscle weakness (generalized); R26.2 Difficulty in walking, not elsewhere classified; E11.40 Type 2 diabetes mellitus with diabetic neuropathy, unspecified
CPT/HCPCS: 36415; 80048; 85027; 85610

== ENCOUNTER → 2021-04-10 05:00 | Outpatient (REF) | payer MEDICARE, MEDICAID, SELFPAY ==
[2021-04-10 09:16] LABS: INR Fingerstick 3.3; Prothrombin Time Fingerstick 36.5 SEC (11.9-14.4)
== END ==
LOC: OLS.WHLEAS 05:00
PROVIDERS: PCP Family Medicine; Visit Provider Family Medicine
DX: I48.91 Unspecified atrial fibrillation (principal)
CPT/HCPCS: 36416; 85610

== ENCOUNTER → 2021-04-17 05:00 | Outpatient (REF) | payer MEDICARE, MEDICAID, SELFPAY ==
[2021-04-17 08:37] LABS: Hematocrit 24.2 % (37-47); Hemoglobin 8.3 g/dL (12.0-15.0); Mean Corp Hgb Conc 34.3 g/dL (32-36); Mean Corpuscular Hgb 33.3 pg (27.0-32.0); Mean Corpuscular Volume 97.2 fL (81-99); Mean Platelet Vol. 12.8 fl (6.2-12.0); Platelet Count 181 K/mm3 (150-450); RBC Distribution Width CV 16.3 % (11.6-14.6); RBC Distribution Width SD 56.2 fl (35.1-43.9); Red Blood Count 2.49 M/mm3 (4.2-5.4); White Blood Count 8.5 K/mm3 (4.4-11.0)
[2021-04-17 08:50] LABS: Anion Gap 11 (5-15); BUN 58 mg/dL (7-18); BUN/Creat Ratio 26.2 RATIO (10-20); Calcium,Total 7.9 mg/dL (8.5-10.1); Chloride 106 mmol/L (98-107); Creatinine, Serum 2.21 mg/dL (0.55-1.02); EST Glomerular Filtration Rate 23 mL/min (>60); Est Glom Filt Rate - Afr Amer 27 mL/min (>60); Glucose 75 mg/dL (74-106); Potassium 4.6 mmol/L (3.5-5.1); Sodium Level 141 mmol/L (136-145)
[2021-04-17 09:17] LABS: International Normalized Ratio 2.8; Prothrombin Time (Protime)PT. 28.9 SECONDS (11.7-14.9)
== END ==
LOC: OLS.WHLEAS 05:00
PROVIDERS: PCP Family Medicine; Visit Provider Family Medicine
DX: E11.40 Type 2 diabetes mellitus with diabetic neuropathy, unspecified (principal); I48.91 Unspecified atrial fibrillation; I50.30 Unspecified diastolic (congestive) heart failure; N17.9 Acute kidney failure, unspecified; R54 Age-related physical debility; M62.81 Muscle weakness (generalized)
CPT/HCPCS: 36415; 80048; 85027; 85610

== ENCOUNTER → 2021-04-24 05:00 | Outpatient (REF) | payer MEDICARE, MEDICAID, SELFPAY ==
[2021-04-24 14:31] LABS: INR Fingerstick 3.3; Prothrombin Time Fingerstick 35.9 SEC (11.9-14.4)
== END ==
LOC: OLS.WHLEAS 05:00
PROVIDERS: PCP Family Medicine; Visit Provider Family Medicine
DX: I48.91 Unspecified atrial fibrillation (principal); I50.30 Unspecified diastolic (congestive) heart failure; N17.9 Acute kidney failure, unspecified; R54 Age-related physical debility; M62.81 Muscle weakness (generalized); R26.2 Difficulty in walking, not elsewhere classified
CPT/HCPCS: 36416; 85610

== ENCOUNTER 2021-04-29 09:29 | Inpatient (IN) | payer MEDICARE, MEDICAID, SELFPAY ==
[2021-04-29] VITALS (26 sets, daily range): BP systolic 67–110; BP diastolic 21–77; PULSE 83–116; RESP 11–18; TEMP 36.3–38.1; O2SAT 90–100; BMI 37.5; BMI 37.2
[2021-04-29] MEDS: 0.9% Normal Saline 1,000 ML 999 ML IV ×2 (10:00→11:45)
[2021-04-29 10:42] LABS: Absolute Lymphocyte Count 1.35 X10^3/uL (0.83-4.51); Absolute Neutrophil Count 12.5 X10^3/uL (2.0-7.7); Basophil# 0.02 X10^3/uL; Basophil% 0.1 % (0-1); Hematocrit 22.1 % (37-47); Lymphocyte # 1.35 X10^3/ul (0.83-4.51); Lymphocyte % 9.3 % (19-41); Mean Corp Hgb Conc 36.2 g/dL (32-36); Mean Corpuscular Hgb 33.2 pg (27.0-32.0); Mean Corpuscular Volume 91.7 fL (81-99); Mean Platelet Vol. 13.2 fl (6.2-12.0); Monocyte% 3.5 % (0-10); NRBC Flagged by Analyzer 0 % (0-5); Neutrophil # 12.45 X10^3/uL (2.7-7.7); Neutrophil % 86.2 % (47-70); Platelet Count 122 K/mm3 (150-450); RBC Distribution Width CV 15.8 % (11.6-14.6); Red Blood Count 2.41 M/mm3 (4.2-5.4); White Blood Count 14.5 K/mm3 (4.4-11.0)
[2021-04-29] MEDS: Ceftriaxone 1 GM/50 ML BAG IV (10:45)
[2021-04-29] MEDS: Acetaminophen 500 MG Tablet 1000 MG PO (10:55)
[2021-04-29 10:56] LABS: Anion Gap 8 (5-15); BUN 70 mg/dL (7-18); BUN/Creat Ratio 24.6 RATIO (10-20); Calcium,Total 7.6 mg/dL (8.5-10.1); Chloride 103 mmol/L (98-107); Creatinine, Serum 2.84 mg/dL (0.55-1.02); EST Glomerular Filtration Rate 17 mL/min (>60); Est Glom Filt Rate - Afr Amer 20 mL/min (>60); Estimated Creatinine Clearance 15.14 ml/min; Glucose 111 mg/dL (74-106); Potassium 5.4 mmol/L (3.5-5.1); Sodium Level 138 mmol/L (136-145)
[2021-04-29 11:03] LABS: Mucous, Urine 0 SEEN /hpf (<or=2+); Red Blood Cells-Urine 0 SEEN /hpf (0-5); White Blood Cells 0 SEEN /hpf (0-5)
[2021-04-29 11:05] LABS: Color, Urine Yellow (Yellow); Glucose, Dipstick Normal (Normal); Ketone-Dipstick Negative (Negative); Leukocyte Esterase-Dipstick Negative /ul (Negative); Nitrite-Dipstick Negative (Negative); Occult Blood-Urine 10 /ul (Negative); Protein-Dipstick Negative (Negative); Specific Gravity, Urine 1.015 (1.002-1.030); Urine Bilirubin Dipstick Negative (Negative); Urine Clarity Clear (Clear); Urine Urobilinogen Normal (Normal)
--- NOTE | 2021-04-29 11:05 | RAD_ITS ---
STUDY: X-RAY CHEST REASON FOR EXAM: Female, 81 years old. Cough TECHNIQUE: Single AP portable view of the chest. COMPARISON: Comparison is made with prior study dated 02/08/2021. FINDINGS: EKG electrodes are seen. Mild degree of increased markings at the right lung base suggestive of early right basilar infiltrate. There is elevation of the right hemidiaphragm. Partial blunting of the right costophrenic angle. There is borderline cardiomegaly. Normal mediastinum and virgen. Normal visualized pulmonary arteries. There is atherosclerotic calcification of the aortic arch with tortuosity. There are diffuse degenerative changes of the visualized thoracic spine. Normal visualized ribs, clavicles, and shoulders. There is no demonstrated abnormality of the visualized soft tissue structures of the upper abdomen. RAD/Chest 1 View (Portable) IMPRESSION: Mild degree of increased markings at the right lung base suggestive of early infiltrate. There is elevation of the right hemidiaphragm. Electronically Signed: Nghia Daniels MD at 11:40 EDT , Service support ,
[2021-04-29 11:10] LABS: Bacteria RARE /hpf (None Seen); Hyaline Cast 0-5 SEEN /lpf (0-5); Squamous Epithelial Cells - UA 0-5 SEEN /hpf (5-10)
[2021-04-29 11:19] LABS: Lactic Acid 2.6 mmol/L (0.4-1.9)
--- NOTE | 2021-04-29 11:30 | ED.RN ---
remains hypotensive. dr aware. fluids place on pressure bag. .
--- NOTE | 2021-04-29 11:55 | ED.RN ---
bp continued to drop. dr at bedside. second liter of lfuid ordered. placed on pump for rapid bolus.
--- NOTE | 2021-04-29 13:12 | ED.RN ---
central line setup at bedside as well as levophed. holding due to some improvement in bp and map>65.
[2021-04-29 14:08] LABS: International Normalized Ratio 3.6
[2021-04-29 14:09] LABS: Partial Thromboplast Time 71.8 Seconds (24.1-36.2)
[2021-04-29 14:35] LABS: Reflex Lactate? Y
[2021-04-29 14:49] LABS: CPK Total, Creatine Kinase 270 U/L (26-192)
--- NOTE | 2021-04-29 15:00 | ED.RN ---
dr maria present hold levothed until central line per dr maria.
--- NOTE | 2021-04-29 15:20 | PCM.HP.STD ---
HPI - General General Date of Admission: 04/29/21 Date of Service: 04/29/21 Chief Complaint: Mental status change HPI Narrative OG STEIN, is a 81 F who presented from [facility] to the emergency department [facility] on 04/29/2021 with mental status changes. Upon my examination she is currently alone but evidently per discussion with the ER physician her son was here earlier and gave most of her history. Per the son she evidently gets urinary tract infections quite easily and has been uroseptic in the past. He stated that the nursing facility noted her mental status had been diminishing the last 1 to 2 days and she spiked a fever with a T-max of 101 at the nursing facility and therefore she was sent to the emergency department as there was concern for infection at that point. She evidently has had been having some issues with hypotension that medication adjustments have been made for her. Upon my arrival to the room the patient is alert and oriented to self, month, year, and president but unclear of her current location. I asked her if she has been feeling well and she said no and when I asked her how she said I do not know, but I just have not and she was not able to elaborate any further. In the emergency department her initial temperature was 100.5 she was tachycardic and she had hypotension with blood pressures as low as 67/41 with her highest being 96/62. With her hypotension she was given 3 L fluid bolus which is 30 cc/kg body weight and she was persistently hypotensive and therefore a left IJ was placed for pressors. She had 2 small peripheral IVs that were somewhat tenuous. Respiratory rate was 17 and her oxygen saturations were 95% on room air. Her CBC revealed a leukocytosis with a count of 14.5, and anemia with a hemoglobin of 8 which is slightly lower than her baseline and therefore a stool guaiac was performed and was positive for heme. Her platelets were 122,000 abnormal for her. She had a left shift 86.2% neutrophils. Her INR was 3.6 and she is on Coumadin at baseline. Her BMP shows hyperkalemia with a potassium of 5.4 and elevated BUN at 70 and an elevated creatinine at 2.84. Her baseline serum creatinine appears to be 1.1-1.4. Her initial lactic acid is elevated at 2.6 but normalized with fluid boluses. Her CK was elevated at 270. Her EKG was unremarkable for any ischemic changes. Her chest x-ray showed mild increased markings at the lung base on the right. Her urine is unimpressive. In the emergency department she was given 3 L of IV fluids, a central line was placed, Levophed was started and she was started on empiric antibiotics with Vanco and Zosyn. She will be admitted to the intensive care unit for further care. FOR[facility], [facility] Medical History Atrial fibrillation Debility Deep vein thrombosis Diabetic neuropathy Falls Hx-TIA (transient ischemic attack) Hypertension Hypothyroidism Infected prosthetic knee joint Mild diastolic dysfunction Obesity Osteoarthritis Stage 3b chronic kidney disease Stasis dermatitis of both legs Transient ischemic attack Type 2 diabetes mellitus Vitamin D deficiency Medical History no medical history no medical history Home Medications levothyroxine 75 mcg PO DAILY 02/17/20 [History Last Taken 04/28/21] metformin 1,000 mg PO BID 02/17/20 [History Last Taken 04/28/21] acetaminophen 1,000 mg PO Q6H PRN 04/29/21 [History Last Taken 04/28/21 16:45] cholecalciferol (vitamin D3) 50 mcg PO DAILY 04/29/21 [History Last Taken 04/28/21] doxycycline hyclate 100 mg PO DAILY 04/29/21 [History Last Taken 04/28/21] furosemide 40 mg PO DAILY 04/29/21 [History Last Taken 04/28/21] furosemide [Lasix] 20 mg PO DAILY 04/29/21 [History Last Taken 04/28/21] gabapentin 600 mg PO QHS 04/29/21 [History Last Taken 04/28/21] lisinopril 10 mg PO DAILY 04/29/21 [History Last Taken 04/28/21] metoprolol tartrate 25 mg PO BID 04/29/21 [History Last Taken 04/28/21] sitagliptin [Januvia] 25 mg PO DAILY 04/29/21 [History Last Taken 04/28/21] warfarin 4 mg PO DAILY 04/29/21 [History Last Taken 04/28/21] Allergy/AdvReac Type Severity Reaction Status Date / Time No Known Allergies Allergy Verified 01/25/21 17:44 Family History Other Cancer Heart disease Surgical History H/O colectomy History of bilateral knee replacement History of cholecystectomy Social History household members: none Smoking Status: Former smoker alcohol intake: never substance use type: does not use what type of physical activity do you participate in: none ROS ROS Narrative Review of systems was unable to be obtained. When I started reviewing systems with the patient she said I do not know for every single question. Review of Systems ROS Unobtainable: due to mental status Vital Signs Vital Signs Vital Signs: 04/29/21 09:30 04/29/21 10:18 04/29/21 10:41 Temperature 100.5 F H 100.4 F H Temperature Source Oral Oral Pulse Rate 116 H 101 H 105 H Respiratory Rate 16 18 16 Respiratory Effort Normal Respiratory Pattern Normal Blood Pressure 87/46 L 89/70 L 86/75 L Blood Pressure Mean 59 76 78 Pulse Ox 100 97 97 Oxygen Delivery Method Room Air Room Air 04/29/21 10:45 04/29/21 11:15 04/29/21 11:30 Temperature Temperature Source Pulse Rate 109 H 94 104 H Respiratory Rate 18 16 16 Respiratory Effort Respiratory Pattern Blood Pressure 72/21 L 74/48 L 82/33 L Blood Pressure Mean 38 56 49 Pulse Ox 94 95 95 Oxygen Delivery Method Room Air Room Air Room Air 04/29/21 11:54 04/29/21 11:56 04/29/21 12:15 Temperature 99.1 F 99.1 F 99.1 F Temperature Source Oral Oral Oral Pulse Rate 91 112 H 95 Respiratory Rate 16 16 16 Respiratory Effort Respiratory Pattern Blood Pressure 67/40 L 67/40 L 75/35 L Blood Pressure Mean 49 49 48 Pulse Ox 94 96 97 Oxygen Delivery Method Room Air Room Air Room Air 04/29/21 13:04 04/29/21 13:34 04/29/21 14:07 Temperature 98.9 F 97.7 F L 98.8 F Temperature Source Oral Core Core Pulse Rate 114 H 90 92 Respiratory Rate 16 16 12 Respiratory Effort Respiratory Pattern Blood Pressure 88/75 L 82/44 L 84/48 L Blood Pressure Mean 79 56 60 Pulse Ox 97 96 97 Oxygen Delivery Method Room Air Room Air Room Air 04/29/21 14:15 Temperature 98.8 F Temperature Source Core Pulse Rate 90 Respiratory Rate 14 Respiratory Effort Respiratory Pattern Blood Pressure 90/54 L Blood Pressure Mean 66 Pulse Ox 98 Oxygen Delivery Method Room Air Weight Weight: 112 kg Body Mass Index (BMI) 37.5 Physical Exam Const alert and no apparent distress Constitutional Narrative: Obese elderly white female lying in bed, alert, oriented to self, month, year, POTUS but not current location and patient was unable to give me any meaningful history with regards to her current illness General Appearance: cooperative HEENT normocephalic, head/scalp atraumatic, hearing grossly normal bilaterally, moist oral mucous membranes and oropharynx normal HEENT Narrative: Upper dentures in place, no lower dentures in place at this time, Mallampati 3, no thrush, no oral lesions Mouth: oral and palatal mucosa normal Eyes PERRL and EOMs intact bilaterally Eyes Narrative: Conjunctiva are mildly pale, no scleral icterus Neck no lymphadenopathy, supple, no JVD and no carotid bruits Neck Narrative: Trachea midline, short thick neck, no thyroid enlargement or nodules noted Resp normal respiratory effort, no retractions, no use of accessory muscles and clear to auscultation bilaterally Resp Narrative: Distant lung sounds secondary to body habitus Auscultation: Negative for crackles, rales, rhonchi or wheezes Cardio S1 normal heart sound, S2 normal heart sound, no murmurs, no rub, no gallops, no clicks and no JVD Cardio Narrative: Irregularly irregular rhythm with a normal rate, patient did have a short episode of SVT with a maximal rate of 122 while I was evaluating her but reverted back to a rate of 80, heart tones are distant secondary to body habitus GI normal to inspection, nondistended, normoactive bowel sounds, soft to palpation, non-tender and non-distended Extremity Extremity Narrative: Bilateral lower extremity edema, soft pitting of 2+ up to her groin, no cyanosis or clubbing Peripheral Pulses: Yes pulses 2+ throughout Skin skin turgor normal, no jaundice, no petechiae and no mottling Skin Narrative: Erythema and mild drainage between the third and fourth digit of bilateral feet, yeast infection noted vaginally and at her pannus, skin is pale Neuro CN's II-XII intact bilaterally, moves all extremities and no focal motor deficits Neuro Narrative: Significant generalized weakness but no focal deficits, speech is normal but responses are delayed Sensorium / Orientation: awake, alert, oriented to person and oriented to time Speech: speech normal Psych Psych Narrative: Affect is slightly flat Results Lab / Micro Data Attestation: I reviewed the patient's lab results. Result Diagrams: 04/29/21 10:30 04/29/21 10:30 Labs: Laboratory Results - last 24 hr 04/29/21 10:30: WBC 14.5 H, RBC 2.41 L, Hgb 8.0 L, Hct 22.1 L, MCV 91.7, MCH 33.2 H, MCHC 36.2 H, RDW Std Deviation 51.0 H, RDW Coeff of Shania 15.8 H, Plt Count 122 L, MPV 13.2 H, Immature Gran % (Auto) 0.900, Neut % (Auto) 86.2 H, Lymph % (Auto) 9.3 L, Ellis % (Auto) 3.5, Eos % (Auto) 0.0, Baso % (Auto) 0.1, Absolute Neuts (auto) 12.5 H, Absolute Lymphs (auto) 1.35, Nucleated RBC % 0 04/29/21 10:30: Sodium 138, Potassium 5.4 H, Chloride 103, Carbon Dioxide 27.0, Anion Gap 8, BUN 70 H, Creatinine 2.84 H, Estim Creat Clear Calc 15.14, Est GFR (MDRD) Af Amer 20 L, Est GFR (MDRD) Non-Af 17 L, BUN/Creatinine Ratio 24.6 H, Glucose 111 H, Calcium 7.6 L 04/29/21 10:30: Lactic Acid 2.6 H* 04/29/21 10:30: PT 35.0 H, INR 3.6, APTT 71.8 H 04/29/21 10:30: Total Creatine Kinase 270 H 04/29/21 10:45: Urine Color Yellow, Urine Clarity Clear, Urine pH 5.0, Ur Specific [place] 1.015, Urine Protein Negative, Urine Glucose (UA) Normal, Urine Ketones Negative, Urine Occult Blood 10 H, Urine Nitrite Negative, Urine Bilirubin Negative, Urine Urobilinogen Normal, Ur Leukocyte Esterase Negative, Urine RBC 0 SEEN, Urine WBC 0 SEEN, Ur Squamous Epith Cells 0-5 SEEN, Urine Bacteria RARE, Hyaline Casts 0-5 SEEN, Urine Mucus 0 SEEN Micro: Microbiology 04/29/21 13:52 Stool Stool Occult Blood (AMBROCIO) - Final Occult Blood Positive 04/29/21 10:35 Nasal Secretion SARS-CoV-2 Antigen (Rapid) - Final Radiology Impression Chest X-Ray 04/29/21 11:05 IMPRESSION: Mild degree of increased markings at the right lung base suggestive of early infiltrate. There is elevation of the right hemidiaphragm. Electronically Signed: Nghia Daniels MD at 11:40 EDT , Service support , Assessment & Plan Assessment/Plan (1) Supratherapeutic INR: (2) Metabolic encephalopathy: (3) Lactic acidosis: (4) Hyperkalemia: (5) Acute anemia: (6) Chronic anemia: (7) Heme positive stool: (8) Leukocytosis: (9) Septic shock: PLAN: Septic shock (fever, leukocytosis, lactic acidosis, tachycardia, mental status change, hypotension refractory to fluid resuscitation) -Etiology is unclear at this time--> doubt pulmonary infection, UA is unremarkable, possible skin sources -Patient is already received 30 cc/kg fluid bolus with 3 L in the emergency department -Left IJ has been placed -Pressors have been initiated -We will continue IV fluids at a lower rate is to avoid volume overload since she has been fluid resuscitated -Pancultures pending -Empiric antibiotics with Vanco and Zosyn -Check MRSA PCR -Check Legionella and strep pneumo urine antigens -Check respiratory panel -Covid negative -Hold home Lasix, lisinopril, metoprolol -Consult critical care medicine Hemoccult positive stools in the setting of supratherapeutic INR -No sofia bleeding -Hemoccult was positive in the emergency department -Repeat hemoglobin this evening -Transfuse for hemoglobin less than 7 -Hold Coumadin -No reversal agents at this time -Consider GI consult Lactic acidosis -See above Acute on chronic anemia -Hemoccult positive as above -Hold Coumadin -Chronic anemia likely related to chronic disease and renal issues -Repeat hemoglobin this evening Supratherapeutic INR -Coumadin on hold -Repeat INR in a.m. -On Coumadin for atrial fibrillation and history of DVT VALERIA on CKD stage IIIa -Likely related to ischemic ATN with hypotension -Follow after fluid resuscitation and consider further work-up if refractory to increased perfusion with pressors and IV fluids -Serum creatinine appears to be 1.1-1.4 at baseline -Hold home Lasix, lisinopril -CK is mildly elevated at 270--> will repeat in a.m. Hyperkalemia -Mild at 5.4 -No changes on EKG -Repeat BMP and assess for changes in a.m. DM-2 -Hold home oral agents -SSI with moderate dose sliding scale -Accu-Cheks every 6 History of PAF/DVT -Hold home metoprolol with hypotension -Monitor for RVR with pressor use -Hold Coumadin with supratherapeutic INR and Hemoccult positive stools -Check a.m. INR -Telemetry Diabetic neuropathy -Continue gabapentin Anasarca -Suspect patient likely has obstructive sleep apnea that is not treated and possible PAH -Echo was obtained 01/25/2021 and showed an EF of 50 to 55% with stage I diastolic dysfunction and mild left atrial enlargement--> RV was assessed at normal at that time -Hold Lasix at this time -May be related to malnutrition as well DVT prophylaxis -SCDs -Patient is fully anticoagulated with a supratherapeutic INR at this time CODE STATUS -DNR CCA no intubation
[2021-04-29 15:31] LABS: Lactic Acid 1.2 mmol/L (0.4-1.9)
--- NOTE | 2021-04-29 15:32 | RAD_ITS ---
STUDY: X-RAY CHEST REASON FOR EXAM: Female, 81 years old. Central line placement TECHNIQUE: Frontal view COMPARISON: 04/29/2021. FINDINGS: Left-sided venous line likely at the jugular/subclavian junction. The lungs are expanded. Mild basilar atelectasis. Normal size heart. Normal mediastinum and virgen. Normal visualized pulmonary arteries. Normal visualized aortic arch and descending thoracic aorta. Degenerative changes of the thoracic spine. Degenerative changes of the shoulders. There is no demonstrated abnormality of the visualized soft tissue structures of the upper abdomen. RAD/CXR for Line Placement IMPRESSION: Basilar atelectasis. Electronically Signed: Hiram Ross DO at 16:48 EDT Tel [phone], Service support ,
--- NOTE | 2021-04-29 15:33 | EX.ED.DYSGE1 ---
HPI History of Present Illness Chief Complaint: Fever Narrative Narrative: Patient is an 81-year-old [facility] long-term states that she will get urinary tract infections quite easily and has become uroseptic in the past. They state her mental status seem to be diminishing in the last 1 to 2 days and spiked a fever of 101 at the [facility]. Therefore with concern for infection patient was sent in for evaluation. Patient reports feeling overall tired/fatigued but otherwise has no focal symptoms such as cough abdominal pain or dysuria PFSH PFSH Medical History Atrial fibrillation Debility Deep vein thrombosis Diabetic neuropathy Falls Hx-TIA (transient ischemic attack) Hypertension Hypothyroidism Infected prosthetic knee joint Mild diastolic dysfunction Obesity Osteoarthritis Stage 3b chronic kidney disease Stasis dermatitis of both legs Transient ischemic attack Type 2 diabetes mellitus Vitamin D deficiency Medical History no medical history Home Medications levothyroxine 75 mcg PO DAILY 02/17/20 [History Last Taken 04/28/21] metformin 1,000 mg PO BID 02/17/20 [History Last Taken 04/28/21] acetaminophen 1,000 mg PO Q6H PRN 04/29/21 [History Last Taken 04/28/21 16:45] cholecalciferol (vitamin D3) 50 mcg PO DAILY 04/29/21 [History Last Taken 04/28/21] doxycycline hyclate 100 mg PO DAILY 04/29/21 [History Last Taken 04/28/21] furosemide 40 mg PO DAILY 04/29/21 [History Last Taken 04/28/21] furosemide [Lasix] 20 mg PO DAILY 04/29/21 [History Last Taken 04/28/21] gabapentin 600 mg PO QHS 04/29/21 [History Last Taken 04/28/21] lisinopril 10 mg PO DAILY 04/29/21 [History Last Taken 04/28/21] metoprolol tartrate 25 mg PO BID 04/29/21 [History Last Taken 04/28/21] sitagliptin [Januvia] 25 mg PO DAILY 04/29/21 [History Last Taken 04/28/21] warfarin 4 mg PO DAILY 04/29/21 [History Last Taken 04/28/21] Allergy/AdvReac Type Severity Reaction Status Date / Time No Known Allergies Allergy Verified 01/25/21 17:44 Family History Other Cancer Heart disease Surgical History H/O colectomy History of bilateral knee replacement History of cholecystectomy Social History household members: none Smoking Status: Former smoker alcohol intake: never substance use type: does not use what type of physical activity do you participate in: none ROS ROS ED Constitutional Constitutional ED: Reports chills; Denies fever(s) ENT ENT ED: Denies sore throat Cardiovascular Cardiovascular: Denies chest pain Respiratory/Chest Respiratory/Chest: Denies cough or dyspnea Gastrointestinal Gastrointestinal: Denies abdominal pain, nausea or vomiting Genitourinary Genitourinary ED: Denies dysuria Musculoskeletal Musculoskeletal: Denies myalgias Integumentary Denies rash Neurologic Neurologic: Reports weakness Hematologic/Lymphatic Hematologic/Lymphatic: Reports easy bleeding and easy bruising EXAM Physical Exam Const Vital Signs: 04/29/21 09:30 04/29/21 10:18 04/29/21 10:41 Temperature 100.5 F H 100.4 F H Temperature Source Oral Oral Pulse Rate 116 H 101 H 105 H Respiratory Rate 16 18 16 Respiratory Effort Normal Respiratory Pattern Normal Blood Pressure 87/46 L 89/70 L 86/75 L Blood Pressure Mean 59 76 78 Pulse Ox 100 97 97 Oxygen Delivery Method Room Air Room Air 04/29/21 10:45 04/29/21 11:15 04/29/21 11:30 Temperature Temperature Source Pulse Rate 109 H 94 104 H Respiratory Rate 18 16 16 Respiratory Effort Respiratory Pattern Blood Pressure 72/21 L 74/48 L 82/33 L Blood Pressure Mean 38 56 49 Pulse Ox 94 95 95 Oxygen Delivery Method Room Air Room Air Room Air 04/29/21 11:54 04/29/21 11:56 04/29/21 12:15 Temperature 99.1 F 99.1 F 99.1 F Temperature Source Oral Oral Oral Pulse Rate 91 112 H 95 Respiratory Rate 16 16 16 Respiratory Effort Respiratory Pattern Blood Pressure 67/40 L 67/40 L 75/35 L Blood Pressure Mean 49 49 48 Pulse Ox 94 96 97 Oxygen Delivery Method Room Air Room Air Room Air 04/29/21 13:04 04/29/21 13:34 04/29/21 14:07 Temperature 98.9 F 97.7 F L 98.8 F Temperature Source Oral Core Core Pulse Rate 114 H 90 92 Respiratory Rate 16 16 12 Respiratory Effort Respiratory Pattern Blood Pressure 88/75 L 82/44 L 84/48 L Blood Pressure Mean 79 56 60 Pulse Ox 97 96 97 Oxygen Delivery Method Room Air Room Air Room Air Positive well nourished, well developed and obese General Appearance ED: well developed Nutritional Appearance: obese HEENT Reports dry mucous membranes Mouth ED: Yes dry mucous membranes Mouth: dry mucous membranes Eyes PERRL and EOMs intact bilaterally General Eye ED: Yes pale conjunctiva Neck supple and no JVD Chest Wall palpation of chest normal Resp normal respiratory effort and clear to auscultation bilaterally Cardio Rate: other Other Details: Irregularly irregular rhythm with regular rate consistent with past medical history of atrial fibrillation GI normal to inspection, nondistended, normoactive bowel sounds, non-tender, non-distended and no masses GI Narrative: No voluntary guarding no rigidity no pulsatile mass Auscultation: normoactive bowel sounds Palpation: soft Narrative: Patient has some swelling along the left labia and bruising at the site but no palpable mass to suggest a Bartholin cyst/abscess Rectal exam shows nonbleeding nonthrombosed hemorrhoids with good rectal tone and stool that is mucousy brown in color but Hemoccult positive Extremity Extremity Narrative: +4 pitting edema to the bilateral lower extremities that is equal and symmetric Neuro Neuro Narrative: Patient's mental status is diminished but she will awake to voice with a GCS of 14 and no focal neurologic deficits Psych mental status grossly normal Skin Skin Narrative: Skin turgor is increased. Patient has cutaneous candidiasis changes in the inguinal regions but no obvious changes to suggest secondary infection such as Genesis's gangrene MDM MDM MDM Narrative Medical decision making narrative: Patient presented to the ER febrile and was hypotensive. Son states the patient's been having difficulty with low blood pressure for quite some time. However as she is febrile today there is concerned that it is due to an infectious process. With septic changes on vital signs she had blood cultures obtained and was started on Rocephin as the history is most concerning for UTI. Urine only showed rare bacteria and x-ray suggested pneumonia so she was also given vancomycin and Zosyn. Patient's kidney function has increased from 1.38 at the end of March to 2.84 today indicating acute kidney injury. She was given 3 L of fluid per septic protocol but her blood pressure remained hypotensive. Therefore central line was placed to start vasopressors and patient will be admitted to the ICU for further care. Patient was minimally responsive to 3 L of fluid and therefore needed a central line placed. The neck was cleaned and prepped in sterile fashion cleaned with chlorhexidine. Ultrasound was used to visualize the internal jugular. The vessel was cannulated and there was return of dark red nonpulsatile blood. The guidewire threaded without difficulty and after the central line was placed each port isai and flushed well. Patient tolerated the procedure well without complication Confirmation x-ray shows that the line may be in the inappropriate vessel. However there is also a chance that patient has a redundant SVC. A blood gas was obtained which shows a PO2 of 25 indicating that the line is present in a venous structure and is therefore safe to use. Lab Data Attestation: I reviewed the patient's lab results. Labs: Laboratory Results - last 24 hr 04/29/21 04/29/21 04/29/21 10:30 10:30 10:30 WBC 14.5 H RBC 2.41 L Hgb 8.0 L Hct 22.1 L MCV 91.7 MCH 33.2 H MCHC 36.2 H RDW Std Deviation 51.0 H RDW Coeff of Shania 15.8 H Plt Count 122 L MPV 13.2 H Immature Gran % (Auto) 0.900 Neut % (Auto) 86.2 H Lymph % (Auto) 9.3 L [place] % (Auto) 3.5 Eos % (Auto) 0.0 Baso % (Auto) 0.1 Absolute Neuts (auto) 12.5 H Absolute Lymphs (auto) 1.35 Nucleated RBC % 0 PT INR APTT Sodium 138 Potassium 5.4 H Chloride 103 Carbon Dioxide 27.0 Anion Gap 8 BUN 70 H Creatinine 2.84 H Estim Creat Clear Calc 15.14 Est GFR (MDRD) Af Amer 20 L Est GFR (MDRD) Non-Af 17 L BUN/Creatinine Ratio 24.6 H Glucose 111 H Lactic Acid 2.6 H* Calcium 7.6 L Total Creatine Kinase Urine Color Urine Clarity Urine pH Ur Specific [place] Urine Protein Urine Glucose (UA) Urine Ketones Urine Occult Blood Urine Nitrite Urine Bilirubin Urine Urobilinogen Ur Leukocyte Esterase Urine RBC Urine WBC Ur Squamous Epith Cells Urine Bacteria Hyaline Casts Urine Mucus 04/29/21 04/29/21 04/29/21 10:30 10:30 10:45 WBC RBC Hgb Hct MCV MCH MCHC RDW Std Deviation RDW Coeff of Shania Plt Count MPV Immature Gran % (Auto) Neut % (Auto) Lymph % (Auto) [place] % (Auto) Eos % (Auto) Baso % (Auto) Absolute Neuts (auto) Absolute Lymphs (auto) Nucleated RBC % PT 35.0 H INR 3.6 APTT 71.8 H Sodium Potassium Chloride Carbon Dioxide Anion Gap BUN Creatinine Estim Creat Clear Calc Est GFR (MDRD) Af Amer Est GFR (MDRD) Non-Af BUN/Creatinine Ratio Glucose Lactic Acid Calcium Total Creatine Kinase 270 H Urine Color Yellow Urine Clarity Clear Urine pH 5.0 Ur Specific [place] 1.015 Urine Protein Negative Urine Glucose (UA) Normal Urine Ketones Negative Urine Occult Blood 10 H Urine Nitrite Negative Urine Bilirubin Negative Urine Urobilinogen Normal Ur Leukocyte Esterase Negative Urine RBC 0 SEEN Urine WBC 0 SEEN Ur Squamous Epith Cells 0-5 SEEN Urine Bacteria RARE Hyaline Casts 0-5 SEEN Urine Mucus 0 SEEN Radiography Diagnostic Testing: Clinical Impression(s) from Imaging Studies Chest X-Ray 04/29/21 11:05 IMPRESSION: Mild degree of increased markings at the right lung base suggestive of early infiltrate. There is elevation of the right hemidiaphragm. Electronically Signed: Nghia Daniels MD at 11:40 EDT , Service support , Critical Care Time Critical Care Time: Yes Critical care time (excluding procedures): - (Please note critical care time of 37 minutes) Discharge Plan Dx/Rx/DC Orders Clinical Impression: Septicemia, Acute kidney injury, Supratherapeutic INR, Pneumonia, Anemia, GI (gastrointestinal bleed), Atrial fibrillation, chronic Disposition Disposition: Acute Care Hospital [facility]
--- NOTE | 2021-04-29 16:11 | ED.RN ---
dr holloway consulting dr maria prior to pt going to floor concerning central line
[2021-04-29 16:36] LABS: VBG BASE EXCESS -2 mmol/L (-1.0-3.5); VBG Bicarbonate 23 mmol/L (22-26); VBG PO2 25 mmHg (25-40); VBG SO2 43 % (50-70); VBG TCO2 25 mmol/L (23-33); VBG pCO2 40.3 mmHg (41-51); VBG pH 7.37 (7.32-7.42)
--- NOTE | 2021-04-29 16:56 | ED.RN ---
VEINS GAS RUN OFF THE LINE PLACED BY DR ZAMORA. VERIFIED TO BE VEINOUS BY NEMO MAY AND NOAH. DR KENNEDY AND NOAH ORDRED TO START LEOPHED
--- NOTE | 2021-04-29 17:13 | CON.PCM.CC_ITS ---
Assessment & Plan Assessment/Plan (1) Septicemia: (2) Acute kidney injury: (3) Supratherapeutic INR: (4) Atrial fibrillation, chronic: (5) Heme positive stool: (6) Acute anemia: (7) Diabetes mellitus type 2 in obese: PLAN: RECOMMENDATIONS: 1. Continue with empiric antibiotics 2. Okay to use central line for my opinion 3. Potential bolus with LR if necessary 4. Initiate pressor agents. Titrate to MAP of [address] of the spine pending culture results IMPRESSIONS: 1. Septic shock of unclear etiology Patient's UA is not suggestive of a source. Chest x-ray is once again not impressive. Patient does have some erythema and edema of the lower extremities. Patient received fluid resuscitation with good response, but still had to have pressors placed. Patient is being treated with vancomycin and Zosyn. Pancultures have been sent. Hold baseline antihypertensives and diuretics for now. 2. Acute on chronic anemia with heme positive stools in the setting of a supratherapeutic INR Patient is on Coumadin at baseline. Patient does not require a transfusion at this time, but will need to follow closely. Hemoccult stool was positive, but no active clinical bleeding noted. We will hold on active reversal. Transfuse for hemoglobin less than 7. 3. Acute kidney injury on CKD stage IIIa Patient has had elevation of creatinine over the last year. Patient is on lisinopril, Lasix and likely prerenal deficiency given problem #1. Hold Lasix and lisinopril. Continue to monitor closely. CPK is not impressive as an etiology. Patient does have some mild hyperkalemia, but this may be secondary to metabolic acidosis. 4. Diabetes mellitus type 2/paroxysmal A. fib/DVT/diabetic neuropathy/anasarca Complicates care, management, recovery and prognosis. Blood pressure medications have been held along with oral glycemic's pending acute condition. Patient is a DNR Comfort Care arrest without intubation. Recent echocardiogram showed an EF of 50 to 55% with stage I diastolic dysfunction. TIME: 33 minutes critical care time spent addressing patient's septic shock, an emia, acute kidney injury, line placement, review of all data and collaboration with care team (4:45 PM to 5:25 PM) HPI Consult Data Date of Consult: 04/29/21 HPI Narrative HPI Narrative: OG STEIN is a 81 F, with past medical history listed b lester, who presents to [facility] on 04/29/2021 secondary to change in mental status. Patient is a care home resident and reportedly has had diminishing mental status over the last 1 to 2 days. Patient had spiked a fever of 101 degrees Fahrenheit, so she was sent to the ER for an evaluation. Patient overall had reported fatigue, but otherwise had responded that she had no other complaints such as abdominal pain, cough, shortness of breath or dysuria. In the ER, patient was noted to have a temperature of 100.5 ?F, tachycardic at 116 bpm and hypotensive at 87/46. Patient was saturating well on room air. Patient received fluid resuscitation with some improvement in blood pressure, but still hypotensive. A central line was placed, but there was concern for misplacement, so pressors were not started initially. ER physician had reported nonpulsatile blood. A blood gas was obtained from the line showing venous return. Patient was initiated on pressors and then transferred to the intensive care unit. In the ER, laboratory data was significant for leukocytosis of 14.5, hemoglobin of 8, potassium of 5.4, BUN of 70 and creatinine of 2.8. Lactate was elevated at 2.6 and INR was elevated at 3.6. UA was unremarkable and chest x- ray showed a mild elevation of the right hemidiaphragm. Patient was examined in the ER. Dark nonpulsatile blood was noted. ABG was r eviewed and I agreed that pressors could be initiated. Patient has been placed on empiric antibiotics and received fluid resuscitation. Patient appears to be confused and pale. Patient is not able to provide much medical information. Patient had forgotten that her son was at her bedside when she first arrived to the ER. Patient denies any symptomatology at this time except for chronic back pain that is exacerbated by the bed. Baseline mental status is not clear at this time. [facility] Medical History Atrial fibrillation Debility Deep vein thrombosis Diabetic neuropathy Falls Hx-TIA (transient ischemic attack) Hypertension Hypothyroidism Infected prosthetic knee joint Mild diastolic dysfunction Obesity Osteoarthritis Stage 3b chronic kidney disease Stasis dermatitis of both legs Transient ischemic attack Type 2 diabetes mellitus Vitamin D deficiency Medical History no medical history Home Medications levothyroxine 75 mcg PO DAILY 02/17/20 [History Last Taken 04/28/21] metformin 1,000 mg PO BID 02/17/20 [History Last Taken 04/28/21] acetaminophen 1,000 mg PO Q6H PRN 04/29/21 [History Last Taken 04/28/21 16:45] cholecalciferol (vitamin D3) 50 mcg PO DAILY 04/29/21 [History Last Taken 1 ] doxycycline hyclate 100 mg PO DAILY 04/29/21 [History Last Taken 04/28/21] furosemide 40 mg PO DAILY 04/29/21 [History Last Taken 04/28/21] furosemide [Lasix] 20 mg PO DAILY 04/29/21 [History Last Taken 04/28/21] gabapentin 600 mg PO QHS 04/29/21 [History Last Taken 04/28/21] lisinopril 10 mg PO DAILY 04/29/21 [History Last Taken 04/28/21] metoprolol tartrate 25 mg PO BID 04/29/21 [History Last Taken 04/28/21] sitagliptin [Januvia] 25 mg PO DAILY 04/29/21 [History Last Taken 04/28/21] warfarin 4 mg PO DAILY 04/29/21 [History Last Taken 04/28/21] Allergy/AdvReac Type Severity Reaction Status Date / Time No Known Allergies Allergy Verified 01/25/21 17:44 Family History Other Cancer Heart disease Surgical History H/O colectomy History of bilateral knee replacement History of cholecystectomy Social History household members: none Smoking Status: Former smoker alcohol intake: never substance use type: does not use what type of physical activity do you participate in: none ROS Review of Systems ROS Unobtainable: due to encephalopathy Physical Exam Const alert and no apparent distress General Appearance: cooperative and other Pale Nutritional Appearance: obese HEENT normocephalic, head/scalp atraumatic, hearing grossly normal bilaterally, moist oral mucous membranes and oropharynx normal HEENT Narrative: Upper dentures in place, no lower dentures in place at this time, Mallampati 3, no thrush, no oral lesions Mouth: oral and palatal mucosa normal Eyes PERRL and EOMs intact bilaterally Eyes Narrative: Conjunctiva are pale, no scleral icterus Neck no lymphadenopathy, supple, no JVD and no carotid bruits General: normal visual inspection and trachea midline; Negative for anterior neck swelling Chest inspection of chest normal Chest: symmetrical chest wall rise; Negative for crepitus Resp normal respiratory effort, no retractions, no use of accessory muscles and clear to auscultation bilaterally Resp Narrative: Distant lung sounds secondary to body habitus Auscultation: Negative for rales, rhonchi or wheezes Cardio S1 normal heart sound, S2 normal heart sound, no murmurs, no rub, no gallops, no clicks and no JVD Rate: tachycardic Rhythm: abnormal rhythm irregularly irregular GI normal to inspection, nondistended, normoactive bowel sounds, soft to palpation, non-tender and non-distended Extremity Extremity Narrative: Bilateral lower extremity edema, soft pitting of 2+ up to her groin, no cyanosis or clubbing Peripheral Pulses: Yes pulses 2+ throughout Skin skin turgor normal, no jaundice, no petechiae and no mottling Skin Narrative: Mild erythema of the left lower extremity Neuro CN's II-XII intact bilaterally, moves all extremities and no focal motor deficits Neuro Narrative: Poor cooperation with exam Sensorium / Orientation: awake, alert, oriented to person and oriented to time Speech: speech normal Psych Psych Narrative: Affect is slightly flat Lab / Micro Data Result Diagrams: 04/29/21 10:30 04/29/21 10:30 Labs: Laboratory Results - last 24 hr 04/29/21 10:30: WBC 14.5 H, RBC 2.41 L, Hgb 8.0 L, Hct 22.1 L, MCV 91.7, MCH 33.2 H, MCHC 36.2 H, RDW Std Deviation 51.0 H, RDW Coeff of Shania 15.8 H, Plt Count 122 L, MPV 13.2 H, Immature Gran % (Auto) 0.900, Neut % (Auto) 86.2 H, Lymph % (Auto) 9.3 L, [place] % (Auto) 3.5, Eos % (Auto) 0.0, Baso % (Auto) 0.1, Absolute Neuts (auto) 12.5 H, Absolute Lymphs (auto) 1.35, Nucleated RBC % 0 04/29/21 10:30: Sodium 138, Potassium 5.4 H, Chloride 103, Carbon Dioxide 27.0, Anion Gap 8, BUN 70 H, Creatinine 2.84 H, Estim Creat Clear Calc 15.14, Est GFR (MDRD) Af Amer 20 L, Est GFR (MDRD) Non-Af 17 L, BUN/Creatinine Ratio 24.6 H, Glucose 111 H, Calcium 7.6 L 04/29/21 10:30: Lactic Acid 2.6 H* 04/29/21 10:30: PT 35.0 H, INR 3.6, APTT 71.8 H 04/29/21 10:30: Total Creatine Kinase 270 H 04/29/21 10:45: Urine Color Yellow, Urine Clarity Clear, Urine pH 5.0, Ur Specific [place] 1.015, Urine Protein Negative, Urine Glucose (UA) Normal, Urine Ketones Negative, Urine Occult Blood 10 H, Urine Nitrite Negative, Urine Bilir ubin Negative, Urine Urobilinogen Normal, Ur Leukocyte Esterase Negative, Urine RBC 0 SEEN, Urine WBC 0 SEEN, Ur Squamous Epith Cells 0-5 SEEN, Urine Bacteria RARE, Hyaline Casts 0-5 SEEN, Urine Mucus 0 SEEN 04/29/21 14:57: Lactic Acid 1.2 Micro: Microbiology 04/29/21 13:52 Stool Stool Occult Blood (AMBROCIO) - Final Occult Blood Positive 04/29/21 10:35 Nasal Secretion SARS-CoV-2 Antigen (Rapid) - Final ABG Data ABG results: ABG 04/29/21 16:28 Specimen Type MARYLU VBG pH 7.37 VBG pO2 25 VBG HCO3 23 VBG Total CO2 25 VBG O2 Sat (Calc) 43 L VBG Base Excess -2 L POC Mix VBG pCO2 Pt Tmp 40.3 L Radiology Impression Chest X-Ray 04/29/21 11:05 IMPRESSION: Mild degree of increased markings at the right lung base suggestive of early infiltrate. There is elevation of the right hemidiaphragm. Electronically Signed: Nghia Daniels MD at 11:40 EDT , Service support , Chest X-Ray 04/29/21 15:32 IMPRESSION: Basilar atelectasis. Electronically Signed: Hiram Ross DO at 16:48 EDT Tel [phone], Service support , Charges/Coding Procedures Hospitalists Procedures: [id number]
[2021-04-29 18:00] LABS: Blood Gas Specimen Type ART
--- NOTE | 2021-04-29 18:06 | PCM.RX.CS ---
Consult Pharmacy has been consulted to manage selected antiobiotic: Vancomycin Type of Consult: New start Prior Doses of Antibiotics Received/Current Regimen: Medications Discontinued Medications Vancomycin HCl 1,750 mg/ (Sodium Chloride) 535 mls @ 250 mls/hr IV X1 ONE Stop: 04/29/21 13:53 Last Admin: 04/29/21 16:49 Dose: Infused Documented by: Labs: Sodium 138 mmol/L (136-145) 04/29/21 10:30 Potassium 5.4 mmol/L (3.5-5.1) H 04/29/21 10:30 Chloride 103 mmol/L (98-107) 04/29/21 10:30 Carbon Dioxide 27.0 mmol/L (21.0-32.0) 04/29/21 10:30 Anion Gap 8 (5-15) 04/29/21 10:30 BUN 70 mg/dL (7-18) H 04/29/21 10:30 Creatinine 2.84 mg/dL (0.55-1.02) H 04/29/21 10:30 Est GFR (MDRD) Af Amer 20 mL/min (>60) L 04/29/21 10:30 Est GFR (MDRD) Non-Af 17 mL/min (>60) L 04/29/21 10:30 BUN/Creatinine Ratio 24.6 RATIO (10-20) H 04/29/21 10:30 Glucose 111 mg/dL (74-106) H 04/29/21 10:30 Microbiology: Microbiology 04/29/21 13:52 Stool Stool Occult Blood (AMBROCIO) - Final Occult Blood Positive 04/29/21 10:35 Nasal Secretion SARS-CoV-2 Antigen (Rapid) - Final Weight used for dosin kg Estimated Creatinine Clearance: < 20 Goal Trough: 15-20 mcg/mL Pharmacy Plan for Drug Dosing: Initial ED dose given. Per policy, patient to receive dose 05/01 after random level in the morning due to CrCl < 20 mL/min. Pharmacy Service will continue to monitor and adjust dosing as required. Follow-Up Labs: Trough Vancomycin - 05/01 @ 0600 Random
[2021-04-29 18:26] LABS: Bedside Glucose 102 mg/dL (70-110)
[2021-04-29 18:56] LABS: Hematocrit 20.6 % (37-47); Hemoglobin 7.6 g/dL (12.0-15.0)
[2021-04-29 19:12] LABS: M R Staph aureus DNA By PCR Negative (Negative); Probe Check PASS; Specimen Processing Control PASS
[2021-04-29] MEDS: 0.9% Normal Saline 1,000 ML 50 ML IV (20:20)
[2021-04-29] MEDS: 0.9% Saline Lock 10 ML Syringe IV (22:36)
[2021-04-29 23:06] LABS: Bedside Glucose 146 mg/dL (70-110)
[2021-04-30] VITALS (55 sets, daily range): BP systolic 78–124; BP diastolic 47–78; PULSE 87–114; RESP 12–20; TEMP 37.2–37.7; O2SAT 92–98
[2021-04-30 04:20] LABS: Absolute Lymphocyte Count 1.09 X10^3/uL (0.83-4.51); Absolute Neutrophil Count 7.2 X10^3/uL (2.0-7.7); Basophil# 0.02 X10^3/uL; Basophil% 0.2 % (0-1); Eosinophil# 0.03 X10^3/uL; Eosinophils% 0.3 % (0-5); Hematocrit 20.8 % (37-47); Hemoglobin 7.7 g/dL (12.0-15.0); Lymphocyte # 1.09 X10^3/ul (0.83-4.51); Lymphocyte % 12.4 % (19-41); Mean Corpuscular Hgb 33.8 pg (27.0-32.0); Mean Corpuscular Volume 91.2 fL (81-99); Mean Platelet Vol. 12.9 fl (6.2-12.0); Monocyte# 0.38 X10^3/uL; Monocyte% 4.3 % (0-10); NRBC Flagged by Analyzer 0.2 % (0-5); Neutrophil # 7.21 X10^3/uL (2.7-7.7); Neutrophil % 82.1 % (47-70); POSITIVE MORPHOLOGY YES; Platelet Count 135 K/mm3 (150-450); RBC Distribution Width CV 15.9 % (11.6-14.6); RBC Distribution Width SD 51.2 fl (35.1-43.9); Red Blood Count 2.28 M/mm3 (4.2-5.4); White Blood Count 8.8 K/mm3 (4.4-11.0)
[2021-04-30 04:24] LABS: Differential Indicated SCAN CRITERIA MET
[2021-04-30 05:08] LABS: ALB/GLOB Ratio 0.3 RATIO (0.9-2.4); AST(SGOT) 49 U/L (15-37); Alanine Aminotransfer ALT/SGPT 34 U/L (13-56); Albumin, Serum 1.1 g/dL (3.2-5.0); Alkaline Phosphatase 117 U/L (45-117); Anion Gap 9 (5-15); BUN 61 mg/dL (7-18); BUN/Creat Ratio 26.4 RATIO (10-20); CPK Total, Creatine Kinase 318 U/L (26-192); Calcium,Total 6.9 mg/dL (8.5-10.1); Chloride 108 mmol/L (98-107); Creatinine, Serum 2.31 mg/dL (0.55-1.02); EST Glomerular Filtration Rate 21 mL/min (>60); Est Glom Filt Rate - Afr Amer 26 mL/min (>60); Estimated Creatinine Clearance 18.61 ml/min; Globulin 3.4 g/dL (2.2-4.2); Glucose 133 mg/dL (74-106); Magnesium 0.9 mg/dL (1.6-2.6); Phosphorus 3.3 mg/dL (2.5-4.9); Potassium 3.5 mmol/L (3.5-5.1); Protein, Total 4.5 g/dL (6.4-8.2); Sodium Level 141 mmol/L (136-145)
[2021-04-30] MEDS: Levothyroxine 75 MCG Tablet PO (05:10)
[2021-04-30 05:12] LABS: Anisocytosis 1+; Atypical Lymphocyte 1+ %; Differential Comment SCANNED
[2021-04-30 05:13] LABS: Hypochromasia 2+; Macrocytosis 1+
[2021-04-30] MEDS: Magnesium Sulfate 4gm/100mL 4 GM/100 ML IV.SOLN. IV (05:49)
[2021-04-30 08:20] LABS: Bedside Glucose 121 mg/dL (70-110)
--- NOTE | 2021-04-30 08:27 | WOUNDNOTE ---
Was asked to see patient. no wounds noted. there is some irritation noted between the right 3rd and 4th toes. no open wounds. some mild redness noted to abdominal folds. there is moderate edema noted to bilateral lower legs and feet. washed legs and feet with soap and water. pat dry. placed gauze between the right 3rd and 4th toes to avoid moisture and irritation. applied TAYLOR wraps from the base of the toes to just below the knees. pt tolerated well. will follow as needed.
--- NOTE | 2021-04-30 08:44 | PCM.PN.INT ---
Assessment & Plan Assessment/Plan (1) Septicemia: (2) Acute kidney injury: (3) Supratherapeutic INR: (4) Atrial fibrillation, chronic: (5) Heme positive stool: (6) Acute anemia: (7) Diabetes mellitus type 2 in obese: PLAN: RECOMMENDATIONS: 1. Continue with empiric antibiotics 2. Potential orthopedic consult for left knee tap 3. If not improving or knee tap nondiagnostic, may need left lower extremity CT 4. Continue pressor agents. Titrate to MAP of 65 IMPRESSIONS: 1. Septic shock of unclear etiology Patient's UA is not suggestive of a source. Chest x-ray is once again not impressive. Patient does have some erythema and edema of the left greater than right lower extremity. Patient received fluid resuscitation with good response, but still had to have pressors placed. Patient is being treated with vancomycin and Zosyn. Pancultures have been sent. Hold baseline antihypertensives and diuretics for now. Clinical suspicion for left lower extremity as a source, but this has not been confirmed at this time. Patient does have some effusion of the left knee. May ask orthopedics to tap to see if this is the source. 2. Acute on chronic anemia with heme positive stools in the setting of a supratherapeutic INR Patient is on Coumadin at baseline. Patient does not require a transfusion at this time, but will need to follow closely. Hemoccult stool was positive, but no active clinical bleeding noted. We will hold on active reversal. Transfuse for hemoglobin less than 7. Repeat H&H and INR will be scheduled for this afternoon. 3. Acute kidney injury on CKD stage IIIa Improved. Patient has had elevation of creatinine over the last year. Patient is on lisinopril, Lasix and likely prerenal deficiency given problem #1. Hold Lasix and lisinopril. Continue to monitor closely. CPK is not impressive as an etiology. Patient does have some mild hyperkalemia on presentation but this has resolved. 4. Diabetes mellitus type 2/paroxysmal A. fib/DVT/diabetic neuropathy/anasarca Complicates care, management, recovery and prognosis. Blood pressure medications have been held along with oral glycemic's pending acute condition. Patient is a DNR Comfort Care arrest without intubation. Recent echocardiogram showed an EF of 50 to 55% with stage I diastolic dysfunction. TIME: 31 minutes critical care time spent addressing patient's septic shock, anemia, acute kidney injury, line placement, review of all data and collaboration with care team (7:30 AM to 8:30 AM) Subjective Subjective Patient did okay overnight. Patient was able to report that she had a fall with some swelling of the left knee. Patient has been stable on room air, but is still requiring Levophed to maintain normotension. Patient did have a fever overnight. No nausea or vomiting reported. Objective Data Objective Data Vital Signs: Vital Signs Temp Pulse Resp BP Pulse Ox 37.4 C H 92 13 105/64 97 04/30/21 08:00 04/30/21 08:00 04/30/21 08:00 04/30/21 08:00 04/30/21 08:00 Oxygen Delivery Method Room Air Weight: 112.763 kg Body Mass Index (BMI) 37.2 Intake & Output: Intake and Output for Last 24 Hours 04/28/21 04/29/21 04/30/21 23:59 23:59 23:59 Intake Total 3828.745 / 4021.475 783.98 / 783.98 Output Total 450 / 450 Balance 3378.745 / 3571.475 783.98 / 783.98 Lab / Micro Data Result Diagrams: 04/30/21 04:15 04/30/21 04:15 Labs: Laboratory Results - last 24 hr 04/29/21 10:30: WBC 14.5 H, RBC 2.41 L, Hgb 8.0 L, Hct 22.1 L, MCV 91.7, MCH 33.2 H, MCHC 36.2 H, RDW Std Deviation 51.0 H, RDW Coeff of Shania 15.8 H, Plt Count 122 L, MPV 13.2 H, Immature Gran % (Auto) 0.900, Neut % (Auto) 86.2 H, Lymph % (Auto) 9.3 L, [place] % (Auto) 3.5, Eos % (Auto) 0.0, Baso % (Auto) 0.1, Absolute Neuts (auto) 12.5 H, Absolute Lymphs (auto) 1.35, Nucleated RBC % 0 04/29/21 10:30: Sodium 138, Potassium 5.4 H, Chloride 103, Carbon Dioxide 27.0, Anion Gap 8, BUN 70 H, Creatinine 2.84 H, Estim Creat Clear Calc 15.14, Est GFR (MDRD) Af Amer 20 L, Est GFR (MDRD) Non-Af 17 L, BUN/Creatinine Ratio 24.6 H, Glucose 111 H, Calcium 7.6 L 04/29/21 10:30: Lactic Acid 2.6 H* 04/29/21 10:30: PT 35.0 H, INR 3.6, APTT 71.8 H 04/29/21 10:30: Total Creatine Kinase 270 H 04/29/21 10:45: Urine Color Yellow, Urine Clarity Clear, Urine pH 5.0, Ur Specific [place] 1.015, Urine Protein Negative, Urine Glucose (UA) Normal, Urine Ketones Negative, Urine Occult Blood 10 H, Urine Nitrite Negative, Urine Bilirubin Negative, Urine Urobilinogen Normal, Ur Leukocyte Esterase Negative, Urine RBC 0 SEEN, Urine WBC 0 SEEN, Ur Squamous Epith Cells 0-5 SEEN, Urine Bacteria RARE, Hyaline Casts 0-5 SEEN, Urine Mucus 0 SEEN 04/29/21 14:57: Lactic Acid 1.2 04/29/21 17:45: MRSA (PCR) Negative 04/29/21 18:21: POC Glucose 102 04/29/21 18:25: Hgb 7.6 L, Hct 20.6 L 04/29/21 23:00: POC Glucose 146 H 04/30/21 04:15: WBC 8.8, RBC 2.28 L, Hgb 7.7 L, Hct 20.8 L, MCV 91.2, MCH 33.8 H, MCHC 37.0 H, RDW Std Deviation 51.2 H, RDW Coeff of Shania 15.9 H, Plt Count 135 L, MPV 12.9 H, Immature Gran % (Auto) 0.700, Neut % (Auto) 82.1 H, Lymph % (Auto) 12.4 L, [place] % (Auto) 4.3, Eos % (Auto) 0.3, Baso % (Auto) 0.2, Absolute Neuts (auto) 7.2, Absolute Lymphs (auto) 1.09, Nucleated RBC % 0.2, Differential Comment SCANNED, Atypical Lymphocytes 1+, Hypochromasia 2+, Anisocytosis 1+, Macrocytosis 1+ 04/30/21 04:15: Sodium 141, Potassium 3.5, Chloride 108 H, Carbon Dioxide 24.0, Anion Gap 9, BUN 61 H, Creatinine 2.31 H, Estim Creat Clear Calc 18.61, Est GFR (MDRD) Af Amer 26 L, Est GFR (MDRD) Non-Af 21 L, BUN/Creatinine Ratio 26.4 H, Glucose 133 H, Calcium 6.9 L, Phosphorus 3.3, Magnesium 0.9 L*, Total Bilirubin 0.40, AST 49 H, ALT 34, Alkaline Phosphatase 117, Total Creatine Kinase 318 H, Total Protein 4.5 L, Albumin 1.1 L, Globulin 3.4, Albumin/Globulin Ratio 0.3 L 04/30/21 08:11: POC Glucose 121 H Micro: Microbiology 04/29/21 19:37 Mucosa - Nasopharyngeal Respiratory Panel (PCR) - Final 04/29/21 10:45 Urine, Clean Catch Legionella Antigen - Final 04/29/21 10:45 Urine, Clean Catch Streptococcus pneumoniae Antigen (M - Final 04/29/21 13:52 Stool Stool Occult Blood (AMBROCIO) - Final Occult Blood Positive 04/29/21 10:35 Nasal Secretion SARS-CoV-2 Antigen (Rapid) - Final ABG Data ABG results: ABG 04/29/21 16:28 Specimen Type ART VBG pH 7.37 VBG pO2 25 VBG HCO3 23 VBG Total CO2 25 VBG O2 Sat (Calc) 43 L VBG Base Excess -2 L POC Mix VBG pCO2 Pt Tmp 40.3 L Radiography Diagnostic Testing: Radiology Impression Chest X-Ray 04/29/21 11:05 IMPRESSION: Mild degree of increased markings at the right lung base suggestive of early infiltrate. There is elevation of the right hemidiaphragm. Electronically Signed: Nghia Daniels MD at 11:40 EDT , Service support , Chest X-Ray 04/29/21 15:32 IMPRESSION: Basilar atelectasis. Electronically Signed: Hiram Ross DO at 16:48 EDT Tel [phone], Service support , Physical Exam Const alert and no apparent distress General Appearance: cooperative and other Color slightly improved today Nutritional Appearance: obese HEENT normocephalic, head/scalp atraumatic, hearing grossly normal bilaterally, moist oral mucous membranes and oropharynx normal Mouth: oral and palatal mucosa normal Eyes PERRL and EOMs intact bilaterally Eyes Narrative: Conjunctiva are pale, no scleral icterus Neck no lymphadenopathy, supple, no JVD and no carotid bruits General: normal visual inspection and trachea midline; Negative for anterior neck swelling Chest inspection of chest normal Chest: symmetrical chest wall rise; Negative for crepitus Resp normal respiratory effort, no retractions, no use of accessory muscles and clear to auscultation bilaterally Resp Narrative: Distant lung sounds secondary to body habitus Auscultation: Negative for rales, rhonchi or wheezes Cardio S1 normal heart sound, S2 normal heart sound, no murmurs, no rub, no gallops, no clicks and no JVD Rate: tachycardic Rhythm: abnormal rhythm irregularly irregular GI normal to inspection, nondistended, normoactive bowel sounds, soft to palpation, non-tender and non-distended Extremity Extremity Narrative: Slight effusion noted on left knee Peripheral Pulses: Yes pulses 2+ throughout Skin skin turgor normal, no jaundice, no petechiae and no mottling Skin Narrative: Mild erythema of the left lower extremity Neuro CN's II-XII intact bilaterally, moves all extremities and no focal motor deficits Neuro Narrative: Poor cooperation with exam Sensorium / Orientation: awake, alert, oriented to person and oriented to time Speech: speech normal Psych Psych Narrative: Affect is slightly flat Charges/Coding Procedures Hospitalists Procedures: 85085 Critial Care 1st Hr
[2021-04-30] MEDS: Pantoprazole Sodium 40 MG Tablet PO (09:42)
--- NOTE | 2021-04-30 09:58 | PN.HOSP_ITS ---
Subjective Subjective Doing well, maintaining blood pressure on Levophed. No signs of obvious infection, she does complain of left leg pain especially left knee pain. Objective Data Objective Data Vital Signs: Vital Signs Temp Pulse Resp BP Pulse Ox 99.4 F H 102 H 16 105/64 97 04/30/21 08:00 04/30/21 09:00 04/30/21 09:00 04/30/21 09:00 04/30/21 09:00 Oxygen Delivery Method Room Air Weight: 248 lb 9.6 oz Body Mass Index (BMI) 37.2 Intake & Output: Intake and Output for Last 24 Hours 04/29/21 04/30/21 05/01/21 03:59 03:59 03:59 Intake Total 4123.175 / 4137.275 520.26 / 520.26 Output Total 450 / 450 Balance 3673.175 / 3687.275 520.26 / 520.26 Lab / Micro Data Result Diagrams: 04/30/21 04:15 04/30/21 04:15 Labs: Laboratory Results - last 24 hr 04/29/21 10:30: WBC 14.5 H, RBC 2.41 L, Hgb 8.0 L, Hct 22.1 L, MCV 91.7, MCH 33.2 H, MCHC 36.2 H, RDW Std Deviation 51.0 H, RDW Coeff of Shania 15.8 H, Plt Count 122 L, MPV 13.2 H, Immature Gran % (Auto) 0.900, Neut % (Auto) 86.2 H, Lymph % (Auto) 9.3 L, [place] % (Auto) 3.5, Eos % (Auto) 0.0, Baso % (Auto) 0.1, Absolute Neuts (auto) 12.5 H, Absolute Lymphs (auto) 1.35, Nucleated RBC % 0 04/29/21 10:30: Sodium 138, Potassium 5.4 H, Chloride 103, Carbon Dioxide 27.0, Anion Gap 8, BUN 70 H, Creatinine 2.84 H, Estim Creat Clear Calc 15.14, Est GFR (MDRD) Af Amer 20 L, Est GFR (MDRD) Non-Af 17 L, BUN/Creatinine Ratio 24.6 H, Glucose 111 H, Calcium 7.6 L 04/29/21 10:30: Lactic Acid 2.6 H* 04/29/21 10:30: PT 35.0 H, INR 3.6, APTT 71.8 H 04/29/21 10:30: Total Creatine Kinase 270 H 04/29/21 10:45: Urine Color Yellow, Urine Clarity Clear, Urine pH 5.0, Ur Specific [place] 1.015, Urine Protein Negative, Urine Glucose (UA) Normal, Urine Ketones Negative, Urine Occult Blood 10 H, Urine Nitrite Negative, Urine Bilirubin Negative, Urine Urobilinogen Normal, Ur Leukocyte Esterase Negative, Urine RBC 0 SEEN, Urine WBC 0 SEEN, Ur Squamous Epith Cells 0-5 SEEN, Urine Bacteria RARE, Hyaline Casts 0-5 SEEN, Urine Mucus 0 SEEN 04/29/21 14:57: Lactic Acid 1.2 04/29/21 17:45: MRSA (PCR) Negative 04/29/21 18:21: POC Glucose 102 04/29/21 18:25: Hgb 7.6 L, Hct 20.6 L 04/29/21 23:00: POC Glucose 146 H 04/30/21 04:15: WBC 8.8, RBC 2.28 L, Hgb 7.7 L, Hct 20.8 L, MCV 91.2, MCH 33.8 H , MCHC 37.0 H, RDW Std Deviation 51.2 H, RDW Coeff of Shania 15.9 H, Plt Count 135 L, MPV 12.9 H, Immature Gran % (Auto) 0.700, Neut % (Auto) 82.1 H, Lymph % (A uto) 12.4 L, [place] % (Auto) 4.3, Eos % (Auto) 0.3, Baso % (Auto) 0.2, Absolute Neuts (auto) 7.2, Absolute Lymphs (auto) 1.09, Nucleated RBC % 0.2, Differential Comment SCANNED, Atypical Lymphocytes 1+, Hypochromasia 2+, Anisocytosis 1+, Macrocytosis 1+ 04/30/21 04:15: Sodium 141, Potassium 3.5, Chloride 108 H, Carbon Dioxide 24.0, Anion Gap 9, BUN 61 H, Creatinine 2.31 H, Estim Creat Clear Calc 18.61, Est GFR (MDRD) Af Amer 26 L, Est GFR (MDRD) Non-Af 21 L, BUN/Creatinine Ratio 26.4 H, Glucose 133 H, Calcium 6.9 L, Phosphorus 3.3, Magnesium 0.9 L*, Total Bilirubin 0.40, AST 49 H, ALT 34, Alkaline Phosphatase 117, Total Creatine Kinase 318 H, Total Protein 4.5 L, Albumin 1.1 L, Globulin 3.4, Albumin/Globulin Ratio 0.3 L 04/30/21 08:11: POC Glucose 121 H Micro: Microbiology 04/29/21 19:37 Mucosa - Nasopharyngeal Respiratory Panel (PCR) - Final 04/29/21 10:45 Urine, Clean Catch Legionella Antigen - Final 04/29/21 10:45 Urine, Clean Catch Streptococcus pneumoniae Antigen (M - Final 04/29/21 13:52 Stool Stool Occult Blood (AMBROCIO) - Final Occult Blood Positive 04/29/21 10:35 Nasal Secretion SARS-CoV-2 Antigen (Rapid) - Final ABG Data ABG results: ABG 04/29/21 16:28 Specimen Type ART VBG pH 7.37 VBG pO2 25 VBG HCO3 23 VBG Total CO2 25 VBG O2 Sat (Calc) 43 L VBG Base Excess -2 L POC Mix VBG pCO2 Pt Tmp 40.3 L Radiography Diagnostic Testing: Radiology Impression Chest X-Ray 04/29/21 11:05 IMPRESSION: Mild degree of increased markings at the right lung base suggestive of early infiltrate. There is elevation of the right hemidiaphragm. Electronically Signed: Nghia Daniels MD at 11:40 EDT , Service support , Chest X-Ray 04/29/21 15:32 IMPRESSION: Basilar atelectasis. Electronically Signed: Hiram Ross DO at 16:48 EDT Tel [phone], Service support , Physical Exam Const alert, oriented x3 and no apparent distress General Appearance: cooperative HEENT normocephalic and moist oral mucous membranes Eyes PERRL, EOMs intact bilaterally and conjunctivae normal Neck supple and no JVD Resp normal respiratory effort, no retractions, no use of accessory muscles and clear to auscultation bilaterally Auscultation: Negative for crackles, rales, rhonchi or wheezes Cardio regular rate, regular rhythm, S1 normal heart sound, S2 normal heart sound and no murmurs GI soft to palpation, non-tender and non-distended; Negative for hepatosplenomegaly Extremity no clubbing, cyanosis or edema Extremity Narrative: Tenderness to her left knee with slight effusion Skin no rashes or lesions noted Neuro no focal motor deficits and no sensory deficits noted Psych affect normal Appearance: appropriate Assessment & Plan Assessment/Plan (1) Supratherapeutic INR: (2) Metabolic encephalopathy: (3) Lactic acidosis: (4) Hyperkalemia: (5) Acute anemia: (6) Chronic anemia: (7) Heme positive stool: (8) Leukocytosis: (9) Septic shock: PLAN: 1. Septic shock from unknown source/VALERIA on CKD 3a -Continue with Levophed and broad-spectrum antibiotics -We will contact orthopedic surgery as she does have a slight effusion in her left knee with pain, for possible draining culture. -If the knee is the negative source then we may need to get a CT scan of her leg to look for an abscess she does have some anterior redness on her left barone -Legionella/strep antigens are negative, respiratory panel is negative, Covid negative -Continue with IV fluids 2. Paroxysmal A. fib/HTN/HLD -Coumadin is supratherapeutic, will hold, she does also have a history of DVT -She does have a positive Hemoccult with no sofia bleeding, will continue to monitor hemoglobin -Continue with Levophed and hold off on her home blood pressure medications 3. DM2 with neuropathy -We will hold her oral agents and place her on a sliding scale insulin with Accu-Cheks -We will adjust insulin as necessary 4. Acute on chronic anemia -Chronic anemia is likely secondary to chronic disease and she did test Hemoccult positive which would explain the acuteness of her new anemia -We will transfuse if necessary DVT: SCDs Charges/Coding Visit Charges Inpatient E&M: 00512 Subs Hosp L2
--- NOTE | 2021-04-30 10:31 | CASEMGMT ---
SW participated in ICU rounds, pt's son Nader present. 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 Son states concern about care at [facility], SW encouraged son to call the snf care ombudsman with any concerns. SW spoke w/Tatianna at [facility], let her know pt is here in the ICU. Updates faxed. OTILIO will continue to follow. RACHEL Bal
--- NOTE | 2021-04-30 10:53 | CASEMGMT ---
LW/Healthcare POA forms scanned into summary tab of [facility] is pt's Healthcare POA. RACHEL Bal
[2021-04-30 12:15] LABS: Bedside Glucose 150 mg/dL (70-110)
[2021-04-30] MEDS: Insulin Lispro 100 UNIT/ML INSULN.PEN SC ×2 (12:16→16:21)
[2021-04-30] MEDS: CHLORHEXIDINE GLUC 2% CLOTH 1 EACH TOWELETTE TOPICAL (12:20)
[2021-04-30] MEDS: Acetaminophen 325 MG Tablet 650 MG PO (12:43)
[2021-04-30] MEDS: 0.9% Saline Lock 10 ML Syringe IV (14:36)
[2021-04-30] MEDS: 0.9% Normal Saline 1,000 ML 50 ML IV (14:36)
[2021-04-30 15:02] LABS: Hematocrit 19.6 % (37-47)
[2021-04-30 15:08] LABS: International Normalized Ratio 3.2; Prothrombin Time (Protime)PT. 32.3 SECONDS (11.7-14.9)
[2021-04-30] MEDS: TITRATION PARAMETER CHANGE 1 EACH IV (15:29)
[2021-04-30] MEDS: Phytonadione (Vit K1) 5 MG TABLET PO (16:21)
[2021-04-30 16:36] LABS: Bedside Glucose 194 mg/dL (70-110)
[2021-04-30] MEDS: Menthol/Lanolin/Calamine/Znox 113 GM Tube 1 APPLIC TOPICAL (20:16)
[2021-05-01] VITALS (43 sets, daily range): BP systolic 75–109; BP diastolic 35–90; PULSE 76–104; RESP 12–20; TEMP 36.9–37.4; O2SAT 92–99
[2021-05-01] MEDS: Levothyroxine 75 MCG Tablet PO (05:14)
[2021-05-01 05:23] LABS: Absolute Lymphocyte Count 1.85 X10^3/uL (0.83-4.51); Absolute Neutrophil Count 4.4 X10^3/uL (2.0-7.7); Basophil# 0.02 X10^3/uL; Basophil% 0.3 % (0-1); Eosinophils% 1.4 % (0-5); Hematocrit 22.5 % (37-47); Hemoglobin 8.3 g/dL (12.0-15.0); Lymphocyte # 1.85 X10^3/ul (0.83-4.51); Lymphocyte % 26.1 % (19-41); Mean Corp Hgb Conc 36.9 g/dL (32-36); Mean Corpuscular Hgb 32.8 pg (27.0-32.0); Mean Corpuscular Volume 88.9 fL (81-99); Mean Platelet Vol. 12.6 fl (6.2-12.0); Monocyte# 0.68 X10^3/uL; Monocyte% 9.6 % (0-10); NRBC Flagged by Analyzer 0.3 % (0-5); Neutrophil % 61.9 % (47-70); Platelet Count 126 K/mm3 (150-450); RBC Distribution Width SD 50.6 fl (35.1-43.9); Red Blood Count 2.53 M/mm3 (4.2-5.4); White Blood Count 7.1 K/mm3 (4.4-11.0)
[2021-05-01 05:48] LABS: Vancomycin, Random Level 11.1 ug/mL (0.0-15.0)
[2021-05-01 05:58] LABS: ALB/GLOB Ratio 0.3 RATIO (0.9-2.4); AST(SGOT) 44 U/L (15-37); Alanine Aminotransfer ALT/SGPT 28 U/L (13-56); Albumin, Serum 1.1 g/dL (3.2-5.0); Alkaline Phosphatase 115 U/L (45-117); Anion Gap 8 (5-15); BUN 47 mg/dL (7-18); BUN/Creat Ratio 22.5 RATIO (10-20); Calcium,Total 6.5 mg/dL (8.5-10.1); Chloride 110 mmol/L (98-107); Creatinine, Serum 2.09 mg/dL (0.55-1.02); EST Glomerular Filtration Rate 24 mL/min (>60); Est Glom Filt Rate - Afr Amer 29 mL/min (>60); Estimated Creatinine Clearance 20.57 ml/min; Globulin 3.3 g/dL (2.2-4.2); Glucose 111 mg/dL (74-106); Potassium 3.1 mmol/L (3.5-5.1); Protein, Total 4.4 g/dL (6.4-8.2); Sodium Level 142 mmol/L (136-145)
--- NOTE | 2021-05-01 07:33 | PCS.PANDOC ---
PANDEMIC DOCUMENTATION INITIATED: Date: 02/18/2021 Time: 190
--- NOTE | 2021-05-01 07:41 | PN.CC_ITS ---
Assessment & Plan Assessment/Plan (1) Septicemia: (2) Acute kidney injury: (3) Supratherapeutic INR: (4) Atrial fibrillation, chronic: (5) Heme positive stool: (6) Acute anemia: (7) Diabetes mellitus type 2 in obese: PLAN: RECOMMENDATIONS: 1. Continue with empiric antibiotics 2. Consider orthopedic consult for left knee tap 3. If not improving or knee tap nondiagnostic, may need left lower extremity CT 4. Continue pressor agents. Titrate to MAP of 65 5. Aggressive potassium supplementation 6. Check INR in a.m. IMPRESSIONS: 1. Septic shock of unclear etiology Patient's UA is not suggestive of a source. Chest x-ray is once again not impressive. Patient does have some erythema and edema of the left greater than right lower extremity. Patient received fluid resuscitation with good response, but still had to have pressors placed. Patient is being treated with vancomycin and Zosyn. Pancultures have been sent. Hold baseline antihypertensives and diuretics for now. Clinical suspicion for left lower extremity as a source, but this has not been confirmed at this time. Patient does have some effusion of the left knee. May ask orthopedics to tap to see if this is the source. 2. Acute on chronic anemia with heme positive stools in the setting of a supratherapeutic INR Patient is on Coumadin at baseline. Patient does not require a transfusion at this time, but will need to follow closely. Hemoccult stool was positive, but no active clinical bleeding noted. We will hold on active reversal with FFP. Transfuse for hemoglobin less than 7. We will continue with daily H&H's. Check INR in the morning. 3. Acute kidney injury on CKD stage IIIa Improved. Patient has had elevation of creatinine over the last year. Patient is on lisinopril, Lasix and likely prerenal deficiency given problem #1. Hold Lasix and lisinopril. Continue to monitor closely. CPK is not impressive as an etiology. Patient does have some mild hyperkalemia on presentation but this has resolved and now is requiring repletion. 4. Diabetes mellitus type 2/paroxysmal A. fib/DVT/diabetic neuropathy/anasarca Complicates care, management, recovery and prognosis. Blood pressure medications have been held along with oral glycemic's pending acute condition. Patient is a DNR Comfort Care arrest without intubation. Recent echocardiogram showed an EF of 50 to 55% with stage I diastolic dysfunction. TIME: 32 minutes critical care time spent addressing patient's septic shock, anemia, acute kidney injury, line placement, review of all data and collaboration with care team (5:30 AM to 6:30 AM) Subjective Subjective Patient appears to be improving clinically. Patient is reporting generalized malaise with no specific complaints. Patient did receive 1 unit of packed red blood cells overnight with no complaints or issues. Patient remains on Levophed at minimal doses. Patient continues to be vague about symptomatology. Patient is tolerating room air. Objective Data Objective Data Vital Signs: Vital Signs Temp Pulse Resp BP Pulse Ox 36.9 C 80 14 96/51 L 96 05/01/21 07:00 05/01/21 07:00 05/01/21 07:00 05/01/21 07:00 05/01/21 07:00 Oxygen Delivery Method Room Air Weight: 115.621 kg Body Mass Index (BMI) 37.2 Intake & Output: Intake and Output for Last 24 Hours 04/29/21 04/30/21 05/01/21 23:59 23:59 23:59 Intake Total 3828.745 / 4021.475 2522.44 / 2524.32 308.48 / 308.48 Output Total 450 / 450 600 / 600 475 / 475 Balance 3378.745 / 3571.475 1922.44 / 1924.32 -166.52 / -166.52 Lab / Micro Data Result Diagrams: 05/01/21 05:10 05/01/21 05:10 Labs: Laboratory Results - last 24 hr 04/30/21 08:11: POC Glucose 121 H 04/30/21 12:11: POC Glucose 150 H 04/30/21 14:45: Hgb 7.0 L, Hct 19.6 L 04/30/21 14:45: PT 32.3 H, INR 3.2 04/30/21 16:15: Blood Type A POSITIVE, Antibody Screen NEGATIVE, Crossmatch See Detail 04/30/21 16:20: POC Glucose 194 H 05/01/21 05:10: Random Vancomycin 11.1 05/01/21 05:10: WBC 7.1, RBC 2.53 L, Hgb 8.3 L, Hct 22.5 L, MCV 88.9, MCH 32.8 H , MCHC 36.9 H, RDW Std Deviation 50.6 H, RDW Coeff of Shania 16.0 H, Plt Count 126 L, MPV 12.6 H, Immature Gran % (Auto) 0.700, Neut % (Auto) 61.9, Lymph % (Auto) 26.1, [place] % (Auto) 9.6, Eos % (Auto) 1.4, Baso % (Auto) 0.3, Absolute Neuts (auto) 4.4, Absolute Lymphs (auto) 1.85, Nucleated RBC % 0.3 05/01/21 05:10: Sodium 142, Potassium 3.1 L, Chloride 110 H, Carbon Dioxide 24.0, Anion Gap 8, BUN 47 H, Creatinine 2.09 H, Estim Creat Clear Calc 20.57, Est GFR (MDRD) Af Amer 29 L, Est GFR (MDRD) Non-Af 24 L, BUN/Creatinine Ratio 22.5 H, Glucose 111 H, Calcium 6.5 L*, Total Bilirubin 0.30, AST 44 H, ALT 28, Alkaline Phosphatase 115, Total Protein 4.4 L, Albumin 1.1 L, Globulin 3.3, Albumin/Globulin Ratio 0.3 L Micro: Microbiology 04/30/21 12:40 Stool C. difficile DNA Amplification - Final 04/29/21 10:45 Urine, Catheterized Urine Culture - Preliminary Mixed Culture 04/29/21 19:37 Mucosa - Nasopharyngeal Respiratory Panel (PCR) - Final 04/29/21 10:45 Urine, Clean Catch Legionella Antigen - Final 04/29/21 10:45 Urine, Clean Catch Streptococcus pneumoniae Antigen (M - Final 04/29/21 13:52 Stool Stool Occult Blood (AMBROCIO) - Final Occult Blood Positive 04/29/21 10:35 Nasal Secretion SARS-CoV-2 Antigen (Rapid) - Final Physical Exam Const alert and no apparent distress General Appearance: cooperative and other Color normalized Nutritional Appearance: obese HEENT normocephalic, head/scalp atraumatic, hearing grossly normal bilaterally, moist oral mucous membranes and oropharynx normal Mouth: oral and palatal mucosa normal Eyes PERRL and EOMs intact bilaterally Eyes Narrative: No scleral icterus Neck no lymphadenopathy, supple, no JVD and no carotid bruits General: normal visual inspection and trachea midline; Negative for anterior neck swelling Chest inspection of chest normal Chest: symmetrical chest wall rise; Negative for crepitus Resp normal respiratory effort, no retractions, no use of accessory muscles and clear to auscultation bilaterally Resp Narrative: Distant lung sounds secondary to body habitus Auscultation: Negative for rales, rhonchi or wheezes Cardio regular rate, S1 normal heart sound, S2 normal heart sound, no murmurs, no rub, no gallops, no clicks and no JVD Rhythm: abnormal rhythm irregularly irregular GI normal to inspection, nondistended, normoactive bowel sounds, soft to palpation, non-tender and non-distended Extremity Extremity Narrative: Slight effusion noted on left knee Peripheral Pulses: Yes pulses 2+ throughout Skin skin turgor normal, no jaundice, no petechiae and no mottling Skin Narrative: Improving mild erythema of the left lower extremity Neuro CN's II-XII intact bilaterally, moves all extremities and no focal motor deficits Neuro Narrative: Poor cooperation with exam Sensorium / Orientation: awake, alert, oriented to person and oriented to time Speech: speech normal Psych Psych Narrative: Affect is slightly flat Charges/Coding Procedures Hospitalists Procedures: 14022 Critial Care 1st Hr
[2021-05-01 07:51] LABS: Magnesium 1.3 mg/dL (1.6-2.6)
[2021-05-01] MEDS: 0.9% Saline Lock 10 ML Syringe IV (08:36)
[2021-05-01] MEDS: Potassium Chloride Oral Tablet 20 MEQ PO ×2 (09:16→17:04)
[2021-05-01] MEDS: 0.9% Normal Saline 1,000 ML 50 ML IV (09:19)
[2021-05-01] MEDS: Magnesium Sulfate 4gm/100mL 4 GM/100 ML IV.SOLN. IV (09:29)
--- NOTE | 2021-05-01 09:53 | PCM.PN.HOSP ---
Subjective Subjective Doing well, pressor support is down to 2 mcg/min. She also received a unit of blood last night for hemoglobin of 7 currently 8.3 today. Objective Data Objective Data Vital Signs: Vital Signs Temp Pulse Resp BP Pulse Ox 98.5 F 86 16 99/58 L 97 05/01/21 08:00 05/01/21 08:00 05/01/21 08:00 05/01/21 08:00 05/01/21 08:00 Oxygen Delivery Method Room Air Weight: 254 lb 14.4 oz Body Mass Index (BMI) 37.2 Intake & Output: Intake and Output for Last 24 Hours 04/30/21 05/01/21 05/02/21 03:59 03:59 03:59 Intake Total 4123.175 / 4137.275 2298.59 / 2304.19 1305.86 / 1305.86 Output Total 450 / 450 600 / 600 475 / 475 Balance 3673.175 / 3687.275 1698.59 / 1704.19 830.86 / 830.86 Lab / Micro Data Result Diagrams: 05/01/21 05:10 05/01/21 05:10 Labs: Laboratory Results - last 24 hr 04/30/21 12:11: POC Glucose 150 H 04/30/21 14:45: Hgb 7.0 L, Hct 19.6 L 04/30/21 14:45: PT 32.3 H, INR 3.2 04/30/21 16:15: Blood Type A POSITIVE, Antibody Screen NEGATIVE, Crossmatch See Detail 04/30/21 16:20: POC Glucose 194 H 05/01/21 05:10: Random Vancomycin 11.1 05/01/21 05:10: WBC 7.1, RBC 2.53 L, Hgb 8.3 L, Hct 22.5 L, MCV 88.9, MCH 32.8 H, MCHC 36.9 H, RDW Std Deviation 50.6 H, RDW Coeff of Shania 16.0 H, Plt Count 126 L, MPV 12.6 H, Immature Gran % (Auto) 0.700, Neut % (Auto) 61.9, Lymph % (Auto) 26.1, [place] % (Auto) 9.6, Eos % (Auto) 1.4, Baso % (Auto) 0.3, Absolute Neuts (auto) 4.4, Absolute Lymphs (auto) 1.85, Nucleated RBC % 0.3 05/01/21 05:10: Sodium 142, Potassium 3.1 L, Chloride 110 H, Carbon Dioxide 24.0, Anion Gap 8, BUN 47 H, Creatinine 2.09 H, Estim Creat Clear Calc 20.57, Est GFR (MDRD) Af Amer 29 L, Est GFR (MDRD) Non-Af 24 L, BUN/Creatinine Ratio 22.5 H, Glucose 111 H, Calcium 6.5 L*, Total Bilirubin 0.30, AST 44 H, ALT 28, Alkaline Phosphatase 115, Total Protein 4.4 L, Albumin 1.1 L, Globulin 3.3, Albumin/Globulin Ratio 0.3 L 05/01/21 05:10: Magnesium 1.3 L Micro: Microbiology 04/29/21 09:51 Blood Culture (Wb) - Right Forearm Blood Culture - Preliminary No growth in 48 hours. 04/29/21 10:30 Blood Culture (Wb) - Left Hand Blood Culture - Preliminary No growth in 48 hours. 04/30/21 12:40 Stool C. difficile DNA Amplification - Final 04/29/21 10:45 Urine, Catheterized Urine Culture - Preliminary Mixed Culture 04/29/21 19:37 Mucosa - Nasopharyngeal Respiratory Panel (PCR) - Final 04/29/21 10:45 Urine, Clean Catch Legionella Antigen - Final 04/29/21 10:45 Urine, Clean Catch Streptococcus pneumoniae Antigen (M - Final 04/29/21 13:52 Stool Stool Occult Blood (AMBROCIO) - Final Occult Blood Positive 04/29/21 10:35 Nasal Secretion SARS-CoV-2 Antigen (Rapid) - Final Physical Exam Const alert, oriented x3 and no apparent distress General Appearance: cooperative HEENT normocephalic and moist oral mucous membranes Eyes PERRL, EOMs intact bilaterally and conjunctivae normal Neck supple and no JVD Resp normal respiratory effort, no retractions, no use of accessory muscles and clear to auscultation bilaterally Auscultation: Negative for crackles, rales, rhonchi or wheezes Cardio regular rate, regular rhythm, S1 normal heart sound, S2 normal heart sound and no murmurs GI soft to palpation, non-tender and non-distended; Negative for hepatosplenomegaly Extremity no clubbing, cyanosis or edema Extremity Narrative: Tenderness to her left knee with slight effusion Skin no rashes or lesions noted Neuro no focal motor deficits and no sensory deficits noted Psych affect normal Appearance: appropriate Assessment & Plan Assessment/Plan (1) Supratherapeutic INR: (2) Metabolic encephalopathy: (3) Lactic acidosis: (4) Hyperkalemia: (5) Acute anemia: (6) Chronic anemia: (7) Heme positive stool: (8) Leukocytosis: (9) Septic shock: PLAN: 1. Septic shock from unknown source/VALERIA on CKD 3a -Continue with Levophed and broad-spectrum antibiotics -We will contact orthopedic surgery as she does have a slight effusion in her left knee with pain, for possible draining culture. -If the knee is the negative source then we may need to get a CT scan of her leg to look for an abscess she does have some anterior redness on her left barone -Legionella/strep antigens are negative, respiratory panel is negative, Covid negative -Continue with IV fluids 2. Paroxysmal A. fib/HTN/HLD -Coumadin is supratherapeutic, will hold, she does also have a history of DVT -She does have a positive Hemoccult with no sofia bleeding, will continue to monitor hemoglobin -Continue with Levophed and hold off on her home blood pressure medications 3. DM2 with neuropathy -We will hold her oral agents and place her on a sliding scale insulin with Accu-Cheks -We will adjust insulin as necessary 4. Acute on chronic anemia -Chronic anemia is likely secondary to chronic disease and she did test Hemoccult positive which would explain the acuteness of her new anemia -She received a unit of blood overnight 04/30/2021-05/01/2021 DVT: SCDs Charges/Coding Visit Charges Inpatient E&M: 40317 Subs Hosp L2
[2021-05-01] MEDS: Menthol/Lanolin/Calamine/Znox 113 GM Tube 1 APPLIC TOPICAL ×2 (10:03→20:10)
[2021-05-01] MEDS: Pantoprazole Sodium 40 MG Tablet PO (10:03)
[2021-05-01] MEDS: CHLORHEXIDINE GLUC 2% CLOTH 1 EACH TOWELETTE TOPICAL (10:03)
--- NOTE | 2021-05-01 10:44 | PHA.PHARE_ITS ---
Consult Pharmacy has been consulted to manage selected antiobiotic: Vancomycin Type of Consult: Follow-up Suspected Infection: Sepsis Prior Doses of Antibiotics Received/Current Regimen: Received 1750mg iv x 1 on 04.29 and 05.01.21. Labs: Sodium 142 mmol/L (136-145) 05/01/21 05:10 Potassium 3.1 mmol/L (3.5-5.1) L 05/01/21 05:10 Chloride 110 mmol/L (98-107) H 05/01/21 05:10 Carbon Dioxide 24.0 mmol/L (21.0-32.0) 05/01/21 05:10 Anion Gap 8 (5-15) 05/01/21 05:10 BUN 47 mg/dL (7-18) H 05/01/21 05:10 Creatinine 2.09 mg/dL (0.55-1.02) H 05/01/21 05:10 Est GFR (MDRD) Af Amer 29 mL/min (>60) L 05/01/21 05:10 Est GFR (MDRD) Non-Af 24 mL/min (>60) L 05/01/21 05:10 BUN/Creatinine Ratio 22.5 RATIO (10-20) H 05/01/21 05:10 Glucose 111 mg/dL (74-106) H 05/01/21 05:10 Random Vancomycin 11.1 ug/mL (0.0-15.0) 05/01/21 05:10 Microbiology: Microbiology 04/29/21 10:45 Urine, Catheterized Urine Culture - Final Proteus mirabilis 04/29/21 09:51 Blood Culture (Wb) - Right Forearm Blood Culture - Preliminary No growth in 48 hours. 04/29/21 10:30 Blood Culture (Wb) - Left Hand Blood Culture - Preliminary No growth in 48 hours. 04/30/21 12:40 Stool C. difficile DNA Amplification - Final 04/29/21 19:37 Mucosa - Nasopharyngeal Respiratory Panel (PCR) - Final 04/29/21 10:45 Urine, Clean Catch Legionella Antigen - Final 04/29/21 10:45 Urine, Clean Catch Streptococcus pneumoniae Antigen (M - Final 04/29/21 13:52 Stool Stool Occult Blood (ABMROCIO) - Final Occult Blood Positive 04/29/21 10:35 Nasal Secretion SARS-CoV-2 Antigen (Rapid) - Final Weight used for dosin.6 kg Estimated Creatinine Clearance: ~21 ml/min Goal Trough: 15-20 mcg/mL Pharmacy Plan for Drug Dosing: Random level this AM ~39 hrs post dose was 11.1. Cr 2 and CrCl ~21ml/min. Will give 1750mg iv x 1 again and get a random level in AM tomorrow with goal of 15- 20mcg/ml. Pharmacy Service will continue to monitor and adjust dosing as required. Follow-Up Labs: Trough Vancomycin - random level 10.28.21 @1000
[2021-05-01 11:41] LABS: Bedside Glucose 111 mg/dL (70-110)
--- NOTE | 2021-05-01 13:52 | RAD_ITS ---
STUDY: X-RAY - LEFT KNEE REASON FOR EXAM: Limited range of motion of the left knee. TECHNIQUE: 3 view(s) of the knee. COMPARISON: Radiographs 10/03/2020. FINDINGS: There is a left total knee arthroplasty without evidence of complication. There is a joint effusion. There is soft tissue swelling. RAD/Knee 3 Views IMPRESSION: Uncomplicated left total knee arthroplasty. Joint effusion. Electronically Signed: Efra Delgado MD at 15:01 EDT Tel , Service support ,
--- NOTE | 2021-05-01 14:14 | WOUNDNOTE ---
Removed TAYLOR wraps to assess bilateral lower legs. still moderate edema noted. there is some redness and slight warmth noted to the LLE just above the ankle. there are no open areas noted. washed legs and feet with soap and water. pat dry. applied TAYLOR wrap to the right lower leg and can place TAYLOR wrap to the LLE, but Dr Drake plans to aspirate an area to the left posterior knee. will monitor.
--- NOTE | 2021-05-01 14:35 | CON.PCM_ITS ---
Assessment & Plan Assessment/Plan (1) Septicemia: (2) Acute kidney injury: (3) Effusion, left knee: PLAN: Left knee pain and effusion. Patient has history of left knee periprosthetic joint infection. She has unexplained septic shock at this time. She is requiring pressors. She does have an effusion. She may have a suppressed infection at this time. Natural history of this disease process was discussed the patient. I recommended that based on her radiographic findings her clinical history and her effusion today we should proceed with an aspiration of the knee in order to rule out infection. Unfortunately, with her radiographic findings if she does have an infection she would likely require more than a irrigation debridement with polyethylene exchange this time. However based on her current clinical status we would entertain all options in order to stabilize and defer major reconstructions for more appropriate time if necessary. Patient demonstrates an understanding of these today. She does wish to proceed with the aspiration. The patient was appropriately positioned so the lateral suprapatellar portal was accessible. This area was palpated and marked out. Alcohol swabs and chlorhexidine were used to sterilely prep the area. Sterile gloves were donned. 18-gauge needle was used to aspirate 20 cc of serous synovial fluid. Band-Aid was placed. Patient tolerated procedure well. We will review the results and cultures and make plans according from there. Cultures may be affected by chronic suppressive antibiotics and current antibiotic regimen. [facility] Office: HPI Consult Data Date of Consult: 05/01/21 HPI Narrative HPI Narrative: OG STEIN, is a 81 F who presents with septic shock of unknown origin. Patient presented on 04/29 with some noted confusion at her intermediate facility. At that time the son gave most of the history. She also spiked a fever of 100.1 and had a white count of 14.5 on admission. Patient did have a left knee P JI in October of this year with coag negative staph. She finished a course of IV antibiotics and was continued on oral doxycycline for chronic suppression. Patient notes that she has intermittent pain in the left knee which is to be expected. She has had some increased warmth. With lack of any other site of infection I been consulted to evaluate the knee. Patient does report that she has had edema in the extremities greater over the last couple of months than when she was most recently seen by me. There is no associated erythema of the knee. She does have some pain with range of motion. Her previous infection did include a draining sinus in the posterior knee which healed well and is not draining today. Pain is located in the knee and lower extremity and rated at moderate. [facility] Medical History Atrial fibrillation Debility Deep vein thrombosis Diabetic neuropathy Falls Hx-TIA (transient ischemic attack) Hypertension Hypothyroidism Infected prosthetic knee joint Mild diastolic dysfunction Obesity Osteoarthritis Stage 3b chronic kidney disease Stasis dermatitis of both legs Transient ischemic attack Type 2 diabetes mellitus Vitamin D deficiency Medical History no medical history Home Medications levothyroxine 75 mcg PO DAILY 02/17/20 [History Last Taken 04/28/21] metformin 1,000 mg PO BID 02/17/20 [History Last Taken 04/28/21] acetaminophen 1,000 mg PO Q6H PRN 04/29/21 [History Last Taken 04/28/21 16:45] cholecalciferol (vitamin D3) 50 mcg PO DAILY 04/29/21 [History Last Taken 04/28/21] doxycycline hyclate 100 mg PO DAILY 04/29/21 [History Last Taken 04/28/21] furosemide 40 mg PO DAILY 04/29/21 [History Last Taken 04/28/21] furosemide [Lasix] 20 mg PO DAILY 04/29/21 [History Last Taken 04/28/21] gabapentin 600 mg PO QHS 04/29/21 [History Last Taken 04/28/21] lisinopril 10 mg PO DAILY 04/29/21 [History Last Taken 04/28/21] metoprolol tartrate 25 mg PO BID 04/29/21 [History Last Taken 04/28/21] sitagliptin [Januvia] 25 mg PO DAILY 04/29/21 [History Last Taken 04/28/21] warfarin 4 mg PO DAILY 04/29/21 [History Last Taken 04/28/21] Allergy/AdvReac Type Severity Reaction Status Date / Time No Known Allergies Allergy Verified 01/25/21 17:44 Family History Other Cancer Heart disease Surgical History H/O colectomy History of bilateral knee replacement History of cholecystectomy Social History household members: none Smoking Status: Former smoker alcohol intake: never substance use type: does not use what type of physical activity do you participate in: none ROS Constitutional Constitutional: Reports systems reviewed and no addt'l complaints, except as documented Physical Exam Const oriented x3 Constitutional Narrative: Patient recognizes me and even ask about my usual bowtie which I am not wearing today. She does not appear to be significantly confused. General Appearance: cooperative, comfortable and well kempt HEENT normocephalic Mouth: oral and palatal mucosa normal Eyes PERRL Neck no JVD Neck Narrative: Left IJ catheter Resp normal respiratory effort GI GI Narrative: Obese Extremity Extremity Narrative: Left lower extremity: Patient has bilateral lower extremity edema. No appreciable erythema around the knee. Increased warmth and effusion is palpable. Moderate pain with range of motion passively. Neurovascular intact distally. Neuro oriented x3 Psych mental status grossly normal Lab / Micro Data Result Diagrams: 05/01/21 05:10 05/01/21 05:10 Labs: Laboratory Results - last 24 hr 04/30/21 14:45: Hgb 7.0 L, Hct 19.6 L 04/30/21 14:45: PT 32.3 H, INR 3.2 04/30/21 16:15: Blood Type A POSITIVE, Antibody Screen NEGATIVE, Crossmatch See Detail 04/30/21 16:20: POC Glucose 194 H 05/01/21 05:10: Random Vancomycin 11.1 05/01/21 05:10: WBC 7.1, RBC 2.53 L, Hgb 8.3 L, Hct 22.5 L, MCV 88.9, MCH 32.8 H , MCHC 36.9 H, RDW Std Deviation 50.6 H, RDW Coeff of Shania 16.0 H, Plt Count 126 L, MPV 12.6 H, Immature Gran % (Auto) 0.700, Neut % (Auto) 61.9, Lymph % (Auto) 26.1, [place] % (Auto) 9.6, Eos % (Auto) 1.4, Baso % (Auto) 0.3, Absolute Neuts (auto) 4.4, Absolute Lymphs (auto) 1.85, Nucleated RBC % 0.3 05/01/21 05:10: Sodium 142, Potassium 3.1 L, Chloride 110 H, Carbon Dioxide 24.0, Anion Gap 8, BUN 47 H, Creatinine 2.09 H, Estim Creat Clear Calc 20.57, Est GFR (MDRD) Af Amer 29 L, Est GFR (MDRD) Non-Af 24 L, BUN/Creatinine Ratio 22.5 H, Glucose 111 H, Calcium 6.5 L*, Total Bilirubin 0.30, AST 44 H, ALT 28, Alkaline Phosphatase 115, Total Protein 4.4 L, Albumin 1.1 L, Globulin 3.3, Albumin/Globulin Ratio 0.3 L 05/01/21 05:10: Magnesium 1.3 L 05/01/21 11:36: POC Glucose 111 H Micro: Microbiology 04/29/21 10:45 Urine, Catheterized Urine Culture - Final Proteus mirabilis 04/29/21 09:51 Blood Culture (Wb) - Right Forearm Blood Culture - Preliminary No growth in 48 hours. 04/29/21 10:30 Blood Culture (Wb) - Left Hand Blood Culture - Preliminary No growth in 48 hours. 04/30/21 12:40 Stool C. difficile DNA Amplification - Final
--- NOTE | 2021-05-01 14:52 | NURSING ---
3 rings removed from left hand by . Placed in denture cup with patient label and locked in bottom med guest relations coordinator patients room.
[2021-05-01 15:34] LABS: RBC /Synovial Fluid 0.027 10^6/uL (0); Synovial Fld Polynuclear WBC # 9.128 10^3/uL
[2021-05-01 17:03] LABS: AUTO B FLUID DILUENT BKGD CT WBC <0.1 RBC <0.01 (W<.1,R<.01); Appearance /Synovial Fluid Turbid (CLEAR); Color / Synovial Fluid Yellow (Pale Yellow)
[2021-05-01 17:06] LABS: Lymph 15 %; Monocyte /Synovial Fluid 6 %; Neutrophil 79 % (0-25)
[2021-05-01 17:07] LABS: Body Fluid QC Type(s) BFQC2
[2021-05-01 17:11] LABS: Bedside Glucose 103 mg/dL (70-110)
[2021-05-02] VITALS (32 sets, daily range): BP systolic 75–118; BP diastolic 43–97; PULSE 74–102; RESP 10–18; TEMP 36.4–37.2; O2SAT 92–100
[2021-05-02 03:32] LABS: Absolute Neutrophil Count 3.9 X10^3/uL (2.0-7.7); Basophil# 0.03 X10^3/uL; Basophil% 0.4 % (0-1); Eosinophil# 0.26 X10^3/uL; Eosinophils% 3.6 % (0-5); Hematocrit 23.1 % (37-47); Hemoglobin 8.3 g/dL (12.0-15.0); Lymphocyte % 30.2 % (19-41); Mean Corp Hgb Conc 35.9 g/dL (32-36); Mean Corpuscular Hgb 32.8 pg (27.0-32.0); Mean Corpuscular Volume 91.3 fL (81-99); Monocyte# 0.85 X10^3/uL; Monocyte% 11.7 % (0-10); NRBC Flagged by Analyzer 0.3 % (0-5); Neutrophil # 3.91 X10^3/uL (2.7-7.7); Neutrophil % 53.6 % (47-70); Platelet Count 128 K/mm3 (150-450); RBC Distribution Width CV 16.8 % (11.6-14.6); RBC Distribution Width SD 54.1 fl (35.1-43.9); Red Blood Count 2.53 M/mm3 (4.2-5.4); White Blood Count 7.3 K/mm3 (4.4-11.0)
[2021-05-02 03:40] LABS: Prothrombin Time (Protime)PT. 22.1 SECONDS (11.7-14.9)
[2021-05-02 03:50] LABS: Anion Gap 6 (5-15); BUN 36 mg/dL (7-18); BUN/Creat Ratio 20.8 RATIO (10-20); Calcium,Total 6.4 mg/dL (8.5-10.1); Chloride 112 mmol/L (98-107); Creatinine, Serum 1.73 mg/dL (0.55-1.02); EST Glomerular Filtration Rate 30 mL/min (>60); Est Glom Filt Rate - Afr Amer 36 mL/min (>60); Estimated Creatinine Clearance 24.86 ml/min; Glucose 122 mg/dL (74-106); Magnesium 2.2 mg/dL (1.6-2.6); Potassium 3.7 mmol/L (3.5-5.1); Sodium Level 141 mmol/L (136-145)
[2021-05-02] MEDS: 0.9% Normal Saline 1,000 ML 50 ML IV (05:28)
[2021-05-02] MEDS: Levothyroxine 75 MCG Tablet PO (06:23)
--- NOTE | 2021-05-02 07:25 | PN.CC_ITS ---
Assessment & Plan Assessment/Plan (1) Septicemia: (2) Acute kidney injury: (3) Supratherapeutic INR: (4) Atrial fibrillation, chronic: (5) Heme positive stool: (6) Acute anemia: (7) Diabetes mellitus type 2 in obese: PLAN: RECOMMENDATIONS: 1. Continue with empiric antibiotics 2. Await cultures of the synovial fluid 3. Increase activity as tolerated 4. Continue pressor agents. Titrate to MAP of 65 5. Continue to hold diuretics while patient requires pressors IMPRESSIONS: 1. Septic shock of unclear etiology Patient's UA is not suggestive of a source. Chest x-ray is once again not impressive. Patient does have some erythema and edema of the left greater than right lower extremity. Patient received fluid resuscitation with good response, but still had to have pressors placed. Patient is being treated with vancomycin and Zosyn. Pancultures sent initially showed only minimal Proteus in the urine (less than 1000 CFU). Hold baseline antihypertensives and diuretics for now. Initial cell count of the synovial fluid is suggestive of a septic knee joint. Patient has received several days of antibiotics, but hopefully cultures can still be positive. Orthopedics has been consulted. 2. Acute on chronic anemia with heme positive stools in the setting of a supratherapeutic INR Patient is on Coumadin at baseline. Patient does not require a transfusion at this time, but will need to follow closely. Hemoccult stool was positive, but no active clinical bleeding noted. We will hold on active reversal with FFP. Transfuse for hemoglobin less than 7. We will continue with daily H&H's. 3. Acute kidney injury on CKD stage IIIa Improving. Patient has had elevation of creatinine over the last year. Patient is on lisinopril, Lasix and likely prerenal deficiency given problem #1. Hold Lasix and lisinopril. Continue to monitor closely. CPK is not impressive as an etiology. Patient does have some mild hyperkalemia on presentation but this has resolved and now is requiring repletion. 4. Diabetes mellitus type 2/paroxysmal A. fib/DVT/diabetic neuropathy/anasarca Complicates care, management, recovery and prognosis. Blood pressure medications have been held along with oral glycemic's pending acute condition. Patient is a DNR Comfort Care arrest without intubation. Recent echocardiogram showed an EF of 50 to 55% with stage I diastolic dysfunction. TIME: 34 minutes critical care time spent addressing patient's septic shock, anemia, acute kidney injury, line placement, review of all data and collaboration with care team (6 AM to 7 AM) Subjective Subjective Patient did well overnight. Patient subjectively feels slightly improved compared to yesterday. Patient remains on Levophed, but still tolerating room air. Patient did have her knee tapped yesterday and reports subjective improvement. Objective Data Objective Data Vital Signs: Vital Signs Temp Pulse Resp BP Pulse Ox 36.8 C 76 17 75/45 L 98 05/02/21 07:00 05/02/21 07:15 05/02/21 07:00 05/02/21 07:15 05/02/21 07:00 Oxygen Delivery Method Room Air Weight: 115.847 kg Body Mass Index (BMI) 37.2 Intake & Output: Intake and Output for Last 24 Hours 04/30/21 05/01/21 05/02/21 23:59 23:59 23:59 Intake Total 2522.44 / 2524.32 2840.67 / 2996.27 1338.77 / 1338.77 Output Total 600 / 600 910 / 1085 350 / 350 Balance 1922.44 / 1924.32 1930.67 / 1911.27 988.77 / 988.77 Lab / Micro Data Result Diagrams: 05/02/21 03:25 05/02/21 03:25 Labs: Laboratory Results - last 24 hr 04/30/21 16:15: Crossmatch See Detail 05/01/21 05:10: Magnesium 1.3 L 05/01/21 11:36: POC Glucose 111 H 05/01/21 14:30: Fluid Source Cancelled, Fluid Color Cancelled, Fluid Appearance Cancelled, Fluid WBC Cancelled, Fluid RBC Cancelled, Fluid Tot Cell Count Cancelled, Fld Polynuclear WBCs # Cancelled, Fld Polynuclear WBCs % Cancelled, F luid Mononuclear WBCs Cancelled, Fld Mononuclear WBCs % Cancelled, Fluid Neutrophils Cancelled, Fluid Lymphocytes Cancelled, Fluid Monocytes Cancelled, Fluid Plasma Cells Cancelled, Fluid Macrophages Cancelled, Fld Mesothelial Cells Cancelled, Fluid Other Cells Cancelled, Fl Pathologist Comment Cancelled, Fluid Comment 2 Cancelled, Synovial Source UNK, Synovial Color Yellow, Synovial Appearance Turbid, Synovial WBC 10.4160 H, Synovial RBC 0.027 H, Synovial Tot Cell Ct 10.5220 H, Synov Polynuclear WBCs 9.128, Synovial Neutrophils 79 H, Synovial Lymphocytes 15, Synovial Monocytes 6, Synovial Polynuclear % 85.0, Synovial Mononuclear % 15.0, Synovial Path Comment May follow 05/01/21 17:03: POC Glucose 103 05/02/21 03:25: WBC 7.3, RBC 2.53 L, Hgb 8.3 L, Hct 23.1 L, MCV 91.3, MCH 32.8 H , MCHC 35.9, RDW Std Deviation 54.1 H, RDW Coeff of Shania 16.8 H, Plt Count 128 L, MPV 12.0, Immature Gran % (Auto) 0.500, Neut % (Auto) 53.6, Lymph % (Auto) 30.2, [place] % (Auto) 11.7 H, Eos % (Auto) 3.6, Baso % (Auto) 0.4, Absolute Neuts (auto) 3.9, Absolute Lymphs (auto) 2.20, Nucleated RBC % 0.3 05/02/21 03:25: PT 22.1 H, INR 2.0 05/02/21 03:25: Sodium 141, Potassium 3.7, Chloride 112 H, Carbon Dioxide 23.0, Anion Gap 6, BUN 36 H, Creatinine 1.73 H, Estim Creat Clear Calc 24.86, Est GFR (MDRD) Af Amer 36 L, Est GFR (MDRD) Non-Af 30 L, BUN/Creatinine Ratio 20.8 H, Glucose 122 H, Calcium 6.4 L*, Magnesium 2.2 Micro: Microbiology 04/29/21 10:45 Urine, Catheterized Urine Culture - Final Proteus mirabilis 04/29/21 09:51 Blood Culture (Wb) - Right Forearm Blood Culture - Preliminary No growth in 48 hours. 04/29/21 10:30 Blood Culture (Wb) - Left Hand Blood Culture - Preliminary No growth in 48 hours. 04/30/21 12:40 Stool C. difficile DNA Amplification - Final 04/29/21 19:37 Mucosa - Nasopharyngeal Respiratory Panel (PCR) - Final 04/29/21 10:45 Urine, Clean Catch Legionella Antigen - Final 04/29/21 10:45 Urine, Clean Catch Streptococcus pneumoniae Antigen (M - Final 04/29/21 13:52 Stool Stool Occult Blood (AMBROCIO) - Final Occult Blood Positive 04/29/21 10:35 Nasal Secretion SARS-CoV-2 Antigen (Rapid) - Final Radiography Diagnostic Testing: Radiology Impression Knee X-Ray 05/01/21 13:52 IMPRESSION: Uncomplicated left total knee arthroplasty. Joint effusion. Electronically Signed: Efra Delgado MD at 15:01 EDT Tel , Service support , Physical Exam Const alert and no apparent distress General Appearance: cooperative and other Color normalized Nutritional Appearance: obese HEENT normocephalic, head/scalp atraumatic, hearing grossly normal bilaterally, moist oral mucous membranes and oropharynx normal Mouth: oral and palatal mucosa normal Eyes PERRL and EOMs intact bilaterally Eyes Narrative: No scleral icterus Neck no lymphadenopathy, supple, no JVD and no carotid bruits General: normal visual inspection and trachea midline; Negative for anterior neck swelling Chest inspection of chest normal Chest: symmetrical chest wall rise; Negative for crepitus Resp normal respiratory effort, no retractions, no use of accessory muscles and clear to auscultation bilaterally Resp Narrative: Distant lung sounds secondary to body habitus Auscultation: Negative for rales, rhonchi or wheezes Cardio regular rate, S1 normal heart sound, S2 normal heart sound, no murmurs, no rub, no gallops, no clicks and no JVD Rhythm: abnormal rhythm irregularly irregular GI normal to inspection, nondistended, normoactive bowel sounds, soft to palpation, non-tender and non-distended Extremity Extremity Narrative: No effusion noted on left knee Peripheral Pulses: Yes pulses 2+ throughout Skin skin turgor normal, no jaundice, no petechiae and no mottling Skin Narrative: Improving mild erythema of the left lower extremity Neuro CN's II-XII intact bilaterally, moves all extremities and no focal motor deficits Neuro Narrative: Poor cooperation with exam Sensorium / Orientation: awake, alert, oriented to person and oriented to time Speech: speech normal Psych Psych Narrative: Affect is slightly flat Charges/Coding Procedures Hospitalists Procedures: 16458 Critial Care 1st Hr
[2021-05-02 09:21] LABS: Bedside Glucose 122 mg/dL (70-110)
--- NOTE | 2021-05-02 09:59 | WOUNDNOTE ---
in to rewrap bilateral lower legs and feet with TAYLOR wraps. still moderate edema noted. No open areas noted. there is still some mild redness noted to the left lower leg just above the ankle. improved from yesterday.
--- NOTE | 2021-05-02 10:05 | PCM.PN.HOSP ---
Subjective Subjective No issues overnight. Doing well. She still on Levophed and did have to get turned up a little bit Objective Data Objective Data Vital Signs: Vital Signs Temp Pulse Resp BP Pulse Ox 98.3 F 76 17 104/55 L 98 05/02/21 07:00 05/02/21 07:15 05/02/21 07:00 05/02/21 07:45 05/02/21 07:43 Oxygen Delivery Method Room Air Weight: 255 lb 6.4 oz Body Mass Index (BMI) 37.2 Intake & Output: Intake and Output for Last 24 Hours 05/01/21 05/02/21 05/03/21 03:59 03:59 03:59 Intake Total 2298.59 / 2304.19 2992.49 / 2998.09 1119.17 / 1119.17 Output Total 600 / 600 1085 / 1085 175 / 175 Balance 1698.59 / 1704.19 1907.49 / 1913.09 944.17 / 944.17 Lab / Micro Data Result Diagrams: 05/02/21 03:25 05/02/21 03:25 Labs: Laboratory Results - last 24 hr 05/01/21 11:36: POC Glucose 111 H 05/01/21 14:30: Fluid Source Cancelled, Fluid Color Cancelled, Fluid Appearance Cancelled, Fluid WBC Cancelled, Fluid RBC Cancelled, Fluid Tot Cell Count Cancelled, Fld Polynuclear WBCs # Cancelled, Fld Polynuclear WBCs % Cancelled, Fluid Mononuclear WBCs Cancelled, Fld Mononuclear WBCs % Cancelled, Fluid Neutrophils Cancelled, Fluid Lymphocytes Cancelled, Fluid Monocytes Cancelled, Fluid Plasma Cells Cancelled, Fluid Macrophages Cancelled, Fld Mesothelial Cells Cancelled, Fluid Other Cells Cancelled, Fl Pathologist Comment Cancelled, Fluid Comment 2 Cancelled, Synovial Source UNK, Synovial Color Yellow, Synovial Appearance Turbid, Synovial WBC 10.4160 H, Synovial RBC 0.027 H, Synovial Tot Cell Ct 10.5220 H, Synov Polynuclear WBCs 9.128, Synovial Neutrophils 79 H, Synovial Lymphocytes 15, Synovial Monocytes 6, Synovial Polynuclear % 85.0, Synovial Mononuclear % 15.0, Synovial Path Comment May follow 05/01/21 17:03: POC Glucose 103 05/02/21 03:25: WBC 7.3, RBC 2.53 L, Hgb 8.3 L, Hct 23.1 L, MCV 91.3, MCH 32.8 H, MCHC 35.9, RDW Std Deviation 54.1 H, RDW Coeff of Shania 16.8 H, Plt Count 128 L, MPV 12.0, Immature Gran % (Auto) 0.500, Neut % (Auto) 53.6, Lymph % (Auto) 30.2, [place] % (Auto) 11.7 H, Eos % (Auto) 3.6, Baso % (Auto) 0.4, Absolute Neuts (auto) 3.9, Absolute Lymphs (auto) 2.20, Nucleated RBC % 0.3 05/02/21 03:25: PT 22.1 H, INR 2.0 05/02/21 03:25: Sodium 141, Potassium 3.7, Chloride 112 H, Carbon Dioxide 23.0, Anion Gap 6, BUN 36 H, Creatinine 1.73 H, Estim Creat Clear Calc 24.86, Est GFR (MDRD) Af Amer 36 L, Est GFR (MDRD) Non-Af 30 L, BUN/Creatinine Ratio 20.8 H, Glucose 122 H, Calcium 6.4 L*, Magnesium 2.2 05/02/21 07:50: POC Glucose 122 H Micro: Microbiology 04/29/21 10:45 Urine, Catheterized Urine Culture - Final Proteus mirabilis 04/29/21 09:51 Blood Culture (Wb) - Right Forearm Blood Culture - Preliminary No growth in 48 hours. 04/29/21 10:30 Blood Culture (Wb) - Left Hand Blood Culture - Preliminary No growth in 48 hours. 04/30/21 12:40 Stool C. difficile DNA Amplification - Final 04/29/21 19:37 Mucosa - Nasopharyngeal Respiratory Panel (PCR) - Final 04/29/21 10:45 Urine, Clean Catch Legionella Antigen - Final 04/29/21 10:45 Urine, Clean Catch Streptococcus pneumoniae Antigen (M - Final 04/29/21 13:52 Stool Stool Occult Blood (AMBROCIO) - Final Occult Blood Positive 04/29/21 10:35 Nasal Secretion SARS-CoV-2 Antigen (Rapid) - Final Radiography Diagnostic Testing: Radiology Impression Knee X-Ray 05/01/21 13:52 IMPRESSION: Uncomplicated left total knee arthroplasty. Joint effusion. Electronically Signed: Efra Delgado MD at 15:01 EDT Tel , Service support , Physical Exam Const alert, oriented x3 and no apparent distress General Appearance: cooperative HEENT normocephalic and moist oral mucous membranes Eyes PERRL, EOMs intact bilaterally and conjunctivae normal Neck supple and no JVD Resp normal respiratory effort, no retractions, no use of accessory muscles and clear to auscultation bilaterally Auscultation: Negative for crackles, rales, rhonchi or wheezes Cardio regular rate, regular rhythm, S1 normal heart sound, S2 normal heart sound and no murmurs GI soft to palpation, non-tender and non-distended; Negative for hepatosplenomegaly Extremity no clubbing, cyanosis or edema Extremity Narrative: Tenderness to her left knee with slight effusion Skin no rashes or lesions noted Neuro no focal motor deficits and no sensory deficits noted Psych affect normal Appearance: appropriate Assessment & Plan Assessment/Plan (1) Supratherapeutic INR: (2) Metabolic encephalopathy: (3) Lactic acidosis: (4) Hyperkalemia: (5) Acute anemia: (6) Chronic anemia: (7) Heme positive stool: (8) Leukocytosis: (9) Septic shock: PLAN: 1. Septic shock from unknown source/VALERIA on CKD 3a -Continue with Levophed and broad-spectrum antibiotics -We will contact orthopedic surgery as she does have a slight effusion in her left knee with pain, for possible draining culture. -Ortho finally tapped the knee but does show elevated neutrophil count and white blood cell count culture is pending -Legionella/strep antigens are negative, respiratory panel is negative, Covid negative -Continue with IV fluids 2. Paroxysmal A. fib/HTN/HLD -Coumadin is supratherapeutic, will hold, she does also have a history of DVT -She does have a positive Hemoccult with no sofia bleeding, will continue to monitor hemoglobin -Continue with Levophed and hold off on her home blood pressure medications 3. DM2 with neuropathy -We will hold her oral agents and place her on a sliding scale insulin with Accu-Cheks -We will adjust insulin as necessary 4. Acute on chronic anemia -Chronic anemia is likely secondary to chronic disease and she did test Hemoccult positive which would explain the acuteness of her new anemia -She received a unit of blood overnight 04/30/2021-05/01/2021 DVT: SCDs Charges/Coding Visit Charges Inpatient E&M: 98552 Subs Hosp L2
--- NOTE | 2021-05-02 10:12 | PN.ORTHO_ITS ---
Subjective Subjective Dictating on patient of Dr. Leobardo Drake. Patient has history of left knee periprosthetic joint infection in which patient underwent previous irrigation debridement with removal of sinus tract and polyethylene exchange on October 03, 2020. Patient has been on chronic suppressive antibiotics following this infection. Patient was admitted for septic shock. Aspiration was performed by Dr. Drake yesterday and cultures are pending. Infectious disease has been consulted as well. Patient continues to complain of pain and swelling in the left knee. Objective Data Objective Data Vital Signs: Vital Signs Temp Pulse Resp BP Pulse Ox 98.3 F 76 17 104/55 L 98 05/02/21 07:00 05/02/21 07:15 05/02/21 07:00 05/02/21 07:45 05/02/21 07:43 Oxygen Delivery Method Room Air Weight: 115.847 kg Body Mass Index (BMI) 37.2 Intake & Output: Intake and Output for Last 24 Hours 04/30/21 05/01/21 05/02/21 23:59 23:59 23:59 Intake Total 2522.44 / 2524.32 2840.67 / 2996.27 1341.57 / 1341.57 Output Total 600 / 600 910 / 1085 350 / 350 Balance 1922.44 / 1924.32 1930.67 / 1911.27 991.57 / 991.57 Lab / Micro Data Result Diagrams: 05/02/21 03:25 05/02/21 03:25 Labs: Laboratory Results - last 24 hr 05/01/21 11:36: POC Glucose 111 H 05/01/21 14:30: Fluid Source Cancelled, Fluid Color Cancelled, Fluid Appearance Cancelled, Fluid WBC Cancelled, Fluid RBC Cancelled, Fluid Tot Cell Count Cancelled, Fld Polynuclear WBCs # Cancelled, Fld Polynuclear WBCs % Cancelled, Fluid Mononuclear WBCs Cancelled, Fld Mononuclear WBCs % Cancelled, Fluid Neutrophils Cancelled, Fluid Lymphocytes Cancelled, Fluid Monocytes Cancelled, Fluid Plasma Cells Cancelled, Fluid Macrophages Cancelled, Fld Mesothelial Cells Cancelled, Fluid Other Cells Cancelled, Fl Pathologist Comment Cancelled, Fluid Comment 2 Cancelled, Synovial Source UNK, Synovial Color Yellow, Synovial Appearance Turbid, Synovial WBC 10.4160 H, Synovial RBC 0.027 H, Synovial Tot Cell Ct 10.5220 H, Synov Polynuclear WBCs 9.128, Synovial Neutrophils 79 H, Synovial Lymphocytes 15, Synovial Monocytes 6, Synovial Polynuclear % 85.0, Synovial Mononuclear % 15.0, Synovial Path Comment May follow 05/01/21 17:03: POC Glucose 103 05/02/21 03:25: WBC 7.3, RBC 2.53 L, Hgb 8.3 L, Hct 23.1 L, MCV 91.3, MCH 32.8 H , MCHC 35.9, RDW Std Deviation 54.1 H, RDW Coeff of Shania 16.8 H, Plt Count 128 L, MPV 12.0, Immature Gran % (Auto) 0.500, Neut % (Auto) 53.6, Lymph % (Auto) 30.2, [place] % (Auto) 11.7 H, Eos % (Auto) 3.6, Baso % (Auto) 0.4, Absolute Neuts (auto) 3.9, Absolute Lymphs (auto) 2.20, Nucleated RBC % 0.3 05/02/21 03:25: PT 22.1 H, INR 2.0 05/02/21 03:25: Sodium 141, Potassium 3.7, Chloride 112 H, Carbon Dioxide 23.0, Anion Gap 6, BUN 36 H, Creatinine 1.73 H, Estim Creat Clear Calc 24.86, Est GFR (MDRD) Af Amer 36 L, Est GFR (MDRD) Non-Af 30 L, BUN/Creatinine Ratio 20.8 H, Glucose 122 H, Calcium 6.4 L*, Magnesium 2.2 05/02/21 07:50: POC Glucose 122 H Micro: Microbiology 04/29/21 10:45 Urine, Catheterized Urine Culture - Final Proteus mirabilis 04/29/21 09:51 Blood Culture (Wb) - Right Forearm Blood Culture - Preliminary No growth in 48 hours. 04/29/21 10:30 Blood Culture (Wb) - Left Hand Blood Culture - Preliminary No growth in 48 hours. 04/30/21 12:40 Stool C. difficile DNA Amplification - Final 04/29/21 19:37 Mucosa - Nasopharyngeal Respiratory Panel (PCR) - Final 04/29/21 10:45 Urine, Clean Catch Legionella Antigen - Final 04/29/21 10:45 Urine, Clean Catch Streptococcus pneumoniae Antigen (M - Final 04/29/21 13:52 Stool Stool Occult Blood (AMBROCIO) - Final Occult Blood Positive 04/29/21 10:35 Nasal Secretion SARS-CoV-2 Antigen (Rapid) - Final Radiography Diagnostic Testing: Radiology Impression Knee X-Ray 05/01/21 13:52 IMPRESSION: Uncomplicated left total knee arthroplasty. Joint effusion. Electronically Signed: Efra Delgado MD at 15:01 EDT Tel , Service support , Physical Exam Narrative On exam of the left knee there is no erythema. However patient does have effusion. Increased pain with gentle range of motion passively. Patient is able to plantarflex/dorsiflex. Sensation intact to light touch. Const alert, oriented x3 and no apparent distress Assessment & Plan Assessment/Plan (1) Effusion, left knee: (2) Septicemia: (3) Acute kidney injury: PLAN: Case was discussed with Dr. Leobardo Drake. At this time we are continuing to monitor aspiration results. They are pending. Plan will be for patient to be n.p.o. after midnight tonight with possible anticipation of surgical intervention. Treatment will be based on results and patient's medical status. We will continue with suppressive antibiotics with infectious disease input. 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 Continue with Jaime wrap and ice as needed for pain control. Continue with pain medications currently. Case was discussed with the nurse with regards to n.p.o. status after midnight. Dr. Drake will be in touch with the following results and determining further treatment.
--- NOTE | 2021-05-02 10:40 | CON.PCM.ID_ITS ---
Assessment & Plan Assessment/Plan (1) Septic shock: PLAN: L knee MS-CoNS PJI, taken for I&D and poly exchange 10/03/[address] Drake, has been on po doxy since then. Improving on vanc/zosyn. Aspiration of knee done. Ucx with less than 1k proteus. Ortho following. Will follow, thank you, d/w Dr. Ovalle (2) Acute kidney injury: (3) Infection of prosthetic left knee joint: HPI Consult Data Date of Consult: 05/02/21 HPI Narrative HPI Narrative: OG STEIN, is a 81 F with L knee MS-CoNS PJI, taken for I&D and poly exchange 10/03/[address] Drake, has been on po doxy since then, presented from [facility] to ED 04/29 with altered mental status, fever for 1-2 days. Admitted to icu on pressor, vanc/zosyn. Seen by ortho, L knee aspiration done. Feeling better overall, but c/o knee pain, moderate. Has had covid vaccine. Full ROS performed and neg except as noted above. [facility] Medical History (Updated 05/02/21 @ 10:[address] Charlie Kumar MD) Atrial fibrillation Debility Deep vein thrombosis Diabetic neuropathy Falls Hx-TIA (transient ischemic attack) Hypertension Hypothyroidism Infected prosthetic knee joint Mild diastolic dysfunction Obesity Osteoarthritis Stage 3b chronic kidney disease Stasis dermatitis of both legs Transient ischemic attack Type 2 diabetes mellitus Vitamin D deficiency Medical History no medical history Home Medications levothyroxine 75 mcg PO DAILY 02/17/20 [History Last Taken 04/28/21] metformin 1,000 mg PO BID 02/17/20 [History Last Taken 04/28/21] acetaminophen 1,000 mg PO Q6H PRN 04/29/21 [History Last Taken 04/28/21 16:45] cholecalciferol (vitamin D3) 50 mcg PO DAILY 04/29/21 [History Last Taken 04/28/21] doxycycline hyclate 100 mg PO DAILY 04/29/21 [History Last Taken 04/28/21] furosemide 40 mg PO DAILY 04/29/21 [History Last Taken 04/28/21] furosemide [Lasix] 20 mg PO DAILY 04/29/21 [History Last Taken 04/28/21] gabapentin 600 mg PO QHS 04/29/21 [History Last Taken 04/28/21] lisinopril 10 mg PO DAILY 04/29/21 [History Last Taken 04/28/21] metoprolol tartrate 25 mg PO BID 04/29/21 [History Last Taken 04/28/21] sitagliptin [Januvia] 25 mg PO DAILY 04/29/21 [History Last Taken 04/28/21] warfarin 4 mg PO DAILY 04/29/21 [History Last Taken 04/28/21] Allergy/AdvReac Type Severity Reaction Status Date / Time No Known Allergies Allergy Verified 01/25/21 17:44 Family History Other Cancer Heart disease Surgical History H/O colectomy History of bilateral knee replacement History of cholecystectomy Surgical History unable to obtain Social History household members: none Smoking Status: Former smoker alcohol intake: never substance use type: does not use what type of physical activity do you participate in: none Physical Exam Const alert and no apparent distress General Appearance: cooperative Exam Limitations: no limitations HEENT normocephalic and head/scalp atraumatic Eyes PERRL and EOMs intact bilaterally Neck supple and No nodes Resp normal air movement and clear to auscultation bilaterally Cardio regular rate and regular rhythm GI normal to inspection, nondistended, normoactive bowel sounds Extremity General Extremity: edema Skin Skin Narrative: L knee swelling, warmth, pain Neuro CN's II-XII intact bilaterally Psych mental status grossly normal Lab / Micro Data Result Diagrams: 05/02/21 03:25 05/02/21 03:25 Labs: Laboratory Results - last 24 hr 05/01/21 11:36: POC Glucose 111 H 05/01/21 14:30: Fluid Source Cancelled, Fluid Color Cancelled, Fluid Appearance Cancelled, Fluid WBC Cancelled, Fluid RBC Cancelled, Fluid Tot Cell Count Cancelled, Fld Polynuclear WBCs # Cancelled, Fld Polynuclear WBCs % Cancelled, Fluid Mononuclear WBCs Cancelled, Fld Mononuclear WBCs % Cancelled, Fluid Neutrophils Cancelled, Fluid Lymphocytes Cancelled, Fluid Monocytes Cancelled, Fluid Plasma Cells Cancelled, Fluid Macrophages Cancelled, Fld Mesothelial Cells Cancelled, Fluid Other Cells Cancelled, Fl Pathologist Comment Cancelled, Fluid Comment 2 Cancelled, Synovial Source UNK, Synovial Color Yellow, Synovial Appearance Turbid, Synovial WBC 10.4160 H, Synovial RBC 0.027 H, Synovial Tot Cell Ct 10.5220 H, Synov Polynuclear WBCs 9.128, Synovial Neutrophils 79 H, Synovial Lymphocytes 15, Synovial Monocytes 6, Synovial Polynuclear % 85.0, Synovial Mononuclear % 15.0, Synovial Path Comment May follow 05/01/21 17:03: POC Glucose 103 05/02/21 03:25: WBC 7.3, RBC 2.53 L, Hgb 8.3 L, Hct 23.1 L, MCV 91.3, MCH 32.8 H , MCHC 35.9, RDW Std Deviation 54.1 H, RDW Coeff of Shania 16.8 H, Plt Count 128 L, MPV 12.0, Immature Gran % (Auto) 0.500, Neut % (Auto) 53.6, Lymph % (Auto) 30.2, [place] % (Auto) 11.7 H, Eos % (Auto) 3.6, Baso % (Auto) 0.4, Absolute Neuts (auto) 3.9, Absolute Lymphs (auto) 2.20, Nucleated RBC % 0.3 05/02/21 03:25: PT 22.1 H, INR 2.0 05/02/21 03:25: Sodium 141, Potassium 3.7, Chloride 112 H, Carbon Dioxide 23.0, Anion Gap 6, BUN 36 H, Creatinine 1.73 H, Estim Creat Clear Calc 24.86, Est GFR (MDRD) Af Amer 36 L, Est GFR (MDRD) Non-Af 30 L, BUN/Creatinine Ratio 20.8 H, Glucose 122 H, Calcium 6.4 L*, Magnesium 2.2 05/02/21 07:50: POC Glucose 122 H Micro: Microbiology 05/01/21 14:30 Fluid - Synovial (joint) Body Fluid Culture - Preliminary No growth-Final to follow 04/29/21 10:45 Urine, Catheterized Urine Culture - Final Proteus mirabilis 04/29/21 09:51 Blood Culture (Wb) - Right Forearm Blood Culture - Preliminary No growth in 48 hours. 04/29/21 10:30 Blood Culture (Wb) - Left Hand Blood Culture - Preliminary No growth in 48 hours. Radiology Impression Knee X-Ray 05/01/21 13:52 IMPRESSION: Uncomplicated left total knee arthroplasty. Joint effusion. Electronically Signed: Efra Delgado MD at 15:01 EDT Tel , Service support ,
[2021-05-02] MEDS: Menthol/Lanolin/Calamine/Znox 113 GM Tube 1 APPLIC TOPICAL (11:06)
[2021-05-02] MEDS: Pantoprazole Sodium 40 MG Tablet PO (11:07)
[2021-05-02] MEDS: CHLORHEXIDINE GLUC 2% CLOTH 1 EACH TOWELETTE TOPICAL (11:07)
[2021-05-02] MEDS: Acetaminophen 325 MG Tablet 650 MG PO (11:08)
[2021-05-02] MEDS: Piperacil/Tazobactam 3.375 GM Q8 PREMIX IV ×2 (11:22→17:56)
[2021-05-02 12:00] LABS: Bedside Glucose 126 mg/dL (70-110)
--- NOTE | 2021-05-02 12:00 | CASEMGMT ---
Social Work SW attended ICU rounds. Pt is agreeable that she would like to return to [facility] at time of discharge. Clinical updates faxed to Naveen Pleitez. Discharge Plan: [facility], when medically ready GINA Zayas
[2021-05-02 12:17] LABS: Vancomycin, Random Level 18.7 ug/mL (0.0-15.0)
--- NOTE | 2021-05-02 12:40 | PCM.RX.CS ---
Consult Pharmacy has been consulted to manage selected antiobiotic: Vancomycin Type of Consult: Follow-up Labs: Sodium 141 mmol/L (136-145) 05/02/21 03:25 Potassium 3.7 mmol/L (3.5-5.1) 05/02/21 03:25 Chloride 112 mmol/L (98-107) H 05/02/21 03:25 Carbon Dioxide 23.0 mmol/L (21.0-32.0) 05/02/21 03:25 Anion Gap 6 (5-15) 05/02/21 03:25 BUN 36 mg/dL (7-18) H 05/02/21 03:25 Creatinine 1.73 mg/dL (0.55-1.02) H 05/02/21 03:25 Est GFR (MDRD) Af Amer 36 mL/min (>60) L 05/02/21 03:25 Est GFR (MDRD) Non-Af 30 mL/min (>60) L 05/02/21 03:25 BUN/Creatinine Ratio 20.8 RATIO (10-20) H 05/02/21 03:25 Glucose 122 mg/dL (74-106) H 05/02/21 03:25 Random Vancomycin 18.7 ug/mL (0.0-15.0) H 05/02/21 11:25 Microbiology: Microbiology 05/01/21 14:30 Fluid - Synovial (joint) Body Fluid Culture - Preliminary No growth-Final to follow 04/29/21 10:45 Urine, Catheterized Urine Culture - Final Proteus mirabilis 04/29/21 09:51 Blood Culture (Wb) - Right Forearm Blood Culture - Preliminary No growth in 48 hours. 04/29/21 10:30 Blood Culture (Wb) - Left Hand Blood Culture - Preliminary No growth in 48 hours. 04/30/21 12:40 Stool C. difficile DNA Amplification - Final 04/29/21 19:37 Mucosa - Nasopharyngeal Respiratory Panel (PCR) - Final 04/29/21 10:45 Urine, Clean Catch Legionella Antigen - Final 04/29/21 10:45 Urine, Clean Catch Streptococcus pneumoniae Antigen (M - Final 04/29/21 13:52 Stool Stool Occult Blood (AMBROCIO) - Final Occult Blood Positive 04/29/21 10:35 Nasal Secretion SARS-CoV-2 Antigen (Rapid) - Final Goal Trough: 15-20 mcg/mL Pharmacy Plan for Drug Dosing: Vancomycin Level: 18.7 Hours Since Last Dose: 13.5 Renal Function: SrCr 1.73 Renal Function Trend: SrCr improving (was 2.84) Lab/Micro: Vancomycin Plan/Comments: based on pts random level and improving renal function, recommend starting pt on 1000mg q24h starting 05/02/21 at 1700. trough before the 3rd dose Pending Level: 05/04/21 at 1630 Pharmacy Service will continue to monitor and adjust dosing as required. Follow-Up Labs: Trough Vancomycin - 05/04/21 at 1630
[2021-05-02 13:18] LABS: Pathologist Comment Reviewed
[2021-05-02 16:41] LABS: Bedside Glucose 137 mg/dL (70-110)
[2021-05-02] MEDS: Vancomycin IV 1,000 MG/200 ML BAG 200 MG IV (21:22)
[2021-05-03] VITALS (42 sets, daily range): BP systolic 82–136; BP diastolic 40–94; PULSE 67–98; RESP 10–18; TEMP 36.2–36.9; O2SAT 90–100
[2021-05-03] MEDS: Menthol/Lanolin/Calamine/Znox 113 GM Tube 1 APPLIC TOPICAL ×3 (00:04→09:41)
[2021-05-03] MEDS: 0.9% Normal Saline 1,000 ML 50 ML IV (03:51)
[2021-05-03] MEDS: Piperacil/Tazobactam 3.375 GM Q8 PREMIX IV ×3 (03:51→17:56)
[2021-05-03 05:53] LABS: Absolute Lymphocyte Count 1.78 X10^3/uL (0.83-4.51); Basophil# 0.03 X10^3/uL; Basophil% 0.5 % (0-1); Eosinophil# 0.25 X10^3/uL; Eosinophils% 4.2 % (0-5); Hematocrit 25.1 % (37-47); Hemoglobin 8.9 g/dL (12.0-15.0); Lymphocyte # 1.78 X10^3/ul (0.83-4.51); Lymphocyte % 29.8 % (19-41); Mean Corp Hgb Conc 35.5 g/dL (32-36); Mean Corpuscular Hgb 32.2 pg (27.0-32.0); Mean Corpuscular Volume 90.9 fL (81-99); Mean Platelet Vol. 11.2 fl (6.2-12.0); Monocyte# 0.87 X10^3/uL; Monocyte% 14.6 % (0-10); NRBC Flagged by Analyzer 0.3 % (0-5); Neutrophil # 2.99 X10^3/uL (2.7-7.7); Neutrophil % 50.1 % (47-70); Platelet Count 146 K/mm3 (150-450); RBC Distribution Width CV 16.9 % (11.6-14.6); RBC Distribution Width SD 54.9 fl (35.1-43.9); Red Blood Count 2.76 M/mm3 (4.2-5.4)
[2021-05-03 06:11] LABS: Anion Gap 7 (5-15); BUN 28 mg/dL (7-18); BUN/Creat Ratio 17.5 RATIO (10-20); Calcium,Total 6.6 mg/dL (8.5-10.1); Chloride 114 mmol/L (98-107); EST Glomerular Filtration Rate 33 mL/min (>60); Est Glom Filt Rate - Afr Amer 40 mL/min (>60); Estimated Creatinine Clearance 26.87 ml/min; Glucose 126 mg/dL (74-106); Potassium 3.4 mmol/L (3.5-5.1); Sodium Level 142 mmol/L (136-145)
[2021-05-03] MEDS: Levothyroxine 75 MCG Tablet PO (06:41)
[2021-05-03] MEDS: 0.9% Saline Lock 10 ML Syringe IV (06:41)
--- NOTE | 2021-05-03 08:11 | PN.CC_ITS ---
Assessment & Plan Assessment/Plan (1) Septicemia: (2) Acute kidney injury: (3) Supratherapeutic INR: (4) Atrial fibrillation, chronic: (5) Heme positive stool: (6) Acute anemia: (7) Diabetes mellitus type 2 in obese: PLAN: RECOMMENDATIONS: 1. Continue with empiric antibiotics 2. Await cultures of the synovial fluid 3. Likely needs definitive intervention by orthopedics. Await decision 4. Continue pressor agents. Titrate to MAP of 65 5. Significantly positive over hospital course. Will give a dose of diuretics IMPRESSIONS: 1. Septic shock secondary to septic knee Patient's UA is not suggestive of a source. Chest x-ray is once again not impressive. Patient does have some erythema and edema of the left greater than right lower extremity. Patient received fluid resuscitation with good response, but still had to have pressors placed. Patient is being treated with vancomycin and Zosyn. Pancultures sent initially showed only minimal Proteus in the urine (less than 1000 CFU). Hold baseline antihypertensives and diuretics for now. Dose diuretics as blood pressure allows. Initial cell count of the synovial fluid is suggestive of a septic knee joint. Patient has received several days of antibiotics, but hopefully cultures can still be positive. Orthopedics has been consulted. Given persistent need of pressors, likely requires definitive therapy by orthopedics. 2. Acute on chronic anemia with heme positive stools in the setting of a supratherapeutic INR Patient is on Coumadin at baseline. Patient does not require a transfusion at this time, but will need to follow closely. Hemoccult stool was positive, but no active clinical bleeding noted. We will hold on active reversal with FFP. Transfuse for hemoglobin less than 7. We will continue with daily H&H's. 3. Acute kidney injury on CKD stage IIIa Improving. Patient has had elevation of creatinine over the last year. Patient is on lisinopril, Lasix and likely prerenal deficiency given problem #1. Hold Lasix and lisinopril. Continue to monitor closely. CPK is not impressive as an etiology. Patient does have some mild hyperkalemia on presentation but this has resolved and now is requiring repletion. 4. Diabetes mellitus type 2/paroxysmal A. fib/DVT/diabetic neuropathy/anasarca Complicates care, management, recovery and prognosis. Blood pressure medications have been held along with oral glycemic's pending acute condition. Patient is a DNR Comfort Care arrest without intubation. Recent echocardiogram showed an EF of 50 to 55% with stage I diastolic dysfunction. TIME: 34 minutes critical care time spent addressing patient's septic shock, anemia, acute kidney injury, line placement, review of all data and collaboration with care team (6 AM to 7 AM) Subjective Subjective Patient did okay overnight. Patient continues to report discomfort of the left knee. Patient remains on pressor agents. No nausea or vomiting has been reported. Objective Data Objective Data Vital Signs: Vital Signs Temp Pulse Resp BP Pulse Ox 36.2 C L 75 12 124/64 H 98 05/03/21 07:00 05/03/21 07:00 05/03/21 07:00 05/03/21 07:00 05/03/21 07:00 Oxygen Delivery Method Room Air Weight: 118.07 kg Body Mass Index (BMI) 37.2 Intake & Output: Intake and Output for Last 24 Hours 05/01/21 05/02/21 05/03/21 23:59 23:59 23:59 Intake Total 2840.67 / 2996.27 2662.47 / 2668.07 1044.8 / 1044.8 Output Total 910 / 1085 475 / 625 350 / 350 Balance 1930.67 / 1911.27 2187.47 / 2043.07 694.8 / 694.8 Lab / Micro Data Result Diagrams: 05/03/21 05:35 05/03/21 05:35 Labs: Laboratory Results - last 24 hr 05/01/21 14:30: Synovial Path Comment Reviewed 05/02/21 07:50: POC Glucose 122 H 05/02/21 11:25: Random Vancomycin 18.7 H 05/02/21 11:54: POC Glucose 126 H 05/02/21 16:36: POC Glucose 137 H 05/03/21 05:35: WBC 6.0, RBC 2.76 L, Hgb 8.9 L, Hct 25.1 L, MCV 90.9, MCH 32.2 H , MCHC 35.5, RDW Std Deviation 54.9 H, RDW Coeff of Shania 16.9 H, Plt Count 146 L, MPV 11.2, Immature Gran % (Auto) 0.800, Neut % (Auto) 50.1, Lymph % (Auto) 29.8, [place] % (Auto) 14.6 H, Eos % (Auto) 4.2, Baso % (Auto) 0.5, Absolute Neuts (auto) 3.0, Absolute Lymphs (auto) 1.78, Nucleated RBC % 0.3 05/03/21 05:35: Sodium 142, Potassium 3.4 L, Chloride 114 H, Carbon Dioxide 21.0, Anion Gap 7, BUN 28 H, Creatinine 1.60 H, Estim Creat Clear Calc 26.87, Est GFR (MDRD) Af Amer 40 L, Est GFR (MDRD) Non-Af 33 L, BUN/Creatinine Ratio 17.5, Glucose 126 H, Calcium 6.6 L Micro: Microbiology 05/01/21 14:30 Fluid - Synovial (joint) Gram Stain - Final 05/01/21 14:30 Fluid - Synovial (joint) Body Fluid Culture - Preliminary No growth-Final to follow 04/29/21 10:45 Urine, Catheterized Urine Culture - Final Proteus mirabilis 04/29/21 09:51 Blood Culture (Wb) - Right Forearm Blood Culture - Preliminary No growth in 48 hours. 04/29/21 10:30 Blood Culture (Wb) - Left Hand Blood Culture - Preliminary No growth in 48 hours. 04/30/21 12:40 Stool C. difficile DNA Amplification - Final 04/29/21 19:37 Mucosa - Nasopharyngeal Respiratory Panel (PCR) - Final 04/29/21 10:45 Urine, Clean Catch Legionella Antigen - Final 04/29/21 10:45 Urine, Clean Catch Streptococcus pneumoniae Antigen (M - Final 04/29/21 13:52 Stool Stool Occult Blood (AMBROCIO) - Final Occult Blood Positive 04/29/21 10:35 Nasal Secretion SARS-CoV-2 Antigen (Rapid) - Final Physical Exam Const alert and no apparent distress General Appearance: cooperative and other Color normalized Nutritional Appearance: obese HEENT normocephalic, head/scalp atraumatic, hearing grossly normal bilaterally, moist oral mucous membranes and oropharynx normal Mouth: oral and palatal mucosa normal Eyes PERRL and EOMs intact bilaterally Eyes Narrative: No scleral icterus Neck no lymphadenopathy, supple, no JVD and no carotid bruits General: normal visual inspection and trachea midline; Negative for anterior neck swelling Chest inspection of chest normal Chest: symmetrical chest wall rise; Negative for crepitus Resp normal respiratory effort, no retractions, no use of accessory muscles and clear to auscultation bilaterally Resp Narrative: Distant lung sounds secondary to body habitus Auscultation: Negative for rales, rhonchi or wheezes Cardio regular rate, S1 normal heart sound, S2 normal heart sound, no murmurs, no rub, no gallops, no clicks and no JVD Rhythm: abnormal rhythm irregularly irregular GI normal to inspection, nondistended, normoactive bowel sounds, soft to palpation, non-tender and non-distended Extremity Extremity Narrative: No effusion noted on left knee. Mild erythema noted of that leg Peripheral Pulses: Yes pulses 2+ throughout Skin skin turgor normal, no jaundice, no petechiae and no mottling Skin Narrative: Improving mild erythema of the left lower extremity Neuro CN's II-XII intact bilaterally, moves all extremities and no focal motor deficits Neuro Narrative: Poor cooperation with exam Sensorium / Orientation: awake, alert, oriented to person and oriented to time Speech: speech normal Psych Psych Narrative: Affect is slightly flat Charges/Coding Procedures Hospitalists Procedures: 71075 Critial Care 1st Hr
[2021-05-03] MEDS: CHLORHEXIDINE GLUC 2% CLOTH 1 EACH TOWELETTE TOPICAL (09:41)
[2021-05-03] MEDS: Furosemide 40 MG/4 ML Vial IV (09:41)
[2021-05-03] MEDS: Pantoprazole Sodium 40 MG Tablet PO (09:42)
--- NOTE | 2021-05-03 10:21 | PN.HOSP_ITS ---
Subjective Subjective Doing well, no issues overnight. Her knee tapped does show a septic knee. Will await for orthopedic surgery's consult note when they plan to take to the OR if necessary Objective Data Objective Data Vital Signs: Vital Signs Temp Pulse Resp BP Pulse Ox 97.2 F L 75 12 124/64 H 98 05/03/21 07:00 05/03/21 07:00 05/03/21 07:00 05/03/21 07:00 05/03/21 07:00 Oxygen Delivery Method Room Air Weight: 260 lb 4.8 oz Body Mass Index (BMI) 37.2 Intake & Output: Intake and Output for Last 24 Hours 05/02/21 05/03/21 05/04/21 03:59 03:59 03:59 Intake Total 2992.49 / 2998.09 3462.47 / 3468.07 521.9 / 521.9 Output Total 1085 / 1085 450 / 450 200 / 200 Balance 1907.49 / 1913.09 3012.47 / 3018.07 321.9 / 321.9 Lab / Micro Data Result Diagrams: 05/03/21 05:35 05/03/21 05:35 Labs: Laboratory Results - last 24 hr 05/01/21 14:30: Synovial Path Comment Reviewed 05/02/21 11:25: Random Vancomycin 18.7 H 05/02/21 11:54: POC Glucose 126 H 05/02/21 16:36: POC Glucose 137 H 05/03/21 05:35: WBC 6.0, RBC 2.76 L, Hgb 8.9 L, Hct 25.1 L, MCV 90.9, MCH 32.2 H , MCHC 35.5, RDW Std Deviation 54.9 H, RDW Coeff of Shania 16.9 H, Plt Count 146 L, MPV 11.2, Immature Gran % (Auto) 0.800, Neut % (Auto) 50.1, Lymph % (Auto) 29.8, [place] % (Auto) 14.6 H, Eos % (Auto) 4.2, Baso % (Auto) 0.5, Absolute Neuts (auto) 3.0, Absolute Lymphs (auto) 1.78, Nucleated RBC % 0.3 05/03/21 05:35: Sodium 142, Potassium 3.4 L, Chloride 114 H, Carbon Dioxide 21.0, Anion Gap 7, BUN 28 H, Creatinine 1.60 H, Estim Creat Clear Calc 26.87, Est GFR (MDRD) Af Amer 40 L, Est GFR (MDRD) Non-Af 33 L, BUN/Creatinine Ratio 17.5, Glucose 126 H, Calcium 6.6 L Micro: Microbiology 05/01/21 14:30 Fluid - Synovial (joint) Gram Stain - Final 05/01/21 14:30 Fluid - Synovial (joint) Body Fluid Culture - Preliminary No growth-Final to follow 04/29/21 10:45 Urine, Catheterized Urine Culture - Final Proteus mirabilis 04/29/21 09:51 Blood Culture (Wb) - Right Forearm Blood Culture - Preliminary No growth in 48 hours. 04/29/21 10:30 Blood Culture (Wb) - Left Hand Blood Culture - Preliminary No growth in 48 hours. 04/30/21 12:40 Stool C. difficile DNA Amplification - Final 04/29/21 19:37 Mucosa - Nasopharyngeal Respiratory Panel (PCR) - Final 04/29/21 10:45 Urine, Clean Catch Legionella Antigen - Final 04/29/21 10:45 Urine, Clean Catch Streptococcus pneumoniae Antigen (M - Final 04/29/21 13:52 Stool Stool Occult Blood (AMBROCIO) - Final Occult Blood Positive 04/29/21 10:35 Nasal Secretion SARS-CoV-2 Antigen (Rapid) - Final Physical Exam Const alert, oriented x3 and no apparent distress General Appearance: cooperative HEENT normocephalic and moist oral mucous membranes Eyes PERRL, EOMs intact bilaterally and conjunctivae normal Neck supple and no JVD Resp normal respiratory effort, no retractions, no use of accessory muscles and clear to auscultation bilaterally Auscultation: Negative for crackles, rales, rhonchi or wheezes Cardio regular rate, regular rhythm, S1 normal heart sound, S2 normal heart sound and n o murmurs GI soft to palpation, non-tender and non-distended; Negative for hepatosplenomegaly Extremity no clubbing, cyanosis or edema Extremity Narrative: Tenderness to her left knee with slight effusion Skin no rashes or lesions noted Neuro no focal motor deficits and no sensory deficits noted Psych affect normal Appearance: appropriate Assessment & Plan Assessment/Plan (1) Supratherapeutic INR: (2) Metabolic encephalopathy: (3) Lactic acidosis: (4) Hyperkalemia: (5) Acute anemia: (6) Chronic anemia: (7) Heme positive stool: (8) Leukocytosis: (9) Septic shock: PLAN: 1. Septic shock from septic knee/VALERIA on CKD 3a -Continue with Levophed and broad-spectrum antibiotics -Synovial WBC of 10.4 with neutrophil count of 79%, fluid was turbid. Will await evaluation by orthopedic surgery for possible plan for washout -Cultures currently no growth secondary to being on antibiotics prior to the tap -Legionella/strep antigens are negative, respiratory panel is negative, Covid negative -Continue with IV fluids 2. Paroxysmal A. fib/HTN/HLD -We will hold Coumadin secondary to possible orthopedic intervention -She does have a positive Hemoccult with no sofia bleeding, will continue to monitor hemoglobin -Continue with Levophed and hold off on her home blood pressure medications 3. DM2 with neuropathy -We will hold her oral agents and place her on a sliding scale insulin with Accu-Cheks -We will adjust insulin as necessary 4. Acute on chronic anemia -Chronic anemia is likely secondary to chronic disease and she did test Hemoccult positive which would explain the acuteness of her new anemia -She received a unit of blood overnight 04/30/2021-05/01/2021 DVT: SCDs Charges/Coding Visit Charges Inpatient E&M: 04550 Subs Hosp L2
[2021-05-03 12:30] LABS: Bedside Glucose 147 mg/dL (70-110)
--- NOTE | 2021-05-03 12:57 | CASEMGMT ---
Social Work Phone call to Greta at [facility] and updated on pt. [facility] is able to accept pt back this weekend should she be medically ready. Plan: [facility] under skilled level of care, when medically ready. GINA Bazan
--- NOTE | 2021-05-03 13:42 | PCM.PN.ID ---
Physical Exam Narrative Feeling a little better, knee sore, no fever, off pressor Const alert and no apparent distress General Appearance: cooperative Resp normal air movement and clear to auscultation bilaterally Cardio regular rate and regular rhythm GI normal to inspection, nondistended, normoactive bowel sounds Skin no rashes or lesions noted ID ID: Route of nutrition/ use of supplements: [] Nutritional Intake: [] IV Site: [] Panchal Catheter: [] Assessment & Plan Assessment/Plan (1) Septic shock: PLAN: L knee MS-CoNS PJI, taken for I&D and poly exchange 10/03/[address] Drake, has been on po doxy since then. Improving on vanc/zosyn. Aspiration of knee done. Ucx with less than 1k proteus. Ortho following. Off pressor. Will follow, d/w Dr. Drake (2) Acute kidney injury: (3) Infection of prosthetic left knee joint:
[2021-05-03] MEDS: Vancomycin IV 1,000 MG/200 ML BAG 200 MG IV (16:44)
[2021-05-03 16:45] LABS: Bedside Glucose 135 mg/dL (70-110)
[2021-05-04] VITALS (16 sets, daily range): BP systolic 92–127; BP diastolic 53–85; PULSE 74–145; RESP 12–18; TEMP 36.4–36.9; O2SAT 91–100
[2021-05-04] MEDS: Piperacil/Tazobactam 3.375 GM Q8 PREMIX IV ×3 (02:54→18:23)
[2021-05-04] MEDS: Levothyroxine 75 MCG Tablet PO (06:27)
--- NOTE | 2021-05-04 06:56 | PN.CC_ITS ---
Assessment & Plan Assessment/Plan (1) Septicemia: (2) Acute kidney injury: (3) Supratherapeutic INR: (4) Atrial fibrillation, chronic: (5) Heme positive stool: (6) Acute anemia: (7) Diabetes mellitus type 2 in obese: PLAN: RECOMMENDATIONS: 1. Continue antimicrobials per ID recommendations. 2. Obtain repeat labs this morning. 3. Encourage incentive spirometer use and mobilize patient as tolerated. 4. The patient is medically stable for transfer out of the intensive care unit. 5. Given the patient's lack of further ICU or pulmonary needs, will sign off. Please call with any additional questions. IMPRESSIONS: 1. Septic shock secondary to septic knee Clinical concern for an infected left knee. Orthopedics and infectious diseases are currently following. No plans for any surgical intervention or washout. The patient has been weaned from vasopressor support and appears to be improving clinically on antimicrobials, which will be continued per ID recommendations. 2. Acute on chronic anemia with heme positive stools in the setting of a supratherapeutic INR The patient is on Coumadin at baseline. The patient does not require a transfusion at this time, but will need to follow closely. Hemoccult stool was positive, but no active clinical bleeding noted. Transfuse for hemoglobin less than 7. We will continue with daily H&H's. 3. Acute kidney injury on CKD stage IIIa Improving. The patient has had elevation of creatinine over the last year. The patient is on lisinopril, Lasix and likely prerenal deficiency given problem #1. Continue to hold Lasix and lisinopril. Continue to monitor closely. 4. Diabetes mellitus type 2/paroxysmal A. fib/DVT/diabetic neuropathy/anasarca Complicates care, management, recovery and prognosis. Continue insulin and Synthroid as ordered. This note was generated with [employer] dictation software. It may contain incorrect words, spelling, and punctuation that were not noted in checking the note before signing. Subjective Subjective The patient was seen and examined at the bedside this morning. Events from the last 24 hours have been reviewed. The patient is currently afebrile, hemodynamically stable and maintaining appropriate oxygen saturations on room air. The patient was able to be weaned off of Levophed yesterday afternoon. She is currently documented to be overall net +10 L for the hospital admission. She remains on empiric antimicrobials. Objective Data Objective Data The patient's most recent lab work, culture data and imaging studies have all been personally reviewed. Culture data has been unrevealing to date. Vital Signs: Vital Signs Temp Pulse Resp BP Pulse Ox 97.6 F L 83 15 93/60 92 05/04/21 04:00 05/04/21 06:00 05/04/21 06:00 05/04/21 06:00 05/04/21 06:00 Oxygen Delivery Method Room Air Weight: 118.478 kg Body Mass Index (BMI) 37.2 Intake & Output: Intake and Output for Last 24 Hours 05/02/21 05/03/21 05/04/21 23:59 23:59 23:59 Intake Total 2662.47 / 2668.07 2384.21 / 2384.21 50 / 50 Output Total 475 / 625 1900 / 1900 Balance 2187.47 / 2043.07 484.21 / 484.21 50 / 50 Lab / Micro Data Attestation: I reviewed the patient's lab results. Result Diagrams: 05/04/21 04:00 05/04/21 04:00 Labs: Laboratory Results - last 24 hr 05/03/21 12:28: POC Glucose 147 H 05/03/21 16:42: POC Glucose 135 H Micro: Microbiology 05/01/21 14:30 Fluid - Synovial (joint) Gram Stain - Final 05/01/21 14:30 Fluid - Synovial (joint) Body Fluid Culture - Preliminary No growth-Final to follow 04/29/21 10:45 Urine, Catheterized Urine Culture - Final Proteus mirabilis 04/29/21 09:51 Blood Culture (Wb) - Right Forearm Blood Culture - Preliminar y No growth in 48 hours. 04/29/21 10:30 Blood Culture (Wb) - Left Hand Blood Culture - Preliminary No growth in 48 hours. 04/30/21 12:40 Stool C. difficile DNA Amplification - Final 04/29/21 19:37 Mucosa - Nasopharyngeal Respiratory Panel (PCR) - Final 04/29/21 10:45 Urine, Clean Catch Legionella Antigen - Final 04/29/21 10:45 Urine, Clean Catch Streptococcus pneumoniae Antigen (M - Final 04/29/21 13:52 Stool Stool Occult Blood (AMBROCIO) - Final Occult Blood Positive 04/29/21 10:35 Nasal Secretion SARS-CoV-2 Antigen (Rapid) - Final Physical Exam Const alert and no apparent distress General Appearance: cooperative Nutritional Appearance: morbidly obese HEENT normocephalic, head/scalp atraumatic and moist oral mucous membranes Eyes PERRL, EOMs intact bilaterally and conjunctivae normal Neck supple General: trachea midline Chest inspection of chest normal Resp normal respiratory effort Auscultation: Negative for rales, rhonchi or wheezes Cardio regular rate and regular rhythm GI normal to inspection, nondistended, normoactive bowel sounds Extremity no clubbing, cyanosis or edema Neuro moves all extremities and no focal motor deficits Psych cooperative and affect normal Charges/Coding Visit Charges Inpatient E&M: 84851 Subs Hosp L3
[2021-05-04 07:06] LABS: Absolute Lymphocyte Count 2.01 X10^3/uL (0.83-4.51); Absolute Neutrophil Count 2.7 X10^3/uL (2.0-7.7); Basophil# 0.03 X10^3/uL; Basophil% 0.5 % (0-1); Eosinophil# 0.25 X10^3/uL; Eosinophils% 4.2 % (0-5); Hemoglobin 8.1 g/dL (12.0-15.0); Lymphocyte # 2.01 X10^3/ul (0.83-4.51); Lymphocyte % 33.8 % (19-41); Mean Corp Hgb Conc 35.2 g/dL (32-36); Mean Corpuscular Hgb 33.2 pg (27.0-32.0); Mean Corpuscular Volume 94.3 fL (81-99); Mean Platelet Vol. 12.1 fl (6.2-12.0); Monocyte# 0.87 X10^3/uL; Monocyte% 14.6 % (0-10); NRBC Flagged by Analyzer 0.3 % (0-5); Neutrophil # 2.69 X10^3/uL (2.7-7.7); Neutrophil % 45.4 % (47-70); Platelet Count 144 K/mm3 (150-450); RBC Distribution Width CV 16.7 % (11.6-14.6); RBC Distribution Width SD 56.3 fl (35.1-43.9); Red Blood Count 2.44 M/mm3 (4.2-5.4); White Blood Count 5.9 K/mm3 (4.4-11.0)
[2021-05-04 07:15] LABS: Anion Gap 6 (5-15); BUN 23 mg/dL (7-18); BUN/Creat Ratio 15.4 RATIO (10-20); Calcium,Total 6.6 mg/dL (8.5-10.1); Chloride 112 mmol/L (98-107); Creatinine, Serum 1.49 mg/dL (0.55-1.02); EST Glomerular Filtration Rate 36 mL/min (>60); Est Glom Filt Rate - Afr Amer 43 mL/min (>60); Estimated Creatinine Clearance 28.86 ml/min; Glucose 99 mg/dL (74-106); Magnesium 1.7 mg/dL (1.6-2.6); Potassium 3.4 mmol/L (3.5-5.1); Sodium Level 140 mmol/L (136-145)
[2021-05-04] MEDS: Menthol/Lanolin/Calamine/Znox 113 GM Tube 1 APPLIC TOPICAL ×2 (08:16→21:21)
[2021-05-04] MEDS: Pantoprazole Sodium 40 MG Tablet PO (08:16)
--- NOTE | 2021-05-04 08:42 | PCM.PN.HOSP ---
Subjective Subjective Feels a bit better, says that knee pain is improving. She has been off pressors for close to 24 hours Objective Data Objective Data Vital Signs: Vital Signs Temp Pulse Resp BP Pulse Ox 97.7 F L 79 13 108/72 96 05/04/21 08:00 05/04/21 08:00 05/04/21 08:00 05/04/21 08:00 05/04/21 08:00 Oxygen Delivery Method Room Air Weight: 261 lb 3.2 oz Body Mass Index (BMI) 37.2 Intake & Output: Intake and Output for Last 24 Hours 05/03/21 05/04/21 05/05/21 03:59 03:59 03:59 Intake Total 3462.47 / 3468.07 1361.81 / 1361.81 50 / 50 Output Total 450 / 450 1750 / 1750 Balance 3012.47 / 3018.07 -388.19 / -388.19 50 / 50 Lab / Micro Data Result Diagrams: 05/04/21 04:00 05/04/21 04:00 Labs: Laboratory Results - last 24 hr 05/03/21 12:28: POC Glucose 147 H 05/03/21 16:42: POC Glucose 135 H 05/04/21 04:00: WBC 5.9, RBC 2.44 L, Hgb 8.1 L, Hct 23.0 L, MCV 94.3, MCH 33.2 H, MCHC 35.2, RDW Std Deviation 56.3 H, RDW Coeff of Shania 16.7 H, Plt Count 144 L, MPV 12.1 H, Immature Gran % (Auto) 1.500 H, Neut % (Auto) 45.4 L, Lymph % (Auto) 33.8, [place] % (Auto) 14.6 H, Eos % (Auto) 4.2, Baso % (Auto) 0.5, Absolute Neuts (auto) 2.7, Absolute Lymphs (auto) 2.01, Nucleated RBC % 0.3 05/04/21 04:00: Sodium 140, Potassium 3.4 L, Chloride 112 H, Carbon Dioxide 22.0, Anion Gap 6, BUN 23 H, Creatinine 1.49 H, Estim Creat Clear Calc 28.86, Est GFR (MDRD) Af Amer 43 L, Est GFR (MDRD) Non-Af 36 L, BUN/Creatinine Ratio 15.4, Glucose 99, Calcium 6.6 L, Magnesium 1.7 Micro: Microbiology 05/01/21 14:30 Fluid - Synovial (joint) Gram Stain - Final 05/01/21 14:30 Fluid - Synovial (joint) Body Fluid Culture - Preliminary No growth-Final to follow 04/29/21 10:45 Urine, Catheterized Urine Culture - Final Proteus mirabilis 04/29/21 09:51 Blood Culture (Wb) - Right Forearm Blood Culture - Preliminary No growth in 48 hours. 04/29/21 10:30 Blood Culture (Wb) - Left Hand Blood Culture - Preliminary No growth in 48 hours. 04/30/21 12:40 Stool C. difficile DNA Amplification - Final 04/29/21 19:37 Mucosa - Nasopharyngeal Respiratory Panel (PCR) - Final 04/29/21 10:45 Urine, Clean Catch Legionella Antigen - Final 04/29/21 10:45 Urine, Clean Catch Streptococcus pneumoniae Antigen (M - Final 04/29/21 13:52 Stool Stool Occult Blood (AMBROCIO) - Final Occult Blood Positive 04/29/21 10:35 Nasal Secretion SARS-CoV-2 Antigen (Rapid) - Final Physical Exam Const alert, oriented x3 and no apparent distress General Appearance: cooperative HEENT normocephalic and moist oral mucous membranes Eyes PERRL, EOMs intact bilaterally and conjunctivae normal Eyes Narrative: Conjunctiva are mildly pale, no scleral icterus Neck supple and no JVD Resp normal respiratory effort, no retractions, no use of accessory muscles and clear to auscultation bilaterally Auscultation: Negative for crackles, rales, rhonchi or wheezes Cardio regular rate, regular rhythm, S1 normal heart sound, S2 normal heart sound and no murmurs GI soft to palpation, non-tender and non-distended; Negative for hepatosplenomegaly Extremity no clubbing, cyanosis or edema Extremity Narrative: Tenderness to her left knee with slight effusion Skin no rashes or lesions noted Neuro no focal motor deficits and no sensory deficits noted Psych affect normal Appearance: appropriate Assessment & Plan Assessment/Plan (1) Supratherapeutic INR: (2) Metabolic encephalopathy: (3) Lactic acidosis: (4) Hyperkalemia: (5) Acute anemia: (6) Chronic anemia: (7) Heme positive stool: (8) Leukocytosis: (9) Septic shock: PLAN: 1. Septic shock from septic knee/VALERIA on CKD 3a -Continue with Levophed and broad-spectrum antibiotics -Synovial WBC of 10.4 with neutrophil count of 79%, fluid was turbid. Ortho does not think she needs a washout -Infectious disease recommends continue antibiotics as she is improving -Cultures currently no growth secondary to being on antibiotics prior to the tap -Legionella/strep antigens are negative, respiratory panel is negative, Covid negative -Continue with IV fluids 2. Paroxysmal A. fib/HTN/HLD -We will hold Coumadin secondary to possible orthopedic intervention -She does have a positive Hemoccult with no sofia bleeding, will continue to monitor hemoglobin -Continue with Levophed and hold off on her home blood pressure medications 3. DM2 with neuropathy -We will hold her oral agents and place her on a sliding scale insulin with Accu-Cheks -We will adjust insulin as necessary 4. Acute on chronic anemia -Chronic anemia is likely secondary to chronic disease and she did test Hemoccult positive which would explain the acuteness of her new anemia -She received a unit of blood overnight 04/30/2021-05/01/2021 DVT: SCDs Charges/Coding Visit Charges Inpatient E&M: 25954 Subs Hosp L2
--- NOTE | 2021-05-04 10:51 | NURSING ---
[id number] patient taken to PCU by jass Elizondo on quality assurance monitor final
--- NOTE | 2021-05-04 11:06 | NURSING ---
[id number] son mary plan of care [id number] called clara left message that patient was transferred down to PCU
[2021-05-04 12:50] LABS: Bedside Glucose 127 mg/dL (70-110)
[2021-05-04] MEDS: Insulin Lispro 100 UNIT/ML INSULN.PEN SC (16:16)
[2021-05-04 16:43] LABS: Vancomycin, Trough Level 23.7 ug/mL (5.0-15.0)
[2021-05-04 16:50] LABS: Bedside Glucose 167 mg/dL (70-110)
--- NOTE | 2021-05-04 18:17 | PCM.RX.CS ---
Consult Pharmacy has been consulted to manage selected antiobiotic: Vancomycin Type of Consult: Follow-up Labs: Sodium 140 mmol/L (136-145) 05/04/21 04:00 Potassium 3.4 mmol/L (3.5-5.1) L 05/04/21 04:00 Chloride 112 mmol/L (98-107) H 05/04/21 04:00 Carbon Dioxide 22.0 mmol/L (21.0-32.0) 05/04/21 04:00 Anion Gap 6 (5-15) 05/04/21 04:00 BUN 23 mg/dL (7-18) H 05/04/21 04:00 Creatinine 1.49 mg/dL (0.55-1.02) H 05/04/21 04:00 Est GFR (MDRD) Af Amer 43 mL/min (>60) L 05/04/21 04:00 Est GFR (MDRD) Non-Af 36 mL/min (>60) L 05/04/21 04:00 BUN/Creatinine Ratio 15.4 RATIO (10-20) 05/04/21 04:00 Glucose 99 mg/dL (74-106) 05/04/21 04:00 Vancomycin Trough 23.7 ug/mL (5.0-15.0) H 05/04/21 16:13 Random Vancomycin 18.7 ug/mL (0.0-15.0) H 05/02/21 11:25 Microbiology: Microbiology 05/01/21 14:30 Fluid - Synovial (joint) Gram Stain - Final 05/01/21 14:30 Fluid - Synovial (joint) Body Fluid Culture - Preliminary No growth-Final to follow 04/29/21 09:51 Blood Culture (Wb) - Right Forearm Blood Culture - Final No growth in 5 days. 04/29/21 10:30 Blood Culture (Wb) - Left Hand Blood Culture - Final No growth in 5 days. 04/29/21 10:45 Urine, Catheterized Urine Culture - Final Proteus mirabilis 04/30/21 12:40 Stool C. difficile DNA Amplification - Final 04/29/21 19:37 Mucosa - Nasopharyngeal Respiratory Panel (PCR) - Final 04/29/21 10:45 Urine, Clean Catch Legionella Antigen - Final 04/29/21 10:45 Urine, Clean Catch Streptococcus pneumoniae Antigen (M - Final 04/29/21 13:52 Stool Stool Occult Blood (AMBROCIO) - Final Occult Blood Positive 04/29/21 10:35 Nasal Secretion SARS-CoV-2 Antigen (Rapid) - Final Goal Trough: 15-20 mcg/mL Pharmacy Plan for Drug Dosing: VANCOMYCIN LEVEL RECEIVED Current Vancomycin Dose: 1000MG IV Q24H Number of Doses Received: 2 (of current regimen) Vancomycin Level: 23.7 Hours Since Last Dose: 23.5HR Renal Function: 1.49 Renal Function Trend: STABLE Lab/Micro: CX PENDING Vancomycin Plan/Comments: Trough drawn which resulted in a value of 23.7 (goal 15-20). Trough was drawn appropriately. Dose due today not hung yet, discussed with ROSA Tinsley to hold dose tonight. Will draw a random level with AM labs to recheck a trough and determine new dose for patient. HOLD any additional vancomycin until trough is below 20 Pending Level: *RANDOM* 05/05/21 with AM labs Pharmacy Service will continue to monitor and adjust dosing as required.
--- NOTE | 2021-05-04 19:19 | PCM.PN.ORT ---
Subjective Subjective Patient has been transferred out of the ICU care. No longer on pressors for the last 24 hours. She continues to have some left knee pain. Infection reports bilateral knee pain. Patient reports that since she last seen me in the office she is seen a decrease in range of motion of both knees and is having difficulty with ambulation. She does not report significant change in the overall pain in the left knee it has been sore since the last surgery. After previous surgeries we have agreed on treatment plan that includes chronic antibiotic suppression due to the patient's clinical health. We chose a polyethylene exchange despite evidence of chronic infection last time and attempt to minimize risks. Patient is DNR CCA. Objective Data Objective Data Vital Signs: Vital Signs Temp Pulse Resp BP Pulse Ox 97.7 F L 86 14 126/79 H 100 05/04/21 17:55 05/04/21 17:55 05/04/21 17:55 05/04/21 17:55 05/04/21 17:55 Oxygen Delivery Method Room Air Weight: 261 lb 3.2 oz Body Mass Index (BMI) 37.2 Intake & Output: Intake and Output for Last 24 Hours 05/02/21 05/03/21 05/04/21 23:59 23:59 23:59 Intake Total 2662.47 / 2668.07 2384.21 / 2384.21 600 / 600 Output Total 475 / 625 1900 / 1900 175 / 175 Balance 2187.47 / 2043.07 484.21 / 484.21 425 / 425 Lab / Micro Data Result Diagrams: 05/04/21 04:00 05/04/21 04:00 Labs: Laboratory Results - last 24 hr 05/04/21 04:00: WBC 5.9, RBC 2.44 L, Hgb 8.1 L, Hct 23.0 L, MCV 94.3, MCH 33.2 H, MCHC 35.2, RDW Std Deviation 56.3 H, RDW Coeff of Shania 16.7 H, Plt Count 144 L, MPV 12.1 H, Immature Gran % (Auto) 1.500 H, Neut % (Auto) 45.4 L, Lymph % (Auto) 33.8, [place] % (Auto) 14.6 H, Eos % (Auto) 4.2, Baso % (Auto) 0.5, Absolute Neuts (auto) 2.7, Absolute Lymphs (auto) 2.01, Nucleated RBC % 0.3 05/04/21 04:00: Sodium 140, Potassium 3.4 L, Chloride 112 H, Carbon Dioxide 22.0, Anion Gap 6, BUN 23 H, Creatinine 1.49 H, Estim Creat Clear Calc 28.86, Est GFR (MDRD) Af Amer 43 L, Est GFR (MDRD) Non-Af 36 L, BUN/Creatinine Ratio 15.4, Glucose 99, Calcium 6.6 L, Magnesium 1.7 05/04/21 12:03: POC Glucose 127 H 05/04/21 16:13: Vancomycin Trough 23.7 H 05/04/21 16:14: POC Glucose 167 H Micro: Microbiology 05/01/21 14:30 Fluid - Synovial (joint) Gram Stain - Final 05/01/21 14:30 Fluid - Synovial (joint) Body Fluid Culture - Preliminary No growth-Final to follow 04/29/21 09:51 Blood Culture (Wb) - Right Forearm Blood Culture - Final No growth in 5 days. 04/29/21 10:30 Blood Culture (Wb) - Left Hand Blood Culture - Final No growth in 5 days. 04/29/21 10:45 Urine, Catheterized Urine Culture - Final Proteus mirabilis 04/30/21 12:40 Stool C. difficile DNA Amplification - Final 04/29/21 19:37 Mucosa - Nasopharyngeal Respiratory Panel (PCR) - Final 04/29/21 10:45 Urine, Clean Catch Legionella Antigen - Final 04/29/21 10:45 Urine, Clean Catch Streptococcus pneumoniae Antigen (M - Final 04/29/21 13:52 Stool Stool Occult Blood (AMBROCIO) - Final Occult Blood Positive 04/29/21 10:35 Nasal Secretion SARS-CoV-2 Antigen (Rapid) - Final Physical Exam Const alert, oriented x3 and no apparent distress Extremity Extremity Narrative: Bilateral lower extremities. Patient appears less edematous today. 2+ pitting edema distally. She does have some erythema around the medial leg distally on the left. None on the right. No excessive warmth on the left compared to the right. Patient has difficulty with knee flexion flexing to 30? bilaterally. Lays in bed with knees nearly fully extended. No significant erythema over the left knee. Assessment & Plan Assessment/Plan (1) Infected prosthetic knee joint: PLAN: Patient has a chronic infection of the left knee which was previously with coag negative staph. She has no other appreciable source of infection at this time. She was on doxycycline at the time of presentation. She has no positive blood cultures consistent with coag negative staph. Her aspiration did have 10,000 cells with 75% neutrophils. Currently cultures have been negative likely related to chronic suppression. Despite what appears to be adequate suppression based on cultures patient does have radiographic evidence of continued lucencies around the tibial implant and no other site of infection. At this time I did discuss with the patient appropriate treatment options include continued suppression with IV antibiotics with transition to eventual oral antibiotics. The risk of this she understands is recurrent infection and sepsis which could lead to multi-organ failure. Alternatively surgical options include two-stage revision which includes risk such as wound healing complications, blood loss including blood transfusion, DVTs, PEs, further infections especially associated with poor wound healing, general risk of anesthesia including loss of life as well as loss of limb with continued infections. The plan would be to proceed with a moderately well fixed spacer as an option to forego a second surgery if necessary based on medical concerns. Spoke at length about these options with the patient. She would like to take some time to consider them as we move forward. I did explain to the patient that in the absence of her medical comorbidities the appropriate answer would be to proceed with surgery. As patient is currently medically stable any surgery will be planned for the upcoming week. [facility] Office: (2) Septicemia:
[2021-05-05] VITALS (9 sets, daily range): BP systolic 98–119; BP diastolic 58–90; PULSE 71–112; RESP 15–18; TEMP 36.6–36.9; O2SAT 91–99
[2021-05-05] MEDS: Piperacil/Tazobactam 3.375 GM Q8 PREMIX IV ×3 (02:34→18:53)
[2021-05-05 05:58] LABS: Absolute Lymphocyte Count 2.18 X10^3/uL (0.83-4.51); Absolute Neutrophil Count 3.7 X10^3/uL (2.0-7.7); Basophil# 0.04 X10^3/uL; Basophil% 0.6 % (0-1); Eosinophil# 0.25 X10^3/uL; Eosinophils% 3.5 % (0-5); Hematocrit 24.8 % (37-47); Hemoglobin 8.5 g/dL (12.0-15.0); Lymphocyte # 2.18 X10^3/ul (0.83-4.51); Lymphocyte % 30.2 % (19-41); Mean Corp Hgb Conc 34.3 g/dL (32-36); Mean Corpuscular Hgb 32.2 pg (27.0-32.0); Mean Corpuscular Volume 93.9 fL (81-99); Mean Platelet Vol. 11.1 fl (6.2-12.0); Monocyte% 13.8 % (0-10); NRBC Flagged by Analyzer 0.3 % (0-5); Neutrophil # 3.65 X10^3/uL (2.7-7.7); Neutrophil % 50.4 % (47-70); Platelet Count 163 K/mm3 (150-450); RBC Distribution Width CV 17.2 % (11.6-14.6); RBC Distribution Width SD 57.1 fl (35.1-43.9); Red Blood Count 2.64 M/mm3 (4.2-5.4); White Blood Count 7.2 K/mm3 (4.4-11.0)
[2021-05-05] MEDS: Levothyroxine 75 MCG Tablet PO (06:08)
[2021-05-05 06:20] LABS: Anion Gap 7 (5-15); BUN 19 mg/dL (7-18); Chloride 112 mmol/L (98-107); Creatinine, Serum 1.46 mg/dL (0.55-1.02); EST Glomerular Filtration Rate 36 mL/min (>60); Est Glom Filt Rate - Afr Amer 44 mL/min (>60); Estimated Creatinine Clearance 29.45 ml/min; Glucose 113 mg/dL (74-106); Potassium 3.6 mmol/L (3.5-5.1); Sodium Level 141 mmol/L (136-145)
[2021-05-05 06:26] LABS: Vancomycin, Random Level 19.3 ug/mL (0.0-15.0)
[2021-05-05 06:27] LABS: International Normalized Ratio 1.5; Prothrombin Time (Protime)PT. 17.5 SECONDS (11.7-14.9)
[2021-05-05 06:55] LABS: Bedside Glucose 109 mg/dL (70-110)
--- NOTE | 2021-05-05 07:12 | PCM.RX.CS ---
Consult Pharmacy has been consulted to manage selected antiobiotic: Vancomycin Type of Consult: Follow-up Labs: Sodium 141 mmol/L (136-145) 05/05/21 05:48 Potassium 3.6 mmol/L (3.5-5.1) 05/05/21 05:48 Chloride 112 mmol/L (98-107) H 05/05/21 05:48 Carbon Dioxide 22.0 mmol/L (21.0-32.0) 05/05/21 05:48 Anion Gap 7 (5-15) 05/05/21 05:48 BUN 19 mg/dL (7-18) H 05/05/21 05:48 Creatinine 1.46 mg/dL (0.55-1.02) H 05/05/21 05:48 Est GFR (MDRD) Af Amer 44 mL/min (>60) L 05/05/21 05:48 Est GFR (MDRD) Non-Af 36 mL/min (>60) L 05/05/21 05:48 BUN/Creatinine Ratio 13.0 RATIO (10-20) 05/05/21 05:48 Glucose 113 mg/dL (74-106) H 05/05/21 05:48 Vancomycin Trough 23.7 ug/mL (5.0-15.0) H 05/04/21 16:13 Random Vancomycin 19.3 ug/mL (0.0-15.0) H 05/05/21 05:48 Microbiology: Microbiology 05/01/21 14:30 Fluid - Synovial (joint) Gram Stain - Final 05/01/21 14:30 Fluid - Synovial (joint) Body Fluid Culture - Preliminary No growth-Final to follow 04/29/21 09:51 Blood Culture (Wb) - Right Forearm Blood Culture - Final No growth in 5 days. 04/29/21 10:30 Blood Culture (Wb) - Left Hand Blood Culture - Final No growth in 5 days. 04/29/21 10:45 Urine, Catheterized Urine Culture - Final Proteus mirabilis 04/30/21 12:40 Stool C. difficile DNA Amplification - Final 04/29/21 19:37 Mucosa - Nasopharyngeal Respiratory Panel (PCR) - Final 04/29/21 10:45 Urine, Clean Catch Legionella Antigen - Final 04/29/21 10:45 Urine, Clean Catch Streptococcus pneumoniae Antigen (M - Final 04/29/21 13:52 Stool Stool Occult Blood (AMBROCIO) - Final Occult Blood Positive 04/29/21 10:35 Nasal Secretion SARS-CoV-2 Antigen (Rapid) - Final Goal Trough: 15-20 mcg/mL Pharmacy Plan for Drug Dosing: VANCOMYCIN LEVEL RECEIVED Current Vancomycin Dose: ON HOLD- Was previously on 1g IV Q24h Number of Doses Received: ON HOLD Vancomycin Level: 19.3 Hours Since Last Dose: ~36hrs Renal Function: 1.46 Renal Function Trend: stable Lab/Micro: pending Vancomycin Plan/Comments: Patient's random trough level this morning is now within her goal trough of 15-20 after scheduled dosing was placed on hold due to a previously elevated trough. Will slightly decrease vancomycin dose and resume scheduled dosing this morning. Will start patient on vancomycin 750mg IV Q24hr 05/05 @1000 Pending Level: 05/07/21 @0930, prior to 3rd dose of new regimen Pharmacy Service will continue to monitor and adjust dosing as required.
[2021-05-05] MEDS: 0.9% Saline Lock 10 ML Syringe IV (09:53)
[2021-05-05] MEDS: Menthol/Lanolin/Calamine/Znox 113 GM Tube 1 APPLIC TOPICAL ×2 (09:55→21:10)
[2021-05-05] MEDS: Pantoprazole Sodium 40 MG Tablet PO (10:00)
[2021-05-05] MEDS: Insulin Lispro 100 UNIT/ML INSULN.PEN SC ×2 (11:16→16:41)
[2021-05-05 11:41] LABS: Bedside Glucose 190 mg/dL (70-110)
--- NOTE | 2021-05-05 13:41 | PN.HOSP_ITS ---
Subjective Subjective No issues overnight, doing well. Son was able to get clarification from orthopedic surgery as to why we were not doing surgery there is some confusion because she had expressed to her son that we were planning to do surgery on Thursday which is not the case. Objective Data Objective Data Vital Signs: Vital Signs Temp Pulse Resp BP Pulse Ox 98.2 F 88 15 118/59 L 91 05/05/21 09:46 05/05/21 09:46 05/05/21 09:46 05/05/21 09:46 05/05/21 09:46 Oxygen Delivery Method Room Air Weight: 259 lb 4.218 oz Body Mass Index (BMI) 37.2 Intake & Output: Intake and Output for Last 24 Hours 05/04/21 05/05/21 05/06/21 03:59 03:59 03:59 Intake Total 1361.81 / 1361.81 650 / 650 315 / 315 Output Total 1750 / 1750 325 / 325 Balance -388.19 / -388.19 325 / 325 315 / 315 Lab / Micro Data Result Diagrams: 05/05/21 05:48 05/05/21 05:48 Labs: Laboratory Results - last 24 hr 05/04/21 16:13: Vancomycin Trough 23.7 H 05/04/21 16:14: POC Glucose 167 H 05/05/21 05:48: WBC 7.2, RBC 2.64 L, Hgb 8.5 L, Hct 24.8 L, MCV 93.9, MCH 32.2 H , MCHC 34.3, RDW Std Deviation 57.1 H, RDW Coeff of Shania 17.2 H, Plt Count 163, M PV 11.1, Immature Gran % (Auto) 1.500 H, Neut % (Auto) 50.4, Lymph % (Auto) 3 0.2, [place] % (Auto) 13.8 H, Eos % (Auto) 3.5, Baso % (Auto) 0.6, Absolute Neuts (auto) 3.7, Absolute Lymphs (auto) 2.18, Nucleated RBC % 0.3 05/05/21 05:48: PT 17.5 H, INR 1.5 05/05/21 05:48: Sodium 141, Potassium 3.6, Chloride 112 H, Carbon Dioxide 22.0, Anion Gap 7, BUN 19 H, Creatinine 1.46 H, Estim Creat Clear Calc 29.45, Est GFR (MDRD) Af Amer 44 L, Est GFR (MDRD) Non-Af 36 L, BUN/Creatinine Ratio 13.0, Glucose 113 H, Calcium 7.0 L 05/05/21 05:48: Random Vancomycin 19.3 H 05/05/21 06:16: POC Glucose 109 05/05/21 11:13: POC Glucose 190 H Micro: Microbiology 05/01/21 14:30 Fluid - Synovial (joint) Gram Stain - Final 05/01/21 14:30 Fluid - Synovial (joint) Body Fluid Culture - Preliminary No growth-Final to follow 05/01/21 14:30 Fluid - Synovial (joint) Anaerobic Culture - Preliminary No growth in 48 hours. 04/29/21 09:51 Blood Culture (Wb) - Right Forearm Blood Culture - Final No growth in 5 days. 04/29/21 10:30 Blood Culture (Wb) - Left Hand Blood Culture - Final No growth in 5 days. 04/29/21 10:45 Urine, Catheterized Urine Culture - Final Proteus mirabilis 04/30/21 12:40 Stool C. difficile DNA Amplification - Final 04/29/21 19:37 Mucosa - Nasopharyngeal Respiratory Panel (PCR) - Final 04/29/21 10:45 Urine, Clean Catch Legionella Antigen - Final 04/29/21 10:45 Urine, Clean Catch Streptococcus pneumoniae Antigen (M - Final 04/29/21 13:52 Stool Stool Occult Blood (AMBROCIO) - Final Occult Blood Positive 04/29/21 10:35 Nasal Secretion SARS-CoV-2 Antigen (Rapid) - Final Physical Exam Const alert, oriented x3 and no apparent distress General Appearance: cooperative HEENT normocephalic and moist oral mucous membranes Eyes PERRL, EOMs intact bilaterally and conjunctivae normal Eyes Narrative: Conjunctiva are mildly pale, no scleral icterus Neck supple and no JVD Resp normal respiratory effort, no retractions, no use of accessory muscles and clear to auscultation bilaterally Auscultation: Negative for crackles, rales, rhonchi or wheezes Cardio regular rate, regular rhythm, S1 normal heart sound, S2 normal heart sound and no murmurs GI soft to palpation, non-tender and non-distended; Negative for hepatosplenomegaly Extremity no clubbing, cyanosis or edema Extremity Narrative: Tenderness to her left knee with slight effusion Skin no rashes or lesions noted Neuro no focal motor deficits and no sensory deficits noted Psych affect normal Appearance: appropriate Assessment & Plan Assessment/Plan (1) Supratherapeutic INR: (2) Metabolic encephalopathy: (3) Lactic acidosis: (4) Hyperkalemia: (5) Acute anemia: (6) Chronic anemia: (7) Heme positive stool: (8) Leukocytosis: (9) Septic shock: PLAN: 1. Septic shock from septic knee/VALERIA on CKD 3a -Continue with Levophed and broad-spectrum antibiotics -Synovial WBC of 10.4 with neutrophil count of 79%, fluid was turbid. Ortho does not think she needs a washout -Infectious disease recommends continue antibiotics as she is improving -Cultures currently no growth secondary to being on antibiotics prior to the tap -Legionella/strep antigens are negative, respiratory panel is negative, Covid negative -In discussion with the son, and orthopedic surgery, he did not do well after her last surgery and therefore they did not think that she would do well with an even more extensive surgery that would be required to repair this knee. Therefore plan will be prolonged IV antibiotics to try to avoid a washout. It is anticipated that she will have further flareups with the knee infection which will just be treated with IV antibiotics at those times as well. This was discussed extensively with both the patient and her son, and her son was in agreement that she would likely not do well with the surgery and would prefer not to proceed with one if it was not absolutely necessary. 2. Paroxysmal A. fib/HTN/HLD -We will hold Coumadin secondary to possible orthopedic intervention -She does have a positive Hemoccult with no sofia bleeding, will continue to monitor hemoglobin -Continue to hold off Coumadin pending PICC placement. If she continues to bleed may also need a GI evaluation 3. DM2 with neuropathy -We will hold her oral agents and place her on a sliding scale insulin with Accu-Cheks -We will adjust insulin as necessary 4. Acute on chronic anemia -Chronic anemia is likely secondary to chronic disease and she did test Hemoccult positive which would explain the acuteness of her new anemia -She received a unit of blood overnight 04/30/2021-05/01/2021 DVT: SCDs Charges/Coding Visit Charges Inpatient E&M: 04093 Subs Hosp L2
--- NOTE | 2021-05-05 13:47 | PCM.PN.ORT ---
Subjective Subjective Patient's vitals have been stable. She remains off pressors. Patient son was in this morning and she did have time to discuss with him our conversation last night. In addition I was able to speak with her son over the phone as he was not able to be here at the time of my rounding. We spoke at length about her treatment options. Patient notes that her knee has been stable no worse today. No significant change in her symptoms. She again reports that her knee has been like this for quite some time and is not immediately associated with her sepsis symptoms. Objective Data Objective Data Vital Signs: Vital Signs Temp Pulse Resp BP Pulse Ox 98.2 F 88 15 118/59 L 91 05/05/21 09:46 05/05/21 09:46 05/05/21 09:46 05/05/21 09:46 05/05/21 09:46 Oxygen Delivery Method Room Air Weight: 259 lb 4.218 oz Body Mass Index (BMI) 37.2 Intake & Output: Intake and Output for Last 24 Hours 05/03/21 05/04/21 05/05/21 23:59 23:59 23:59 Intake Total 2384.21 / 2384.21 650 / 650 315 / 315 Output Total 1900 / 1900 325 / 325 Balance 484.21 / 484.21 325 / 325 315 / 315 Lab / Micro Data Result Diagrams: 05/05/21 05:48 05/05/21 05:48 Labs: Laboratory Results - last 24 hr 05/04/21 16:13: Vancomycin Trough 23.7 H 05/04/21 16:14: POC Glucose 167 H 05/05/21 05:48: WBC 7.2, RBC 2.64 L, Hgb 8.5 L, Hct 24.8 L, MCV 93.9, MCH 32.2 H, MCHC 34.3, RDW Std Deviation 57.1 H, RDW Coeff of Shania 17.2 H, Plt Count 163, MPV 11.1, Immature Gran % (Auto) 1.500 H, Neut % (Auto) 50.4, Lymph % (Auto) 30.2, [place] % (Auto) 13.8 H, Eos % (Auto) 3.5, Baso % (Auto) 0.6, Absolute Neuts (auto) 3.7, Absolute Lymphs (auto) 2.18, Nucleated RBC % 0.3 05/05/21 05:48: PT 17.5 H, INR 1.5 05/05/21 05:48: Sodium 141, Potassium 3.6, Chloride 112 H, Carbon Dioxide 22.0, Anion Gap 7, BUN 19 H, Creatinine 1.46 H, Estim Creat Clear Calc 29.45, Est GFR (MDRD) Af Amer 44 L, Est GFR (MDRD) Non-Af 36 L, BUN/Creatinine Ratio 13.0, Glucose 113 H, Calcium 7.0 L 05/05/21 05:48: Random Vancomycin 19.3 H 05/05/21 06:16: POC Glucose 109 05/05/21 11:13: POC Glucose 190 H Micro: Microbiology 05/01/21 14:30 Fluid - Synovial (joint) Gram Stain - Final 05/01/21 14:30 Fluid - Synovial (joint) Body Fluid Culture - Preliminary No growth-Final to follow 05/01/21 14:30 Fluid - Synovial (joint) Anaerobic Culture - Preliminary No growth in 48 hours. 04/29/21 09:51 Blood Culture (Wb) - Right Forearm Blood Culture - Final No growth in 5 days. 04/29/21 10:30 Blood Culture (Wb) - Left Hand Blood Culture - Final No growth in 5 days. 04/29/21 10:45 Urine, Catheterized Urine Culture - Final Proteus mirabilis 04/30/21 12:40 Stool C. difficile DNA Amplification - Final 04/29/21 19:37 Mucosa - Nasopharyngeal Respiratory Panel (PCR) - Final 04/29/21 10:45 Urine, Clean Catch Legionella Antigen - Final 04/29/21 10:45 Urine, Clean Catch Streptococcus pneumoniae Antigen (M - Final 04/29/21 13:52 Stool Stool Occult Blood (AMBROCIO) - Final Occult Blood Positive 04/29/21 10:35 Nasal Secretion SARS-CoV-2 Antigen (Rapid) - Final Physical Exam Const alert and oriented x3 HEENT normocephalic Eyes PERRL Neck no JVD Resp normal respiratory effort Cardio Negative for diaphoretic GI non-distended Extremity Extremity Narrative: Left lower extremity: Patient's leg is wrapped today. Distal erythema appears slightly diminished from yesterday. Moderate tenderness palpation. 2+ pitting edema. Limited range of motion of the knee. Warmth of the knee comparable to contralateral side. No erythema around the knee. Skin Skin Narrative: Mild erythema left medial leg Psych mental status grossly normal Assessment & Plan Assessment/Plan (1) Effusion, left knee: (2) Infected prosthetic knee joint: PLAN: Patient has chronic left knee periprosthetic joint infection. She has had previous washout in October of this year with retainment of implants. At that time we elected to proceed with retainment of implants and suppression of antibiotics due to her medical comorbidities. We discussed yesterday her treatment options include continued suppression with likely change in antibiotics or additional antibiotics related to her doxycycline and clinical monitoring. I spoke with the patient and her son at length about surgical intervention as well. Patient son notes he is also discussed with other family members and they do have concerns with complications with surgery. She had a prolonged recovery after her last surgery. They are aware of radiographic changes. At this point the knee appears to be the source of sepsis based on a diagnosis of exclusion. She is had no positive cultures from the knee and no positive blood cultures consistent with coag negative staph however there is no other source and aspirate is consistent with chronic infection of the knee. After having a lengthy discussion about risks of recurrent sepsis if suppression again fails as well as the risk associated with surgery with patient and her family all parties have agreed to proceed with nonoperative intervention. At this point I would recommend following infectious disease recommendations for an intermediate term course of IV antibiotics followed by continued suppression with additional or change in chronic oral antibiotics. Patient will likely need some skilled care upon discharge from the hospital. I would recommend that she follows up in the office when she has been discharged from skilled care and returns to assisted living. [facility] Office: (3) Septicemia:
[2021-05-05 16:50] LABS: Bedside Glucose 167 mg/dL (70-110)
[2021-05-05 21:56] LABS: Bedside Glucose 135 mg/dL (70-110)
[2021-05-06] VITALS (8 sets, daily range): BP systolic 121–142; BP diastolic 75–82; PULSE 76–94; RESP 16–18; TEMP 36.4–36.8; O2SAT 98–100
[2021-05-06] MEDS: Piperacil/Tazobactam 3.375 GM Q8 PREMIX IV ×2 (01:42→09:01)
[2021-05-06] MEDS: Levothyroxine 75 MCG Tablet PO (06:11)
[2021-05-06 06:31] LABS: Bedside Glucose 118 mg/dL (70-110)
[2021-05-06 06:44] LABS: Absolute Neutrophil Count 5.8 X10^3/uL (2.0-7.7); Basophil# 0.05 X10^3/uL; Basophil% 0.5 % (0-1); Eosinophil# 0.26 X10^3/uL; Eosinophils% 2.7 % (0-5); Hematocrit 24.9 % (37-47); Hemoglobin 8.6 g/dL (12.0-15.0); Mean Corp Hgb Conc 34.5 g/dL (32-36); Mean Corpuscular Hgb 32.6 pg (27.0-32.0); Mean Corpuscular Volume 94.3 fL (81-99); Mean Platelet Vol. 11.3 fl (6.2-12.0); Monocyte# 1.26 X10^3/uL; Monocyte% 13.3 % (0-10); NRBC Flagged by Analyzer 0.2 % (0-5); Neutrophil # 5.83 X10^3/uL (2.7-7.7); Neutrophil % 61.5 % (47-70); Platelet Count 182 K/mm3 (150-450); RBC Distribution Width CV 17.2 % (11.6-14.6); RBC Distribution Width SD 56.2 fl (35.1-43.9); Red Blood Count 2.64 M/mm3 (4.2-5.4); White Blood Count 9.5 K/mm3 (4.4-11.0)
[2021-05-06 06:57] LABS: International Normalized Ratio 1.3; Prothrombin Time (Protime)PT. 15.5 SECONDS (11.7-14.9)
[2021-05-06 07:05] LABS: Anion Gap 6 (5-15); BUN 16 mg/dL (7-18); BUN/Creat Ratio 12.4 RATIO (10-20); Calcium,Total 7.1 mg/dL (8.5-10.1); Chloride 114 mmol/L (98-107); Creatinine, Serum 1.29 mg/dL (0.55-1.02); EST Glomerular Filtration Rate 42 mL/min (>60); Est Glom Filt Rate - Afr Amer 51 mL/min (>60); Estimated Creatinine Clearance 33.33 ml/min; Glucose 120 mg/dL (74-106); Potassium 3.5 mmol/L (3.5-5.1); Sodium Level 141 mmol/L (136-145)
[2021-05-06] MEDS: Pantoprazole Sodium 40 MG Tablet PO (09:00)
[2021-05-06] MEDS: Menthol/Lanolin/Calamine/Znox 113 GM Tube 1 APPLIC TOPICAL (09:02)
--- NOTE | 2021-05-06 10:51 | CASEMGMT ---
Updates faxed to [facility]. SW also called [facility] and left a message letting Larisa know that patient will likely be returning today. Plan: [facility] under skilled level of care. Debib MUELLER
--- NOTE | 2021-05-06 10:59 | PCM.TXEXTCAR ---
Documented by User: Kvng ANDRES 05/06/21 11:10 Diet 04/29/21 17:20 Diet: Consistent Carb - Calorie Controlled Is pt able to select menu?: Yes How many daily calories?: 1600 calorie Wound(s) RFA: Wound Type: Abrasion left IJ site: Wound Type: Puncture LFA: Wound Type: Abrasion Therapies Physical Therapy: Eval and Treat Occupational Therapy: Eval and Treat Problem/Diagnosis (1) Effusion, left knee: Status: Acute (2) Infected prosthetic knee joint: Status: Chronic (3) Septicemia: Status: Acute Allergies/Procedures Done in Hospital Allergies No Known Allergies Allergy (Verified 01/25/21 17:44) Type of Care/Length of Stay Estimated LOS: More Than 30 Days Type of Care Needed: Skilled Rehab Potential: Fair Prognosis: Fair Additional Orders/Day of Discharge Day of Discharge: 05/06/21 Dietary and Speech Recommendations Dietitian Recommendations/Changes: Continue consistent CHO diet, 1600 calories/day; ONS if PO intake at meals fails. Discharge Plan Admission Admit Date/Time: 04/29/21 14:10 Primary Reason for Your Visit: Septic shock due to infected left knee Attending Provider: Louis Trujillo Primary Care Provider: Jose Cruz Benavides Consulting Providers: Charlie Kumar ; Rosales Ovalle ; Noah Kaur ; Miya Pike NP ; Leobardo Drake Discharge Orders/Prescriptions Prescriptions: Continued levothyroxine 75 MCG tablet 75 mcg PO DAILY RF: 0 metformin 500 MG tablet extended release 24 hr 1,000 mg PO BID RF: 0 furosemide 40 mg Tablet 40 mg PO DAILY RF: 0 warfarin 4 mg Tablet 4 mg PO DAILY RF: 0 gabapentin 600 mg Tablet 600 mg PO QHS RF: 0 acetaminophen 500 mg Tablet 1,000 mg PO Q6H PRN (Reason: Pain) RF: 0 lisinopril 10 mg Tablet 10 mg PO DAILY RF: 0 furosemide [Lasix] 20 mg Tablet 20 mg PO DAILY RF: 0 metoprolol tartrate 25 mg Tablet 25 mg PO BID RF: 0 Januvia 25 mg Tablet 25 mg PO DAILY RF: 0 cholecalciferol (vitamin D3) 50 mcg (2,000 unit) Capsule 50 mcg PO DAILY RF: 0 Discontinued doxycycline hyclate 100 mg capsule 100 mg PO DAILY RF: 0 Referrals / Follow Up: Jose Cruz Benavides MD [Primary Care Provider] - Disposition Disposition (needs filled in before D/C Order can be placed): Home, Self Care Documented by User: Dr. Louis Trujillo MD 05/06/21 12:06 Allergies/Procedures Done in Hospital Allergies No Known Allergies Allergy (Verified 01/25/21 17:44) Discharge Plan Admission Admit Date/Time: 04/29/21 14:10 Primary Reason for Your Visit: Septic shock due to infected left knee Attending Provider: Louis Trujillo Primary Care Provider: Jose Cruz Benavides Consulting Providers: Charlie Kumar ; Rosales Ovalle ; Noah Kaur ; Miya Pike NP ; Leobardo Drake Discharge Orders/Prescriptions Prescriptions: Continued levothyroxine 75 MCG tablet 75 mcg PO DAILY RF: 0 metformin 500 MG tablet extended release 24 hr 1,000 mg PO BID RF: 0 furosemide 40 mg Tablet 40 mg PO DAILY RF: 0 warfarin 4 mg Tablet 4 mg PO DAILY RF: 0 gabapentin 600 mg Tablet 600 mg PO QHS RF: 0 acetaminophen 500 mg Tablet 1,000 mg PO Q6H PRN (Reason: Pain) RF: 0 lisinopril 10 mg Tablet 10 mg PO DAILY RF: 0 furosemide [Lasix] 20 mg Tablet 20 mg PO DAILY RF: 0 metoprolol tartrate 25 mg Tablet 25 mg PO BID RF: 0 Januvia 25 mg Tablet 25 mg PO DAILY RF: 0 cholecalciferol (vitamin D3) 50 mcg (2,000 unit) Capsule 50 mcg PO DAILY RF: 0 Discontinued doxycycline hyclate 100 mg capsule 100 mg PO DAILY RF: 0 Referrals / Follow Up: Jose Cruz Benavides MD [Primary Care Provider] - Disposition Disposition (needs filled in before D/C Order can be placed): Home, Self Care
[2021-05-06 11:20] LABS: Bedside Glucose 137 mg/dL (70-110)
--- NOTE | 2021-05-06 12:51 | PCM.DC.SUM ---
Documented by User: Kvng ANDRES 05/06/21 13:04 Providers Date of Admission: 04/29/21 Primary Care Physician: Dr. Jose Cruz Benavides MD Consultations 04/29/21 17:19 Consult: Shaping Machine Operator / Pulmonary Medicine Routine Consulting Provider: [facility] Reason for Consult: septic shock EMERGENT Consult: No MD Notified: Yes Date Notified: 04/29/21 Time Notified: 14:19 Method of Notification: Verbal Consult: Onc/Wound/cone picker Routine Comment: 04/30/21 10:01 Consult: Orthopedics Routine Consulting Provider: Leobardo Drake Reason for Consult: septic shock, unknown source. 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 Code(s): T84.59XA - Infection and inflammatory reaction due to other internal joint prosthesis, initial encounter; Z96.659 - Presence of unspecified artificial knee joint (3) Septicemia: Status: Acute Code(s): A41.9 - Sepsis, unspecified organism Medications at Discharge Home Medications levothyroxine 75 mcg PO DAILY 02/17/20 metformin 1,000 mg PO BID 02/17/20 Januvia 25 mg PO DAILY 04/29/21 acetaminophen 1,000 mg PO Q6H PRN 04/29/21 cholecalciferol (vitamin D3) 50 mcg PO DAILY 04/29/21 furosemide 40 mg PO DAILY 04/29/21 furosemide [Lasix] 20 mg PO DAILY 04/29/21 gabapentin 600 mg PO QHS 04/29/21 lisinopril 10 mg PO DAILY 04/29/21 metoprolol tartrate 25 mg PO BID 04/29/21 warfarin 4 mg PO DAILY 04/29/21 Hospital Course Summary of Care Provided Minutes Spent on Discharge: 35 Hospital Course: Disposition: Patient to discharge to [facility] for ongoing skilled therapy. 1) septic shock from septic knee Orthopedics and ID following. No further surgical intervention indicated per orthopedic team. Patient is to follow-up with orthopedics within the next 2 weeks. Infectious disease also following patient and will prescribe an outpatient course of antibiotics. Patient's vital signs stable and afebrile. CBC no longer demonstrates a leukocytosis. Synovial joint fluid culture demonstrates no growth after course of Zosyn and vancomycin. 2) paroxysmal A. fib/HTN/hyperlipidemia Continue home metoprolol, warfarin, statin and home BP regimen. 3) DM2 with neuropathy Continue home diabetic regimen and gabapentin. 4) acute on chronic anemia Chronic anemia is likely secondary to chronic disease and she did test Hemoccult positive which would explain the acuteness of her new anemia. She received a unit of blood overnight 04/30/2021-05/01/2021. Patient seen by Kvng Phan PA-C, under the supervision of Dr. Trujillo. Physical Exam Narrative Patient is an 81-year-old female comfortably resting in bed, alert and orient x3. Patient denies development no symptoms overnight. Patient reports feeling well and would like to be discharged today. Patient does not appear in acute distress. Const alert, oriented x3 and no apparent distress HEENT normocephalic, head/scalp atraumatic and hearing grossly normal bilaterally Eyes PERRL, EOMs intact bilaterally and conjunctivae normal Neck no lymphadenopathy, supple and no JVD Resp normal respiratory effort, no retractions, no use of accessory muscles and clear to auscultation bilaterally Cardio regular rate, regular rhythm, no murmurs and no JVD GI normal to inspection, nondistended, normoactive bowel sounds, soft to palpation and non-tender Extremity normal to inspection, full ROM and no clubbing, cyanosis or edema Skin no rashes or lesions noted, no wounds and skin turgor normal Neuro CN's II-XII intact bilaterally Psych affect normal Weight / BMI Weight Weight: 259 lb 4.218 oz Body Mass Index (BMI) 37.2 ABG / Lab / Microbiology Data Result Diagrams: 05/06/21 06:20 05/06/21 06:20 Laboratory: Laboratory Results - last 24 hr 05/05/21 16:41: POC Glucose 167 H 05/05/21 21:09: POC Glucose 135 H 05/06/21 06:13: POC Glucose 118 H 05/06/21 06:20: PT 15.5 H, INR 1.3 05/06/21 06:20: WBC 9.5, RBC 2.64 L, Hgb 8.6 L, Hct 24.9 L, MCV 94.3, MCH 32.6 H, MCHC 34.5, RDW Std Deviation 56.2 H, RDW Coeff of Shania 17.2 H, Plt Count 182, MPV 11.3, Immature Gran % (Auto) 2.000 H, Neut % (Auto) 61.5, Lymph % (Auto) 20.0, [place] % (Auto) 13.3 H, Eos % (Auto) 2.7, Baso % (Auto) 0.5, Absolute Neuts (auto) 5.8, Absolute Lymphs (auto) 1.90, Nucleated RBC % 0.2 05/06/21 06:20: Sodium 141, Potassium 3.5, Chloride 114 H, Carbon Dioxide 21.0, Anion Gap 6, BUN 16, Creatinine 1.29 H, Estim Creat Clear Calc 33.33, Est GFR (MDRD) Af Amer 51 L, Est GFR (MDRD) Non-Af 42 L, BUN/Creatinine Ratio 12.4, Glucose 120 H, Calcium 7.1 L 05/06/21 11:16: POC Glucose 137 H Microbiology: Microbiology 05/01/21 14:30 Fluid - Synovial (joint) Gram Stain - Final 05/01/21 14:30 Fluid - Synovial (joint) Body Fluid Culture - Preliminary No growth-Final to follow 05/01/21 14:30 Fluid - Synovial (joint) Anaerobic Culture - Preliminary No growth in 48 hours. 04/29/21 09:51 Blood Culture (Wb) - Right Forearm Blood Culture - Final No growth in 5 days. 04/29/21 10:30 Blood Culture (Wb) - Left Hand Blood Culture - Final No growth in 5 days. 04/29/21 10:45 Urine, Catheterized Urine Culture - Final Proteus mirabilis 04/30/21 12:40 Stool C. difficile DNA Amplification - Final 04/29/21 19:37 Mucosa - Nasopharyngeal Respiratory Panel (PCR) - Final 04/29/21 10:45 Urine, Clean Catch Legionella Antigen - Final 04/29/21 10:45 Urine, Clean Catch Streptococcus pneumoniae Antigen (M - Final 04/29/21 13:52 Stool Stool Occult Blood (AMBROCIO) - Final Occult Blood Positive 04/29/21 10:35 Nasal Secretion SARS-CoV-2 Antigen (Rapid) - Final Meaningful Use Info Meaningful Use Diagnoses (Choose all that apply): None applicable Discharge Plan Admission Admit Date/Time: 04/29/21 14:10 Primary Reason for Your Visit: Septic shock due to infected left knee Attending Provider: Louis Trujillo Primary Care Provider: Jose Cruz Benavides Consulting Providers: Charlie Kumar ; Rosales Ovalle ; Noah Kaur ; Miya Pike NP ; Leobardo Drake Discharge Orders/Prescriptions Prescriptions: Continued levothyroxine 75 MCG tablet 75 mcg PO DAILY RF: 0 metformin 500 MG tablet extended release 24 hr 1,000 mg PO BID RF: 0 furosemide 40 mg Tablet 40 mg PO DAILY RF: 0 warfarin 4 mg Tablet 4 mg PO DAILY RF: 0 gabapentin 600 mg Tablet 600 mg PO QHS RF: 0 acetaminophen 500 mg Tablet 1,000 mg PO Q6H PRN (Reason: Pain) RF: 0 lisinopril 10 mg Tablet 10 mg PO DAILY RF: 0 furosemide [Lasix] 20 mg Tablet 20 mg PO DAILY RF: 0 metoprolol tartrate 25 mg Tablet 25 mg PO BID RF: 0 Januvia 25 mg Tablet 25 mg PO DAILY RF: 0 cholecalciferol (vitamin D3) 50 mcg (2,000 unit) Capsule 50 mcg PO DAILY RF: 0 Discontinued doxycycline hyclate 100 mg capsule 100 mg PO DAILY RF: 0 Referrals / Follow Up: Jose Cruz Benavides MD [Primary Care Provider] - Disposition Disposition (needs filled in before D/C Order can be placed): Home, Self Care Documented by User: Dr. Louis Trujillo MD 05/06/21 13:18 Providers Date of Admission: 04/29/21 Reason For Visit: SEPTIC SHOCK Medications at Discharge Home Medications levothyroxine 75 mcg PO DAILY 02/17/20 metformin 1,000 mg PO BID 02/17/20 Januvia 25 mg PO DAILY 04/29/21 acetaminophen 1,000 mg PO Q6H PRN 04/29/21 cholecalciferol (vitamin D3) 50 mcg PO DAILY 04/29/21 furosemide 40 mg PO DAILY 04/29/21 furosemide [Lasix] 20 mg PO DAILY 04/29/21 gabapentin 600 mg PO QHS 04/29/21 lisinopril 10 mg PO DAILY 04/29/21 metoprolol tartrate 25 mg PO BID 04/29/21 warfarin 4 mg PO DAILY 04/29/21 Hospital Course Operations None Summary of Care Provided Minutes Spent on Discharge: 35 Hospital Course: This patient was seen in conjunction with Kvng Phan PA-C. I have independently interviewed and examined the patient and reviewed pertinent historical, laboratory, and other data. Please refer to Kvng Phan PA-C's note for details of this patient's presentation, findings, and recommendations. I have reviewed Kvng Phan PA-C's note and concur with documented findings. In brief, patient is an 81-year-old female admitted with sepsis secondary to septic arthritis involving the left knee. Admitted to regular nursing floor for subsequent management Hospital course; as documented above ABG / Lab / Microbiology Data Result Diagrams: 05/06/21 06:20 05/06/21 06:20 Discharge Plan Admission Admit Date/Time: 04/29/21 14:10 Primary Reason for Your Visit: Septic shock due to infected left knee Attending Provider: Louis Trujillo Primary Care Provider: Jose Cruz Benavides Consulting Providers: Charlie Kumar ; Rosales Ovalle ; Noah Kaur ; Miya Pike NP ; Leobardo Drake Discharge Orders/Prescriptions Prescriptions: Continued levothyroxine 75 MCG tablet 75 mcg PO DAILY RF: 0 metformin 500 MG tablet extended release 24 hr 1,000 mg PO BID RF: 0 furosemide 40 mg Tablet 40 mg PO DAILY RF: 0 warfarin 4 mg Tablet 4 mg PO DAILY RF: 0 gabapentin 600 mg Tablet 600 mg PO QHS RF: 0 acetaminophen 500 mg Tablet 1,000 mg PO Q6H PRN (Reason: Pain) RF: 0 lisinopril 10 mg Tablet 10 mg PO DAILY RF: 0 furosemide [Lasix] 20 mg Tablet 20 mg PO DAILY RF: 0 metoprolol tartrate 25 mg Tablet 25 mg PO BID RF: 0 Januvia 25 mg Tablet 25 mg PO DAILY RF: 0 cholecalciferol (vitamin D3) 50 mcg (2,000 unit) Capsule 50 mcg PO DAILY RF: 0 Discontinued doxycycline hyclate 100 mg capsule 100 mg PO DAILY RF: 0 Referrals / Follow Up: Jose Cruz Benavides MD [Primary Care Provider] - Disposition Disposition (needs filled in before D/C Order can be placed): Home, Self Care Charges/Coding Visit Charges Inpatient E&M: [id number] Disch Hosp Hospital Course Consultations Consultations: Consultations 04/29/21 17:19 Consult: Shaping Machine Operator / Pulmonary Medicine Routine Consulting Provider: [facility] Reason for Consult: septic shock EMERGENT Consult: No Notified: Yes Date Notified: 04/29/21 Time Notified: 14:19 Method of Notification: Verbal Consult: Onc/Wound/cone picker Routine Comment: 04/30/21 10:01 Consult: Orthopedics Routine Consulting Provider: Leobardo Drake Reason for Consult: septic shock, unknown source. Has left knee pain with a prosthetic EMERGENT Consult: No Notified: Yes Date Notified: 04/30/21 Time Notified: 08:51 Method of Notification: Text 05/02/21 10:14 Consult: Infectious Disease Routine Consulting Provider: Charlie Kumar Reason for Consult: Septic shock EMERGENT Consult: No Notified: Yes Date Notified: 05/02/21 Time Notified: 09:30 Method of Notification: Verbal Operations None
--- NOTE | 2021-05-06 14:56 | NURSING ---
This RN reviewed all SN charting
--- NOTE | 2021-05-06 15:12 | CASEMGMT ---
OTILIO faxed orders to [place]. OTILIO also called and left a message letting [place] admissions know that patient will be on IV antibiotics. SW let them know patient will have a picc line placed today before she comes. [facility] will set up transport when ready. Plan: d/c back to [place] under skilled level of care. [facility] will transport via cot. Debbi MUELLER
--- NOTE | 2021-05-06 16:21 | CASEMGMT ---
Patient called patient's son. He was not available so OTILIO spoke with patient's daughter in law, Sherri. OTILIO let Sherri know that patient will be going back to [place] today after she gets her PICC line. She thanked OTILIO for letting her know. Plan: d/c back to [place] under skilled level of care. Debbi Ruiz PBX TECHNICIAN ERVIN
[2021-05-06] MEDS: Insulin Lispro 100 UNIT/ML INSULN.PEN SC (16:23)
--- NOTE | 2021-05-06 16:35 | PCM.PN.ID ---
Physical Exam Narrative Feeling better, wants to leave, no fever Const alert General Appearance: cooperative Resp normal air movement and clear to auscultation bilaterally Cardio regular rate and regular rhythm GI normal to inspection, nondistended, normoactive bowel sounds Extremity General Extremity: edema Skin no rashes or lesions noted ID ID: Route of nutrition/ use of supplements: [] Nutritional Intake: [] IV Site: [] Panchal Catheter: [] Assessment & Plan Assessment/Plan (1) Septic shock: PLAN: L knee MS-CoNS PJI, taken for I&D and poly exchange 10/03/[address] Drake, has been on po doxy since then. Improving on vanc/zosyn. Aspiration of knee done. Ucx with less than 1k proteus. Ortho following. Off pressor. Ok for d/c to [facility] with picc, 6 weeks vanc/ceftriaxone, stop date 06/10/21, then plan on restarting po abx for suppression. Will follow, ID followup in 2-3 week. (2) Acute kidney injury: (3) Infection of prosthetic left knee joint:
--- NOTE | 2021-05-06 17:41 | NURSING ---
This RN called and gave report to [facility] at [facility].
--- NOTE | 2021-05-06 18:20 | NURSING ---
Pt's rings have been returned to pt. Pt currently wearing.
[2021-05-06 18:30] LABS: Bedside Glucose 205 mg/dL (70-110)
== END 2021-05-06 20:55 | DRG 559 ==
LOC: ED 10:46 → ICU 15:01 → PCU 05-04 11:03
PROVIDERS: Family Medicine; Internal Medicine Critical Care Medicine; Specialist; Admitting Provider Internal Medicine; Emergency Provider Emergency Medicine; PCP Family Medicine; Visit Provider Internal Medicine
DX: T84.54XA Infection and inflammatory reaction due to internal left knee prosthesis, initial encounter (principal); R65.21 Severe sepsis with septic shock; A41.9 Sepsis, unspecified organism; G93.41 Metabolic encephalopathy; M00.9 Pyogenic arthritis, unspecified; N17.9 Acute kidney failure, unspecified; D63.1 Anemia in chronic kidney disease; I48.0 Paroxysmal atrial fibrillation; E78.5 Hyperlipidemia, unspecified; E11.40 Type 2 diabetes mellitus with diabetic neuropathy, unspecified; I12.9 Hypertensive chronic kidney disease with stage 1 through stage 4 chronic kidney disease, or unspecified chronic kidney disease; E11.22 Type 2 diabetes mellitus with diabetic chronic kidney disease; N18.31 Chronic kidney disease, stage 3a; E03.9 Hypothyroidism, unspecified; E87.5 Hyperkalemia; E66.9 Obesity, unspecified; R19.5 Other fecal abnormalities; R79.1 Abnormal coagulation profile; Z68.37 Body mass index [BMI] 37.0-37.9, adult; Z23 Encounter for immunization; Z66 Do not resuscitate; Z96.653 Presence of artificial knee joint, bilateral; Z79.01 Long term (current) use of anticoagulants; Z79.2 Long term (current) use of antibiotics; Z79.84 Long term (current) use of oral hypoglycemic drugs; Z79.890 Hormone replacement therapy; Z79.899 Other long term (current) drug therapy; Z87.891 Personal history of nicotine dependence; Z86.718 Personal history of other venous thrombosis and embolism; Z86.73 Personal history of transient ischemic attack (TIA), and cerebral infarction without residual deficits
CPT/HCPCS: 36415; 36569; 51702; 71045; 73562; 80048; 80053; 80202; 81001; 82274; 82550; 82803; 82962; 83605; 83735; 84100; 85014; 85018; 85025; 85610; 85730; 86850; 86900; 86901; 86920; 86922; 87040; 87070; 87075; 87086; 87088; 87186; 87205; 87426; 87449; 87493; 87633; 87641; 89050; 89051; 97110; 97163; 97166; 97530; 97535; 99251; 99285; G0008; J7030; J7040; J7050; P9016; 90686; A4216; G0463; J0696; J1940

== ENCOUNTER → 2021-08-29 | Outpatient (REF) | payer SELFPAY ==
[2021-08-29 08:32] LABS: BUN 66 mg/dL (7-18); Creatinine, Serum 3.27 mg/dL (0.55-1.02); Glucose 75 mg/dL (74-106)
[2021-08-29 08:33] LABS: ALB/GLOB Ratio 0.3 RATIO (0.9-2.4); AST(SGOT) 20 U/L (15-37); Alanine Aminotransfer ALT/SGPT 9 U/L (13-56); Albumin, Serum 1.2 g/dL (3.2-5.0); Alkaline Phosphatase 146 U/L (45-117); Anion Gap 11 (5-15); BUN/Creat Ratio 20.2 RATIO (10-20); Calcium,Total 7.5 mg/dL (8.5-10.1); Chloride 104 mmol/L (98-107); EST Glomerular Filtration Rate 14 mL/min (>60); Est Glom Filt Rate - Afr Amer 17 mL/min (>60); Globulin 3.6 g/dL (2.2-4.2); Potassium 3.7 mmol/L (3.5-5.1); Protein, Total 4.8 g/dL (6.4-8.2); Sodium Level 137 mmol/L (136-145)
== END | disposition home or self-care (01) ==
LOC: OLS.WHLEAS 04:00
PROVIDERS: PCP Family Medicine; Visit Provider Family Medicine
DX: N17.9 Acute kidney failure, unspecified (principal); I50.30 Unspecified diastolic (congestive) heart failure; I48.91 Unspecified atrial fibrillation; T84.54XD Infection and inflammatory reaction due to internal left knee prosthesis, subsequent encounter; R54 Age-related physical debility
CPT/HCPCS: 36415; 80053